=== PATIENT | female | born 1930 | race Caucasian/White ===

== ENCOUNTER 2016-12-31 11:18 | Emergency (ER) | payer MEDICARE ==
[~2016-12-31] VITALS: Ht 154.9 cm; Wt 79.7 kg
[~2016-12-31 11:18] MED LIST: ASPI81TA81 PO; ATOR40TA16 PO; COQ-100C2; EZET10 PO; LOSA25TA PO; METO50TA PO; NITR1SUB3 SL; POTA10TA8 PO; SOTA80TA PO; TRAZ50TA12 PO; WARF-58 PO
[2016-12-31 11:23] VITALS: BP 195/96; PULSE 78; RESP 20; TEMP 97.3; O2SAT 99
[2016-12-31] MEDS ORDERED: WARF4TAB52 PO (11:54)
[2016-12-31] MEDS ORDERED: CARV80 PO (11:54)
[2016-12-31] MEDS ORDERED: COQ-30CA2 (11:54)
[2016-12-31] MEDS ORDERED: CENTCHW4 CHEW (11:54)
[2016-12-31] MEDS ORDERED: POTA10TA2 PO (11:54)
[2016-12-31 12:07] LABS: BLOOD, URINE LARGE (NEG); GLUCOSE,URINE NEG (NEG); KETONE, URINE NEG (NEG); NITRITE,URINE NEG (NEG)
[2016-12-31] MEDS ORDERED: SODIUM CHLOR 0.9% 1000 ML INJ 1,000 ML IV ONE (12:07)
[2016-12-31 12:08] LABS: METHOD OF COLLECTION CLEAN CATCH; URINE COLOR YELLOW (YELLW/STRAW)
--- NOTE | 2016-12-31 12:12 | PD ---
HPI Chief Complaint: Back/ Neck Pain or Injury Time Seen by Provider: 12:01 Travel History International Travel<30 days: No Contact w/Intl Traveler<30days: No Traveled to known affect area: No History of Present Illness HPI patient c/o one day history of right flank pain, nonrad, 09/14, assoc with nausea but without v/d. patient has no aggravating or alleviating factors. per pt pcp dr madden she had a cat scan months ago which showed multiple kidney stones. all:plavix caused rash PFSH Past Medical History Hx Anticoagulant Therapy: Yes Arthritis: Yes Cancer: No Cardiac Catheterization: Yes Cardiovascular Problems: Yes (PACER) High Cholesterol: Yes Chest Pain: Yes Diminished Hearing: Yes Endocrine: No Genitourinary: No Hypertension: Yes Immune Disorder: No Psychiatric: No Reproductive: No Menopausal: Yes Past Surgical History Appendectomy: Yes Body Medical Devices: CARDIAC STENTS Cardiac Surgery: Yes (PACEMAKER PLACED) Coronary Stent: Yes (X 5) Genitourinary Surgery: Yes (BLADDER SUSPENSION) Hysterectomy: Yes Joint Replacement: Yes (BILATERAL KNEE) Pacemaker: Yes Other Surgery: Yes (BILATERAL BREAST LUMPECTOMY) Social History Alcohol Use: No Tobacco Use: No Substance Use: No Allergies-Medications (Allergen,Severity, Reaction): Coded Allergies: clopidogrel (Unverified Allergy, Mild, Hives, 09/20/16) Iodinated Contrast- Oral and IV Dye (Verified Allergy, Unknown, 12/31/16) Reported Meds & Prescriptions Reported Meds & Active Scripts Active Whitmer (Hydrocodone-Acetaminophen) 10-325 Mg Tab 1 Tab PO Q4H PRN Flomax (Tamsulosin HCl) 0.4 Mg Cap 0.4 Mg PO DAILY 5 Days Reported Centrum (Multiple Vitamins W/ Minerals) 1 Chew 1 Tab CHEW DAILY Coq-10 (Coenzyme Q10 (Ubidecarenone)) 30 Mg Cap Coreg Cr 24 HR (Carvedilol) 80 Mg Cap 80 Mg PO DAILY Potassium Chloride ER (Potassium Chloride) 10 Meq Tab 50 Meq PO DAILY Warfarin 1 Mg Tab 0.5 Mg PO SUNDAY AND SUNDAY Sotalol (Sotalol HCl) 80 Mg Tab 80 Mg PO BID Aspir-81 (Aspirin) 81 Mg Tabdr 81 Mg PO , , W, , SA Losartan (Losartan Potassium) 25 Mg Tab 80 Mg PO BID Warfarin 3 Mg Tab 1.5 Mg PO DAILY Review of Systems Except as stated in HPI: all other systems reviewed are Neg General / Constitutional: No: Fever Eyes: No: Visual changes HENT: No: Headaches Cardiovascular: No: Chest Pain or Discomfort Respiratory: No: Shortness of Breath Gastrointestinal: No: Abdominal Pain Genitourinary: Positive: Flank Pain Musculoskeletal: No: Pain Skin: No Rash Neurologic: No: Weakness Psychiatric: No: Depression Endocrine: No: Polydipsia Hematologic/Lymphatic: No: Easy Bruising Physical Exam Narrative GENERAL: SKIN: Warm and dry. HEAD: Atraumatic. Normocephalic. EYES: Pupils equal and round. No scleral icterus. No injection or drainage. ENT: No nasal bleeding or discharge. Mucous membranes pink and moist. NECK: Trachea midline. No JVD. CARDIOVASCULAR: Regular rate and rhythm. RESPIRATORY: No accessory muscle use. Clear to auscultation. Breath sounds equal bilaterally. GASTROINTESTINAL: Abdomen soft, non-tender, nondistended. MUSCULOSKELETAL: Extremities without clubbing, cyanosis, or edema. No obvious deformities. mild rt cva ttp NEUROLOGICAL: Awake and alert. No obvious cranial nerve deficits. Motor grossly within normal limits. Five out of 5 muscle strength in the arms and legs. Normal speech. PSYCHIATRIC: Appropriate mood and affect; insight and judgment normal. Data Data Last Documented VS Orders Orders Urinalysis - C+S If Indicated (12/31/16 11:54) Complete Blood Count With Diff (12/31/16 12:07) Comprehensive Metabolic Panel (12/31/16 12:07) Ct Abd/Pel W/O Iv Contrast (12/31/16 12:07) Ecg Monitoring (12/31/16 12:07) Iv Access Insert/Monitor (12/31/16 12:07) Ketorolac Inj (Toradol Inj) (12/31/16 12:15) Morphine Inj (Morphine Inj) (12/31/16 12:15) Ondansetron Inj (Zofran Inj) (12/31/16 12:15) Sodium Chlor 0.9% 1000 Ml Inj (Ns 1000 M (12/31/16 12:07) Lipase (12/31/16 12:07) Ed Discharge Order (12/31/16 14:35) Labs Laboratory Tests Test 12/31/16 11:55 12/31/16 12:40 Urine Collection Type CLEAN CATCH Urine Color YELLOW Urine Turbidity MOD Urine pH 6.0 Urine Specific [place] 1.016 Urine Protein TRACE mg/dL Urine Glucose (UA) NEG mg/dL Urine Ketones NEG mg/dL Urine Occult Blood LARGE Urine Nitrite NEG Urine Bilirubin NEG Urine Leukocyte Esterase SMALL Urine RBC 100-200 /hpf Urine WBC 6-8 /hpf Urine Squamous Epithelial Cells 0-5 /hpf Urine Amorphous Sediment FEW Microscopic Urinalysis Comment CULT NOT INDICATED Urine Collection Time 1155 White Blood Count 7.2 TH/MM3 Red Blood Count 4.64 MIL/MM3 Hemoglobin 15.2 GM/DL Hematocrit 44.6 % Mean Corpuscular Volume 96.0 FL Mean Corpuscular Hemoglobin 32.8 PG Mean Corpuscular Hemoglobin Concent 34.1 % Red Cell Distribution Width 12.0 % Platelet Count 180 TH/MM3 Mean Platelet Volume 8.4 FL Neutrophils (%) (Auto) 60.2 % Lymphocytes (%) (Auto) 25.9 % Monocytes (%) (Auto) 8.0 % Eosinophils (%) (Auto) 5.1 % Basophils (%) (Auto) 0.8 % Neutrophils # (Auto) 4.2 TH/MM3 Lymphocytes # (Auto) 1.9 TH/MM3 Monocytes # (Auto) 0.6 TH/MM3 Eosinophils # (Auto) 0.4 TH/MM3 Basophils # (Auto) 0.1 TH/MM3 CBC Comment DIFF FINAL Differential Comment Blood Urea Nitrogen 21 MG/DL Creatinine 0.99 MG/DL Random Glucose 114 MG/DL Total Protein 7.2 GM/DL Albumin 3.6 GM/DL Calcium Level 9.3 MG/DL Alkaline Phosphatase 111 U/L Aspartate Amino Transf (AST/SGOT) 30 U/L Alanine Aminotransferase (ALT/SGPT) 33 U/L Total Bilirubin 0.9 MG/DL Sodium Level 139 MEQ/L Potassium Level 4.7 MEQ/L Chloride Level 105 MEQ/L Carbon Dioxide Level 27.3 MEQ/L Anion Gap 7 MEQ/L Estimat Glomerular Filtration Rate 53 ML/MIN Lipase 194 U/L [facility] Medical Decision Making Medical Screen Exam Complete: Yes Emergency Medical Condition: Yes Medical Record Reviewed: Yes Differential Diagnosis pyelo v kidney stones v uti v pancreatitis Narrative Course ON UA NO E/O UTI, LIPASE NL, BUT CT SHOWED RIGHT URETEROLITHIASIS WITH HYDRO NEAR DISTAL URETER...STONE IS OF A SIZE (5MM) THAT IS EXPECTED TO PASS WITHOUT UROLOGICAL INTERVENTION Diagnosis Primary Impression: RIGHT URETEROLITHIASIS Patient Instructions: General Instructions, Kidney Stones (ED) Scripts Hydrocodone-Acetaminophen (Whitmer) 10-325 Mg Tab 1 TAB PO Q4H Y for PAIN, #15 TAB 0 Refills Prov: Chris Mccratney MD 12/31/16 Tamsulosin (Flomax) 0.4 Mg Cap 0.4 MG PO DAILY for Manage Prostate Problems for 5 Days, #5 CAP 0 Refills Prov: Chris Mccartney MD 12/31/16 Disposition: 01 DISCHARGE HOME Condition: Stable Chris Mccartney MD Dec 31, 2016 12:12
[2016-12-31 12:14] LABS: COMMENT (UR) CULT NOT INDICATED; CULTURE IF INDICATED CULT NOT INDICATED; RBC, URINE 100-200 /hpf (0-3); SQUAMOUS EPITHELIAL CELL URINE 0-5 /hpf (0-5)
[2016-12-31] MEDS ORDERED: KETOROLAC TROMETHAMINE 30 MG/ML (IVP) VIAL IV PUSH ONE (12:15)
[2016-12-31] MEDS ORDERED: ONDANSETRON HCL 4 MG/2 ML VIAL IV PUSH ONE (12:15)
[2016-12-31] MEDS ORDERED: MORPHINE SULFATE 4 MG/ML INJ IV PUSH ONE (12:15)
[2016-12-31 12:46] LABS: AUTOMATED NEUTROPHIL # 4.2 TH/MM3 (1.8-7.7); BASOPHIL # 0.1 TH/MM3 (0-0.2); BASOPHIL % 0.8 % (0.0-2.0); EOSINOPHIL # 0.4 TH/MM3 (0-0.4); EOSINOPHIL % 5.1 % (0.0-4.0); HEMATOCRIT 44.6 % (35.0-46.0); HEMO FLAGS DIFF FINAL; LYMPH % 25.9 % (9.0-44.0); LYMPHOCYTE # 1.9 TH/MM3 (1.0-4.8); MEAN CORPUSCULAR HEMOGLOBIN 32.8 PG (27.0-34.0); MEAN CORPUSCULAR HGB CONC 34.1 % (32.0-36.0); NEUT % 60.2 % (16.0-70.0); PLATELET COUNT 180 TH/MM3 (150-450); RED BLOOD COUNT 4.64 MIL/MM3 (4.00-5.30); WHITE BLOOD COUNT 7.2 TH/MM3 (4.0-11.0)
[2016-12-31 12:55] LABS: CHLORIDE 105 MEQ/L (98-107); POTASSIUM 4.7 MEQ/L (3.5-5.1); SODIUM (NA) 139 MEQ/L (136-145)
[2016-12-31 12:59] LABS: ANION GAP 7 MEQ/L (5-15); BICARBONATE 27.3 MEQ/L (21.0-32.0); BLOOD UREA NITROGEN 21 MG/DL (7-18)
[2016-12-31 13:02] LABS: ALT (GPT) 33 U/L (10-53); AST (GOT) 30 U/L (15-37); GLOMERULAR FILTRATION RATE 53 ML/MIN (>89)
[2016-12-31 13:04] LABS: TOTAL BILIRUBIN ADULT 0.9 MG/DL (0.2-1.0)
[2016-12-31 13:05] LABS: ALKALINE PHOSPHATASE 111 U/L (45-117)
--- NOTE | 2016-12-31 13:51 | RADRPT ---
EXAM DATE/TIME: 12/31/2016 13:07 [facility] COMPARISON: No previous studies available for comparison. INDICATIONS : Right flank pain. Evaluate for renal calculi. ORAL CONTRAST: No oral contrast ingested. RADIATION DOSE: 22.47 CTDIvol (mGy) MEDICAL HISTORY : Cardiovascular disease. Hypertension. SURGICAL HISTORY : Coronary artery stent. Pacemaker.Hysterectomy.Appendectomy. ENCOUNTER: Initial ACUITY: 3 days PAIN SCALE: 0/10 LOCATION: Right flank TECHNIQUE: Volumetric scanning of the abdomen and pelvis was performed. Using automated exposure control and ad justment of the mA and/or kV according to patient size, radiation dose was kept as low as reasonably achievable to obtain optimal diagnostic quality images. DICOM format image data is available electro nically for review and comparison. FINDINGS: LOWER LUNGS: The visualized lower lungs are clear. LIVER: 1.8 cm cyst medial segment left lobe. No calcified gallstones. No dilated loops of small or large b owel. SPLEEN: Normal size without lesion. PANCREAS: Within normal limits. KIDNEYS: There is mild dilation of the collecting system of the right kidney, moderate dilation of the extrare nal pelvis and right ureter down to the distal one third where there is a 5 mm calcified obstructing stone. There are 4 additional calcified stones in the collecting system of the right kidney measurin g 4 mm or less. On the left side, there is a solitary 3 mm calcified stone upper pole hydronephrosis . Left ureter is normal in dimension without evidence of calcified stones. ADRENAL GLANDS: Within normal limits. VASCULAR: There is no aortic aneurysm. BOWEL/MESENTERY: No dilated loops of small or large bowel. ABDOMINAL WALL: Within normal limits. RETROPERITONEUM: There is no lymphadenopathy. BLADDER: Smooth margins. No calcifications within the lumen. Normal calcified phleboliths in the pelvis. REPRODUCTIVE: Within normal limits. INGUINAL: There is no lymphadenopathy or hernia. MUSCULOSKELETAL: Within normal limits for patient age. CONCLUSION: 1. 5 mm obstructing stone in the distal right ureter with associated hydroureter and hydronephrosis. 2. 4 additional stones in the collecting system the right kidney and one nonobstructing stone upper p ole left kidney. Rey Randall MD on December 31, 2016 at 13:34 Board Certified Radiologist. This report was verified electronically.
[2016-12-31] MEDS ORDERED: TAMS5CAP PO (14:03)
[2016-12-31] MEDS ORDERED: HYDR-3366 PO (14:03)
== END 2016-12-31 14:51 | disposition home or self-care (01) ==
LOC: PHEFT 11:18
DX: N13.2 Hydronephrosis with renal and ureteral calculous obstruction (principal); I10 Essential (primary) hypertension
CPT/HCPCS: 74176; 80053; 81001; 83690; 85025; 96361; 96374; 96375; 99285; J1885; J2270; J2405; J7030

== ENCOUNTER 2017-04-29 08:49 | Inpatient (IN) | payer MEDICARE ==
[2017-04-29] VITALS (30 sets, daily range): BP systolic 122–170; BP diastolic 60–97; PULSE 72–149; RESP 17–36; TEMP 98.2; O2SAT 87–100
[~2017-04-29] VITALS: Ht 154.9 cm; Wt 83.9 kg
[~2017-04-29 08:49] MED LIST changes: -ATOR40TA16 PO; +CARV80 PO; +CENTCHW4 CHEW; -COQ-100C2; +COQ-30CA2 PO; -EZET10 PO; +HYDR-3366 PO; -METO50TA PO; -NITR1SUB3 SL; +POTA10TA2 PO; -POTA10TA8 PO; +TAMS5CAP PO; -TRAZ50TA12 PO; +WARF4TAB52 PO
[2017-04-29] MEDS ORDERED: SODIUM CHLORIDE 0.9% FLUSH 10 ML FLUSH IVF PRN (09:15)
[2017-04-29] MEDS ORDERED: ASPIRIN 81 MG CHEW TAB PO ONE (09:15)
[2017-04-29] MEDS ORDERED: DILTIAZEM HCL 50 MG/10 ML VIAL ONE (09:25)
[2017-04-29 09:30] LABS: AUTOMATED NEUTROPHIL # 9.8 TH/MM3 (1.8-7.7); BASOPHIL % 0.1 % (0.0-2.0); EOSINOPHIL % 0.1 % (0.0-4.0); HEMATOCRIT 47.8 % (35.0-46.0); HEMOGLOBIN 16.9 GM/DL (11.6-15.3); LYMPH % 10.2 % (9.0-44.0); LYMPHOCYTE # 1.2 TH/MM3 (1.0-4.8); MEAN CELL VOLUME 97.6 FL (80.0-100.0); MEAN CORPUSCULAR HEMOGLOBIN 34.5 PG (27.0-34.0); MEAN CORPUSCULAR HGB CONC 35.3 % (32.0-36.0); MEAN PLATELET VOLUME 9.6 FL (7.0-11.0); MONO % 9.2 % (0.0-8.0); MONOCYTE # 1.1 TH/MM3 (0-0.9); NEUT % 80.4 % (16.0-70.0); PLATELET COUNT 142 TH/MM3 (150-450); RED CELL DISTRIBUTION WIDTH 12.1 % (11.6-17.2); WHITE BLOOD COUNT 12.2 TH/MM3 (4.0-11.0)
[2017-04-29] MEDS ORDERED: DILTIAZEM HCL 50 MG/10 ML VIAL IV PUSH ONE (09:30)
[2017-04-29] MEDS ORDERED: DILTIAZEM HCL 25 MG/5 ML VIAL IV PUSH ONE (09:30)
--- NOTE | 2017-04-29 09:32 | PD ---
HPI Chief Complaint: Respiratory Symptoms Time Seen by Provider: 08:58 Travel History International Travel<30 days: No Contact w/Intl Traveler<30days: No Traveled to known affect area: No History of Present Illness HPI Patient is an 86-year-old female presents the emergency department for evaluation of cough chest pain and dyspnea over the past week. Patient denies any fever denies any sputum production. She states she has been progressive and she feels fairly run down. She received DuoNeb by EMS prior to arrival for her saturation low at 91. She describes the pain as an ache, all through her chest, she states fairly constant. PFSH Past Medical History Hx Anticoagulant Therapy: Yes Arthritis: Yes Atrial Fibrillation: Yes Cancer: No Cardiac Catheterization: Yes (PACEMAKER) Cardiovascular Problems: Yes High Cholesterol: Yes Chest Pain: Yes Diminished Hearing: Yes (HEARING AIDS) Endocrine: No Genitourinary: No Hypertension: Yes Immune Disorder: No Psychiatric: No Reproductive: No Menopausal: Yes : 7 Para: 3 Past Surgical History Appendectomy: Yes Body Medical Devices: CARDIAC STENTS Cardiac Surgery: Yes (PACEMAKER PLACED) Coronary Stent: Yes (X 5) Genitourinary Surgery: Yes (BLADDER SUSPENSION) Hysterectomy: Yes Joint Replacement: Yes (BILATERAL KNEE) Pacemaker: Yes Tonsillectomy: Yes Other Surgery: Yes (BILATERAL BREAST LUMPECTOMY) Social History Alcohol Use: No Tobacco Use: No Substance Use: No Allergies-Medications (Allergen,Severity, Reaction): Coded Allergies: clopidogrel (Unverified Allergy, Mild, Hives, 04/29/17) Iodinated Contrast- Oral and IV Dye (Verified Allergy, Unknown, 04/29/17) Reported Meds & Prescriptions Reported Meds & Active Scripts Active Reported Hydrochlorothiazide 12.5 Mg Cap 0.5 Tab PO DAILY Atorvastatin (Atorvastatin Calcium) 40 Mg Tab 40 Mg PO HS Centrum (Multiple Vitamins W/ Minerals) 1 Chew 1 Tab CHEW DAILY Coq-10 (Coenzyme Q10 (Ubidecarenone)) 30 Mg Cap 200 Mg PO DAILY Coreg Cr 24 HR (Carvedilol) 80 Mg Cap 80 Mg PO DAILY Potassium Chloride ER (Potassium Chloride) 10 Meq Tab 50 Meq PO DAILY Warfarin 1 Mg Tab 1.5 Mg PO SUN,TUES,THURS,SAT Sotalol (Sotalol HCl) 80 Mg Tab 120 Mg PO BID Aspir-81 (Aspirin) 81 Mg Tabdr 81 Mg PO CORONEL, TU, W, TH, SA Losartan (Losartan Potassium) 25 Mg Tab 50 Mg PO BID Warfarin 3 Mg Tab 2 Mg PO MWF Review of Systems Except as stated in HPI: all other systems reviewed are Neg Physical Exam Narrative GENERAL: Well-developed well-nourished, appears ill. SKIN: Focused skin assessment warm/dry. HEAD: Atraumatic. Normocephalic. EYES: Pupils equal and round. No scleral icterus. No injection or drainage. ENT: No nasal bleeding or discharge. Mucous membranes pink and moist. NECK: Trachea midline. No JVD. CARDIOVASCULAR: Regular rate and rhythm. No murmur appreciated. RESPIRATORY: No accessory muscle use. Clear to auscultation. Breath sounds equal bilaterally. GASTROINTESTINAL: Abdomen soft, non-tender, nondistended. Hepatic and splenic margins not palpable. MUSCULOSKELETAL: No obvious deformities. No clubbing. No cyanosis. No edema. NEUROLOGICAL: Awake and alert. No obvious cranial nerve deficits. Motor grossly within normal limits. Normal speech. PSYCHIATRIC: Appropriate mood and affect; insight and judgment normal. Data Data Last Documented VS Vital Signs Date Time Temp Pulse Resp B/P (MAP) Pulse Ox O2 Delivery O2 Flow Rate FiO2 04/29/17 10:45 124 27 150/67 (94) 95 Nasal Cannula 3.00 04/29/17 09:10 98.2 Orders Orders B-Type Natriuretic Peptide (04/29/17 09:09) Ckmb (Isoenzyme) Profile (04/29/17 09:09) Complete Blood Count With Diff (04/29/17 09:09) Comprehensive Metabolic Panel (04/29/17 09:09) Magnesium (Mg) (04/29/17 09:09) Prothrombin Time / Inr (Pt) (04/29/17 09:09) Act Partial Throm Time (Ptt) (04/29/17 09:09) Troponin I (04/29/17 09:09) Chest, Single Ap (04/29/17 09:09) Ecg Monitoring (04/29/17 09:09) Iv Access Insert/Monitor (04/29/17 09:09) Oximetry (04/29/17 09:09) Oxygen Administration (04/29/17 09:09) Aspirin Chew (Aspirin Chew) (04/29/17 09:15) Sodium Chloride 0.9% Flush (Ns Flush) (04/29/17 09:15) Lactic Acid (04/29/17 09:09) Blood Culture (04/29/17 09:09) Diltiazem Inj (Cardizem Inj) (04/29/17 09:25) Diltiazem Inj (Cardizem Inj) (04/29/17 09:30) CKMB (04/29/17 09:20) CKMB% (04/29/17 09:20) Ceftriaxone Inj (Rocephin Inj) (04/29/17 10:15) Azithromycin Inj (Zithromax Inj) (04/29/17 10:15) Sodium Chlorid 0.9% 500 Ml Inj (Ns 500 M (04/29/17 10:15) Vital Signs (Adult) Q15MX4,Q4H (04/29/17 10:33) Cardiac Rhythm BOZENA.Q8H (04/29/17 10:33) Notify Dr: Other (04/29/17 10:33) Diltiazem Inj (Cardizem Inj) (04/29/17 10:45) Diltiazem Inj (Cardizem Inj) (04/29/17 11:00) Admit Order (Ed Use Only) (04/29/17 ) Labs Laboratory Tests Test 04/29/17 09:20 White Blood Count 12.2 TH/MM3 Red Blood Count 4.90 MIL/MM3 Hemoglobin 16.9 GM/DL Hematocrit 47.8 % Mean Corpuscular Volume 97.6 FL Mean Corpuscular Hemoglobin 34.5 PG Mean Corpuscular Hemoglobin Concent 35.3 % Red Cell Distribution Width 12.1 % Platelet Count 142 TH/MM3 Mean Platelet Volume 9.6 FL Neutrophils (%) (Auto) 80.4 % Lymphocytes (%) (Auto) 10.2 % Monocytes (%) (Auto) 9.2 % Eosinophils (%) (Auto) 0.1 % Basophils (%) (Auto) 0.1 % Neutrophils # (Auto) 9.8 TH/MM3 Lymphocytes # (Auto) 1.2 TH/MM3 Monocytes # (Auto) 1.1 TH/MM3 Eosinophils # (Auto) 0.0 TH/MM3 Basophils # (Auto) 0.0 TH/MM3 CBC Comment DIFF FINAL Differential Comment Prothrombin Time 13.4 SEC Prothromb Time International Ratio 1.3 RATIO Activated Partial Thromboplast Time 39.7 SEC Blood Urea Nitrogen 15 MG/DL Creatinine 1.09 MG/DL Random Glucose 158 MG/DL Total Protein 7.2 GM/DL Albumin 3.2 GM/DL Calcium Level 8.6 MG/DL Magnesium Level 1.6 MG/DL Alkaline Phosphatase 83 U/L Aspartate Amino Transf (AST/SGOT) 39 U/L Alanine Aminotransferase (ALT/SGPT) 27 U/L Total Bilirubin 0.7 MG/DL Sodium Level 133 MEQ/L Potassium Level 3.5 MEQ/L Chloride Level 94 MEQ/L Carbon Dioxide Level 24.8 MEQ/L Anion Gap 14 MEQ/L Estimat Glomerular Filtration Rate 48 ML/MIN Lactic Acid Level 2.1 mmol/L Total Creatine Kinase 396 U/L Creatine Kinase MB 1.8 NG/ML Creatine Kinase MB % 0.5 % Troponin I 0.03 NG/ML B-Type Natriuretic Peptide 523 PG/ML MDM Medical Decision Making Medical Screen Exam Complete: Yes Emergency Medical Condition: Yes Differential Diagnosis Sepsis, pneumonia, atrial fibrillation RVR, dehydration, electrolyte abnormality. Narrative Course Patient was room to the emergency department, she was started on Cardizem drip, broad-spectrum antibiotics. She has had some desaturations in the emergency department to the 70s, she is requiring a nonrebreather later in her ER course. She only received 500 cc fluid bolus because she has a history of CHF. She remains keenly alert and awake while in the ER, given that she is requiring nonrebreather of discussed with Dr. Marie we will upgrade her to [facility] status, for the time being he is comfortable keeping the patient on his service. This was discussed with the patient and she is agreeable as well per Critical Care Narrative Aggregate critical care time was 35 minutes. Time to perform other separately billable procedures was not included in the critical care time. My time did not include minutes spent treating any other patients simultaneously or on activities that did not directly contribute to the patient's treatment. The services I provided to this patient were to treat and/or prevent clinically significant deterioration that could result in: , disability, organ failure I provided critical care services requiring my management, as noted below: Chart data review, documentation time, medication orders and management, vital sign assessments/reviewing monitor data, ordering and reviewing lab tests, ordering and interpreting/reviewing x-rays and diagnostic studies, care of the patient and discussion of the patient with the admitting physicians. Diagnosis Primary Impression: Pneumonia Additional Impressions: Sepsis Atrial fibrillation with RVR Admitting Information Admitting Physician Requests: Admit Condition: Mark Anthony Bonilla MD Apr 29, 2017 09:32
--- NOTE | 2017-04-29 09:39 | RADRPT ---
EXAM DATE/TIME: 04/29/2017 09:15 [facility] COMPARISON: No previous studies available for comparison. INDICATIONS : Chest pain. Short of breath. MEDICAL HISTORY : Cardiovascular disease. Hypertension. SURGICAL HISTORY : Coronary artery stent. Pacemaker.Hysterectomy.Appendectomy. ENCOUNTER: Initial ACUITY: 1 day PAIN SCORE: 1/10 LOCATION: Bilateral chest FINDINGS: Right basilar patchy consolidation is consistent with probable pneumonia. Clinical correlation is rec ommended. Left subclavian pacemaker leads are in good positions. The heart is normal. The pulmonary v ascular pattern is normal. CONCLUSION: Right basilar patchy consolidation consistent with probable pneumonia. Clinical correlation is recomm ended. Mark Anthony Bruce MD on April 29, 2017 at 9:36 Board Certified Radiologist. This report was verified electronically.
[2017-04-29 09:42] LABS: INTERNATIONAL NORMALIZED RATIO 1.3 RATIO; PROTHROMBIN TIME - PATIENT 13.4 SEC (9.8-11.6)
[2017-04-29 09:48] LABS: ALBUMIN 3.2 GM/DL (3.4-5.0); AST (GOT) 39 U/L (15-37); BICARBONATE 24.8 MEQ/L (21.0-32.0); BLOOD UREA NITROGEN 15 MG/DL (7-18); CALCIUM 8.6 MG/DL (8.5-10.1); CHLORIDE 94 MEQ/L (98-107); CREATININE 1.09 MG/DL (0.50-1.00); GLOMERULAR FILTRATION RATE 48 ML/MIN (>89); GLUCOSE,RANDOM 158 MG/DL (74-106); MAGNESIUM 1.6 MG/DL (1.5-2.5); SODIUM (NA) 133 MEQ/L (136-145)
[2017-04-29 09:49] LABS: ALT (GPT) 27 U/L (10-53)
[2017-04-29 09:53] LABS: ALKALINE PHOSPHATASE 83 U/L (45-117); TOTAL BILIRUBIN ADULT 0.7 MG/DL (0.2-1.0); TOTAL PROTEIN 7.2 GM/DL (6.4-8.2); TROPONIN I 0.03 NG/ML (0.02-0.05)
[2017-04-29] MEDS ORDERED: AZITHROMYCIN INJ 500 MG in SODIUM CHLOR 0.9% 250 ML INJ 250 ML IV ONE (10:15)
[2017-04-29] MEDS ORDERED: cefTRIAXone INJ 1,000 MG in SODIUM CHLORIDE 0.9% INJ 100 ML IV ONE (10:15)
[2017-04-29] MEDS ORDERED: SODIUM CHLORID 0.9% 500 ML INJ 500 ML IV ONE (10:15)
[2017-04-29] MEDS ORDERED: NALOXONE HCL 0.4 MG/ML AMP IV PUSH PRN (11:00)
[2017-04-29] MEDS ORDERED: DILTIAZEM HCL 25 MG/5 ML VIAL IV PUSH PRN (11:00)
[2017-04-29] MEDS ORDERED: MAGNESIUM HYDROXIDE SUSP 30 ML CUP PO PRN (11:00)
--- NOTE | 2017-04-29 11:02 | HHI.HP ---
[facility] Dominga Bird MD Admission Diagnosis Pneumonia, Afib RVR, Sepsis. Diagnoses: Travel History International Travel<30 Days: No Contact w/Intl Traveler <30 Da: No Traveled to Known Affected Are: No History of Present Illness Mrs. Le is an 86 year old female. She comes into the emergency department in respiratory distress. She has had an upper respiratory tract infection for approximately one week which has been graduating in severity. Her daughter has been hospitalized for similar condition. Imaging shows she has a pneumonia and telemetry shows she is in A. fib RVR. A. fib RVR is likely triggered from pneumonia. She has baseline atrial fibrillation. Chest pain has been present but is pleuritic in nature. Antibiotics were given in the ER. Subsequently she had an increase in respiratory distress and has been graduated from a nasal cannula to nonrebreather. She is doing well with a nonrebreather. Etiology for this exacerbation may be an inflammatory response related to the antibiotic killing bacteria. No other complaints are present at this time. She does not have a history of asthma or COPD. No history of smoking. Review of Systems Constitutional: COMPLAINS OF: Fatigue, DENIES: Fever, Chills Eyes: DENIES: Blurred vision, Diplopia, Eye inflammation, Eye pain Ears, nose, mouth, throat: DENIES: Tinnitus, Hearing loss, Vertigo, Nasal discharge Respiratory: COMPLAINS OF: Cough, Wheezing, Shortness of breath Cardiovascular: DENIES: Chest pain, Palpitations, Syncope Gastrointestinal: DENIES: Abdominal pain, Black stools, Bloody stools Musculoskeletal: DENIES: Joint pain, Muscle aches, Stiffness Integumentary: DENIES: Abnormal pigmentation, Pruritus, Rash, Nail changes Hematologic/lymphatic: DENIES: Bruising, Lymphadenopathy Immunologic/allergic: DENIES: Eczema, Urticaria Neurologic: DENIES: Abnormal gait, Headache, Paresthesias Psychiatric: DENIES: Anxiety, Confusion, Hallucinations Past Family Social History Past Medical History Atrial fibrillation Osteoarthritis Hyperlipidemia Coronary artery disease History of angina Presbycusis Hypertension Past Surgical History Appendectomy History of coronary stents 5 Pacemaker Bladder suspension Hysterectomy Bilateral knee replacement surgeries Tonsillectomy Bilateral breast lumpectomy Reported Medications Reported Meds & Active Scripts Active Reported Centrum (Multiple Vitamins W/ Minerals) 1 Chew 1 Tab CHEW DAILY Coq-10 (Coenzyme Q10 (Ubidecarenone)) 30 Mg Cap 200 Mg PO DAILY Coreg Cr 24 HR (Carvedilol) 80 Mg Cap 80 Mg PO DAILY Potassium Chloride ER (Potassium Chloride) 10 Meq Tab 50 Meq PO DAILY Warfarin 1 Mg Tab 1.5 Mg PO SUN,,TH,SAT Sotalol (Sotalol HCl) 80 Mg Tab 120 Mg PO BID Aspir-81 (Aspirin) 81 Mg Tabdr 81 Mg PO CORONEL, , W, TH, SA Losartan (Losartan Potassium) 25 Mg Tab 80 Mg PO BID Warfarin 3 Mg Tab 2 Mg PO MWF Allergies: Coded Allergies: clopidogrel (Unverified Allergy, Mild, Hives, 04/29/17) Iodinated Contrast- Oral and IV Dye (Verified Allergy, Unknown, 04/29/17) Social History No smoking No alcohol abuse Illicit drug abuse Physical Exam Vital Signs Vital Signs Date Time Temp Pulse Resp B/P (MAP) Pulse Ox O2 Delivery O2 Flow Rate FiO2 04/29/17 09:40 Nasal Cannula 4.00 04/29/17 09:38 88 36 138/66 (90) 87 Nasal Cannula 2.00 04/29/17 09:13 91 Room Air 04/29/17 09:13 Nasal Cannula 2.00 04/29/17 09:10 98.2 149 36 125/60 (81) 91 Room Air Physical Exam GENERAL: This is a well-nourished, well-developed patient, in no apparent distress. SKIN: No rashes, ecchymoses or lesions. Cool and dry. HEAD: Atraumatic. Normocephalic. No temporal or scalp tenderness. EYES: Pupils equal round and reactive. Extraocular motions intact. No scleral icterus. No injection or drainage. ENT: Nose without bleeding, purulent drainage or septal hematoma. Throat without erythema, tonsillar hypertrophy or exudate. Uvula midline. Airway patent. NECK: Trachea midline. No JVD or lymphadenopathy. Supple, nontender, no meningeal signs. CARDIOVASCULAR: Regular rate and rhythm without murmurs, gallops, or rubs. RESPIRATORY: Clear to auscultation. Breath sounds equal bilaterally. No wheezes , rales, or rhonchi. GASTROINTESTINAL: Abdomen soft, non-tender, nondistended. No hepato-splenomegaly , or palpable masses. No guarding. MUSCULOSKELETAL: Extremities without clubbing, cyanosis, or edema. No joint tenderness, effusion, or edema noted. No calf tenderness. Negative Homans sign bilaterally. NEUROLOGICAL: Awake and alert. Cranial nerves II through XII intact. Motor and sensory grossly within normal limits. Five out of 5 muscle strength in all muscle groups. Normal speech. Laboratory Laboratory Tests Test 04/29/17 09:20 White Blood Count 12.2 Red Blood Count 4.90 Hemoglobin 16.9 Hematocrit 47.8 Mean Corpuscular Volume 97.6 Mean Corpuscular Hemoglobin 34.5 Mean Corpuscular Hemoglobin Concent 35.3 Red Cell Distribution Width 12.1 Platelet Count 142 Mean Platelet Volume 9.6 Neutrophils (%) (Auto) 80.4 Lymphocytes (%) (Auto) 10.2 Monocytes (%) (Auto) 9.2 Eosinophils (%) (Auto) 0.1 Basophils (%) (Auto) 0.1 Neutrophils # (Auto) 9.8 Lymphocytes # (Auto) 1.2 Monocytes # (Auto) 1.1 Eosinophils # (Auto) 0.0 Basophils # (Auto) 0.0 CBC Comment DIFF FINAL Differential Comment Prothrombin Time 13.4 Prothromb Time International Ratio 1.3 Activated Partial Thromboplast Time 39.7 Blood Urea Nitrogen 15 Creatinine 1.09 Random Glucose 158 Total Protein 7.2 Albumin 3.2 Calcium Level 8.6 Magnesium Level 1.6 Alkaline Phosphatase 83 Aspartate Amino Transf (AST/SGOT) 39 Alanine Aminotransferase (ALT/SGPT) 27 Total Bilirubin 0.7 Sodium Level 133 Potassium Level 3.5 Chloride Level 94 Carbon Dioxide Level 24.8 Anion Gap 14 Estimat Glomerular Filtration Rate 48 Lactic Acid Level 2.1 Total Creatine Kinase 396 Creatine Kinase MB 1.8 Creatine Kinase MB % 0.5 Troponin I 0.03 B-Type Natriuretic Peptide 523 Date/Time Source Procedure Growth Status 04/29/17 09:20 Blood Peripheral Aerobic Blood Culture Pending Received 04/29/17 09:20 Blood Peripheral Anaerobic Blood Culture Pending Received Result Diagram: 04/29/1791904/29/17919 Caprini VTE Risk Assessment Caprini VTE Risk Assessment: Mod/High Risk (score >= 2) Caprini Risk Assessment Model Point Value = 1 Point Value = 2 Point Value = 3 Point Value = 5 Age 41-60 Minor surgery BMI > 25 kg/m2 Swollen legs Varicose veins or History of unexplained or recurrent spontaneous Oral contraceptives or hormone replacement Sepsis (< 1 month) Serious lung disease, including pneumonia (< 1 month) Abnormal pulmonary function Acute myocardial infarction Congestive heart failure (< 1 month) History of inflammatory bowel disease Medical patient at bed rest Age 61-74 Arthroscopic surgery Major open surgery (> 45 min) Laparoscopic surgery (> 45 min) Malignancy Confined to bed (> 72 hours) Immobilizing plaster cast Central venous access Age >= 75 History of VTE Family history of VTE Factor V Leiden Prothrombin [id number] Lupus anticoagulant Anticardiolipin antibodies Elevated serum homocysteine Heparin-induced thrombocytopenia Other congenital or acquired thrombophilia Stroke (< 1 month) Elective arthroplasty Hip, pelvis, or leg fracture Acute spinal cord injury (< 1 month) Prophylaxis Regimen Total Risk Factor Score Risk Level Prophylaxis Regimen 0-1 Low Early ambulation 2 Moderate Order ONE of the following: *Sequential Compression Device (SCD) *Heparin 5000 units SQ BID 3-4 Higher Order ONE of the following medications: *Heparin 5000 units SQ TID *Enoxaparin/Lovenox 40 mg SQ daily (WT < 150 kg, CrCl > 30 mL/min) *Enoxaparin/Lovenox 30 mg SQ daily (WT < 150 kg, CrCl > 10-29 mL/min) *Enoxaparin/Lovenox 30 mg SQ BID (WT < 150 kg, CrCl > 30 mL/min) AND/OR *Sequential Compression Device (SCD) 5 or more Highest Order ONE of the following medications: *Heparin 5000 units SQ TID (Preferred with Epidurals) *Enoxaparin/Lovenox 40 mg SQ daily (WT < 150 kg, CrCl > 30 mL/min) *Enoxaparin/Lovenox 30 mg SQ daily (WT < 150 kg, CrCl > 10-29 mL/min) *Enoxaparin/Lovenox 30 mg SQ BID (WT < 150 kg, CrCl > 30 mL/min) AND *Sequential Compression Device (SCD) Assessment and Plan Problem List: (1) Chronic anticoagulation ICD Code: Z79.01 - Chronic anticoagulation Status: Acute (2) GI bleed ICD Code: K92.2 - GI bleed Status: Acute (3) Atrial fibrillation with RVR ICD Code: I48.91 - Unspecified atrial fibrillation Status: Acute (4) Pneumonia ICD Code: J18.9 - Pneumonia, unspecified organism Status: Acute (5) Sepsis ICD Code: A41.9 - Sepsis, unspecified organism Status: Acute (6) Atrial fibrillation ICD Code: I48.91 - Atrial fibrillation Status: Acute (7) Hypokalemia ICD Code: E87.6 - Hypokalemia Status: Acute Assessment and Plan 86 year old female admitted with pneumonia and A-fib RVR Atrial fibrillation Atrial fibrillation with RVR IV diltiazem Monitor on telemetry Continue baseline treatments Continue Coumadin at 2mg daily (currently subtherapeutic on prior dosing, increased slightly now) Follow INR RLL Pneumonia Rocephin Azithromycin Oxygen support as needed Some risk is still present for decompensation Monitor in ICU until respiratory distress improves Hypertension Continue baseline treatment Follow blood pressures Adjust treatments as needed Hyperlipidemia Continue present treatment Follow as an outpatient Coronary artery disease History of angina No chest pain when seen 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 In the case of services not specified as inpatient-only, they are appropriately provided as inpatient services in accordance with the 2-midnight benchmark. Estimated LOS (days): 3 days is the estimated time the patient will need to remain in the hospital, assuming treatment plan goals are met and no additional complications. Post-Hospital Plan: [place] Blake Marie MD Apr 29, 2017 11:02
[2017-04-29] MEDS ORDERED: DILTIAZEM HCL 50 MG/10 ML VIAL IV PRN (11:30)
[2017-04-29] MEDS: MORPHINE SULFATE 4 MG/ML INJ IV PUSH PRN ×2 (11:35→21:46)
[2017-04-29] MEDS ORDERED: ONDANSETRON HCL 4 MG/2 ML VIAL IVP PRN (12:00)
[2017-04-29] MEDS: RESP: ALBUTEROL 2.5 MG/3 ML NEB (PRN) NEB ×2 (12:24→21:50)
[2017-04-29] MEDS: SODIUM CHLOR 0.9% 1000 ML INJ 1,000 ML IV SCH ×2 (12:34→23:00)
[2017-04-29] MEDS: DILTIAZEM INJ 125 MG in SODIUM CHLORIDE 0.9% INJ 100 ML IV PRN (12:41)
[2017-04-29] MEDS ORDERED: ENOXAPARIN SODIUM 40 MG/0.4 ML SYRINGE SQ SCH (14:00)
[2017-04-29] MEDS ORDERED: PILL SPLITTER OTHER PRN (15:45)
[2017-04-29] MEDS ORDERED: HYDR12.57 PO (15:54)
[2017-04-29] MEDS ORDERED: ATOR40TA16 PO (15:54)
[2017-04-29] MEDS: WARFARIN SOD 2 MG TAB PO SCH (16:59)
--- NOTE | 2017-04-29 19:57 | EKG ---
Date Performed: 04/29/2017 Time Performed: 09:06:42 PTAGE: 86 years EKG: ATRIAL FIBRILLATION WITH RAPID VENTRICULAR RESPONSE ST DEVIATION AND MODERATE T-WAVE ABNORM ALITY, CONSIDER ANTEROLATERAL ISCHEMIA ST DEVIATION AND MODERATE T-WAVE ABNORMALITY, CONSIDER INFERIO R ISCHEMIA Compared to previous tracing, there is now evidence of atrial fibrillation with rapid vent ricular responses ABNORMAL ECG PREVIOUS TRACING : 01/27/2016 08.59 DOCTOR: Bhaskar Durant Interpretating Date/Time 04/29/2017 19:54:43
--- NOTE | 2017-04-29 19:57 | EKG ---
Date Performed: 04/29/2017 Time Performed: 10:14:10 PTAGE: 86 years EKG: ATRIAL FIBRILLATION WITH RAPID VENTRICULAR RESPONSE NONSPECIFIC ST & T-WAVE ABNORMALITY Com pared to previous tracing, atrial fibrillation continues but the heart rate has slowed somewhat ABNOR MAL ECG PREVIOUS TRACING : 04/29/2017 09.06 DOCTOR: Bhaskar Durant Interpretating Date/Time 04/29/2017 19:55:11
[2017-04-29] MEDS: SODIUM CHLORIDE 0.9% FLUSH 10 ML FLUSH IV FLUSH PRN (20:14)
[2017-04-29] MEDS: MORPHINE SULFATE 2 MG/ML SYRINGE IV PUSH PRN (20:14)
[2017-04-29] MEDS: SOTALOL HCL 80 MG TAB PO SCH (21:00)
[2017-04-29] MEDS: CARVEDILOL 12.5 MG TAB PO SCH (21:00)
[2017-04-29] MEDS: LOSARTAN 50 MG TAB PO SCH (21:00)
[2017-04-29] MEDS ORDERED: LOSARTAN 25 MG TAB PO SCH (21:00)
[2017-04-29] MEDS ORDERED: LORazepam 2 MG/ML VIAL IV PUSH PRN (21:15)
[2017-04-29] MEDS ORDERED: CHLORHEXIDINE GLUCONATE 2 % 1 PACK (2 CLOTHS)(extra cloths) TOPICAL PRN (21:45)
[2017-04-29] MEDS: SODIUM CHLORIDE 0.9% FLUSH 10 ML FLUSH IV FLUSH SCH (21:47)
[2017-04-30] VITALS (24 sets, daily range): BP systolic 77–137; BP diastolic 41–67; PULSE 59–95; RESP 12–32; TEMP 98.1–98.4; O2SAT 84–100
[2017-04-30] MEDS: DILTIAZEM INJ 125 MG in SODIUM CHLORIDE 0.9% INJ 100 ML IV PRN ×2 (00:25→06:59)
[2017-04-30] MEDS: CHLORHEXIDINE GLUCONATE 2 % 1 PACK (2 CLOTHS)(taper/protocol) TOPICAL SCH (04:00)
[2017-04-30 05:35] LABS: INTERNATIONAL NORMALIZED RATIO 2.1 RATIO; PROTHROMBIN TIME - PATIENT 21.5 SEC (9.8-11.6)
[2017-04-30 05:55] LABS: AUTOMATED NEUTROPHIL # 10.7 TH/MM3 (1.8-7.7); HEMATOCRIT 39.4 % (35.0-46.0); HEMOGLOBIN 13.4 GM/DL (11.6-15.3); LYMPH % 6.3 % (9.0-44.0); LYMPHOCYTE # 0.8 TH/MM3 (1.0-4.8); MEAN CELL VOLUME 99.9 FL (80.0-100.0); MEAN PLATELET VOLUME 9.5 FL (7.0-11.0); MONO % 4.9 % (0.0-8.0); MONOCYTE # 0.6 TH/MM3 (0-0.9); NEUT % 88.8 % (16.0-70.0); PLATELET COUNT 103 TH/MM3 (150-450); RED BLOOD COUNT 3.94 MIL/MM3 (4.00-5.30); RED CELL DISTRIBUTION WIDTH 12.3 % (11.6-17.2)
[2017-04-30 06:02] LABS: ALBUMIN 2.1 GM/DL (3.4-5.0); BICARBONATE 23.7 MEQ/L (21.0-32.0); CALCIUM 6.5 MG/DL (8.5-10.1); CALCIUM-PROTEIN CORRECTED 7.5 MG/DL (8.5-10.1); CREATININE 1.02 MG/DL (0.50-1.00); TOTAL BILIRUBIN ADULT 0.4 MG/DL (0.2-1.0); TOTAL PROTEIN 5.1 GM/DL (6.4-8.2)
[2017-04-30] MEDS: RESP: ALBUTEROL 2.5 MG/3 ML NEB (PRN) NEB ×2 (07:54→10:46)
[2017-04-30] MEDS: SOTALOL HCL 80 MG TAB PO SCH ×2 (08:37→20:39)
[2017-04-30] MEDS: CARVEDILOL 12.5 MG TAB PO SCH (08:39)
[2017-04-30] MEDS ORDERED: COENZYME Q10 200 MG PO SCH (09:00)
[2017-04-30] MEDS: LACTOBACILLUS ACIDOPHILUS TAB PO SCH ×3 (09:00→17:51)
[2017-04-30] MEDS ORDERED: CARVEDILOL 80 MG PO SCH (09:00)
[2017-04-30] MEDS: LOSARTAN 50 MG TAB PO SCH (09:00)
[2017-04-30] MEDS: POTASSIUM CHLORIDE 10 MEQ CONTROLLED RELEASE TAB PO SCH (09:00)
[2017-04-30] MEDS: SODIUM CHLORIDE 0.9% FLUSH 10 ML FLUSH IV FLUSH SCH ×2 (09:52→20:38)
[2017-04-30] MEDS: cefTRIAXone INJ 2,000 MG in SODIUM CHLORIDE 0.9% INJ 100 ML IV SCH (09:53)
[2017-04-30] MEDS: AZITHROMYCIN INJ 500 MG in SODIUM CHLOR 0.9% 250 ML INJ 250 ML IV SCH (10:23)
[2017-04-30] MEDS: SODIUM CHLOR 0.9% 1000 ML INJ 1,000 ML IV SCH ×12 (10:23→19:09)
[2017-04-30] MEDS ORDERED: methylPREDNISolone SOD SUCC 125 MG/2 ML VIAL ONE (10:52)
[2017-04-30] MEDS ORDERED: ETOMIDATE 40 MG/20 ML VIAL ONE (10:56)
[2017-04-30] MEDS ORDERED: PROPOFOL 500 MG/50 ML INJ 50 ML ONE ×2 (11:13→17:40)
[2017-04-30] MEDS ORDERED: SODIUM BICARBONATE 8.4% INJ 50 ML ONE (11:38)
[2017-04-30] MEDS ORDERED: methylPREDNISolone SOD SUCC 125 MG/2 ML VIAL IV PUSH ONE (12:00)
--- NOTE | 2017-04-30 12:00 | RADRPT ---
EXAM DATE/TIME: 04/30/2017 11:41 [facility] COMPARISON: CHEST SINGLE AP, April 29, 2017, 9:15. INDICATIONS : Post intubation and central line placement MEDICAL HISTORY : Cardiovascular disease. Hypertension SURGICAL HISTORY : Coronary artery stent. Pacemaker. Hysterectomy. ENCOUNTER: Initial ACUITY: 1 day PAIN SCORE: Non-responsive. LOCATION: Bilateral chest FINDINGS: A single AP supine portable view of the chest was obtained and demonstrates interval intubation with the endotracheal tube tip approximately 2-3 cm above the amandeep. A right subclavian central venous li ne is in place with the tip projected over the superior vena cava. There is no pneumothorax. The left subclavian AV sequential transvenous pacer remains in place. Patchy opacity mainly in the right lung base without significant change. The heart size remains at the upper limits of normal. Atherosclerot ic changes are again noted in the aorta. CONCLUSION: 1. Interval intubation and placement of right subclavian central venous line with no pneumothorax. 2. Patchy infiltrate remains at the right lung base. Maciel Davenport MD on April 30, 2017 at 11:56 Board Certified Radiologist. This report was verified electronically.
[2017-04-30] MEDS ORDERED: MIDAZOLAM 100 MG/100 ML INJ 100 ML IV PRN (12:15)
--- NOTE | 2017-04-30 12:15 | PD.PROCEDR ---
Procedure Note Procedure Indication: Acute resp failure, impending resp arrest INTUBATION: The patient was put in optimal position for the procedure. Rapid sequence intubation was initiated by me using 20 milligrams of etomidate IV and 50 milligrams of Rocuronium IV. DL with mac 4 blade, Grade 1 view. The patient was intubated with a 8 cuffed endotracheal tube. Tube placement was confirmed by visualization of the tube and balloon passing through the cords, capnometry and subsequent chest x-ray. Breath sounds were equal and well aerated bilaterally postintubation. No breath sounds over stomach. Patient tolerated procedure well. Sidra Fuchs MD Apr 30, 2017 12:15
--- NOTE | 2017-04-30 12:16 | PD.PROCEDR ---
Central Line Procedure REASON FOR PROCEDURE Central venous access PROCEDURE PERFORMED Central line placement:Right subclavian central line ANESTHESIA Local injection of 1% Lidocaine DESCRIPTION OF THE PROCEDURE The patient was placed in supine, mild Trendelenburg position. The area was exposed and cleansed with ChloraPrep, times two. Large sterile drape was used to cover the patient, with the site exposed, under sterile conditions including cap, face mask, sterile gown, and sterile gloves. On single attempt, the introducer needle was inserted with negative pressure in syringe and venous flash was obtained. The guide wire was then advanced without any restriction and the needle was removed. The dilator was used without any complications. Using Seldinger technique the 20 MC 7F triple lumen catheter was advanced over the guide wire to a depth of 17 centimeters. The guide wire was removed. All ports were aspirated with dark venous blood return and flushed easily with sterile saline. All ports were capped. Antibiotic disc was placed around central line at puncture site. The central line was secured to the skin with two interrupted 2.0 silk sutures. The area was bandaged with sterile see- through central line bandage. COMPLICATIONS: No apparent complications ESTIMATED BLOOD LOSS: Less than 1 cc. Sidra Fuchs MD Apr 30, 2017 12:16
[2017-04-30] MEDS ORDERED: POTASSIUM CHLORIDE 25 MEQ EFFERVESCENT TAB PO PRN (12:30)
[2017-04-30] MEDS ORDERED: POTASSIUM PHOSPHATE INJ 30 MMOL in SODIUM CHLOR 0.9% 250 ML INJ 250 ML IV PRN (12:30)
[2017-04-30] MEDS ORDERED: SODIUM CHLOR 0.9% 1000 ML INJ 1,000 ML IV ONE (12:30)
[2017-04-30] MEDS ORDERED: POTASSIUM PHOSPHATE MONOBASIC 500 MG TAB PO/TUBE PRN (12:30)
[2017-04-30] MEDS ORDERED: POTASSIUM CHLOR 40 MEQ PREMIX 100 ML IV PRN (12:30)
[2017-04-30] MEDS ORDERED: RESP: ALBUTEROL 2.5 MG/3 ML NEB (PRN) NEB (12:30)
[2017-04-30] MEDS ORDERED: MAGNESIUM SULFATE INJ 2 GM in SODIUM CHLORIDE 0.9% INJ 96 ML IV PRN (12:30)
[2017-04-30] MEDS ORDERED: MAGNESIUM SULFATE INJ 4 GM in SODIUM CHLORIDE 0.9% INJ 92 ML IV PRN (12:30)
[2017-04-30] MEDS ORDERED: VANCOMYCIN INJ 1,000 MG in SODIUM CHLOR 0.9% 250 ML INJ 250 ML IV ONE (12:30)
[2017-04-30] MEDS ORDERED: POTASSIUM CHLOR 20 MEQ PREMIX 100 ML IV PRN (12:30)
[2017-04-30] MEDS ORDERED: MAGNESIUM OXIDE 400 MG TAB PO PRN (12:30)
[2017-04-30] MEDS ORDERED: Vancomycin Consult Pharmacy 1 EA OTHER SCH (12:30)
[2017-04-30] MEDS ORDERED: POTASSIUM PHOSPHATE MONOBASIC 500 MG TAB PO PRN (12:30)
[2017-04-30] MEDS ORDERED: SODIUM PHOSPHATE INJ 30 MMOL in SODIUM CHLOR 0.9% 250 ML INJ 240 ML IV PRN (12:30)
--- NOTE | 2017-04-30 12:35 | PD.PROCEDR ---
Procedure Note Procedure REASON FOR PROCEDURE Invasive BP monitoring, hemorrhagic shock PROCEDURE PERFORMED Right femoral art line placement, US guided CONSENT Emergency procedure ANESTHESIA Local injection of 1% Lidocaine DESCRIPTION OF THE PROCEDURE The patient was placed in supine, position. The area was exposed and cleansed with ChloraPrep, times two. Large sterile drape was used to cover the patient, with the site exposed, under sterile conditions the introducer needle was inserted and arterial flash was obtained. The guide wire was then advanced without any restriction and the needle was removed. Using Seldinger technique the arterial catheter was advanced over the guide wire. The guide wire was removed. Good arterial wave form obtained. Antibiotic disc was placed around puncture site. The arterial line was secured to the skin with one interrupted 2.0 silk sutures. The area was bandaged with sterile see-through dressing. COMPLICATIONS: No apparent complications Sidra Fuchs MD Apr 30, 2017 12:35
--- NOTE | 2017-04-30 12:43 | PD.CONS ---
[facility] Service Critical Care Medicine Consult Requested By Dr. Solomon Reason for Consult Acute hypoxemic hypercarbic respiratory failure Severe bronchospasm Septic shock Right lower lobe pneumonia Staph aureus bacteremia Lactic acidosis Hypocalcemia Hypokalemia Primary Care Physician Dominga Bird MD History of Present Illness Patient is an 86-year-old female with past medical history significant for coronary artery disease, PCI stents 5, hypertension, chronic atrial fibrillation, pacemaker placement was admitted to the hospitalist service with respiratory distress, secondary to pneumonia. Her daughter is hospitalized in the ICU with staph aureus pneumonia and septic shock. She will also was in atrial fibrillation with RVR. She does not have a history of asthma or COPD. Was admitted to hospital service with IV Rocephin and azithromycin I was urgently consulted today as the patient was in severe respiratory distress with severe bilateral wheezing and progressive decline in blood pressure now with a map of 45. On my evaluation patient was hardly able to communicate, is in respiratory extremis. There was no improvement in wheezing with [id number] breathing treatments. As the map was only 45 despite fluid boluses, Levophed was started and rapidly increased to 12 mcg/min, then to 20 mcg/min. IV Solu-Medrol 125 mg 1 stat was given. I emergently intubated the patient and placed on mechanical ventilation. I also placed a right subclavian central line and right femoral arterial line. Due to increased peak pressures and low tidal volume Vent mode was changed to PCV, from initial PRVC. Patient will be started on scheduled frequent breathing treatments, continued IV Solu Cortef. Continue Rocephin and azithromycin add vancomycin and Tamiflu. Respiratory panel requested. Blood cultures are growing staph aureus Review of Systems ROS Limitations: Clinical Condition (Respiratory extremis) Past Family Social History Allergies: Coded Allergies: clopidogrel (Unverified Allergy, Mild, Hives, 04/29/17) Iodinated Contrast- Oral and IV Dye (Verified Allergy, Unknown, 04/29/17) Past Medical History Atrial fibrillation Osteoarthritis Hyperlipidemia Coronary artery disease History of angina Hypertension Past Surgical History Appendectomy History of coronary stents 5 Pacemaker placement Bladder suspension Hysterectomy Bilateral knee replacement surgeries Tonsillectomy Bilateral breast lumpectomy Reported Medications Centrum (Multiple Vitamins W/ Minerals) 1 Chew 1 Tab CHEW DAILY Coq-10 (Coenzyme Q10 (Ubidecarenone)) 30 Mg Cap 200 Mg PO DAILY Coreg Cr 24 HR (Carvedilol) 80 Mg Cap 80 Mg PO DAILY Potassium Chloride ER (Potassium Chloride) 10 Meq Tab 50 Meq PO DAILY Warfarin 1 Mg Tab 1.5 Mg PO SUN,TUES,THURS,SAT Sotalol (Sotalol HCl) 80 Mg Tab 120 Mg PO BID Aspir-81 (Aspirin) 81 Mg Tabdr 81 Mg PO CORONEL, TU, W, TH, SA Losartan (Losartan Potassium) 25 Mg Tab 80 Mg PO BID Warfarin 3 Mg Tab 2 Mg PO MWF Active Ordered Medications Reviewed Family History Unable to obtain due to severe respiratory distress Social History No smoking No alcohol abuse Physical Exam Vital Signs Vital Signs Date Time Temp Pulse Resp B/P (MAP) Pulse Ox O2 Delivery O2 Flow Rate FiO2 04/30/17 11:13 100 100 04/30/17 10:00 59 04/30/17 09:30 60 15 77/42 (54) 98 04/30/17 09:30 60 77/42 04/30/17 08:00 88 04/30/17 07:54 98 Partial Rebreather 12.00 04/30/17 06:59 92 123/55 04/30/17 06:00 95 04/30/17 04:00 92 04/30/17 02:00 95 04/30/17 00:25 97 131/64 04/30/17 00:00 91 04/29/17 23:57 98 Partial Rebreather 13.00 04/29/17 22:00 128 04/29/17 21:30 143 132/62 04/29/17 21:27 143 04/29/17 21:18 04/29/17 21:02 140 24 148/85 (106) 100 Partial Rebreather 15.00 04/29/17 20:12 140 26 170/97 (121) 100 Partial Rebreather 15.00 04/29/17 18:45 108 20 139/62 (87) 99 Partial Rebreather 04/29/17 18:15 102 20 146/65 (92) 99 Partial Rebreather 04/29/17 17:45 106 20 139/70 (93) 95 Partial Rebreather 04/29/17 16:45 94 17 148/63 (91) 99 Partial Rebreather 04/29/17 16:15 96 19 142/65 (90) 100 Partial Rebreather 04/29/17 14:00 96 17 133/64 (87) 100 Partial Rebreather 04/29/17 13:45 106 26 147/67 (93) 99 Partial Rebreather 04/29/17 13:30 96 Partial Rebreather 15.00 04/29/17 13:30 98 25 144/64 (90) 100 Partial Rebreather 04/29/17 13:00 98 21 141/65 (90) 87 Venturi Mask 50 04/29/17 12:55 88 Venturi Mask 50 04/29/17 12:41 112 137/72 Physical Exam GENERAL: This is a well-nourished, well-developed patient, severe respiratory distress impending respiratory arrest SKIN: No rashes, ecchymoses or lesions. Cool and dry. HEAD: Atraumatic. Normocephalic. EYES: Pupils equal round and reactive. ENT: Edentulous. Uvula midline. Airway patent. NECK: Trachea midline. No JVD or lymphadenopathy. Supple, CARDIOVASCULAR: Underlying A. fib with ventricular paced rhythm. Profoundly hypotensive map varying from 40-45 RESPIRATORY: Patient is respiratory extremities impending arrest. Severe bilateral expiratory wheezing, progressing to agonal appearing breathing GASTROINTESTINAL: Abdomen soft, non-tender, nondistended. MUSCULOSKELETAL: Extremities without clubbing, cyanosis, or edema. NEUROLOGICAL: Awake and alert. Severe respiratory distress limits exam but nonfocal Laboratory Laboratory Tests Test 04/29/17 21:42 04/30/17 05:05 04/30/17 10:50 04/30/17 12:08 Blood Gas Puncture Site LT RADIAL RT RADIAL ART LINE Blood Gas Patient Temperature 98.6 98.6 98.6 Blood Gas HCO3 23 22 24 Blood Gas Base Excess -3.2 -4.1 -1.1 Blood Gas Oxygen Saturation 97 94 96 Arterial Blood pH 7.28 7.23 7.32 Arterial Blood Partial Pressure CO2 49 56 48 Arterial Blood Partial Pressure O2 150 84 105 Arterial Blood Oxygen Content 21.1 16.4 15.9 Arterial Blood Carboxyhemoglobin 0.2 0.2 0.3 Arterial Blood Methemoglobin 1.3 1.2 1.1 Blood Gas Hemoglobin 15.3 12.4 11.6 Oxygen Delivery Device Partial Rebreather PARTIAL REBREATHER VENTILATOR Blood Gas Liter Flow 15 15 White Blood Count 12.0 Red Blood Count 3.94 Hemoglobin 13.4 Hematocrit 39.4 Mean Corpuscular Volume 99.9 Mean Corpuscular Hemoglobin 34.0 Mean Corpuscular Hemoglobin Concent 34.0 Red Cell Distribution Width 12.3 Platelet Count 103 Mean Platelet Volume 9.5 Neutrophils (%) (Auto) 88.8 Lymphocytes (%) (Auto) 6.3 Monocytes (%) (Auto) 4.9 Eosinophils (%) (Auto) 0.0 Basophils (%) (Auto) 0.0 Neutrophils # (Auto) 10.7 Lymphocytes # (Auto) 0.8 Monocytes # (Auto) 0.6 Eosinophils # (Auto) 0.0 Basophils # (Auto) 0.0 CBC Comment DIFF FINAL Differential Comment Prothrombin Time 21.5 Prothromb Time International Ratio 2.1 Blood Urea Nitrogen 18 Creatinine 1.02 Random Glucose 98 Total Protein 5.1 Albumin 2.1 Calcium Level 6.5 Alkaline Phosphatase 50 Aspartate Amino Transf (AST/SGOT) 28 Alanine Aminotransferase (ALT/SGPT) 16 Total Bilirubin 0.4 Sodium Level 143 Potassium Level 3.2 Chloride Level 110 Carbon Dioxide Level 23.7 Anion Gap 9 Estimat Glomerular Filtration Rate 52 Protein Corrected Calcium 7.5 Blood Gas Ventilator Setting PC/AC IP 40,RATE 12 Blood Gas Inspired Oxygen 50 Date/Time Source Procedure Growth Status 04/29/17 09:20 Blood Peripheral Aerobic Blood Culture - Preliminary NO GROWTH IN 1 DAY Resulted 04/29/17 09:20 Blood Peripheral Anaerobic Blood Culture - Preliminary NO GROWTH IN 1 DAY Resulted Result Diagram: 04/30/17 0505 04/30/17 0505 Imaging Right lower lobe infiltrate Septic Shock Reassessment Septic shock perfusion: reassessment completed Assessment and Plan Assessment and Plan ASSESSMENT: Acute hypoxemic hypercarbic respiratory failure Severe bronchospasm Septic shock Right lower lobe pneumonia Staph aureus bacteremia Lactic acidosis Hypocalcemia Hypokalemia Atrial fibrillation Coronary artery disease History of hypertension PLAN: NEURO: -Postintubation placed on propofol for sedation and vent synchrony -Add Versed if needed -Morphine as needed for pain control and anxiety RESP: -Emergently intubated and placed on mechanical ventilation -PC/AC mode of ventilation due to high peak pressures, target tidal volume 400- 450 -Monitor daily ABG and chest x-ray as needed -Sputum culture, respiratory panel -Broad-spectrum antibiotics with vancomycin, Rocephin, azithromycin and Tamiflu CV: -3 L of normal saline fluid bolus stat and maintenance fluids at 84 mL/h -Check lactic acid trend if high -Started on Levophed rapidly increased to 30 mcg/min. vasopressin started at 0.04 IU per minute -Check 2d echo, continue Coumadin, continue Betapace -Hold Coreg hold lisinopril GI: -NPO, IV famotidine -Place NG tube, place to intermittent wall suction : -Monitor renal function closely. Dangelo catheter. -Strict intake output ID: -Blood cultures growing staph aureus -Continue Rocephin, azithromycin. Start vancomycin and Tamiflu -Repeat sputum culture, sent respiratory viral panel -ID consult Dr. Mon HEME: -Monitor CBC, CMP,coags ENDO: -Electrolyte replacement protocol, sliding scale insulin if needed -Stress dose steroids PROPH: -Bilateral lower extremity SCDs. Continue Coumadin, IV famotidine LINES: -Right subclavian central line, right femoral arterial line placed today 2017 CC time 65 min excluding procedures Patient is critically ill with acute hypoxemic and hypercarbic respiratory failure and severe refractory septic shock. I believe this is secondary to staph aureus pneumonia. At this time she is very critical and prognosis is guarded Code Status Full Discussed Condition With Dr. Mon, RT and bedside RN Sidra Fuchs MD Apr 30, 2017 12:42
[2017-04-30] MEDS: OSELTAMIVIR PHOSPHATE 30 MG/5 ML ORAL SYRINGE PO SCH ×2 (13:45→20:39)
[2017-04-30] MEDS ORDERED: VANCOMYCIN INJ 1,250 MG in SODIUM CHLOR 0.9% 250 ML INJ 250 ML IV ONE (14:00)
[2017-04-30] MEDS ORDERED: HYDROCORTISONE SOD SUCCINATE 250 MG VIAL IV SCH (14:00)
[2017-04-30 14:22] LABS: MAGNESIUM 1.4 MG/DL (1.5-2.5); PHOSPHORUS 3.1 MG/DL (2.5-4.9)
[2017-04-30] MEDS: RESP: ALBUTEROL 2.5 MG/IPRATROPIUM 0.5 MG NEB (SCH) NEB ×2 (15:38→19:20)
[2017-04-30] MEDS: WARFARIN SOD 2 MG TAB PO SCH (15:45)
[2017-04-30] MEDS: HYDROCORTISONE SOD SUCCINATE 100 MG VIAL IV SCH (17:50)
[2017-04-30] MEDS ORDERED: FUROSEMIDE 40 MG/4 ML VIAL IV PUSH SCH (18:00)
--- NOTE | 2017-04-30 18:22 | PD.ID.CON ---
History of Present Illness Service ID Consult Requested By Dr.Sinoj Fuchs Reason for Consult Evaluation and Mment of MSSA bacteremia and Pneumonia. Primary Care Physician Dominga Bird MD Diagnoses: History of Present Illness Most of the history is by review of medical records as patient was intubated. is an 86 y/o CF with PMHx of CAD, PCI stents 5, hypertension, chronic atrial fibrillation, pacemaker placement was admitted to the hospitalist service with respiratory distress, secondary to pneumonia. Her daughter is hospitalized in the ICU with staph aureus pneumonia and septic shock. On admission patient was also was in atrial fibrillation with RVR. Was admitted to hospital service with IV Rocephin and azithromycin. Patient was initially admitted under hospitalist services and due to worsening respiratory distress and hypotension and Critical care is now involved. Patient was emergently intubated, CL and A line placed this am. I tried to see patient then but due to multiple procedures discussed case with patients son and am officially seeing patient now and writing note at 6:34 pm. Patients son reported to me that patient and daughter live in same home rest of the details not known. Blood cultures were positive this am and CXR showed pneumonia. Sepsis eval started and patient started on empiric antibiotics and empiric tamiflu. Case dw briefly in am. At the time of my eval patient is in the ICU, on vasopressors, UO ok. Sedated on vent. ID consulted for eval and Mment of Septic shock, MSSA bacteremia and Pneumonia. Review of Systems ROS Limitations: Intubated Past Family Social History Allergies: Coded Allergies: clopidogrel (Unverified Allergy, Mild, Hives, 04/29/17) Iodinated Contrast- Oral and IV Dye (Verified Allergy, Unknown, 04/29/17) Past Medical History Atrial fibrillation Osteoarthritis Hyperlipidemia Coronary artery disease History of angina Hypertension Past Surgical History Appendectomy History of coronary stents 5 Pacemaker placement Bladder suspension Hysterectomy Bilateral knee replacement surgeries Tonsillectomy Bilateral breast lumpectomy Reported Medications Reported Meds & Active Scripts Active Reported Hydrochlorothiazide 12.5 Mg Cap 0.5 Tab PO DAILY Atorvastatin (Atorvastatin Calcium) 40 Mg Tab 40 Mg PO HS Centrum (Multiple Vitamins W/ Minerals) 1 Chew 1 Tab CHEW DAILY Coq-10 (Coenzyme Q10 (Ubidecarenone)) 30 Mg Cap 200 Mg PO DAILY Coreg Cr 24 HR (Carvedilol) 80 Mg Cap 80 Mg PO DAILY Potassium Chloride ER (Potassium Chloride) 10 Meq Tab 50 Meq PO DAILY Warfarin 1 Mg Tab 1.5 Mg PO SUN,TUES,THURS,SAT Sotalol (Sotalol HCl) 80 Mg Tab 120 Mg PO BID Aspir-81 (Aspirin) 81 Mg Tabdr 81 Mg PO CORONEL, TU, W, TH, SA Losartan (Losartan Potassium) 25 Mg Tab 50 Mg PO BID Warfarin 3 Mg Tab 2 Mg PO MWF Active Ordered Medications Current Medications Medications (Trade) Dose Ordered Sig/Francisco Route Start Time Stop Time Status Last Admin Sodium Chloride 1,000 ml @ 83 mls/hr Q12H3M IV 04/29/17 10:54 04/30/17 10:23 (NS Flush) 2 ml UNSCH PRN IV FLUSH 04/29/17 11:00 04/29/17 20:14 (NS Flush) 2 ml BID IV FLUSH 04/29/17 21:00 04/30/17 09:52 (Zofran Inj) 4 mg Q6H PRN IVP 04/29/17 12:00 04/29/17 11:34 (Morphine Inj) 2 mg Q3H PRN IV PUSH 04/29/17 11:00 04/29/17 20:14 (Morphine Inj) 4 mg Q3H PRN IV PUSH 04/29/17 11:00 04/29/17 21:46 (Narcan Inj) 0.4 mg UNSCH PRN IV PUSH 04/29/17 11:00 (Milk Of Magnesia Liq) 30 ml Q12H PRN PO 04/29/17 11:00 (KCl) 50 meq DAILY PO 04/30/17 09:00 (Betapace) 120 mg BID PO 04/29/17 21:00 04/30/17 08:37 (Coumadin) 2 mg DAILY@16 PO 04/29/17 16:00 04/30/17 15:45 (Lactinex) 1 tab TID PO 04/29/17 18:00 04/30/17 17:51 Ceftriaxone Sodium 2000 mg/ Sodium Chloride 100 ml @ 200 mls/hr Q24H IV 04/30/17 10:00 04/30/17 09:53 Azithromycin 500 mg/Sodium Chloride 250 ml @ 250 mls/hr Q24H IV 04/30/17 11:00 04/30/17 10:23 (Pill Splitter) 1 ea UNSCH PRN OTHER 04/29/17 15:45 (Coreg) 25 mg BID PO 04/29/17 21:00 Future Hold 04/30/17 08:39 (Cozaar) 50 mg BID PO 04/29/17 21:00 Future Hold (Ativan Inj) 1 mg Q3H PRN IV PUSH 04/29/17 21:15 Miscellaneous Information Patient in critical care unit? Ass... [id number] .XX 04/29/17 21:45 (Chlorhexidine 2% Cloth) 3 pack DAILY@04 TOPICAL 04/30/17 04:00 05/04/17 04:01 04/30/17 04:00 (Chlorhexidine 2% Cloth) 3 pack UNSCH PRN TOPICAL 04/29/17 21:45 05/04/17 21:43 Sodium Chloride 1,000 ml @ 999 mls/hr Q1H1M IV 04/30/17 10:00 04/30/17 12:02 Norepinephrine Bitartrate 250 ml @ 7.5 mls/hr TITRATE PRN IV 04/30/17 12:00 Vasopressin 40 units/Dextrose 100 ml @ 1.5 mls/hr TITRATE PRN IV 04/30/17 12:00 (Peridex 0.12% Liq) 15 ml BID@08,20 MT 04/30/17 20:00 Midazolam HCl 100 ml @ 2 mls/hr TITRATE PRN IV 04/30/17 12:15 Sodium Chloride 1,000 ml @ 84 mls/hr [id number] IV 04/30/17 12:15 04/30/17 13:00 (Tamiflu Liq) 75 mg BID PO 04/30/17 14:00 04/30/17 13:45 Pharmacy Profile Note 0 ml @ 0 mls/hr UNSCH OTHER 04/30/17 12:30 (Albuterol Neb) 2.5 mg Q2HR NEB PRN NEB 04/30/17 12:30 (Duoneb Neb) 1 ampule Q4HR NEB NEB 04/30/17 16:00 04/30/17 15:38 Potassium Chloride 100 ml @ 50 mls/hr Q2H PRN IV 04/30/17 12:30 Potassium Chloride 100 ml @ 50 mls/hr Q2H PRN IV 04/30/17 12:30 (K-Lyte Cl Eff) 50 meq UNSCH PRN PO 04/30/17 12:30 Potassium Chloride 100 ml @ 25 mls/hr UNSCH PRN IV 04/30/17 12:30 Potassium Chloride 100 ml @ 50 mls/hr Q2H PRN IV 04/30/17 12:30 Magnesium Sulfate 4 gm/Sodium Chloride 100 ml @ 50 mls/hr UNSCH PRN IV 04/30/17 12:30 (Mag-Ox) 800 mg UNSCH PRN PO 04/30/17 12:30 Magnesium Sulfate 2 gm/Sodium Chloride 100 ml @ 50 mls/hr UNSCH PRN IV 04/30/17 12:30 (K-Phos) 2,000 mg Q4H PRN PO 04/30/17 12:30 Sodium Phosphate 30 mmol/Sodium Chloride 250 ml @ 42 mls/hr UNSCH PRN IV 04/30/17 12:30 (K-Phos) 2,000 mg UNSCH PRN PO/TUBE 04/30/17 12:30 Potassium Phosphate 30 mmol/ Sodium Chloride 260 ml @ 42 mls/hr UNSCH PRN IV 04/30/17 12:30 (SoluCORTEF INJ) 100 mg Q8H IV 04/30/17 18:30 04/30/17 17:50 Propofol 100 ml @ 2.4 mls/hr TITRATE PRN IV 04/30/17 18:15 Family History could not be obtained. Daughter in same ICU as patient with MSSA pneumonia. Social History No smoking No alcohol. Lives with daughter. Physical Exam Vital Signs Vital Signs Date Time Temp Pulse Resp B/P (MAP) Pulse Ox O2 Delivery O2 Flow Rate FiO2 04/30/17 16:41 100 45 04/30/17 16:00 60 04/30/17 16:00 60 04/30/17 15:00 60 26 137/65 (89) 89 125/46 (72) 04/30/17 14:00 60 04/30/17 14:00 60 12 120/58 (78) 98 106/43 (64) 04/30/17 13:00 59 12 116/56 (76) 99 105/43 (63) 04/30/17 12:00 98.4 61 25 117/57 (77) 100 115/41 (65) 04/30/17 12:00 61 3/26/18 11:13 100 100 04/30/17 11:00 62 32 84 04/30/17 10:30 59 19 89/48 (62) 98 04/30/17 10:00 59 17 84/41 (55) 99 04/30/17 10:00 59 04/30/17 09:30 60 15 77/42 (54) 98 04/30/17 09:30 60 77/42 04/30/17 08:00 88 04/30/17 07:54 98 Partial Rebreather 12.00 04/30/17 06:59 92 123/55 04/30/17 06:00 95 04/30/17 04:00 92 04/30/17 02:00 95 04/30/17 00:25 97 131/64 04/30/17 00:00 91 04/29/17 23:57 98 Partial Rebreather 13.00 04/29/17 22:00 128 04/29/17 21:30 143 132/62 04/29/17 21:27 143 04/29/17 21:18 04/29/17 21:02 140 24 148/85 (106) 100 Partial Rebreather 15.00 04/29/17 20:12 140 26 170/97 (121) 100 Partial Rebreather 15.00 04/29/17 18:45 108 20 139/62 (87) 99 Partial Rebreather Physical Exam GENERAL: This is a well-nourished, well-developed patient, in no apparent distress. SKIN: No rashes, ecchymoses or lesions. Cool and dry. HEAD: Atraumatic. Normocephalic. No temporal or scalp tenderness. EYES: Pupils equal round and reactive. No scleral icterus. No injection or drainage. ENT: Intubated. NECK: Trachea midline. Supple, nontender, no meningeal signs. CARDIOVASCULAR: HS audible. RESPIRATORY: Decreased AE in bases. Bilateral wheezing audible. GASTROINTESTINAL: Abdomen soft, non-tender, nondistended. MUSCULOSKELETAL: Extremities without clubbing, cyanosis, or edema. No joint tenderness, effusion, or edema noted. No calf tenderness. Negative Homans sign bilaterally. NEUROLOGICAL: Sedated. Psych cooperative IV line sites with no e.o infection. Laboratory Laboratory Tests Test 04/29/17 21:42 04/30/17 05:05 04/30/17 10:50 04/30/17 12:08 Blood Gas Puncture Site LT RADIAL RT RADIAL ART LINE Blood Gas Patient Temperature 98.6 98.6 98.6 Blood Gas HCO3 23 22 24 Blood Gas Base Excess -3.2 -4.1 -1.1 Blood Gas Oxygen Saturation 97 94 96 Arterial Blood pH 7.28 7.23 7.32 Arterial Blood Partial Pressure CO2 49 56 48 Arterial Blood Partial Pressure O2 150 84 105 Arterial Blood Oxygen Content 21.1 16.4 15.9 Arterial Blood Carboxyhemoglobin 0.2 0.2 0.3 Arterial Blood Methemoglobin 1.3 1.2 1.1 Blood Gas Hemoglobin 15.3 12.4 11.6 Oxygen Delivery Device Partial Rebreather PARTIAL REBREATHER VENTILATOR Blood Gas Liter Flow 15 15 White Blood Count 12.0 Red Blood Count 3.94 Hemoglobin 13.4 Hematocrit 39.4 Mean Corpuscular Volume 99.9 Mean Corpuscular Hemoglobin 34.0 Mean Corpuscular Hemoglobin Concent 34.0 Red Cell Distribution Width 12.3 Platelet Count 103 Mean Platelet Volume 9.5 Neutrophils (%) (Auto) 88.8 Lymphocytes (%) (Auto) 6.3 Monocytes (%) (Auto) 4.9 Eosinophils (%) (Auto) 0.0 Basophils (%) (Auto) 0.0 Neutrophils # (Auto) 10.7 Lymphocytes # (Auto) 0.8 Monocytes # (Auto) 0.6 Eosinophils # (Auto) 0.0 Basophils # (Auto) 0.0 CBC Comment DIFF FINAL Differential Comment Prothrombin Time 21.5 Prothromb Time International Ratio 2.1 Blood Urea Nitrogen 18 Creatinine 1.02 Random Glucose 98 Total Protein 5.1 Albumin 2.1 Calcium Level 6.5 Alkaline Phosphatase 50 Aspartate Amino Transf (AST/SGOT) 28 Alanine Aminotransferase (ALT/SGPT) 16 Total Bilirubin 0.4 Sodium Level 143 Potassium Level 3.2 Chloride Level 110 Carbon Dioxide Level 23.7 Anion Gap 9 Estimat Glomerular Filtration Rate 52 Protein Corrected Calcium 7.5 Blood Gas Ventilator Setting PC/AC IP 40,RATE 12 Blood Gas Inspired Oxygen 50 Test 04/30/17 12:53 04/30/17 13:20 Lactic Acid Level 1.8 Phosphorus Level 3.1 Magnesium Level 1.4 Date/Time Source Procedure Growth Status 04/29/17 09:20 Blood Peripheral Aerobic Blood Culture - Preliminary NO GROWTH IN 1 DAY Resulted 04/29/17 09:20 Blood Peripheral Anaerobic Blood Culture - Preliminary NO GROWTH IN 1 DAY Resulted 04/30/17 12:53 Nasal Washing Influenza Types A,B Antigen (LEA) Pending Ordered Result Diagram: 04/30/17 0505 04/30/17 0505 Imaging Last Impressions Chest X-Ray 04/29/17 0909 Signed Impressions: Service Date/Time: Saturday, April 29, 2017 09:15 - CONCLUSION: Right basilar patchy consolidation consistent with probable pneumonia. Clinical correlation is recommended. Mark Anthony Bruce MD Assessment and Plan Assessment and Plan Septic Shock Staph aureus bacteremia likely secondary to Pneumonia. ? Post flu. Pneumonia present on admission. Acute resp failure on vent Acute metabolic encephalopathy: infection, sepsis. CAD pacemaker in place. Recs Repeat blood cultures x 2 Continue Rocephin IV for now. If only MSSA in all cultures would prefer Ancef IV or Oxacillin. Continue Vanco IV for now (target 15-20) Continue Tamiflu. Continue Azithro IV. Follow cultures Follow Influenza antigen Follow 2D ECHO in view of bacteremia. Follow clinically. jovanna Licea patients son over phone. Julianna Mon MD Apr 30, 2017 18:22
[2017-04-30] MEDS: POTASSIUM CHLOR 40 MEQ PREMIX 100 ML IV PRN ×2 (18:32→20:15)
[2017-04-30] MEDS: CHLORHEXIDINE 0.12% (ORAL KIT) 15 ML CUP MT SCH (20:38)
[2017-04-30] MEDS: NOREPINEPHRINE 4 MG/D5W 250 ML IV PRN (21:06)
[2017-04-30] MEDS: VASOPRESSIN 40 U/D5W 100 ML Titrate, Post Cardiac Surgery IV PRN ×2 (22:58)
[2017-05-01] VITALS (29 sets, daily range): BP systolic 95–151; BP diastolic 45–103; PULSE 59–60; RESP 12–34; TEMP 97.7–98.6; O2SAT 98–100
[2017-05-01] MEDS: PROPOFOL 1000 MG/100 ML IV PRN ×3 (00:45→20:17)
[2017-05-01] MEDS: SODIUM CHLOR 0.9% 1000 ML INJ 1,000 ML IV SCH ×6 (00:45→20:16)
[2017-05-01] MEDS: CHLORHEXIDINE GLUCONATE 2 % 1 PACK (2 CLOTHS)(taper/protocol) TOPICAL SCH (00:46)
[2017-05-01] MEDS: NOREPINEPHRINE 4 MG/D5W 250 ML IV PRN ×2 (01:07→07:54)
[2017-05-01] MEDS: HYDROCORTISONE SOD SUCCINATE 100 MG VIAL IV SCH ×3 (01:08→17:27)
[2017-05-01] MEDS: RESP: ALBUTEROL 2.5 MG/IPRATROPIUM 0.5 MG NEB (SCH) NEB ×6 (01:23→22:06)
[2017-05-01 04:26] LABS: CREATININE 1.68 MG/DL (0.50-1.00); RANDOM VANCOMYCIN 11.1 COMMENT
[2017-05-01] MEDS: SOTALOL HCL 80 MG TAB PO SCH ×2 (07:55→20:16)
[2017-05-01] MEDS: CHLORHEXIDINE 0.12% (ORAL KIT) 15 ML CUP MT SCH ×2 (07:55→20:00)
[2017-05-01] MEDS: OSELTAMIVIR PHOSPHATE 30 MG/5 ML ORAL SYRINGE PO SCH (07:55)
[2017-05-01] MEDS: POTASSIUM CHLORIDE 10 MEQ CONTROLLED RELEASE TAB PO SCH (07:55)
[2017-05-01] MEDS: LACTOBACILLUS ACIDOPHILUS TAB PO SCH ×3 (07:56→17:27)
[2017-05-01] MEDS: SODIUM CHLORIDE 0.9% FLUSH 10 ML FLUSH IV FLUSH SCH ×2 (07:56→20:16)
[2017-05-01] MEDS ORDERED: VANCOMYCIN 1,500 MG/NS 500 ML IV ONE ×2 (09:00)
[2017-05-01] MEDS: AZITHROMYCIN INJ 500 MG in SODIUM CHLOR 0.9% 250 ML INJ 250 ML IV SCH (10:04)
[2017-05-01] MEDS: cefTRIAXone INJ 2,000 MG in SODIUM CHLORIDE 0.9% INJ 100 ML IV SCH (10:04)
--- NOTE | 2017-05-01 10:25 | HHI.IDPN ---
Subjective Subjective Remarks is an 86 y/o CF with PMHx of CAD, PCI stents 5, hypertension, chronic atrial fibrillation, pacemaker placement was admitted to the hospitalist service with respiratory distress, secondary to pneumonia. Her daughter is hospitalized in the ICU with staph aureus pneumonia and septic shock. On admission patient was also was in atrial fibrillation with RVR. Was admitted to hospital service with IV Rocephin and azithromycin. Patient was initially admitted under hospitalist services and due to worsening respiratory distress and hypotension and Critical care is now involved. Patient was emergently intubated, CL and A line placed this am. I tried to see patient then but due to multiple procedures discussed case with patients son and am officially seeing patient now and writing note at 6:34 pm. Patients son reported to me that patient and daughter live in same home rest of the details not known. Blood cultures were positive this am and CXR showed pneumonia. Sepsis eval started and patient started on empiric antibiotics and empiric tamiflu. Case dw briefly in am. At the time of my eval patient is in the ICU, on vasopressors, UO ok. Sedated on vent. ID consulted for eval and Mment of Septic shock, MSSA bacteremia and Pneumonia. Overnight events reviewed. Remains intubated. Sedated. FIO2 requirements better. Being weaned off pressors. No fevers No rash No diarrhea UO 600 cc overnight. Antibiotics Ceftriaxone IV Vanco IV Tamiflu Azithro Lines Line sites with no e.o infection Past Medical History reviewed Allergies: Coded Allergies: clopidogrel (Unverified Allergy, Mild, Hives, 04/29/17) Iodinated Contrast- Oral and IV Dye (Verified Allergy, Unknown, 04/29/17) Objective . Vital Signs Date Time Temp Pulse Resp B/P (MAP) Pulse Ox O2 Delivery O2 Flow Rate FiO2 05/01/17 08:00 40 05/01/17 08:00 60 05/01/17 07:54 60 149/56 05/01/17 07:46 98 40 05/01/17 07:00 97.9 60 13 144/54 (84) 100 05/01/17 06:00 60 05/01/17 05:15 60 151/57 05/01/17 05:09 99 40 05/01/17 05:00 60 156/59 05/01/17 04:15 60 143/55 05/01/17 04:00 97.8 60 12 151/58 (89) 100 05/01/17 04:00 40 05/01/17 04:00 60 05/01/17 04:00 60 151/58 05/01/17 03:30 60 148/56 05/01/17 03:15 60 156/59 05/01/17 02:45 60 151/57 05/01/17 02:30 60 159/61 05/01/17 02:15 60 154/59 05/01/17 02:00 60 05/01/17 02:00 60 157/62 05/01/17 01:40 60 148/57 05/01/17 01:30 60 139/56 05/01/17 01:24 100 40 05/01/17 01:15 60 149/57 05/01/17 01:07 60 142/53 05/01/17 01:00 60 142/53 05/01/17 00:50 60 145/55 05/01/17 00:40 60 142/54 05/01/17 00:00 40 05/01/17 00:00 60 05/01/17 00:00 98.0 60 12 150/57 (88) 100 04/30/17 22:58 60 136/52 04/30/17 22:20 99 40 04/30/17 22:00 60 04/30/17 21:06 60 120/47 04/30/17 20:00 60 04/30/17 20:00 98.1 60 12 115/45 (68) 99 04/30/17 20:00 40 04/30/17 19:16 99 40 04/30/17 19:00 60 12 129/67 (87) 99 123/49 (73) 04/30/17 18:00 60 12 129/60 (83) 99 127/48 (74) 04/30/17 18:00 60 04/30/17 17:00 59 13 127/60 (82) 100 122/47 (72) 04/30/17 16:41 100 45 04/30/17 16:00 60 12 122/63 (82) 100 120/48 (72) 04/30/17 16:00 60 04/30/17 16:00 60 04/30/17 15:00 60 26 137/65 (89) 89 125/46 (72) 04/30/17 14:00 60 04/30/17 14:00 60 12 120/58 (78) 98 106/43 (64) 04/30/17 13:00 59 12 116/56 (76) 99 105/43 (63) 04/30/17 12:00 98.4 61 25 117/57 (77) 100 115/41 (65) 04/30/17 12:00 61 04/30/17 11:13 100 100 04/30/17 11:00 62 32 84 04/30/17 10:30 59 19 89/48 (62) 98 . Laboratory Tests Test 04/30/17 05:05 White Blood Count 12.0 TH/MM3 Red Blood Count 3.94 MIL/MM3 Hemoglobin 13.4 GM/DL Hematocrit 39.4 % Mean Corpuscular Volume 99.9 FL Mean Corpuscular Hemoglobin 34.0 PG Mean Corpuscular Hemoglobin Concent 34.0 % Red Cell Distribution Width 12.3 % Platelet Count 103 TH/MM3 Mean Platelet Volume 9.5 FL Neutrophils (%) (Auto) 88.8 % Lymphocytes (%) (Auto) 6.3 % Monocytes (%) (Auto) 4.9 % Eosinophils (%) (Auto) 0.0 % Basophils (%) (Auto) 0.0 % Neutrophils # (Auto) 10.7 TH/MM3 Lymphocytes # (Auto) 0.8 TH/MM3 Monocytes # (Auto) 0.6 TH/MM3 Eosinophils # (Auto) 0.0 TH/MM3 Basophils # (Auto) 0.0 TH/MM3 CBC Comment DIFF FINAL Differential Comment Laboratory Tests Test 04/30/17 05:05 04/30/17 13:20 05/01/17 03:30 Blood Urea Nitrogen 18 MG/DL Creatinine 1.02 MG/DL 1.68 MG/DL Random Glucose 98 MG/DL Total Protein 5.1 GM/DL Albumin 2.1 GM/DL Calcium Level 6.5 MG/DL Alkaline Phosphatase 50 U/L Aspartate Amino Transf (AST/SGOT) 28 U/L Alanine Aminotransferase (ALT/SGPT) 16 U/L Total Bilirubin 0.4 MG/DL Sodium Level 143 MEQ/L Potassium Level 3.2 MEQ/L 4.5 MEQ/L Chloride Level 110 MEQ/L Carbon Dioxide Level 23.7 MEQ/L Anion Gap 9 MEQ/L Estimat Glomerular Filtration Rate 52 ML/MIN 29 ML/MIN Protein Corrected Calcium 7.5 MG/DL Lactic Acid Level 1.8 mmol/L Phosphorus Level 3.1 MG/DL Magnesium Level 1.4 MG/DL Microbiology Date/Time Source Procedure Growth Status 04/30/17 22:59 Blood Peripheral Aerobic Blood Culture Pending Received 04/30/17 22:59 Blood Peripheral Anaerobic Blood Culture Pending Received 04/30/17 18:07 Blood Peripheral Aerobic Blood Culture Pending Received 04/30/17 18:07 Blood Peripheral Anaerobic Blood Culture Pending Received 04/29/17 09:20 Blood Peripheral Aerobic Blood Culture - Preliminary NO GROWTH IN 1 DAY Resulted 04/29/17 09:20 Blood Peripheral Anaerobic Blood Culture - Preliminary NO GROWTH IN 1 DAY Resulted 04/29/17 09:12 Blood Peripheral Aerobic Blood Culture - Preliminary Staphylococcus Aureus Resulted 04/29/17 09:12 Anaerobic Blood Culture - Final Staphylococcus Aureus Resulted 04/30/17 12:53 Nasal Washing Influenza Types A,B Antigen (LEA) Pending Ordered Imaging Last Impressions Chest X-Ray 04/30/17 0000 Signed Impressions: Service Date/Time: Sunday, April 30, 2017 11:41 - CONCLUSION: 1. Interval intubation and placement of right subclavian central venous line with no pneumothorax. 2. Patchy infiltrate remains at the right lung base. Maciel Davenport MD Physical Exam GENERAL: This is a well-nourished, well-developed patient, in no apparent distress. SKIN: No rashes, ecchymoses or lesions. Cool and dry. HEAD: Atraumatic. Normocephalic. No temporal or scalp tenderness. EYES: Pupils equal round and reactive. No scleral icterus. No injection or drainage. ENT: Intubated. NECK: Trachea midline. Supple, nontender, no meningeal signs. CARDIOVASCULAR: HS audible. RESPIRATORY: Decreased AE in bases. Bilateral wheezing audible. GASTROINTESTINAL: Abdomen soft, non-tender, nondistended. MUSCULOSKELETAL: Extremities without clubbing, cyanosis, or edema. No joint tenderness, effusion, or edema noted. No calf tenderness. Negative Homans sign bilaterally. NEUROLOGICAL: Sedated. Psych cooperative IV line sites with no e.o infection. Assessment & Plan Remarks Septic Shock Staph aureus bacteremia likely secondary to Pneumonia. ? Post flu. Pneumonia present on admission. Acute resp failure on vent Acute metabolic encephalopathy: infection, sepsis. CAD pacemaker in place. Recs Continue Vanco IV for now (target 15-20) pending ID of Staph aureus. Verigene prelim shows MSSA but remains to be confirmed. Start Ancef IV (MSSA bacteremia on verigene more targeted therapy) Continue Tamiflu. Dc Rocephin IV DC Azithro IV. Follow cultures. Follow 2D ECHO in view of bacteremia. Follow clinically. Julianna Small RN, MD May 01, 2017 10:25
[2017-05-01] MEDS ORDERED: SODIUM CHLOR 0.9% 1000 ML INJ 1,000 ML IV ONE (10:30)
--- NOTE | 2017-05-01 10:36 | HHI.CCPN ---
Subjective Remarks/Hospital Course Patient is an 86-year-old female with past medical history significant for coronary artery disease, PCI stents 5, hypertension, chronic atrial fibrillation, pacemaker placement was admitted to the hospitalist service with respiratory distress, secondary to pneumonia. Her daughter is hospitalized in the ICU with staph aureus pneumonia and septic shock. She will also was in atrial fibrillation with RVR. She does not have a history of asthma or COPD. Was admitted to hospital service with IV Rocephin and azithromycin I was urgently consulted today as the patient was in severe respiratory distress with severe bilateral wheezing and progressive decline in blood pressure now with a map of 45. On my evaluation patient was hardly able to communicate, is in respiratory extremis. There was no improvement in wheezing with [id number] breathing treatments. As the map was only 45 despite fluid boluses, Levophed was started and rapidly increased to 12 mcg/min, then to 20 mcg/min. IV Solu-Medrol 125 mg 1 stat was given. I emergently intubated the patient and placed on mechanical ventilation. I also placed a right subclavian central line and right femoral arterial line. Due to increased peak pressures and low tidal volume Vent mode was changed to PCV, from initial PRVC. Patient will be started on scheduled frequent breathing treatments, continued IV Solu Cortef. Continue Rocephin and azithromycin add vancomycin and Tamiflu. Respiratory panel requested. Blood cultures are growing staph aureus SUBJ 05/01: Patient remains intubated sedated. Bronchospasm significantly improved on exam. Remains in shock but with less pressor requirement currently Levophed at 3 mcg/min and vasopressin at 0.04 international units. Creatinine has increased to 1.68. Her daughter who is also admitted to ICU is positive for influenza Objective Vital Signs Date Time Temp Pulse Resp B/P (MAP) Pulse Ox O2 Delivery O2 Flow Rate FiO2 05/01/17 08:00 40 05/01/17 08:00 60 05/01/17 07:54 149/56 05/01/17 07:46 98 05/01/17 07:00 97.9 13 04/30/17 07:54 Partial Rebreather 12.00 Intake and Output 05/01/17 05/01/17 05/02/17 08:00 16:00 00:00 Intake Total 1350 ml Output Total 300 ml Balance 1050 ml Result Diagram: 04/30/17 0505 05/01/17 0330 Other Results Laboratory Tests Test 04/30/17 10:50 04/30/17 12:08 Blood Gas Puncture Site RT RADIAL ART LINE Blood Gas Patient Temperature 98.6 98.6 Blood Gas HCO3 22 mmol/L (22-26) 24 mmol/L (22-26) Blood Gas Base Excess -4.1 mmol/L (-2-2) -1.1 mmol/L (-2-2) Blood Gas Oxygen Saturation 94 % (90-100) 96 % (90-100) Arterial Blood pH 7.23 (7.380-7.420) 7.32 (7.380-7.420) Arterial Blood Partial Pressure CO2 56 mmHg (38-42) 48 mmHg (38-42) Arterial Blood Partial Pressure O2 84 mmHg (61-120) 105 mmHg (61-120) Arterial Blood Oxygen Content 16.4 Vol % (12.0-20.0) 15.9 Vol % (12.0-20.0) Arterial Blood Carboxyhemoglobin 0.2 % (0-4) 0.3 % (0-4) Arterial Blood Methemoglobin 1.2 % (0-2) 1.1 % (0-2) Blood Gas Hemoglobin 12.4 G/DL (12.0-16.0) 11.6 G/DL (12.0-16.0) Oxygen Delivery Device PARTIAL REBREATHER VENTILATOR Blood Gas Liter Flow 15 L/M Blood Gas Ventilator Setting PC/AC IP 40,RATE 12 Blood Gas Inspired Oxygen 50 % Imaging Right lower lobe infiltrate Objective Remarks GENERAL: This is a well-nourished, well-developed patient, intubated sedated SKIN: No rashes, ecchymoses or lesions. Cool and dry. HEAD: Atraumatic. Normocephalic. EYES: Pupils equal round and reactive. ENT: Edentulous. Orotracheally intubated NECK: Trachea midline. No JVD or lymphadenopathy. Supple, CARDIOVASCULAR: Underlying A. fib with ventricular paced rhythm. Hypotensive on Levophed and vasopressin RESPIRATORY: Air entry equal and improved bilaterally, mild expiratory wheezing persists but significantly improved GASTROINTESTINAL: Abdomen soft, non-tender, nondistended. MUSCULOSKELETAL: Extremities without clubbing, cyanosis, or edema. NEUROLOGICAL: On sedation hold patient opens eyes nods to questions and follows commands 4 Urinary Catheter: Yes Assessment to: Continue Vascular Central Line Catheter: Yes Assessment to: Continue A/P Assessment and Plan ASSESSMENT: Acute hypoxemic hypercarbic respiratory failure Severe bronchospasm Septic shock Right lower lobe pneumonia Staph aureus bacteremia Lactic acidosis Hypocalcemia Hypokalemia Hypomagnesemia Atrial fibrillation Coronary artery disease History of hypertension PLAN: NEURO: -Postintubation placed on propofol for sedation and vent synchrony -Daily sedation medication -Morphine as needed for pain control and anxiety RESP: -Emergently intubated and placed on mechanical ventilation 04/30 -PC/AC mode of ventilation due to high peak pressures, change to Volume control today -Monitor daily ABG and chest x-ray as needed -f/u Sputum culture, respiratory panel -Broad-spectrum antibiotics with vancomycin, Rocephin, azithromycin and Tamiflu- Rocephin changed to Ancef by ID today CV: -s/p 3 L of normal saline fluid bolus stat and maintenance fluids at 84 mL/h -Lactic acid has normalized -Levophed and vasopressin to keep map above 65, continue to wean pressors as tolerated -F/u 2d echo, continue Coumadin, continue Betapace -Hold Coreg hold lisinopril GI: -NPO, IV famotidine -Start tube feeds with Jevity : -Monitor renal function closely. Dangelo catheter. -Strict intake output -Creatinine increased to 1.7, most likely secondary to ATN from severe shock ID: -Blood cultures growing staph aureus -Continue azithromycin, vancomycin and Tamiflu. Rocephin changed to Ancef by ID -F/u sputum culture, respiratory viral panel -ID Dr. Mon HEME: -Monitor CBC, CMP,coags ENDO: -Electrolyte replacement protocol, sliding scale insulin if needed -Stress dose steroids PROPH: -Bilateral lower extremity SCDs. Continue Coumadin, IV famotidine LINES: -Right subclavian central line, right femoral arterial line placed 04/30/2017 CC time 37 min excluding procedures Patient is critically ill with acute hypoxemic and hypercarbic respiratory failure and severe septic shock. Remains critical but showing some signs of improvement. Sidra Fuchs MD May 01, 2017 10:36
[2017-05-01] MEDS: ceFAZolin 1,000 MG/NS 100 ML IV SCH ×4 (11:18→17:59)
--- NOTE | 2017-05-01 14:38 | ECHRPT ---
Indication: ATRIAL FIB CONCLUSIONS The left ventricular systolic function is hyperdynamic with an estimated ejection fraction in the ra nge of 65- 70%. Normal left ventricular size. Wall thickness is normal. No regional wall motion abnormalities are present. A pacemaker wire is noted. The left atrial size is [id number] dilated. Moderate mitral valve regurgitation. Aortic valve sclerosis is present. Trace aortic valve regurgitation. There is mild tricuspid valve regurgitation. The estimated pulmonary arterial pressure is 37.7 mmHg. Trivial pulmonary valve regurgitation. BP: 151 / 57 HR: 60 Rhythm: Atrial fibrillation MEASUREMENTS (Male / Female) Normal Values Technical Quality:Fair 2D ECHO LV Diastolic Diameter PLAX 4.2 cm 4.2 - 5.9 / 3.9 - 5.3 cm LV Systolic Diameter PLAX 2.8 cm IVS Diastolic Thickness 1.0 cm 0.6 - 1.0 / 0.6 - 0.9 cm LVPW Diastolic Thickness 1.0 cm 0.6 - 1.0 / 0.6 - 0.9 cm LV Relative Wall Thickness 0.5 RV Internal Dim ED PLAX 2.5 cm LVOT Diameter 1.4 cm LA Systolic Diameter LX 4.5 cm 3.0 - 4.0 / 2.7 - 3.8 cm M-MODE Aortic Root Diameter MM 2.3 cm LA Systolic Diameter MM 5.5 cm LA Ao Ratio MM 2.4 AV Cusp Separation MM 1.3 cm DOPPLER AV Peak Velocity 82.8 cm/s AV Peak Gradient 2.7 mmHg AI Peak Velocity 227.0 cm/s AI Peak Gradient 20.6 mmHg AI Pressure Half Time 987.5 ms MV Peak Velocity 139.0 cm/s MV Peak Gradient 7.7 mmHg MV Mean Velocity 56.5 cm/s MV Mean Gradient 2.0 mmHg MV Area PHT 3.7 cm Mitral E Point Velocity 119.0 cm/s Mitral A Point Velocity 55.3 cm/s Mitral E to A Ratio 2.2 TR Peak Velocity 263.0 cm/s TR Peak Gradient 27.7 mmHg Right Atrial Pressure 10.0 mmHg Pulmonary Artery Systolic Pressu 37.7 mmHg Right Ventricular Systolic Press 37.7 mmHg PV Peak Velocity 63.8 cm/s PV Peak Gradient 1.6 mmHg FINDINGS LEFT VENTRICLE The left ventricular systolic function is hyperdynamic with an estimated ejection fraction in the ra nge of 65- 70%. Normal left ventricular size. Wall thickness is normal. No regional wall motion abnormalities are present. RIGHT VENTRICLE A pacemaker wire is noted. LEFT ATRIUM The left atrial size is [id number] dilated. RIGHT ATRIUM The right atrial size is normal. ATRIAL SEPTUM Normal atrial septal thickness without atrial level shunting by limited color doppler interrogation. AORTA The aortic root and proximal ascending aorta are normal in size on limited imaging. MITRAL VALVE Structurally normal mitral valve. Mild mitral valve regurgitation. AORTIC VALVE Trileaflet aortic valve. Aortic valve sclerosis is present. Trace aortic valve regurgitation. TRICUSPID VALVE Structurally normal tricuspid valve. There is mild tricuspid valve regurgitation. The estimated pulmonary arterial pressure is 37.7 mmHg. PULMONARY VALVE Trivial pulmonary valve regurgitation. VESSELS The inferior vena cava is normal in size. PERICARDIUM No pericardial effusion. Jose Laguna MD, FACC, [facility] (Electronically Signed) Final Date:01 May 2017 14:37
[2017-05-01] MEDS: WARFARIN SOD 2 MG TAB PO SCH (16:04)
[2017-05-01] MEDS: VASOPRESSIN 40 U/D5W 100 ML Titrate, Post Cardiac Surgery IV PRN ×2 (16:06)
[2017-05-01] MEDS: OSELTAMIVIR PHOSPHATE 75 MG CAP PO SCH (21:15)
[2017-05-02] VITALS (27 sets, daily range): BP systolic 104–159; BP diastolic 43–78; PULSE 59–69; RESP 14–29; TEMP 98–98.7; O2SAT 98–100
[2017-05-02] MEDS: SODIUM CHLOR 0.9% 1000 ML INJ 1,000 ML IV SCH ×3 (00:03→22:58)
[2017-05-02] MEDS: RESP: ALBUTEROL 2.5 MG/IPRATROPIUM 0.5 MG NEB (SCH) NEB ×6 (00:43→21:48)
[2017-05-02] MEDS: HYDROCORTISONE SOD SUCCINATE 100 MG VIAL IV SCH ×3 (02:40→18:27)
[2017-05-02] MEDS: ceFAZolin 1,000 MG/NS 100 ML IV SCH ×6 (02:40→18:27)
[2017-05-02] MEDS: CHLORHEXIDINE GLUCONATE 2 % 1 PACK (2 CLOTHS)(taper/protocol) TOPICAL SCH (04:00)
[2017-05-02 04:49] LABS: AUTOMATED NEUTROPHIL # 8.7 TH/MM3 (1.8-7.7); HEMATOCRIT 33.5 % (35.0-46.0); HEMOGLOBIN 11.6 GM/DL (11.6-15.3); LYMPH % 4.9 % (9.0-44.0); LYMPHOCYTE # 0.5 TH/MM3 (1.0-4.8); MEAN CELL VOLUME 100.1 FL (80.0-100.0); MEAN CORPUSCULAR HEMOGLOBIN 34.5 PG (27.0-34.0); MEAN CORPUSCULAR HGB CONC 34.5 % (32.0-36.0); MEAN PLATELET VOLUME 10.4 FL (7.0-11.0); MONO % 7.7 % (0.0-8.0); MONOCYTE # 0.8 TH/MM3 (0-0.9); NEUT % 87.4 % (16.0-70.0); PLATELET COUNT 100 TH/MM3 (150-450); RED BLOOD COUNT 3.35 MIL/MM3 (4.00-5.30); RED CELL DISTRIBUTION WIDTH 12.5 % (11.6-17.2); WHITE BLOOD COUNT 9.9 TH/MM3 (4.0-11.0)
[2017-05-02 04:59] LABS: ALKALINE PHOSPHATASE 65 U/L (45-117); ALT (GPT) 39 U/L (10-53); AST (GOT) 46 U/L (15-37); BICARBONATE 20.7 MEQ/L (21.0-32.0); BLOOD UREA NITROGEN 41 MG/DL (7-18); CALCIUM 7.5 MG/DL (8.5-10.1); CHLORIDE 111 MEQ/L (98-107); CREATININE 1.69 MG/DL (0.50-1.00); GLOMERULAR FILTRATION RATE 29 ML/MIN (>89); GLUCOSE,RANDOM 137 MG/DL (74-106); MAGNESIUM 1.7 MG/DL (1.5-2.5); PHOSPHORUS 1.9 MG/DL (2.5-4.9); RANDOM VANCOMYCIN 19.6 COMMENT; SODIUM (NA) 141 MEQ/L (136-145); TOTAL BILIRUBIN ADULT 0.3 MG/DL (0.2-1.0); TOTAL PROTEIN 5.2 GM/DL (6.4-8.2)
--- NOTE | 2017-05-02 05:31 | RADRPT ---
EXAM DATE/TIME: 05/02/2017 03:40 [facility] COMPARISON: CHEST SINGLE AP, April 30, 2017, 11:41. INDICATIONS : Shortness of breath. MEDICAL HISTORY : Cardiovascular disease. Hypertension SURGICAL HISTORY : Coronary artery stent. Pacemaker. ENCOUNTER: Subsequent ACUITY: 3 days PAIN SCORE: Non-responsive. LOCATION: Bilateral chest FINDINGS: A single view of the chest demonstrates bibasilar and bilateral upper lobe airspace disease. Endotrac heal tube, nasogastric tube and right subclavian central line in stable position. Left-sided pacemake r unchanged. Osseous structures are intact. CONCLUSION: Airspace disease in the right lower lobe and minimal changes in the upper lobes. Sonny Julian MD on May 02, 2017 at 5:28 Board Certified Radiologist. This report was verified electronically.
[2017-05-02] MEDS: PROPOFOL 1000 MG/100 ML IV PRN ×2 (06:22→18:27)
[2017-05-02] MEDS: LACTOBACILLUS ACIDOPHILUS TAB PO SCH ×3 (09:42→18:00)
[2017-05-02] MEDS: OSELTAMIVIR PHOSPHATE 75 MG CAP PO SCH ×2 (09:43→20:19)
[2017-05-02] MEDS: POTASSIUM CHLORIDE 10 MEQ CONTROLLED RELEASE TAB PO SCH (09:45)
[2017-05-02] MEDS: SODIUM CHLORIDE 0.9% FLUSH 10 ML FLUSH IV FLUSH SCH ×2 (09:55→20:18)
[2017-05-02] MEDS: SOTALOL HCL 80 MG TAB PO SCH ×2 (09:55→20:18)
[2017-05-02] MEDS: CHLORHEXIDINE 0.12% (ORAL KIT) 15 ML CUP MT SCH ×2 (09:56→20:18)
--- NOTE | 2017-05-02 10:37 | HHI.IDPN ---
Subjective Subjective Remarks is an 86 y/o CF with PMHx of CAD, PCI stents 5, hypertension, chronic atrial fibrillation, pacemaker placement was admitted to the hospitalist service with respiratory distress, secondary to pneumonia. Her daughter is hospitalized in the ICU with staph aureus pneumonia and septic shock. On admission patient was also was in atrial fibrillation with RVR. Was admitted to hospital service with IV Rocephin and azithromycin. Patient was initially admitted under hospitalist services and due to worsening respiratory distress and hypotension and Critical care is now involved. Patient was emergently intubated, CL and A line placed this am. I tried to see patient then but due to multiple procedures discussed case with patients son and am officially seeing patient now and writing note at 6:34 pm. Patients son reported to me that patient and daughter live in same home rest of the details not known. Blood cultures were positive this am and CXR showed pneumonia. Sepsis eval started and patient started on empiric antibiotics and empiric tamiflu. Case dw briefly in am. At the time of my eval patient is in the ICU, on vasopressors, UO ok. Sedated on vent. ID consulted for eval and Mment of Septic shock, MSSA bacteremia and Pneumonia. Overnight events reviewed. Remains intubated. Sedated. FIO2 requirements better. Off pressors. No fevers No rash No diarrhea Antibiotics Ancef IV Vanco IV Tamiflu Lines Line sites with no e.o infection Past Medical History reviewed Allergies: Coded Allergies: clopidogrel (Unverified Allergy, Mild, Hives, 04/29/17) Iodinated Contrast- Oral and IV Dye (Verified Allergy, Unknown, 04/29/17) Objective . Vital Signs Date Time Temp Pulse Resp B/P (MAP) Pulse Ox O2 Delivery O2 Flow Rate FiO2 05/02/17 09:03 40 05/02/17 09:01 100 40 05/02/17 08:32 100 40 05/02/17 06:00 61 05/02/17 04:55 100 40 05/02/17 04:30 60 14 113/47 (69) 100 05/02/17 04:00 98.0 60 18 131/55 (80) 100 05/02/17 04:00 60 05/02/17 04:00 40 05/02/17 03:30 60 14 109/46 (67) 100 05/02/17 03:00 60 14 116/48 (70) 100 05/02/17 02:30 60 15 122/50 (74) 100 05/02/17 02:01 59 16 122/60 (80) 100 124/50 (74) 05/02/17 02:00 60 05/02/17 02:00 59 16 123/50 (74) 100 05/02/17 01:30 59 14 111/46 (67) 100 05/02/17 01:00 59 14 104/43 (63) 100 05/02/17 00:44 100 40 05/02/17 00:30 60 14 116/48 (70) 100 05/02/17 00:00 98.2 64 29 141/68 (92) 100 05/02/17 00:00 60 05/02/17 00:00 40 05/01/17 23:30 60 18 120/46 (70) 100 05/01/17 23:00 60 26 127/49 (75) 100 05/01/17 22:41 60 29 145/103 (117) 100 136/55 (82) 05/01/17 22:30 60 34 140/56 (84) 100 05/01/17 22:30 60 140/56 05/01/17 22:06 100 40 05/01/17 22:00 60 05/01/17 22:00 60 15 128/51 (76) 100 05/01/17 21:30 60 17 135/55 (81) 100 05/01/17 21:00 60 14 115/46 (69) 100 05/01/17 20:30 59 14 122/48 (72) 100 05/01/17 20:00 40 05/01/17 20:00 60 05/01/17 20:00 98.6 60 18 145/56 (85) 100 05/01/17 19:00 60 15 128/54 (78) 100 05/01/17 18:00 60 05/01/17 16:06 60 119/47 05/01/17 16:00 40 05/01/17 16:00 59 05/01/17 16:00 60 05/01/17 15:14 99 40 05/01/17 15:00 97.7 59 18 117/45 (69) 99 05/01/17 14:00 60 05/01/17 12:00 40 05/01/17 12:00 59 05/01/17 11:15 40 05/01/17 11:14 99 40 05/01/17 11:00 97.8 60 18 95/67 (76) 99 . Laboratory Tests Test 05/02/17 03:50 White Blood Count 9.9 TH/MM3 Red Blood Count 3.35 MIL/MM3 Hemoglobin 11.6 GM/DL Hematocrit 33.5 % Mean Corpuscular Volume 100.1 FL Mean Corpuscular Hemoglobin 34.5 PG Mean Corpuscular Hemoglobin Concent 34.5 % Red Cell Distribution Width 12.5 % Platelet Count 100 TH/MM3 Mean Platelet Volume 10.4 FL Neutrophils (%) (Auto) 87.4 % Lymphocytes (%) (Auto) 4.9 % Monocytes (%) (Auto) 7.7 % Eosinophils (%) (Auto) 0.0 % Basophils (%) (Auto) 0.0 % Neutrophils # (Auto) 8.7 TH/MM3 Lymphocytes # (Auto) 0.5 TH/MM3 Monocytes # (Auto) 0.8 TH/MM3 Eosinophils # (Auto) 0.0 TH/MM3 Basophils # (Auto) 0.0 TH/MM3 CBC Comment DIFF FINAL Differential Comment Laboratory Tests Test 04/30/17 13:20 05/01/17 03:30 05/02/17 03:50 Lactic Acid Level 1.8 mmol/L Phosphorus Level 3.1 MG/DL 1.9 MG/DL Magnesium Level 1.4 MG/DL 1.6 MG/DL 1.7 MG/DL Potassium Level 4.5 MEQ/L 3.9 MEQ/L Creatinine 1.68 MG/DL 1.69 MG/DL Estimat Glomerular Filtration Rate 29 ML/MIN 29 ML/MIN Blood Urea Nitrogen 41 MG/DL Random Glucose 137 MG/DL Total Protein 5.2 GM/DL Albumin 2.0 GM/DL Calcium Level 7.5 MG/DL Alkaline Phosphatase 65 U/L Aspartate Amino Transf (AST/SGOT) 46 U/L Alanine Aminotransferase (ALT/SGPT) 39 U/L Total Bilirubin 0.3 MG/DL Sodium Level 141 MEQ/L Chloride Level 111 MEQ/L Carbon Dioxide Level 20.7 MEQ/L Anion Gap 9 MEQ/L Microbiology Date/Time Source Procedure Growth Status 04/30/17 22:59 Blood Peripheral Aerobic Blood Culture - Preliminary NO GROWTH IN 1 DAY Resulted 04/30/17 22:59 Blood Peripheral Anaerobic Blood Culture - Preliminary NO GROWTH IN 1 DAY Resulted 04/30/17 18:07 Blood Peripheral Aerobic Blood Culture - Preliminary NO GROWTH IN 1 DAY Resulted 04/30/17 18:07 Blood Peripheral Anaerobic Blood Culture - Preliminary NO GROWTH IN 1 DAY Resulted 04/30/17 12:53 Nasal Washing Influenza Types A,B Antigen (LEA) Pending Ordered Imaging Last Impressions Chest X-Ray 04/30/17 0000 Signed Impressions: Service Date/Time: Sunday, April 30, 2017 11:41 - CONCLUSION: 1. Interval intubation and placement of right subclavian central venous line with no pneumothorax. 2. Patchy infiltrate remains at the right lung base. Maciel Davenport MD Physical Exam GENERAL: This is a well-nourished, well-developed patient, in no apparent distress. SKIN: No rashes, ecchymoses or lesions. Cool and dry. HEAD: Atraumatic. Normocephalic. No temporal or scalp tenderness. EYES: Pupils equal round and reactive. No scleral icterus. No injection or drainage. ENT: Intubated. NECK: Trachea midline. Supple, nontender, no meningeal signs. CARDIOVASCULAR: HS audible. RESPIRATORY: Decreased AE in bases. Bilateral wheezing audible. GASTROINTESTINAL: Abdomen soft, non-tender, nondistended. MUSCULOSKELETAL: Extremities without clubbing, cyanosis, or edema. No joint tenderness, effusion, or edema noted. No calf tenderness. Negative Homans sign bilaterally. NEUROLOGICAL: Sedated. Psych cooperative IV line sites with no e.o infection. Assessment & Plan Remarks Septic Shock Staph aureus bacteremia likely secondary to Pneumonia post flu. Influenza A and B positive pneumonia. Pneumonia present on admission. Acute resp failure on vent Acute metabolic encephalopathy: infection, sepsis. CAD pacemaker in place. Recs Continue Vanco IV for now (target 15-20) pending ID of Staph aureus. Verigene prelim shows MSSA but remains to be confirmed. Dw Micro await ID possibly this afternoon. Continue Ancef IV (MSSA bacteremia on verigene more targeted therapy) Continue Tamiflu. Follow cultures. Follow 2D ECHO in view of bacteremia. Follow clinically. jovanna nugent RN Addendum 2: 55 pm DC vanco IV Bld Cx positive MSSA based on susceptibility. Continue Ancef IV Continue Tamiflu Reji Robersonuja MD May 02, 2017 10:37
--- NOTE | 2017-05-02 14:57 | HHI.CCPN ---
Subjective Remarks/Hospital Course Patient is an 86-year-old female with past medical history significant for coronary artery disease, PCI stents 5, hypertension, chronic atrial fibrillation, pacemaker placement was admitted to the hospitalist service with respiratory distress, secondary to pneumonia. Her daughter is hospitalized in the ICU with staph aureus pneumonia and septic shock. She will also was in atrial fibrillation with RVR. She does not have a history of asthma or COPD. Was admitted to hospital service with IV Rocephin and azithromycin I was urgently consulted today as the patient was in severe respiratory distress with severe bilateral wheezing and progressive decline in blood pressure now with a map of 45. On my evaluation patient was hardly able to communicate, is in respiratory extremis. There was no improvement in wheezing with [id number] breathing treatments. As the map was only 45 despite fluid boluses, Levophed was started and rapidly increased to 12 mcg/min, then to 20 mcg/min. IV Solu-Medrol 125 mg 1 stat was given. I emergently intubated the patient and placed on mechanical ventilation. I also placed a right subclavian central line and right femoral arterial line. Due to increased peak pressures and low tidal volume Vent mode was changed to PCV, from initial PRVC. Patient will be started on scheduled frequent breathing treatments, continued IV Solu Cortef. Continue Rocephin and azithromycin add vancomycin and Tamiflu. Respiratory panel requested. Blood cultures are growing staph aureus SUBJ 05/01: Patient remains intubated sedated. Bronchospasm significantly improved on exam. Remains in shock but with less pressor requirement currently Levophed at 3 mcg/min and vasopressin at 0.04 international units. Creatinine has increased to 1.68. Her daughter who is also admitted to ICU is positive for influenza 05/02: Worsening right sided infiltrates, not tolerating CPAP. Resp panel positive for Infl A/B. Currently off pressors. Creat 1.69. U) 700 ml in 24 hours Objective Vital Signs Date Time Temp Pulse Resp B/P (MAP) Pulse Ox O2 Delivery O2 Flow Rate FiO2 05/02/17 11:49 99 40 05/02/17 08:00 98.5 65 16 125/78 (94) 149/63 (91) 04/30/17 07:54 Partial Rebreather 12.00 Intake and Output 05/02/17 05/02/17 05/03/17 08:00 16:00 00:00 Intake Total 1454 ml Output Total 440 ml Balance 1014 ml Result Diagram: 05/02/17 0350 05/02/17 0350 Imaging Right lower lobe infiltrate Objective Remarks GENERAL: This is a well-nourished, well-developed patient, intubated sedated SKIN: No rashes, ecchymoses or lesions. Cool and dry. HEAD: Atraumatic. Normocephalic. EYES: Pupils equal round and reactive. ENT: Edentulous. Orotracheally intubated NECK: Trachea midline. No JVD or lymphadenopathy. Supple, CARDIOVASCULAR: Underlying A. fib with ventricular paced rhythm. Normotensive RESPIRATORY: Air entry equal with bilateral coarse rhonchi and expiratory wheezing GASTROINTESTINAL: Abdomen soft, non-tender, nondistended. MUSCULOSKELETAL: Extremities without clubbing, cyanosis, or edema. NEUROLOGICAL: On sedation hold patient opens eyes nods to questions and follows commands 4, but becomes asynchronous with the ventilator A/P Assessment and Plan ASSESSMENT: Acute hypoxemic hypercarbic respiratory failure Severe bronchospasm Septic shock Influenza pneumonia Staph aureus bacteremia Lactic acidosis Hypocalcemia Hypokalemia Hypomagnesemia Atrial fibrillation Coronary artery disease History of hypertension PLAN: NEURO: -Currently on propofol, start Precedex to facilitate ventilator weaning when ready -Daily sedation medication -Morphine as needed for pain control and anxiety RESP: -Emergently intubated and placed on mechanical ventilation 04/30 -PC/AC mode of ventilation due to high peak pressures, now on Volume control today -Failing CPAP trials, apparently becoming cyanotic and tachypneic -Monitor daily chest x-ray as needed -Respiratory panel positive for influenza a and B by PCR -Broad-spectrum antibiotics with vancomycin, Ancef, azithromycin and Tamiflu CV: -s/p 3 L of normal saline fluid bolus stat and maintenance fluids at 84 mL/h -Lactic acid has normalized -Levophed and vasopressin to keep map above 65, currently had been weaned off -F/u 2d echo, continue Coumadin, continue Betapace -Hold Coreg hold lisinopril GI: -IV famotidine. tube feeds with Jevity : -Monitor renal function closely. Dangelo catheter. -Strict intake output -Creatinine 1.7, most likely secondary to ATN from severe shock ID: -Blood cultures growing staph aureus -Respiratory panel positive for influenza AMB -Continue azithromycin, vancomycin, Tamiflu and Rocephin changed to Ancef by ID -F/u sputum culture, respiratory viral panel -ID Dr. Mon HEME: -Monitor CBC, CMP,coags ENDO: -Electrolyte replacement protocol, sliding scale insulin if needed -Stress dose steroids PROPH: -Bilateral lower extremity SCDs. Continue Coumadin, IV famotidine LINES: -Right subclavian central line, right femoral arterial line placed 04/30/2017 CC time 32 min excluding procedures Patient is critically ill with acute hypoxemic and hypercarbic respiratory failure and severe septic shock. Remains critical now with worsening chest infiltrates. Sidra Fuchs MD May 02, 2017 14:57
[2017-05-02] MEDS: WARFARIN SOD 2 MG TAB PO SCH (16:28)
[2017-05-02] MEDS: DEXMEDETOMIDINE 200 MCG in NS 48 ML IV PRN (16:30)
[2017-05-02] MEDS ORDERED: VANCOMYCIN INJ 1,400 MG in SODIUM CHLORID 0.9% 500 ML INJ 500 ML IV ONE (18:00)
[2017-05-03] VITALS (21 sets, daily range): BP systolic 119–151; BP diastolic 53–77; PULSE 59–63; RESP 14–22; TEMP 98.4–98.8; O2SAT 99–100
[2017-05-03] MEDS: RESP: ALBUTEROL 2.5 MG/IPRATROPIUM 0.5 MG NEB (SCH) NEB ×7 (00:01→23:40)
[2017-05-03] MEDS: DEXMEDETOMIDINE 200 MCG in NS 48 ML IV PRN ×2 (01:40→10:41)
[2017-05-03] MEDS: ceFAZolin 1,000 MG/NS 100 ML IV SCH ×6 (02:12→18:02)
[2017-05-03] MEDS: HYDROCORTISONE SOD SUCCINATE 100 MG VIAL IV SCH ×3 (02:12→18:02)
[2017-05-03] MEDS: PROPOFOL 1000 MG/100 ML IV PRN ×3 (03:49→19:08)
[2017-05-03] MEDS: CHLORHEXIDINE GLUCONATE 2 % 1 PACK (2 CLOTHS)(taper/protocol) TOPICAL SCH (03:50)
[2017-05-03 04:04] LABS: HEMATOCRIT 31.7 % (35.0-46.0); MEAN CELL VOLUME 98.6 FL (80.0-100.0); MEAN CORPUSCULAR HEMOGLOBIN 34.3 PG (27.0-34.0); MEAN CORPUSCULAR HGB CONC 34.8 % (32.0-36.0); MEAN PLATELET VOLUME 9.8 FL (7.0-11.0); PLATELET COUNT 120 TH/MM3 (150-450); RED BLOOD COUNT 3.21 MIL/MM3 (4.00-5.30); RED CELL DISTRIBUTION WIDTH 12.4 % (11.6-17.2); WHITE BLOOD COUNT 10.4 TH/MM3 (4.0-11.0)
[2017-05-03 04:32] LABS: ALBUMIN 1.9 GM/DL (3.4-5.0); AST (GOT) 27 U/L (15-37); BICARBONATE 17.3 MEQ/L (21.0-32.0); BLOOD UREA NITROGEN 43 MG/DL (7-18); CALCIUM 7.6 MG/DL (8.5-10.1); CHLORIDE 118 MEQ/L (98-107); CREATININE 1.64 MG/DL (0.50-1.00); GLOMERULAR FILTRATION RATE 30 ML/MIN (>89); GLUCOSE,RANDOM 172 MG/DL (74-106); SODIUM (NA) 146 MEQ/L (136-145)
[2017-05-03 04:33] LABS: ALT (GPT) 26 U/L (10-53); PHOSPHORUS 1.9 MG/DL (2.5-4.9)
[2017-05-03 04:35] LABS: ALKALINE PHOSPHATASE 66 U/L (45-117); TOTAL BILIRUBIN ADULT 0.5 MG/DL (0.2-1.0); TOTAL PROTEIN 5.2 GM/DL (6.4-8.2)
[2017-05-03] MEDS: LACTOBACILLUS ACIDOPHILUS TAB PO SCH ×3 (08:44→16:06)
[2017-05-03] MEDS: SOTALOL HCL 80 MG TAB PO SCH ×2 (08:44→20:27)
[2017-05-03] MEDS: POTASSIUM CHLORIDE 10 MEQ CONTROLLED RELEASE TAB PO SCH (08:44)
[2017-05-03] MEDS: OSELTAMIVIR PHOSPHATE 75 MG CAP PO SCH ×2 (08:44→20:27)
[2017-05-03] MEDS: SODIUM CHLORIDE 0.9% FLUSH 10 ML FLUSH IV FLUSH SCH ×2 (08:45→20:27)
[2017-05-03] MEDS: CHLORHEXIDINE 0.12% (ORAL KIT) 15 ML CUP MT SCH ×2 (08:45→20:27)
--- NOTE | 2017-05-03 09:27 | HHI.IDPN ---
Subjective Subjective Remarks is an 86 y/o CF with PMHx of CAD, PCI stents 5, hypertension, chronic atrial fibrillation, pacemaker placement was admitted to the hospitalist service with respiratory distress, secondary to pneumonia. Her daughter is hospitalized in the ICU with staph aureus pneumonia and septic shock. On admission patient was also was in atrial fibrillation with RVR. Was admitted to hospital service with IV Rocephin and azithromycin. Patient was initially admitted under hospitalist services and due to worsening respiratory distress and hypotension and Critical care is now involved. Patient was emergently intubated, CL and A line placed this am. I tried to see patient then but due to multiple procedures discussed case with patients son and am officially seeing patient now and writing note at 6:34 pm. Patients son reported to me that patient and daughter live in same home rest of the details not known. Blood cultures were positive this am and CXR showed pneumonia. Sepsis eval started and patient started on empiric antibiotics and empiric tamiflu. Case dw briefly in am. At the time of my eval patient is in the ICU, on vasopressors, UO ok. Sedated on vent. ID consulted for eval and Mment of Septic shock, MSSA bacteremia and Pneumonia. Overnight events reviewed. Remains intubated. Sedated. Off pressors. No fevers No rash No diarrhea Antibiotics Ancef IV Tamiflu Lines Line sites with no e.o infection Past Medical History reviewed Allergies: Coded Allergies: clopidogrel (Unverified Allergy, Mild, Hives, 04/29/17) Iodinated Contrast- Oral and IV Dye (Verified Allergy, Unknown, 04/29/17) Objective . Vital Signs Date Time Temp Pulse Resp B/P (MAP) Pulse Ox O2 Delivery O2 Flow Rate FiO2 05/03/17 06:00 59 05/03/17 04:41 99 40 05/03/17 04:00 40 05/03/17 04:00 60 05/03/17 04:00 98.5 60 14 141/63 (89) 100 149/61 (90) 05/03/17 02:00 60 05/03/17 00:01 100 40 05/03/17 00:00 98.4 60 16 123/60 (81) 99 141/58 (85) 05/03/17 00:00 60 05/03/17 00:00 40 05/02/17 22:00 59 05/02/17 21:49 100 40 05/02/17 20:00 98.6 59 14 110/55 (73) 99 123/52 (75) 05/02/17 20:00 40 05/02/17 20:00 59 05/02/17 18:00 62 05/02/17 16:00 98.1 65 14 138/70 (92) 100 159/65 (96) 05/02/17 16:00 40 05/02/17 16:00 65 05/02/17 15:14 98 40 05/02/17 14:00 69 05/02/17 12:00 40 05/02/17 12:00 63 05/02/17 12:00 98.7 63 18 126/63 (84) 100 145/63 (90) 05/02/17 11:49 99 40 05/02/17 10:00 67 . Laboratory Tests Test 05/02/17 03:50 05/03/17 03:45 White Blood Count 9.9 TH/MM3 10.4 TH/MM3 Red Blood Count 3.35 MIL/MM3 3.21 MIL/MM3 Hemoglobin 11.6 GM/DL 11.0 GM/DL Hematocrit 33.5 % 31.7 % Mean Corpuscular Volume 100.1 FL 98.6 FL Mean Corpuscular Hemoglobin 34.5 PG 34.3 PG Mean Corpuscular Hemoglobin Concent 34.5 % 34.8 % Red Cell Distribution Width 12.5 % 12.4 % Platelet Count 100 TH/MM3 120 TH/MM3 Mean Platelet Volume 10.4 FL 9.8 FL Neutrophils (%) (Auto) 87.4 % Lymphocytes (%) (Auto) 4.9 % Monocytes (%) (Auto) 7.7 % Eosinophils (%) (Auto) 0.0 % Basophils (%) (Auto) 0.0 % Neutrophils # (Auto) 8.7 TH/MM3 Lymphocytes # (Auto) 0.5 TH/MM3 Monocytes # (Auto) 0.8 TH/MM3 Eosinophils # (Auto) 0.0 TH/MM3 Basophils # (Auto) 0.0 TH/MM3 CBC Comment DIFF FINAL Differential Comment Laboratory Tests Test 05/02/17 03:50 05/03/17 03:45 Blood Urea Nitrogen 41 MG/DL 43 MG/DL Creatinine 1.69 MG/DL 1.64 MG/DL Random Glucose 137 MG/DL 172 MG/DL Total Protein 5.2 GM/DL 5.2 GM/DL Albumin 2.0 GM/DL 1.9 GM/DL Calcium Level 7.5 MG/DL 7.6 MG/DL Phosphorus Level 1.9 MG/DL 1.9 MG/DL Magnesium Level 1.7 MG/DL 2.0 MG/DL Alkaline Phosphatase 65 U/L 66 U/L Aspartate Amino Transf (AST/SGOT) 46 U/L 27 U/L Alanine Aminotransferase (ALT/SGPT) 39 U/L 26 U/L Total Bilirubin 0.3 MG/DL 0.5 MG/DL Sodium Level 141 MEQ/L 146 MEQ/L Potassium Level 3.9 MEQ/L 3.3 MEQ/L Chloride Level 111 MEQ/L 118 MEQ/L Carbon Dioxide Level 20.7 MEQ/L 17.3 MEQ/L Anion Gap 9 MEQ/L 11 MEQ/L Estimat Glomerular Filtration Rate 29 ML/MIN 30 ML/MIN Microbiology Date/Time Source Procedure Growth Status 04/30/17 22:59 Blood Peripheral Aerobic Blood Culture - Preliminary NO GROWTH IN 2 DAYS Resulted 04/30/17 22:59 Blood Peripheral Anaerobic Blood Culture - Preliminary NO GROWTH IN 2 DAYS Resulted 04/30/17 18:07 Blood Peripheral Aerobic Blood Culture - Preliminary NO GROWTH IN 2 DAYS Resulted 04/30/17 18:07 Blood Peripheral Anaerobic Blood Culture - Preliminary NO GROWTH IN 2 DAYS Resulted Imaging Last Impressions Chest X-Ray 04/30/17 0000 Signed Impressions: Service Date/Time: Sunday, April 30, 2017 11:41 - CONCLUSION: 1. Interval intubation and placement of right subclavian central venous line with no pneumothorax. 2. Patchy infiltrate remains at the right lung base. Maciel Davenport MD Physical Exam GENERAL: This is a well-nourished, well-developed patient, in no apparent distress. SKIN: No rashes, ecchymoses or lesions. Cool and dry. HEAD: Atraumatic. Normocephalic. No temporal or scalp tenderness. EYES: Pupils equal round and reactive. No scleral icterus. No injection or drainage. ENT: Intubated. NECK: Trachea midline. Supple, nontender, no meningeal signs. CARDIOVASCULAR: HS audible. RESPIRATORY: Decreased AE in bases. Bilateral wheezing audible. GASTROINTESTINAL: Abdomen soft, non-tender, nondistended. MUSCULOSKELETAL: Extremities without clubbing, cyanosis, or edema. No joint tenderness, effusion, or edema noted. No calf tenderness. Negative Homans sign bilaterally. NEUROLOGICAL: Sedated. Psych cooperative IV line sites with no e.o infection. Assessment & Plan Remarks Septic Shock Staph aureus bacteremia likely secondary to Pneumonia post flu. Influenza A and B positive pneumonia. Pneumonia present on admission. Acute resp failure on vent Acute metabolic encephalopathy: infection, sepsis. CAD pacemaker in place. Recs Continue Ancef IV (MSSA bacteremia and Pneumonia) Continue Tamiflu. Follow cultures. Follow clinically. Julianna Alcanatr RN, MD May 03, 2017 09:27
[2017-05-03] MEDS: SODIUM CHLOR 0.9% 1000 ML INJ 1,000 ML IV SCH (11:45)
[2017-05-03] MEDS: WARFARIN SOD 2 MG TAB PO SCH (16:06)
[2017-05-03 20:41] LABS: PHOSPHORUS 3.2 MG/DL (2.5-4.9)
--- NOTE | 2017-05-03 20:49 | HHI.CCPN ---
Subjective Remarks/Hospital Course Patient is an 86-year-old female with past medical history significant for coronary artery disease, PCI stents 5, hypertension, chronic atrial fibrillation, pacemaker placement was admitted to the hospitalist service with respiratory distress, secondary to pneumonia. Her daughter is hospitalized in the ICU with staph aureus pneumonia and septic shock. She will also was in atrial fibrillation with RVR. She does not have a history of asthma or COPD. Was admitted to hospital service with IV Rocephin and azithromycin I was urgently consulted today as the patient was in severe respiratory distress with severe bilateral wheezing and progressive decline in blood pressure now with a map of 45. On my evaluation patient was hardly able to communicate, is in respiratory extremis. There was no improvement in wheezing with [id number] breathing treatments. As the map was only 45 despite fluid boluses, Levophed was started and rapidly increased to 12 mcg/min, then to 20 mcg/min. IV Solu-Medrol 125 mg 1 stat was given. I emergently intubated the patient and placed on mechanical ventilation. I also placed a right subclavian central line and right femoral arterial line. Due to increased peak pressures and low tidal volume Vent mode was changed to PCV, from initial PRVC. Patient will be started on scheduled frequent breathing treatments, continued IV Solu Cortef. Continue Rocephin and azithromycin add vancomycin and Tamiflu. Respiratory panel requested. Blood cultures are growing staph aureus SUBJ 05/01: Patient remains intubated sedated. Bronchospasm significantly improved on exam. Remains in shock but with less pressor requirement currently Levophed at 3 mcg/min and vasopressin at 0.04 international units. Creatinine has increased to 1.68. Her daughter who is also admitted to ICU is positive for influenza 05/02: Worsening right sided infiltrates, not tolerating CPAP. Resp panel positive for Infl A/B. Currently off pressors. Creat 1.69. U) 700 ml in 24 hours 05/03: clinically starting to improve. off vasopressors. up 12kg from admission. very volume overloaded. hypoxia starting to improve. Objective Vital Signs Date Time Temp Pulse Resp B/P (MAP) Pulse Ox O2 Delivery O2 Flow Rate FiO2 05/03/17 19:26 100 40 05/03/17 18:00 59 05/03/17 16:00 22 128/73 (91) 139/53 (81) 05/03/17 08:00 98.8 04/30/17 07:54 Partial Rebreather 12.00 Intake and Output 05/03/17 05/03/17 05/04/17 08:00 16:00 00:00 Intake Total 502 ml 720 ml Output Total 1000 ml Balance -498 ml 720 ml Result Diagram: 05/03/17 0345 05/03/17 1935 Imaging Right lower lobe infiltrate Objective Remarks GENERAL: This is a frail elderly female, intubated sedated SKIN: No rashes, ecchymoses or lesions. Cool and dry. HEAD: Atraumatic. Normocephalic. EYES: Pupils equal round and reactive. ENT: Edentulous. Orotracheally intubated NECK: Trachea midline. No JVD CARDIOVASCULAR: Underlying A. fib with ventricular paced rhythm. Normotensive RESPIRATORY: Air entry equal with bilateral coarse rhonchi and expiratory wheezing GASTROINTESTINAL: Abdomen soft, non-tender, nondistended. MUSCULOSKELETAL: Extremities without clubbing, cyanosis, 1+ peripheral edema. NEUROLOGICAL: On sedation hold patient opens eyes nods to questions and follows commands 4, but becomes asynchronous with the ventilator A/P Assessment and Plan Assessment: 86yF with influenza pneumonia and staph coinfection with persistent acute hypoxic respiratory failure. remains off pathway and critically ill. will pursue forced diuresis to improve oxygenation. continue daily SBT. Active Problems: Acute hypoxemic hypercarbic respiratory failure - persistent. Severe bronchospasm- resolved. Septic shock- resolved. Influenza pneumonia Staph aureus bacteremia Lactic acidosis- resolved. Hypocalcemia Hypokalemia Hypomagnesemia Atrial fibrillation Coronary artery disease History of hypertension PLAN: NEURO: -Currently on propofol, Precedex to facilitate ventilator weaning when ready -Daily sedation medication -Morphine as needed for pain control and anxiety RESP: -Emergently intubated and placed on mechanical ventilation 04/30 -switch to PRVC due to high volumes on pressure control. -Failing CPAP trials for tachypnea and distress. -Respiratory panel positive for influenza a and B by PCR - Ancef and Tamiflu CV: -d/c mivf. -Lactic acid has normalized -off vasopressors. -continue Coumadin, continue Betapace -Hold Coreg hold lisinopril GI: -IV famotidine. tube feeds with [facility] icu electrolyte protocol : -Monitor renal function closely. Dangelo catheter. -Strict intake output -start forced diuresis, lasix 40mg iv q6h. ID: -Blood cultures growing staph aureus -Respiratory panel positive for influenza AMB -Tamiflu and Ancef. -ID Dr. Mon HEME: -Monitor CBC, CMP,coags ENDO: -Electrolyte replacement protocol, sliding scale insulin if needed -Stress dose steroids: start weaning PROPH: -Bilateral lower extremity SCDs. Continue Coumadin, IV famotidine LINES: -Right subclavian central line, right femoral arterial line placed 04/30/2017 Felipe Calabrese MD May 03, 2017 20:49
[2017-05-03] MEDS: FUROSEMIDE 40 MG/4 ML VIAL IV PUSH SCH (21:26)
[2017-05-04] VITALS (19 sets, daily range): BP systolic 84–162; BP diastolic 47–70; PULSE 61–128; RESP 18–28; TEMP 98.3–98.9; O2SAT 97–100
[2017-05-04] MEDS: PROPOFOL 1000 MG/100 ML IV PRN ×4 (01:33→23:36)
[2017-05-04] MEDS: ceFAZolin 1,000 MG/NS 100 ML IV SCH ×6 (02:56→18:49)
[2017-05-04] MEDS: HYDROCORTISONE SOD SUCCINATE 100 MG VIAL IV SCH ×3 (02:56→18:31)
[2017-05-04] MEDS: FUROSEMIDE 40 MG/4 ML VIAL IV PUSH SCH ×4 (03:01→21:47)
[2017-05-04] MEDS: DEXMEDETOMIDINE 200 MCG in NS 48 ML IV PRN (03:06)
[2017-05-04] MEDS: RESP: ALBUTEROL 2.5 MG/IPRATROPIUM 0.5 MG NEB (SCH) NEB ×5 (03:40→20:54)
[2017-05-04] MEDS: CHLORHEXIDINE GLUCONATE 2 % 1 PACK (2 CLOTHS)(taper/protocol) TOPICAL SCH (04:49)
[2017-05-04 05:24] LABS: HEMATOCRIT 35.7 % (35.0-46.0); HEMOGLOBIN 12.4 GM/DL (11.6-15.3); MEAN CELL VOLUME 98.5 FL (80.0-100.0); MEAN CORPUSCULAR HEMOGLOBIN 34.3 PG (27.0-34.0); MEAN CORPUSCULAR HGB CONC 34.8 % (32.0-36.0); MEAN PLATELET VOLUME 9.3 FL (7.0-11.0); PLATELET COUNT 180 TH/MM3 (150-450); RED BLOOD COUNT 3.62 MIL/MM3 (4.00-5.30); RED CELL DISTRIBUTION WIDTH 12.8 % (11.6-17.2); WHITE BLOOD COUNT 16.8 TH/MM3 (4.0-11.0)
[2017-05-04 06:03] LABS: BICARBONATE 20.6 MEQ/L (21.0-32.0); CALCIUM 7.8 MG/DL (8.5-10.1); CREATININE 1.6 MG/DL (0.50-1.00)
[2017-05-04 06:13] LABS: PROTHROMBIN TIME - PATIENT 116.2 SEC (9.8-11.6)
[2017-05-04 06:17] LABS: INTERNATIONAL NORMALIZED RATIO 11.7 RATIO
[2017-05-04] MEDS: POTASSIUM CHLOR 40 MEQ PREMIX 100 ML IV PRN ×3 (06:43→22:19)
[2017-05-04] MEDS: CHLORHEXIDINE 0.12% (ORAL KIT) 15 ML CUP MT SCH ×2 (08:00→20:14)
[2017-05-04] MEDS: POTASSIUM CHLORIDE 10 MEQ CONTROLLED RELEASE TAB PO SCH (09:00)
--- NOTE | 2017-05-04 10:47 | HHI.IDPN ---
Subjective Subjective Remarks is an 86 y/o CF with PMHx of CAD, PCI stents 5, hypertension, chronic atrial fibrillation, pacemaker placement was admitted to the hospitalist service with respiratory distress, secondary to pneumonia. Her daughter is hospitalized in the ICU with staph aureus pneumonia and septic shock. On admission patient was also was in atrial fibrillation with RVR. Was admitted to hospital service with IV Rocephin and azithromycin. Patient was initially admitted under hospitalist services and due to worsening respiratory distress and hypotension and Critical care is now involved. Patient was emergently intubated, CL and A line placed this am. I tried to see patient then but due to multiple procedures discussed case with patients son and am officially seeing patient now and writing note at 6:34 pm. Patients son reported to me that patient and daughter live in same home rest of the details not known. Blood cultures were positive this am and CXR showed pneumonia. Sepsis eval started and patient started on empiric antibiotics and empiric tamiflu. Case dw briefly in am. At the time of my eval patient is in the ICU, on vasopressors, UO ok. Sedated on vent. ID consulted for eval and Mment of Septic shock, MSSA bacteremia and Pneumonia. Overnight events reviewed. Remains intubated. Sedated. Off pressors. No fevers No rash No diarrhea Antibiotics Ancef IV Tamiflu Lines Line sites with no e.o infection Past Medical History reviewed Allergies: Coded Allergies: clopidogrel (Unverified Allergy, Mild, Hives, 04/29/17) Iodinated Contrast- Oral and IV Dye (Verified Allergy, Unknown, 04/29/17) Objective . Vital Signs Date Time Temp Pulse Resp B/P (MAP) Pulse Ox O2 Delivery O2 Flow Rate FiO2 05/04/17 10:30 40 05/04/17 07:43 100 40 05/04/17 06:00 104 05/04/17 04:00 40 05/04/17 04:00 98.6 65 20 135/63 (87) 100 162/54 (90) 05/04/17 04:00 65 05/04/17 03:39 100 40 05/04/17 02:00 61 05/04/17 00:00 63 05/04/17 00:00 40 05/04/17 00:00 98.3 63 23 144/65 (91) 100 156/64 (94) 05/03/17 23:40 100 40 05/03/17 22:00 63 05/03/17 20:00 40 05/03/17 20:00 61 05/03/17 20:00 98.7 61 17 135/77 (96) 100 145/57 (86) 05/03/17 19:26 100 40 05/03/17 18:00 59 05/03/17 17:24 100 40 05/03/17 16:00 40 05/03/17 16:00 60 05/03/17 16:00 60 22 128/73 (91) 100 139/53 (81) 05/03/17 14:00 60 05/03/17 13:45 99 40 05/03/17 12:00 60 14 128/68 (88) 100 151/61 (91) 05/03/17 12:00 59 05/03/17 12:00 40 05/03/17 11:42 100 40 . Laboratory Tests Test 05/03/17 03:45 05/04/17 05:00 White Blood Count 10.4 TH/MM3 16.8 TH/MM3 Red Blood Count 3.21 MIL/MM3 3.62 MIL/MM3 Hemoglobin 11.0 GM/DL 12.4 GM/DL Hematocrit 31.7 % 35.7 % Mean Corpuscular Volume 98.6 FL 98.5 FL Mean Corpuscular Hemoglobin 34.3 PG 34.3 PG Mean Corpuscular Hemoglobin Concent 34.8 % 34.8 % Red Cell Distribution Width 12.4 % 12.8 % Platelet Count 120 TH/MM3 180 TH/MM3 Mean Platelet Volume 9.8 FL 9.3 FL Laboratory Tests Test 05/03/17 03:45 05/03/17 19:35 05/04/17 05:00 Blood Urea Nitrogen 43 MG/DL 45 MG/DL Creatinine 1.64 MG/DL 1.60 MG/DL Random Glucose 172 MG/DL 179 MG/DL Total Protein 5.2 GM/DL Albumin 1.9 GM/DL Calcium Level 7.6 MG/DL 7.8 MG/DL Phosphorus Level 1.9 MG/DL 3.2 MG/DL Magnesium Level 2.0 MG/DL Alkaline Phosphatase 66 U/L Aspartate Amino Transf (AST/SGOT) 27 U/L Alanine Aminotransferase (ALT/SGPT) 26 U/L Total Bilirubin 0.5 MG/DL Sodium Level 146 MEQ/L 150 MEQ/L Potassium Level 3.3 MEQ/L 3.8 MEQ/L 2.9 MEQ/L Chloride Level 118 MEQ/L 117 MEQ/L Carbon Dioxide Level 17.3 MEQ/L 20.6 MEQ/L Anion Gap 11 MEQ/L 12 MEQ/L Estimat Glomerular Filtration Rate 30 ML/MIN 31 ML/MIN Imaging Last Impressions Chest X-Ray 04/30/17 0000 Signed Impressions: Service Date/Time: Sunday, April 30, 2017 11:41 - CONCLUSION: 1. Interval intubation and placement of right subclavian central venous line with no pneumothorax. 2. Patchy infiltrate remains at the right lung base. Maciel Davenport MD Physical Exam GENERAL: This is a well-nourished, well-developed patient, in no apparent distress. SKIN: No rashes, ecchymoses or lesions. Cool and dry. HEAD: Atraumatic. Normocephalic. No temporal or scalp tenderness. EYES: Pupils equal round and reactive. No scleral icterus. No injection or drainage. ENT: Intubated. NECK: Trachea midline. Supple, nontender, no meningeal signs. CARDIOVASCULAR: HS audible. RESPIRATORY: Decreased AE in bases. Bilateral wheezing audible. GASTROINTESTINAL: Abdomen soft, non-tender, nondistended. MUSCULOSKELETAL: Extremities without clubbing, cyanosis, or edema. No joint tenderness, effusion, or edema noted. No calf tenderness. Negative Homans sign bilaterally. NEUROLOGICAL: Sedated. Psych cooperative IV line sites with no e.o infection. Assessment & Plan Remarks Septic Shock resolved. MSSA bacteremia likely secondary to Pneumonia post flu. Influenza A and B positive pneumonia. Pneumonia present on admission. Acute resp failure on vent Acute metabolic encephalopathy: infection, sepsis. CAD pacemaker in place. Recs Continue Ancef IV (MSSA bacteremia and Pneumonia) Continue Tamiflu. Follow cultures. Follow clinically. Julianna Alcantar RN, MD May 04, 2017 10:47
[2017-05-04] MEDS: SOTALOL HCL 80 MG TAB PO SCH ×2 (11:05→20:24)
[2017-05-04] MEDS: OSELTAMIVIR PHOSPHATE 75 MG CAP PO SCH ×2 (11:07→20:24)
[2017-05-04] MEDS: LACTOBACILLUS ACIDOPHILUS TAB PO SCH ×3 (11:07→18:24)
[2017-05-04] MEDS: SODIUM CHLORIDE 0.9% FLUSH 10 ML FLUSH IV FLUSH SCH ×2 (11:41→20:14)
[2017-05-04] MEDS: FREE WATER G-TUBE SCH ×4 (13:00→23:36)
[2017-05-04] MEDS: MAGNESIUM SULFATE 1 GM PREMIX 100 ML IV SCH ×2 (14:50→16:39)
--- NOTE | 2017-05-04 17:52 | HHI.CCPN ---
Subjective Remarks/Hospital Course Patient is an 86-year-old female with past medical history significant for coronary artery disease, PCI stents 5, hypertension, chronic atrial fibrillation, pacemaker placement was admitted to the hospitalist service with respiratory distress, secondary to pneumonia. Her daughter is hospitalized in the ICU with staph aureus pneumonia and septic shock. She will also was in atrial fibrillation with RVR. She does not have a history of asthma or COPD. Was admitted to hospital service with IV Rocephin and azithromycin I was urgently consulted today as the patient was in severe respiratory distress with severe bilateral wheezing and progressive decline in blood pressure now with a map of 45. On my evaluation patient was hardly able to communicate, is in respiratory extremis. There was no improvement in wheezing with [id number] breathing treatments. As the map was only 45 despite fluid boluses, Levophed was started and rapidly increased to 12 mcg/min, then to 20 mcg/min. IV Solu-Medrol 125 mg 1 stat was given. I emergently intubated the patient and placed on mechanical ventilation. I also placed a right subclavian central line and right femoral arterial line. Due to increased peak pressures and low tidal volume Vent mode was changed to PCV, from initial PRVC. Patient will be started on scheduled frequent breathing treatments, continued IV Solu Cortef. Continue Rocephin and azithromycin add vancomycin and Tamiflu. Respiratory panel requested. Blood cultures are growing staph aureus SUBJ 05/01: Patient remains intubated sedated. Bronchospasm significantly improved on exam. Remains in shock but with less pressor requirement currently Levophed at 3 mcg/min and vasopressin at 0.04 international units. Creatinine has increased to 1.68. Her daughter who is also admitted to ICU is positive for influenza 05/02: Worsening right sided infiltrates, not tolerating CPAP. Resp panel positive for Infl A/B. Currently off pressors. Creat 1.69. U) 700 ml in 24 hours 05/03: clinically starting to improve. off vasopressors. up 12kg from admission. very volume overloaded. hypoxia starting to improve. 05/04: failed SBT after only 10 minutes for tachypnea, low tidal volumes, tachycardia, respiratory distress. good diuresis. oxygenation continues to improve. slightly more somnolent than yesterday. Objective Vital Signs Date Time Temp Pulse Resp B/P (MAP) Pulse Ox O2 Delivery O2 Flow Rate FiO2 05/04/17 16:24 97 40 05/04/17 16:00 86 05/04/17 16:00 98.5 19 119/69 (86) 115/62 (79) 04/30/17 07:54 Partial Rebreather 12.00 Intake and Output 05/04/17 05/04/17 05/05/17 08:00 16:00 00:00 Intake Total 963 ml 325 ml Output Total 3400 ml Balance -2437 ml 325 ml Result Diagram: 05/04/17 0500 05/04/17 0500 Imaging Right lower lobe infiltrate Objective Remarks GENERAL: This is a frail elderly female, intubated sedated SKIN: No rashes, ecchymoses or lesions. Cool and dry. HEAD: Atraumatic. Normocephalic. EYES: Pupils equal round and reactive. ENT: Edentulous. Orotracheally intubated NECK: Trachea midline. No JVD CARDIOVASCULAR: Underlying A. fib with ventricular paced rhythm. Normotensive RESPIRATORY: Air entry equal with bilateral coarse rhonchi and expiratory wheezing GASTROINTESTINAL: Abdomen soft, non-tender, nondistended. MUSCULOSKELETAL: Extremities without clubbing, cyanosis, 1+ peripheral edema. NEUROLOGICAL: On sedation hold patient opens eyes nods to questions and follows commands 4, but becomes asynchronous with the ventilator A/P Assessment and Plan Assessment: 86yF with influenza pneumonia and staph coinfection with persistent acute hypoxic respiratory failure. remains off pathway and critically ill. will pursue forced diuresis to improve oxygenation. continue daily SBT. Active Problems: Acute hypoxemic hypercarbic respiratory failure - persistent. Severe bronchospasm- resolved. Septic shock- resolved. Influenza pneumonia Staph aureus bacteremia Lactic acidosis- resolved. Hypocalcemia Hypokalemia Hypomagnesemia Atrial fibrillation Coronary artery disease History of hypertension PLAN: NEURO: -Currently on propofol, Precedex to facilitate ventilator weaning when ready -Daily sedation medication -Morphine as needed for pain control and anxiety RESP: -Emergently intubated and placed on mechanical ventilation 04/30 -switch to PRVC due to high volumes on pressure control. -Failing CPAP trials for tachypnea and distress. -Respiratory panel positive for influenza a and B by PCR - Ancef and Tamiflu CV: -d/c mivf. -Lactic acid has normalized -off vasopressors. -continue Coumadin, continue Betapace -Hold Coreg hold lisinopril GI: -IV famotidine. tube feeds with [facility] icu electrolyte protocol : -Monitor renal function closely. Dangelo catheter. -Strict intake output continue lasix 40mg iv q6h. ID: -Blood cultures growing staph aureus -Respiratory panel positive for influenza AMB -Tamiflu and Ancef. -ID Dr. Mon HEME: -Monitor CBC, CMP,coags ENDO: -Electrolyte replacement protocol, sliding scale insulin if needed -Stress dose steroids: weaning PROPH: -Bilateral lower extremity SCDs. Continue Coumadin, IV famotidine LINES: -Right subclavian central line, right femoral arterial line placed 04/30/2017 Felipe Calabrese MD May 04, 2017 17:52
[2017-05-05] VITALS (32 sets, daily range): BP systolic 73–191; BP diastolic 48–99; PULSE 60–126; RESP 18–37; TEMP 97.9–99.2; O2SAT 87–100
[2017-05-05] MEDS: RESP: ALBUTEROL 2.5 MG/IPRATROPIUM 0.5 MG NEB (SCH) NEB ×6 (00:25→20:28)
[2017-05-05] MEDS: ceFAZolin 1,000 MG/NS 100 ML IV SCH ×4 (03:29→16:11)
[2017-05-05] MEDS: HYDROCORTISONE SOD SUCCINATE 100 MG VIAL IV SCH ×3 (03:29→17:59)
[2017-05-05] MEDS: FREE WATER G-TUBE SCH ×4 (03:30→18:00)
[2017-05-05] MEDS: FUROSEMIDE 40 MG/4 ML VIAL IV PUSH SCH ×4 (03:30→22:32)
[2017-05-05] MEDS ORDERED: NOREPINEPHRINE 4 MG/D5W 250 ML IV PRN (05:15)
[2017-05-05 05:35] LABS: HEMATOCRIT 35.6 % (35.0-46.0); HEMOGLOBIN 12.3 GM/DL (11.6-15.3); MEAN CELL VOLUME 97.9 FL (80.0-100.0); MEAN CORPUSCULAR HEMOGLOBIN 33.8 PG (27.0-34.0); MEAN CORPUSCULAR HGB CONC 34.5 % (32.0-36.0); MEAN PLATELET VOLUME 9.1 FL (7.0-11.0); PLATELET COUNT 240 TH/MM3 (150-450); RED BLOOD COUNT 3.64 MIL/MM3 (4.00-5.30); RED CELL DISTRIBUTION WIDTH 12.7 % (11.6-17.2); WHITE BLOOD COUNT 16.4 TH/MM3 (4.0-11.0)
[2017-05-05 05:48] LABS: INTERNATIONAL NORMALIZED RATIO 5.8 RATIO; PROTHROMBIN TIME - PATIENT 58.1 SEC (9.8-11.6)
[2017-05-05 06:00] LABS: BICARBONATE 22.5 MEQ/L (21.0-32.0); CALCIUM 7.7 MG/DL (8.5-10.1); CREATININE 1.69 MG/DL (0.50-1.00)
[2017-05-05] MEDS: POTASSIUM CHLORIDE 10 MEQ CONTROLLED RELEASE TAB PO SCH (09:00)
[2017-05-05] MEDS: POTASSIUM CHLOR 40 MEQ PREMIX 100 ML IV PRN ×2 (09:57→18:08)
[2017-05-05] MEDS: OSELTAMIVIR PHOSPHATE 75 MG CAP PO SCH ×2 (10:00→21:03)
[2017-05-05] MEDS: LACTOBACILLUS ACIDOPHILUS TAB PO SCH ×3 (10:00→17:59)
[2017-05-05] MEDS: SOTALOL HCL 80 MG TAB PO SCH ×2 (10:01→21:02)
[2017-05-05] MEDS: SODIUM CHLORIDE 0.9% FLUSH 10 ML FLUSH IV FLUSH SCH ×2 (10:01→21:00)
[2017-05-05] MEDS: CHLORHEXIDINE 0.12% (ORAL KIT) 15 ML CUP MT SCH ×2 (10:02→20:00)
[2017-05-05] MEDS: PROPOFOL 1000 MG/100 ML IV PRN ×2 (12:16→23:03)
--- NOTE | 2017-05-05 15:44 | HHI.CCPN ---
Subjective Remarks/Hospital Course Patient is an 86-year-old female with past medical history significant for coronary artery disease, PCI stents 5, hypertension, chronic atrial fibrillation, pacemaker placement was admitted to the hospitalist service with respiratory distress, secondary to pneumonia. Her daughter is hospitalized in the ICU with staph aureus pneumonia and septic shock. She will also was in atrial fibrillation with RVR. She does not have a history of asthma or COPD. Was admitted to hospital service with IV Rocephin and azithromycin I was urgently consulted today as the patient was in severe respiratory distress with severe bilateral wheezing and progressive decline in blood pressure now with a map of 45. On my evaluation patient was hardly able to communicate, is in respiratory extremis. There was no improvement in wheezing with [id number] breathing treatments. As the map was only 45 despite fluid boluses, Levophed was started and rapidly increased to 12 mcg/min, then to 20 mcg/min. IV Solu-Medrol 125 mg 1 stat was given. I emergently intubated the patient and placed on mechanical ventilation. I also placed a right subclavian central line and right femoral arterial line. Due to increased peak pressures and low tidal volume Vent mode was changed to PCV, from initial PRVC. Patient will be started on scheduled frequent breathing treatments, continued IV Solu Cortef. Continue Rocephin and azithromycin add vancomycin and Tamiflu. Respiratory panel requested. Blood cultures are growing staph aureus SUBJ 05/01: Patient remains intubated sedated. Bronchospasm significantly improved on exam. Remains in shock but with less pressor requirement currently Levophed at 3 mcg/min and vasopressin at 0.04 international units. Creatinine has increased to 1.68. Her daughter who is also admitted to ICU is positive for influenza 05/02: Worsening right sided infiltrates, not tolerating CPAP. Resp panel positive for Infl A/B. Currently off pressors. Creat 1.69. U) 700 ml in 24 hours 05/03: clinically starting to improve. off vasopressors. up 12kg from admission. very volume overloaded. hypoxia starting to improve. 05/04: failed SBT after only 10 minutes for tachypnea, low tidal volumes, tachycardia, respiratory distress. good diuresis. oxygenation continues to improve. slightly more somnolent than yesterday. 05/05: tolerated SBT slightly longer than yesterday, but still failed for respiratory distress. hypernatremia improving. did not diurese as well as expected yesterday, will need to increase forced diuresis: remains volume overloaded. Objective Vital Signs Date Time Temp Pulse Resp B/P (MAP) Pulse Ox O2 Delivery O2 Flow Rate FiO2 05/05/17 15:26 99 40 05/05/17 14:00 117 05/05/17 13:02 37 137/58 (84) 120/67 (84) 05/05/17 12:00 98.9 Intake and Output 05/05/17 05/05/17 05/05/17 07:59 15:59 23:59 Intake Total 1453 ml 200 ml Output Total 2100 ml Balance -647 ml 200 ml Result Diagram: 05/05/1743405/05/17434 Imaging Right lower lobe infiltrate Objective Remarks GENERAL: This is a frail elderly female, intubated sedated SKIN: No rashes, ecchymoses or lesions. Cool and dry. HEAD: Atraumatic. Normocephalic. EYES: Pupils equal round and reactive. ENT: Edentulous. Orotracheally intubated NECK: Trachea midline. No JVD CARDIOVASCULAR: Underlying A. fib with ventricular paced rhythm. Normotensive RESPIRATORY: Air entry equal with bilateral coarse rhonchi and expiratory wheezing GASTROINTESTINAL: Abdomen soft, non-tender, nondistended. MUSCULOSKELETAL: Extremities without clubbing, cyanosis, 1+ peripheral edema. NEUROLOGICAL: On sedation hold patient opens eyes nods to questions and follows commands 4, but becomes asynchronous with the ventilator A/P Assessment and Plan Assessment: 86yF with influenza pneumonia and staph coinfection with persistent acute hypoxic respiratory failure. remains off pathway and critically ill. will pursue forced diuresis to improve oxygenation. continue daily SBT. Active Problems: Acute hypoxemic hypercarbic respiratory failure - persistent. Severe bronchospasm- resolved. Septic shock- resolved. Influenza pneumonia Staph aureus bacteremia Lactic acidosis- resolved. Hypocalcemia Hypokalemia Hypomagnesemia Atrial fibrillation Coronary artery disease History of hypertension PLAN: NEURO: -Currently on propofol, Precedex to facilitate ventilator weaning when ready -Daily sedation medication -Morphine as needed for pain control and anxiety RESP: -Emergently intubated and placed on mechanical ventilation 04/30 -switch to PRVC due to high volumes on pressure control. -Failing CPAP trials for tachypnea and distress. -Respiratory panel positive for influenza a and B by PCR - Ancef and Tamiflu CV: -Lactic acid has normalized -off vasopressors. -continue Coumadin, continue Betapace -Hold Coreg hold lisinopril GI: -IV famotidine. tube feeds with [facility] icu electrolyte protocol decrease free water to 200mL po q6h. : -Monitor renal function closely. Dangelo catheter. -Strict intake output continue lasix 40mg iv q6h. add metolazone 5mg once. ID: -Blood cultures growing staph aureus -Respiratory panel positive for influenza AMB -Tamiflu and Ancef. -ID Dr. Mon HEME: -Monitor CBC, CMP,coags ENDO: -Electrolyte replacement protocol, sliding scale insulin if needed -Stress dose steroids: weaning PROPH: -Bilateral lower extremity SCDs. Continue Coumadin, IV famotidine LINES: -Right subclavian central line, right femoral arterial line placed 04/30/2017 Felipe Calabrese MD May 05, 2017 15:44
[2017-05-05] MEDS ORDERED: METOLAZONE 5 MG TAB PO ONE (15:45)
[2017-05-06] VITALS (30 sets, daily range): BP systolic 60–178; BP diastolic 39–121; PULSE 93–138; RESP 14–26; TEMP 98.3–98.9; O2SAT 92–100
[2017-05-06] MEDS: RESP: ALBUTEROL 2.5 MG/IPRATROPIUM 0.5 MG NEB (SCH) NEB ×6 (00:53→20:16)
[2017-05-06] MEDS: ceFAZolin 1,000 MG/NS 100 ML IV SCH ×2 (03:59)
[2017-05-06] MEDS: HYDROCORTISONE SOD SUCCINATE 100 MG VIAL IV SCH ×2 (03:59→15:46)
[2017-05-06] MEDS: FUROSEMIDE 40 MG/4 ML VIAL IV PUSH SCH (04:01)
[2017-05-06] MEDS: FREE WATER G-TUBE SCH ×4 (06:00→16:57)
[2017-05-06 06:41] LABS: HEMATOCRIT 36.2 % (35.0-46.0); HEMOGLOBIN 12.6 GM/DL (11.6-15.3); MEAN CELL VOLUME 97.7 FL (80.0-100.0); MEAN CORPUSCULAR HGB CONC 34.8 % (32.0-36.0); MEAN PLATELET VOLUME 9.1 FL (7.0-11.0); PLATELET COUNT 285 TH/MM3 (150-450); RED BLOOD COUNT 3.71 MIL/MM3 (4.00-5.30); RED CELL DISTRIBUTION WIDTH 12.8 % (11.6-17.2); WHITE BLOOD COUNT 20.3 TH/MM3 (4.0-11.0)
[2017-05-06 06:44] LABS: INTERNATIONAL NORMALIZED RATIO 2.7 RATIO; PROTHROMBIN TIME - PATIENT 26.9 SEC (9.8-11.6)
[2017-05-06 07:04] LABS: BICARBONATE 25.9 MEQ/L (21.0-32.0); CALCIUM 8.3 MG/DL (8.5-10.1); CREATININE 1.82 MG/DL (0.50-1.00)
[2017-05-06] MEDS ORDERED: ROCURONIUM INJ 50 MG/5 ML VIAL ONE (07:19)
[2017-05-06] MEDS ORDERED: methylPREDNISolone SOD SUCC 125 MG/2 ML VIAL ONE (07:24)
[2017-05-06] MEDS ORDERED: POTASSIUM CHLORIDE 25 MEQ EFFERVESCENT TAB PO ONE (08:30)
[2017-05-06] MEDS ORDERED: ROCURONIUM INJ 50 MG/5 ML VIAL IV PRN (08:45)
[2017-05-06] MEDS ORDERED: PIPERACIL-TAZO 3.375 GM PREMIX 50 ML IV SCH (08:45)
--- NOTE | 2017-05-06 08:45 | HHI.CCPN ---
Subjective Remarks/Hospital Course Patient is an 86-year-old female with past medical history significant for coronary artery disease, PCI stents 5, hypertension, chronic atrial fibrillation, pacemaker placement was admitted to the hospitalist service with respiratory distress, secondary to pneumonia. Her daughter is hospitalized in the ICU with staph aureus pneumonia and septic shock. She will also was in atrial fibrillation with RVR. She does not have a history of asthma or COPD. Was admitted to hospital service with IV Rocephin and azithromycin I was urgently consulted today as the patient was in severe respiratory distress with severe bilateral wheezing and progressive decline in blood pressure now with a map of 45. On my evaluation patient was hardly able to communicate, is in respiratory extremis. There was no improvement in wheezing with [id number] breathing treatments. As the map was only 45 despite fluid boluses, Levophed was started and rapidly increased to 12 mcg/min, then to 20 mcg/min. IV Solu-Medrol 125 mg 1 stat was given. I emergently intubated the patient and placed on mechanical ventilation. I also placed a right subclavian central line and right femoral arterial line. Due to increased peak pressures and low tidal volume Vent mode was changed to PCV, from initial PRVC. Patient will be started on scheduled frequent breathing treatments, continued IV Solu Cortef. Continue Rocephin and azithromycin add vancomycin and Tamiflu. Respiratory panel requested. Blood cultures are growing staph aureus SUBJ 05/01: Patient remains intubated sedated. Bronchospasm significantly improved on exam. Remains in shock but with less pressor requirement currently Levophed at 3 mcg/min and vasopressin at 0.04 international units. Creatinine has increased to 1.68. Her daughter who is also admitted to ICU is positive for influenza 05/02: Worsening right sided infiltrates, not tolerating CPAP. Resp panel positive for Infl A/B. Currently off pressors. Creat 1.69. U) 700 ml in 24 hours 05/03: clinically starting to improve. off vasopressors. up 12kg from admission. very volume overloaded. hypoxia starting to improve. 05/04: failed SBT after only 10 minutes for tachypnea, low tidal volumes, tachycardia, respiratory distress. good diuresis. oxygenation continues to improve. slightly more somnolent than yesterday. 05/05: tolerated SBT slightly longer than yesterday, but still failed for respiratory distress. hypernatremia improving. did not diurese as well as expected yesterday, will need to increase forced diuresis: remains volume overloaded. 05/06: Became acutely hypotensive Levophed started at 10 mcg/min, 500 mL fluid bolus given. Very elevated peak pressures on the vent, evidence of air trapping and diminished air entry bilaterally. Patient temporarily disconnected from the ventilator, then reconnected and ventilator mode than changed to PC/AC with improvement in peak pressures. Rocuronium 50 mg IV 1, Solu-Medrol 125 mg IV 1. Stat chest x-ray to rule out pneumothorax pending at this time. Potassium 2.5 getting replaced. WBC count is 20.3. Send panculture Objective Vital Signs Date Time Temp Pulse Resp B/P (MAP) Pulse Ox O2 Delivery O2 Flow Rate FiO2 05/06/17 06:00 108 05/06/17 04:00 40 05/06/17 04:00 98.6 18 122/62 (82) 99 Intake and Output 05/06/17 05/06/17 05/07/17 08:00 16:00 00:00 Intake Total 915 ml Output Total 2175 ml Balance -1260 ml Result Diagram: 05/06/17 0535 05/06/17 0535 Imaging Right lower lobe infiltrate Objective Remarks GENERAL: This is a frail elderly female, intubated sedated, critically ill hypotensive SKIN: No rashes, ecchymoses or lesions. HEAD: Atraumatic. Normocephalic. EYES: Pupils equal round and reactive. ENT: Edentulous. Orotracheally intubated NECK: Trachea midline. No JVD CARDIOVASCULAR: Underlying A. fib with ventricular paced rhythm. Hypotensive MAP 45-50, currently improving on Levophed at 10 mcg/min RESPIRATORY: Air entry equally diminished with high peak pressure and expiratory wheezing with bilateral coarse rhonchi and mild expiratory wheezing GASTROINTESTINAL: Abdomen soft, non-tender, nondistended. MUSCULOSKELETAL: Extremities without clubbing, cyanosis, 1+ peripheral edema. NEUROLOGICAL: Sedation held due to hypotension but patient in acute distress and asynchronous with the ventilator. Moves extremities on prolonged sedation hold A/P Assessment and Plan Assessment: 86yF with influenza pneumonia and staph coinfection with persistent acute hypoxic respiratory failure, now with severe air trapping hypotension shock. remains off pathway and critically ill.Hold forced diuresis due to severe shock. No SBT due to severe air trapping and need for neuromuscular paralysis. Active Problems: Acute hypoxemic hypercarbic respiratory failure - persistent. Severe bronchospasm Septic shock Air trapping/Dynamic hyperinflation Influenza pneumonia Staph aureus bacteremia Lactic acidosis- resolved. Hypocalcemia Hypokalemia Hypomagnesemia Atrial fibrillation Coronary artery disease History of hypertension PLAN: NEURO: -Currently on propofol, no sedation medication due to severe ventilator synchrony, air trapping and need for neuromuscular paralysis -Morphine as needed for pain control and anxiety -Rocuronium 50 mg IV every 6 hours as needed for ventilator synchrony and high Peak pressures RESP: -Emergently intubated and placed on mechanical ventilation 04/30 -On PRVC now with air trapping and increased peak pressures. Discontinued from the ventilator for 30 secs and re connected (due to dynamic hyperinflation) -Placed on PCAC with insp pressure 36, iT 0.9, rate reduced to 14, NM paralysis with Rocuronium -NO CPAP due to severe ventilator synchrony, requiring neuromuscular paralysis -Respiratory panel positive for influenza a and B by PCR -Ancef and Tamiflu. DC Ancef anf start Zosyn to cover for for HCAP organism, due to shock. Give 1 dose of vancomycin CV: -Developed shock. Started on Levophed, IV F 500 ml NS bolus -Holding Lasix due to severe shock -continue Coumadin, continue Betapace -Hold Coreg hold lisinopril GI: -IV famotidine. tube feeds with [facility] -icu electrolyte protocol -Free water to 200mL po q6h. : -Monitor renal function closely. Dangelo catheter. -Strict intake output -Hold lasix 40mg iv q6h. ID: -Blood cultures growing staph aureus -Respiratory panel positive for influenza AMB -Tamiflu and Ancef. DC Ancef anf start Zosyn to cover for for HCAP organism, due to shock. Give 1 dose of vancomycin -Repeat blood sputum and urine culture -ID Dr. Mon HEME: -Monitor CBC, CMP,coags ENDO: -Electrolyte replacement protocol, sliding scale insulin if needed -Stress dose steroids: weaning. Additional 125 mg of Solu-Medrol given 1 due to severe bronchospasm PROPH: -Bilateral lower extremity SCDs. Continue Coumadin, IV famotidine LINES: -Right subclavian central line, right femoral arterial line placed 04/30/2017 Sidra Fuchs MD May 06, 2017 08:44
--- NOTE | 2017-05-06 08:58 | HHI.IDPN ---
Subjective Subjective Remarks is an 86 y/o CF with PMHx of CAD, PCI stents 5, hypertension, chronic atrial fibrillation, pacemaker placement was admitted to the hospitalist service with respiratory distress, secondary to pneumonia. Her daughter is hospitalized in the ICU with staph aureus pneumonia and septic shock. On admission patient was also was in atrial fibrillation with RVR. Was admitted to hospital service with IV Rocephin and azithromycin. Patient was initially admitted under hospitalist services and due to worsening respiratory distress and hypotension and Critical care is now involved. Patient was emergently intubated, CL and A line placed this am. I tried to see patient then but due to multiple procedures discussed case with patients son and am officially seeing patient now and writing note at 6:34 pm. Patients son reported to me that patient and daughter live in same home rest of the details not known. Blood cultures were positive this am and CXR showed pneumonia. Sepsis eval started and patient started on empiric antibiotics and empiric tamiflu. Case dw briefly in am. At the time of my eval patient is in the ICU, on vasopressors, UO ok. Sedated on vent. ID consulted for eval and Mment of Septic shock, MSSA bacteremia and Pneumonia. Notes reviewed D/W RN Dropped BP this morning - started on levophed On the vent, moderate secretions Temps pk One (+) BC on admission, repeat all negative WBC higher, rising Creatinine rising C diff 05/04 negative Antibiotics Ancef IV Tamiflu Current Medications Medications (Trade) Dose Ordered Sig/Francisco Route Start Time Stop Time Status Last Admin (NS Flush) 2 ml UNSCH PRN IV FLUSH 04/29/17 11:00 04/29/17 20:14 (NS Flush) 2 ml BID IV FLUSH 04/29/17 21:00 05/05/17 21:00 (Zofran Inj) 4 mg Q6H PRN IVP 04/29/17 12:00 04/29/17 11:34 (Morphine Inj) 2 mg Q3H PRN IV PUSH 04/29/17 11:00 04/29/17 20:14 (Morphine Inj) 4 mg Q3H PRN IV PUSH 04/29/17 11:00 04/29/17 21:46 (Narcan Inj) 0.4 mg UNSCH PRN IV PUSH 04/29/17 11:00 (Milk Of Magnesia Liq) 30 ml Q12H PRN PO 04/29/17 11:00 (KCl) 50 meq DAILY PO 04/30/17 09:00 Future Hold 05/03/17 08:44 (Betapace) 120 mg BID PO 04/29/17 21:00 05/05/17 21:02 (Coumadin) 2 mg DAILY@16 PO 04/29/17 16:00 Future Hold 05/03/17 16:06 (Lactinex) 1 tab TID PO 04/29/17 18:00 05/05/17 17:59 (Pill Splitter) 1 ea UNSCH PRN OTHER 04/29/17 15:45 (Coreg) 25 mg BID PO 04/29/17 21:00 Future Hold 04/30/17 08:39 (Cozaar) 50 mg BID PO 04/29/17 21:00 Future Hold (Ativan Inj) 1 mg Q3H PRN IV PUSH 04/29/17 21:15 Miscellaneous Information Patient in critical care unit? Ass... [id number] .XX 04/29/17 21:45 (Peridex 0.12% Liq) 15 ml BID@08,20 MT 04/30/17 20:00 05/05/17 20:00 (Albuterol Neb) 2.5 mg Q2HR NEB PRN NEB 04/30/17 12:30 Potassium Chloride 100 ml @ 50 mls/hr Q2H PRN IV 04/30/17 12:30 05/05/17 18:08 Potassium Chloride 100 ml @ 50 mls/hr Q2H PRN IV 04/30/17 12:30 (K-Lyte Cl Eff) 50 meq UNSCH PRN PO 04/30/17 12:30 Potassium Chloride 100 ml @ 25 mls/hr UNSCH PRN IV 04/30/17 12:30 Potassium Chloride 100 ml @ 50 mls/hr Q2H PRN IV 04/30/17 12:30 Magnesium Sulfate 4 gm/Sodium Chloride 100 ml @ 50 mls/hr UNSCH PRN IV 04/30/17 12:30 (Mag-Ox) 800 mg UNSCH PRN PO 04/30/17 12:30 Magnesium Sulfate 2 gm/Sodium Chloride 100 ml @ 50 mls/hr UNSCH PRN IV 04/30/17 12:30 (K-Phos) 2,000 mg Q4H PRN PO 04/30/17 12:30 Sodium Phosphate 30 mmol/Sodium Chloride 250 ml @ 42 mls/hr UNSCH PRN IV 04/30/17 12:30 (K-Phos) 2,000 mg UNSCH PRN PO/TUBE 04/30/17 12:30 Potassium Phosphate 30 mmol/ Sodium Chloride 260 ml @ 42 mls/hr UNSCH PRN IV 04/30/17 12:30 05/03/17 05:56 Propofol 100 ml @ 2.4 mls/hr TITRATE PRN IV 04/30/17 18:15 05/05/17 23:03 (Tamiflu) 75 mg BID PO 05/01/17 21:00 05/05/17 21:03 (Duoneb Neb) 1 ampule Q4HR NEB NEB 05/04/17 00:00 05/06/17 07:23 (Lasix Inj) 40 mg Q6H IV PUSH 05/03/17 22:00 Future Hold 05/06/17 04:01 (SoluCORTEF INJ) 25 mg Taper Q12H IV 05/04/17 02:30 05/08/17 02:29 05/06/17 03:59 Norepinephrine Bitartrate 250 ml @ 7.5 mls/hr TITRATE PRN IV 05/05/17 05:15 (Free Water) 200 ml Q6HR G-TUBE 05/05/17 18:00 05/06/17 06:00 Pharmacy Profile Note 0 ml @ 0 mls/hr UNSCH OTHER 05/05/17 15:45 (Zemuron Inj) 50 mg Q6H PRN IV 05/06/17 08:45 Piperacillin Sod/ Tazobactam Sod 50 ml @ 100 mls/hr Q8H IV 05/06/17 08:45 UNV Vancomycin HCl 1000 mg/Sodium Chloride 250 ml @ 250 mls/hr ONCE ONCE IV 05/06/17 09:00 05/06/17 09:59 UNV Lines Line sites with no e.o infection - R EILEEN [facility]h [facility] Past Medical History reviewed Allergies: Coded Allergies: clopidogrel (Unverified Allergy, Mild, Hives, 04/29/17) Iodinated Contrast- Oral and IV Dye (Verified Allergy, Unknown, 04/29/17) Objective . Vital Signs Date Time Temp Pulse Resp B/P (MAP) Pulse Ox O2 Delivery O2 Flow Rate FiO2 05/06/17 06:00 108 05/06/17 04:00 40 05/06/17 04:00 95 05/06/17 04:00 98.6 95 18 122/62 (82) 99 05/06/17 03:34 97 40 05/06/17 02:00 102 05/06/17 00:00 98.3 119 18 84/50 (61) 99 05/06/17 00:00 119 05/06/17 00:00 40 05/05/17 23:39 97 40 05/05/17 22:00 123 05/05/17 22:00 123 05/05/17 20:29 99 40 05/05/17 20:00 98.6 121 29 139/76 (97) 87 139/73 (95) 05/05/17 20:00 40 05/05/17 20:00 121 05/05/17 18:00 98 05/05/17 18:00 98 18 107/60 (76) 97 98/52 (67) 05/05/17 17:00 104 18 96/54 (68) 100 100/54 (69) 05/05/17 16:10 114 18 88/52 (64) 100 85/49 (61) 05/05/17 16:00 107 05/05/17 16:00 98.2 107 18 84/50 (61) 100 83/48 (60) 05/05/17 16:00 40 05/05/17 15:26 99 40 05/05/17 15:00 114 18 104/71 (82) 100 108/59 (75) 05/05/17 14:00 117 33 128/77 (94) 98 129/72 (91) 05/05/17 14:00 117 05/05/17 13:02 126 37 137/58 (84) 99 120/67 (84) 05/05/17 13:00 125 36 73/50 (58) 100 120/70 (87) 05/05/17 12:00 122 05/05/17 12:00 98.9 122 18 119/63 (81) 99 108/59 (75) 05/05/17 12:00 40 05/05/17 11:16 99 40 05/05/17 11:00 122 18 118/62 (80) 99 120/61 (80) 05/05/17 10:00 118 18 106/56 (73) 98 105/52 (69) 05/05/17 10:00 118 05/05/17 09:00 120 30 113/63 (80) 98 118/61 (80) . Laboratory Tests Test 05/05/17 04:35 05/06/17 05:35 White Blood Count 16.4 TH/MM3 20.3 TH/MM3 Red Blood Count 3.64 MIL/MM3 3.71 MIL/MM3 Hemoglobin 12.3 GM/DL 12.6 GM/DL Hematocrit 35.6 % 36.2 % Mean Corpuscular Volume 97.9 FL 97.7 FL Mean Corpuscular Hemoglobin 33.8 PG 34.0 PG Mean Corpuscular Hemoglobin Concent 34.5 % 34.8 % Red Cell Distribution Width 12.7 % 12.8 % Platelet Count 240 TH/MM3 285 TH/MM3 Mean Platelet Volume 9.1 FL 9.1 FL Laboratory Tests Test 05/04/17 18:05 05/05/17 04:35 05/05/17 16:05 05/06/17 05:35 Potassium Level 2.8 MEQ/L 3.3 MEQ/L 3.1 MEQ/L 2.5 MEQ/L Blood Urea Nitrogen 55 MG/DL 69 MG/DL Creatinine 1.69 MG/DL 1.82 MG/DL Random Glucose 191 MG/DL 176 MG/DL Calcium Level 7.7 MG/DL 8.3 MG/DL Sodium Level 143 MEQ/L 144 MEQ/L Chloride Level 111 MEQ/L 107 MEQ/L Carbon Dioxide Level 22.5 MEQ/L 25.9 MEQ/L Anion Gap 10 MEQ/L 11 MEQ/L Estimat Glomerular Filtration Rate 29 ML/MIN 26 ML/MIN Imaging Last Impressions Chest X-Ray 04/30/17 0000 Signed Impressions: Service Date/Time: Sunday, April 30, 2017 11:41 - CONCLUSION: 1. Interval intubation and placement of right subclavian central venous line with no pneumothorax. 2. Patchy infiltrate remains at the right lung base. Maciel Davenport MD Physical Exam GENERAL: Sedated on the vent SKIN: No rashes, ecchymoses or lesions. Cool and dry. HEAD: Atraumatic. Normocephalic. No temporal or scalp tenderness. EYES: Pupils equal round and reactive. No scleral icterus. No injection or drainage. ENT: Intubated orally NECK: Trachea midline. Supple, nontender, no meningeal signs. CARDIOVASCULAR: HS audible. RESPIRATORY: Decreased breath sound R GASTROINTESTINAL: Abdomen soft, non-tender, nondistended. MUSCULOSKELETAL: Extremities without clubbing, cyanosis, or edema. No joint tenderness, effusion, or edema noted. No calf tenderness. Negative Homans sign bilaterally. NEUROLOGICAL: Sedated. Psych cooperative IV line sites with no e.o infection. Assessment & Plan Remarks Recurrent shock, ?new infection, ?PTX R. MSSA bacteremia likely secondary to Pneumonia post flu. Influenza A and B positive pneumonia. Pneumonia present on admission. Acute resp failure on vent Acute metabolic encephalopathy: infection, sepsis. CAD pacemaker in place. Leukocytosis, worsening Recs Continue Ancef IV (MSSA bacteremia and Pneumonia) Continue Tamiflu. Repeat C/S: Blood, urine and sputum Start Zosyn and Diflucan while new C/S pending Give one dose of Vanco - check level in AM Monitor progress D/W RN D/W Dr Fuchs ([facility]) Mariann Monte MD May 06, 2017 08:58
[2017-05-06] MEDS ORDERED: VANCOMYCIN INJ 1,000 MG in SODIUM CHLOR 0.9% 250 ML INJ 250 ML IV ONE ×4 (09:00)
[2017-05-06] MEDS: CHLORHEXIDINE 0.12% (ORAL KIT) 15 ML CUP MT SCH ×2 (09:09→20:00)
[2017-05-06] MEDS: LACTOBACILLUS ACIDOPHILUS TAB PO SCH ×3 (09:09→16:56)
[2017-05-06] MEDS: POTASSIUM CHLOR 40 MEQ PREMIX 100 ML IV PRN ×2 (09:09→11:10)
[2017-05-06] MEDS: OSELTAMIVIR PHOSPHATE 75 MG CAP PO SCH ×2 (09:10→22:53)
[2017-05-06] MEDS: SOTALOL HCL 80 MG TAB PO SCH ×2 (09:10→22:54)
--- NOTE | 2017-05-06 09:13 | RADRPT ---
EXAM DATE/TIME: 05/06/2017 08:36 [facility] COMPARISON: CHEST SINGLE AP, May 02, 2017, 3:40. INDICATIONS : Shortness of breath. MEDICAL HISTORY : Cardiovascular disease. Hypertension. SURGICAL HISTORY : Coronary artery stent. Pacemaker. ENCOUNTER: Subsequent ACUITY: 4 - 6 days PAIN SCORE: Non-responsive. LOCATION: Bilateral chest FINDINGS: 2 AP supine portable views of the chest were obtained and demonstrate a new moderate to large right p neumothorax extending from the lung apex to the lung base. There is collapse of the lung centrally wi th increased density. There is mediastinal shift to the left consistent with tension. The left lung i s clear. The heart size remains at the upper limits of normal. The endotracheal tube remains in place with the tip approximately 3-4 cm above the amandeep. A nasogastric tube remains in place. The left cool bclavian AV sequential transvenous pacer remains in place. The right subclavian central venous line r emains stable. CONCLUSION: 1. New moderate to large right pneumothorax with evidence of tension with mediastinal shift to the le ft. 2. Mild consolidation in the collapsed right lung. These findings were called to Dr. Fuchs at 0909 hrs. Maciel Davenport MD on May 06, 2017 at 9:09 Board Certified Radiologist. This report was verified electronically.
--- NOTE | 2017-05-06 09:46 | PD.PROCEDR ---
Procedure Note Procedure Procedure: Right 8 F pigtail chest tube placement Indication: Right large tension pneumothorax. Details of procedure: Informed consent was obtained and emergency procedure done. The patient was appropriately positioned. He was already on propofol gtt. The lateral chest wall was cleaned with ChloraPrep x2. 1% lidocaine 4cc, was used for local anesthesia and injected into the subcutaneous and deep muscle tissues. 0.25 cm skin incision was made a scalpel blade at the 5th intercostal space, midaxillary line. Introducer needle 18-gauge was placed into the pleural space with immediate galarza of air. Guidewire was placed and the needle was removed. After dilation a 8 Bengali pigtail chest tube was placed using Seldinger technique and the wire and internal stiffener was removed. 2-0 silk was used to secure the chest tube along with stay fix dressing. There was 1+ initial air leak. A sterile dressing was applied. The chest tube was connected to a Pleur- evac drainage system -20 cm. Estimated blood loss: <1 mL Complications: None. Stat chest x-ray is pending Sidra Fuchs MD May 06, 2017 09:46
[2017-05-06] MEDS: PIPERACIL-TAZO 2.25 GM PREMIX 50 ML IV SCH ×3 (10:33→22:53)
[2017-05-06] MEDS: SODIUM CHLORIDE 0.9% FLUSH 10 ML FLUSH IV FLUSH SCH ×2 (10:33→21:00)
--- NOTE | 2017-05-06 10:44 | RADRPT ---
EXAM DATE/TIME: 05/06/2017 09:43 [facility] COMPARISON: CHEST SINGLE AP, May 06, 2017, 8:36. INDICATIONS : Status post chest tube placement. MEDICAL HISTORY : Cardiovascular disease. Hypertension. SURGICAL HISTORY : Coronary artery stent. Pacemaker. ENCOUNTER: Subsequent ACUITY: 1 week PAIN SCORE: Non-responsive. LOCATION: Bilateral chest FINDINGS: AP portable spine views of the chest were obtained and demonstrate interval placement of a small bore right-sided chest tube with the tip projected over the right lung base. The moderate to large right pneumothorax has significantly improved with only a small residual apical component now noted which m easures up to approximately 1.8 cm. The endotracheal tube and nasogastric tube remain in place. The r ight subclavian central venous catheter remains in place as well. There is no mediastinal shift now n oted. The heart size is within normal limits. There is patchy opacity in both lung bases. The left cool bclavian AV sequential transvenous pacer remains in place. CONCLUSION: 1. Interval placement of small bore right-sided chest tube with significant improvement in right pneu mothorax with a small right apical residual pneumothorax. 2. Patchy opacity remains in the lung bases. Maciel Davenport MD on May 06, 2017 at 10:37 Board Certified Radiologist. This report was verified electronically.
[2017-05-06] MEDS: FLUCONAZOLE 400 MG PREMIX BAG 200 ML IV SCH (11:10)
[2017-05-06] MEDS: PROPOFOL 1000 MG/100 ML IV PRN ×2 (11:26→19:04)
[2017-05-06 11:27] LABS: BACTERIA, URINE FEW /hpf; BILIRUBIN, URINE NEG (NEG); BLOOD, URINE SMALL (NEG); GLUCOSE,URINE NEG (NEG); KETONE, URINE NEG (NEG); MUCUS URINE FEW /lpf (OCC); NITRITE,URINE NEG (NEG); PH, URINE 5.5 (5.0-8.5); SQUAMOUS EPITHELIAL CELL URINE 3 /hpf (0-5); URINE COLOR YELLOW (YELLW/STRAW); URINE LEUKOCYTE ESTERASE LARGE (NEG); WHITE BLOOD CELL CLUMPS FEW
[2017-05-07] VITALS (18 sets, daily range): BP systolic 142–169; BP diastolic 66–80; PULSE 86–104; RESP 14; TEMP 98–98.4; O2SAT 98–100
[2017-05-07] MEDS: RESP: ALBUTEROL 2.5 MG/IPRATROPIUM 0.5 MG NEB (SCH) NEB ×7 (01:49→23:24)
[2017-05-07] MEDS: PIPERACIL-TAZO 2.25 GM PREMIX 50 ML IV SCH ×4 (03:38→21:16)
[2017-05-07] MEDS: FREE WATER G-TUBE SCH ×4 (06:00→17:33)
[2017-05-07] MEDS: PROPOFOL 1000 MG/100 ML IV PRN ×2 (06:09→16:36)
[2017-05-07 07:04] LABS: HEMATOCRIT 34.4 % (35.0-46.0); HEMOGLOBIN 11.7 GM/DL (11.6-15.3); MEAN CELL VOLUME 98.7 FL (80.0-100.0); MEAN CORPUSCULAR HEMOGLOBIN 33.6 PG (27.0-34.0); MEAN PLATELET VOLUME 8.8 FL (7.0-11.0); PLATELET COUNT 280 TH/MM3 (150-450); RED BLOOD COUNT 3.49 MIL/MM3 (4.00-5.30); RED CELL DISTRIBUTION WIDTH 12.6 % (11.6-17.2); WHITE BLOOD COUNT 19.8 TH/MM3 (4.0-11.0)
[2017-05-07 07:06] LABS: INTERNATIONAL NORMALIZED RATIO 1.7 RATIO; PROTHROMBIN TIME - PATIENT 16.9 SEC (9.8-11.6)
[2017-05-07 07:21] LABS: BICARBONATE 26.1 MEQ/L (21.0-32.0); CALCIUM 8.3 MG/DL (8.5-10.1); CREATININE 1.85 MG/DL (0.50-1.00); RANDOM VANCOMYCIN 17.8 COMMENT
[2017-05-07] MEDS: CHLORHEXIDINE 0.12% (ORAL KIT) 15 ML CUP MT SCH ×2 (08:00→20:00)
[2017-05-07] MEDS: LACTOBACILLUS ACIDOPHILUS TAB PO SCH ×3 (09:07→16:39)
[2017-05-07] MEDS: SODIUM CHLORIDE 0.9% FLUSH 10 ML FLUSH IV FLUSH SCH ×2 (09:08→21:17)
[2017-05-07] MEDS: OSELTAMIVIR PHOSPHATE 75 MG CAP PO SCH ×2 (09:08→21:16)
[2017-05-07] MEDS: HYDROCORTISONE SOD SUCCINATE 100 MG VIAL IV SCH (09:08)
[2017-05-07] MEDS: SOTALOL HCL 80 MG TAB PO SCH ×2 (09:08→21:16)
--- NOTE | 2017-05-07 09:49 | HHI.IDPN ---
Subjective Subjective Remarks is an 86 y/o CF with PMHx of CAD, PCI stents 5, hypertension, chronic atrial fibrillation, pacemaker placement was admitted to the hospitalist service with respiratory distress, secondary to pneumonia. Her daughter is hospitalized in the ICU with staph aureus pneumonia and septic shock. On admission patient was also was in atrial fibrillation with RVR. Was admitted to hospital service with IV Rocephin and azithromycin. Patient was initially admitted under hospitalist services and due to worsening respiratory distress and hypotension and Critical care is now involved. Patient was emergently intubated, CL and A line placed this am. I tried to see patient then but due to multiple procedures discussed case with patients son and am officially seeing patient now and writing note at 6:34 pm. Patients son reported to me that patient and daughter live in same home rest of the details not known. Blood cultures were positive this am and CXR showed pneumonia. Sepsis eval started and patient started on empiric antibiotics and empiric tamiflu. Case dw briefly in am. At the time of my eval patient is in the ICU, on vasopressors, UO ok. Sedated on vent. ID consulted for eval and Mment of Septic shock, MSSA bacteremia and Pneumonia. Notes reviewed noted large right sided pneumothorax and right chest tube placement. D/W RN On the vent, moderate secretions Temps ok WBC increased. Creatinine rising C diff 05/04 negative No rash Vanco level 14.2 on 05/07 after 1 dose of Vanco IV. Antibiotics Tamiflu oral Zosyn IV Diflucan Lines Line sites with no e.o infection - R groin EILEEN [facility]ador [facility] Past Medical History reviewed Allergies: Coded Allergies: clopidogrel (Unverified Allergy, Mild, Hives, 04/29/17) Iodinated Contrast- Oral and IV Dye (Verified Allergy, Unknown, 04/29/17) Objective . Vital Signs Date Time Temp Pulse Resp B/P (MAP) Pulse Ox O2 Delivery O2 Flow Rate FiO2 05/07/17 08:33 99 40 05/07/17 06:00 92 05/07/17 04:18 100 40 05/07/17 04:00 98.4 100 14 150/76 (100) 100 05/07/17 04:00 100 05/07/17 04:00 40 05/07/17 02:00 97 05/07/17 01:16 100 40 05/07/17 00:00 40 05/07/17 00:00 98.2 91 14 142/70 (94) 100 05/07/17 00:00 91 05/06/17 22:00 93 05/06/17 20:16 100 40 05/06/17 20:00 98.3 99 14 143/74 (97) 100 144/75 (98) 05/06/17 20:00 99 05/06/17 20:00 40 05/06/17 18:00 98 05/06/17 16:13 100 40 05/06/17 16:00 40 05/06/17 16:00 113 05/06/17 16:00 98.5 113 14 103/73 (83) 100 127/66 (86) 05/06/17 15:00 104 14 89/60 (70) 99 97/53 (68) 05/06/17 14:00 107 05/06/17 14:00 107 14 122/83 (96) 100 124/67 (86) 05/06/17 13:04 121 14 127/60 (82) 99 122/68 (86) 05/06/17 13:00 117 14 116/65 (82) 100 05/06/17 12:12 92 40 05/06/17 12:00 40 05/06/17 12:00 98.9 119 14 92/68 (76) 99 99/57 (71) 05/06/17 12:00 119 05/06/17 11:00 125 14 104/68 (80) 99 117/64 (81) 05/06/17 10:00 123 05/06/17 10:00 123 15 110/79 (89) 100 133/64 (87) 05/06/17 09:53 118 24 121/86 (98) 100 145/71 (95) . Laboratory Tests Test 05/06/17 05:35 05/07/17 06:35 White Blood Count 20.3 TH/MM3 19.8 TH/MM3 Red Blood Count 3.71 MIL/MM3 3.49 MIL/MM3 Hemoglobin 12.6 GM/DL 11.7 GM/DL Hematocrit 36.2 % 34.4 % Mean Corpuscular Volume 97.7 FL 98.7 FL Mean Corpuscular Hemoglobin 34.0 PG 33.6 PG Mean Corpuscular Hemoglobin Concent 34.8 % 34.0 % Red Cell Distribution Width 12.8 % 12.6 % Platelet Count 285 TH/MM3 280 TH/MM3 Mean Platelet Volume 9.1 FL 8.8 FL Laboratory Tests Test 05/05/17 16:05 05/06/17 05:35 05/06/17 17:04 05/07/17 06:35 Potassium Level 3.1 MEQ/L 2.5 MEQ/L 3.6 MEQ/L 3.2 MEQ/L Blood Urea Nitrogen 69 MG/DL 82 MG/DL Creatinine 1.82 MG/DL 1.85 MG/DL Random Glucose 176 MG/DL 216 MG/DL Calcium Level 8.3 MG/DL 8.3 MG/DL Sodium Level 144 MEQ/L 146 MEQ/L Chloride Level 107 MEQ/L 109 MEQ/L Carbon Dioxide Level 25.9 MEQ/L 26.1 MEQ/L Anion Gap 11 MEQ/L 11 MEQ/L Estimat Glomerular Filtration Rate 26 ML/MIN 26 ML/MIN Microbiology Date/Time Source Procedure Growth Status 05/06/17 12:47 Blood Peripheral Aerobic Blood Culture Pending Received 05/06/17 12:47 Blood Peripheral Anaerobic Blood Culture Pending Received 05/06/17 12:40 Blood Peripheral Aerobic Blood Culture Pending Received 05/06/17 12:40 Blood Peripheral Anaerobic Blood Culture Pending Received 05/06/17 10:25 Blood Line Aerobic Blood Culture Pending Received 05/06/17 10:25 Blood Line Anaerobic Blood Culture Pending Received 05/06/17 10:25 Blood Arterial Line Aerobic Blood Culture Pending Received 05/06/17 10:25 Blood Arterial Line Anaerobic Blood Culture Pending Received 05/06/17 11:00 Sputum Endotracheal Gram Stain - Final Resulted 05/06/17 11:00 Sputum Endotracheal Sputum Culture Pending Resulted 05/06/17 10:15 Urine Catheterized Urine Urine Culture Pending Received 05/06/17 10:15 Urine Catheterized Urine Urine Culture Pending Received Imaging Last Impressions Chest X-Ray 04/30/17 0000 Signed Impressions: Service Date/Time: Sunday, April 30, 2017 11:41 - CONCLUSION: 1. Interval intubation and placement of right subclavian central venous line with no pneumothorax. 2. Patchy infiltrate remains at the right lung base. Maciel Davenport MD Physical Exam GENERAL: Sedated on the vent SKIN: No rashes, ecchymoses or lesions. Cool and dry. HEAD: Atraumatic. Normocephalic. No temporal or scalp tenderness. EYES: Pupils equal round and reactive. No scleral icterus. No injection or drainage. ENT: Intubated orally NECK: Trachea midline. Supple, nontender, no meningeal signs. CARDIOVASCULAR: HS audible. RESPIRATORY: Decreased breath sound R . Right side Chest tube in place. GASTROINTESTINAL: Abdomen soft, non-tender, nondistended. MUSCULOSKELETAL: Extremities without clubbing, cyanosis, or edema. No joint tenderness, effusion, or edema noted. NEUROLOGICAL: Sedated. Psych cooperative IV line sites with no e.o infection. Assessment & Plan Remarks Recurrent shock, ?new infection, ?PTX R. MSSA bacteremia likely secondary to Pneumonia post flu. Influenza A and B positive pneumonia. Pneumonia present on admission. Acute resp failure on vent Acute metabolic encephalopathy: infection, sepsis. CAD pacemaker in place. Leukocytosis, worsening Recs Restart Ancef IV (for MSSA bacteremia only 7 days of therapy so far) Continue Tamiflu. Continue Zosyn and Diflucan while new C/S pending Monitor progress D/W Julianna Canales MD May 07, 2017 09:49
[2017-05-07] MEDS ORDERED: ceFAZolin 2 GM PREMIX 50 ML IV SCH (10:00)
--- NOTE | 2017-05-07 12:42 | HHI.CCPN ---
Subjective Remarks/Hospital Course Patient is an 86-year-old female with past medical history significant for coronary artery disease, PCI stents 5, hypertension, chronic atrial fibrillation, pacemaker placement was admitted to the hospitalist service with respiratory distress, secondary to pneumonia. Her daughter is hospitalized in the ICU with staph aureus pneumonia and septic shock. She will also was in atrial fibrillation with RVR. She does not have a history of asthma or COPD. Was admitted to hospital service with IV Rocephin and azithromycin I was urgently consulted today as the patient was in severe respiratory distress with severe bilateral wheezing and progressive decline in blood pressure now with a map of 45. On my evaluation patient was hardly able to communicate, is in respiratory extremis. There was no improvement in wheezing with [id number] breathing treatments. As the map was only 45 despite fluid boluses, Levophed was started and rapidly increased to 12 mcg/min, then to 20 mcg/min. IV Solu-Medrol 125 mg 1 stat was given. I emergently intubated the patient and placed on mechanical ventilation. I also placed a right subclavian central line and right femoral arterial line. Due to increased peak pressures and low tidal volume Vent mode was changed to PCV, from initial PRVC. Patient will be started on scheduled frequent breathing treatments, continued IV Solu Cortef. Continue Rocephin and azithromycin add vancomycin and Tamiflu. Respiratory panel requested. Blood cultures are growing staph aureus SUBJ 05/01: Patient remains intubated sedated. Bronchospasm significantly improved on exam. Remains in shock but with less pressor requirement currently Levophed at 3 mcg/min and vasopressin at 0.04 international units. Creatinine has increased to 1.68. Her daughter who is also admitted to ICU is positive for influenza 05/02: Worsening right sided infiltrates, not tolerating CPAP. Resp panel positive for Infl A/B. Currently off pressors. Creat 1.69. U) 700 ml in 24 hours 05/03: clinically starting to improve. off vasopressors. up 12kg from admission. very volume overloaded. hypoxia starting to improve. 05/04: failed SBT after only 10 minutes for tachypnea, low tidal volumes, tachycardia, respiratory distress. good diuresis. oxygenation continues to improve. slightly more somnolent than yesterday. 05/05: tolerated SBT slightly longer than yesterday, but still failed for respiratory distress. hypernatremia improving. did not diurese as well as expected yesterday, will need to increase forced diuresis: remains volume overloaded. 05/06: Became acutely hypotensive Levophed started at 10 mcg/min, 500 mL fluid bolus given. Very elevated peak pressures on the vent, evidence of air trapping and diminished air entry bilaterally. Patient temporarily disconnected from the ventilator, then reconnected and ventilator mode than changed to PC/AC with improvement in peak pressures. Rocuronium 50 mg IV 1, Solu-Medrol 125 mg IV 1. Stat chest x-ray to rule out pneumothorax pending at this time. Potassium 2.5 getting replaced. WBC count is 20.3. Send panculture. 05/07: Stable hemodynamics and good air movement with acceptable airway pressures. Persistent infiltrate right lower lung field. Prerenal azotemia developing. Objective Vital Signs Date Time Temp Pulse Resp B/P (MAP) Pulse Ox O2 Delivery O2 Flow Rate FiO2 05/07/17 08:33 99 40 05/07/17 08:00 104 05/07/17 08:00 98.3 14 144/74 (97) Intake and Output 05/07/17 05/07/17 05/08/17 08:00 16:00 00:00 Intake Total 1089 ml Output Total 1230 ml Balance -141 ml Result Diagram: 05/07/17 0635 05/07/17 0635 Imaging Right lower lobe infiltrate Objective Remarks GENERAL: Frail elderly female, intubated sedated, critically ill. SKIN: No rashes, ecchymoses or lesions. HEAD: Atraumatic. Normocephalic. EYES: Pupils equal round and reactive. ENT: Edentulous. Orotracheally intubated NECK: Trachea midline. No JVD CARDIOVASCULAR: Underlying A. fib with ventricular paced rhythm. Levophed gtt. RESPIRATORY: Air entry equally diminished with high peak pressure and expiratory wheezing with bilateral coarse rhonchi and mild expiratory wheezing GASTROINTESTINAL: Abdomen soft, non-tender, nondistended. bs active. MUSCULOSKELETAL: Extremities without clubbing, cyanosis, 1+ peripheral edema. NEUROLOGICAL: Sedated, Calm. Moves 4 extremities when light. A/P Assessment and Plan Assessment: 86yF with influenza pneumonia and staph coinfection with persistent acute hypoxic respiratory failure, now with severe air trapping hypotension shock. remains off pathway and critically ill.Hold forced diuresis due to severe shock. Active Problems: Acute hypoxemic hypercarbic respiratory failure - persistent. Severe bronchospasm Septic shock Air trapping/Dynamic hyperinflation Influenza pneumonia Staph aureus bacteremia Lactic acidosis- resolved. Hypocalcemia Hypokalemia Hypomagnesemia Atrial fibrillation Coronary artery disease History of hypertension PLAN: NEURO: -Currently on propofol, no sedation medication due to severe ventilator synchrony, air trapping and need for neuromuscular paralysis -Morphine as needed for pain control and anxiety -Rocuronium 50 mg IV every 6 hours as needed for ventilator synchrony and high Peak pressures -Lighten sedation. RESP: -Emergently intubated and placed on mechanical ventilation 04/30 -On PRVC now with air trapping and increased peak pressures. Discontinued from the ventilator for 30 secs and re connected (due to dynamic hyperinflation) -Placed on PCAC with insp pressure 36, iT 0.9, rate reduced to 14, NM paralysis with Rocuronium -NO CPAP due to severe ventilator synchrony, requiring neuromuscular paralysis -Respiratory panel positive for influenza a and B by PCR -Ancef and Tamiflu. DC Ancef anf start Zosyn to cover for for HCAP organism, due to shock. Give 1 dose of vancomycin CV: -Developed shock. Started on Levophed, IV F 500 ml NS bolus -Holding Lasix due to severe shock -continue Coumadin, continue Betapace -Hold Coreg hold lisinopril GI: -IV famotidine. tube feeds with Jevity -icu electrolyte protocol -Free water to 200mL po q6h. : -Monitor renal function closely. Dangelo catheter. -Strict intake output -Hold lasix 40mg iv q6h. ID: -Blood cultures growing staph aureus -Respiratory panel positive for influenza AMB -Tamiflu and Ancef. DC Ancef anf start Zosyn to cover for for HCAP organism, due to shock. Give 1 dose of vancomycin -Repeat blood sputum and urine culture -ID Dr. Mon HEME: -Monitor CBC, CMP,coags ENDO: -Electrolyte replacement protocol, sliding scale insulin if needed -Stress dose steroids: weaning. Additional 125 mg of Solu-Medrol given 1 due to severe bronchospasm PROPH: -Bilateral lower extremity SCDs. Continue Coumadin, IV famotidine LINES: -Right subclavian central line, right femoral arterial line placed 04/30/2017 Overall impression: Critically ill and recovering slowly from viral pneumonia and recent tension pneumothorax. On PC ventilation with acceptable TVs. Critical care 39 mins Blake Bender MD May 07, 2017 12:42
[2017-05-07] MEDS: FLUCONAZOLE 400 MG PREMIX BAG 200 ML IV SCH (13:21)
[2017-05-07] MEDS: ceFAZolin 1,000 MG/NS 100 ML IV SCH ×2 (13:22)
[2017-05-07] MEDS: POTASSIUM CHLOR 40 MEQ PREMIX 100 ML IV PRN ×2 (21:17→23:17)
[2017-05-08] VITALS (18 sets, daily range): BP systolic 139–170; BP diastolic 56–82; PULSE 60–90; RESP 14–20; TEMP 98.1–98.9; O2SAT 98–100
[2017-05-08] MEDS: PROPOFOL 1000 MG/100 ML IV PRN ×2 (01:48→23:10)
[2017-05-08] MEDS: FREE WATER G-TUBE SCH ×6 (01:49→23:10)
--- NOTE | 2017-05-08 03:57 | RADRPT ---
EXAM DATE/TIME: 05/08/2017 02:56 [facility] COMPARISON: CHEST SINGLE AP, May 06, 2017, 9:43. INDICATIONS : Short of breath. MEDICAL HISTORY : Cardiovascular disease. Hypertension SURGICAL HISTORY : Coronary artery stent. Pacemaker. ENCOUNTER: Subsequent ACUITY: 1 week PAIN SCORE: 0/10 LOCATION: Bilateral chest FINDINGS: There has been near-complete resolution of right pneumothorax with chest a few millimeter separation of apical pleural air is now identified. Right subclavian central line is stable in position. Endotra cheal tube is stable in good position. Nasogastric tube since the stomach. Pacemaker device is noted with control pack over the left chest. There is mild patchy interstitial infiltrate noted and mild al veolar opacity in the lung No previous studies available for comparison. Which appears grossly stable . Cardiac contours are stable. CONCLUSION: Near-complete resolution of right pneumothorax. Patchy bilateral infiltrates persist Jef Snow MD on May 08, 2017 at 3:53 Board Certified Radiologist. This report was verified electronically.
[2017-05-08] MEDS: PIPERACIL-TAZO 2.25 GM PREMIX 50 ML IV SCH ×2 (04:33→09:50)
[2017-05-08 06:49] LABS: HEMATOCRIT 31.3 % (35.0-46.0); HEMOGLOBIN 10.6 GM/DL (11.6-15.3); MEAN CELL VOLUME 98.4 FL (80.0-100.0); MEAN CORPUSCULAR HEMOGLOBIN 33.3 PG (27.0-34.0); MEAN CORPUSCULAR HGB CONC 33.9 % (32.0-36.0); MEAN PLATELET VOLUME 8.8 FL (7.0-11.0); PLATELET COUNT 262 TH/MM3 (150-450); RED BLOOD COUNT 3.18 MIL/MM3 (4.00-5.30); RED CELL DISTRIBUTION WIDTH 12.5 % (11.6-17.2); WHITE BLOOD COUNT 20.5 TH/MM3 (4.0-11.0)
[2017-05-08 07:02] LABS: INTERNATIONAL NORMALIZED RATIO 1.4 RATIO; PROTHROMBIN TIME - PATIENT 14.5 SEC (9.8-11.6)
[2017-05-08 07:14] LABS: BICARBONATE 29.9 MEQ/L (21.0-32.0); CALCIUM 8.1 MG/DL (8.5-10.1); CREATININE 1.65 MG/DL (0.50-1.00)
--- NOTE | 2017-05-08 09:42 | HHI.IDPN ---
Subjective Subjective Remarks is an 86 y/o CF with PMHx of CAD, PCI stents 5, hypertension, chronic atrial fibrillation, pacemaker placement was admitted to the hospitalist service with respiratory distress, secondary to pneumonia. Her daughter is hospitalized in the ICU with staph aureus pneumonia and septic shock. On admission patient was also was in atrial fibrillation with RVR. Was admitted to hospital service with IV Rocephin and azithromycin. Patient was initially admitted under hospitalist services and due to worsening respiratory distress and hypotension and Critical care is now involved. Patient was emergently intubated, CL and A line placed this am. I tried to see patient then but due to multiple procedures discussed case with patients son and am officially seeing patient now and writing note at 6:34 pm. Patients son reported to me that patient and daughter live in same home rest of the details not known. Blood cultures were positive this am and CXR showed pneumonia. Sepsis eval started and patient started on empiric antibiotics and empiric tamiflu. Case dw briefly in am. At the time of my eval patient is in the ICU, on vasopressors, UO ok. Sedated on vent. ID consulted for eval and Mment of Septic shock, MSSA bacteremia and Pneumonia. Overnight events reviewed with RN Off pressors. On the vent, moderate secretions. Temps ok WBC increased. Creatinine improved slightly. Diarrhea but C diff 05/04 negative Dangelo placed on 04/30 No rash Antibiotics Tamiflu oral Zosyn IV Ancef IV Diflucan Lines Line sites with no e.o infection - R groin Marjorie, C TLC Past Medical History reviewed Allergies: Coded Allergies: clopidogrel (Unverified Allergy, Mild, Hives, 04/29/17) Iodinated Contrast- Oral and IV Dye (Verified Allergy, Unknown, 04/29/17) Objective . Vital Signs Date Time Temp Pulse Resp B/P (MAP) Pulse Ox O2 Delivery O2 Flow Rate FiO2 05/08/17 04:11 98 40 05/08/17 04:00 98.6 90 14 142/68 (92) 99 05/08/17 04:00 40 05/08/17 02:00 88 14 139/70 (93) 100 05/08/17 01:12 99 40 05/08/17 00:00 98.1 89 14 166/82 (110) 100 05/08/17 00:00 40 05/07/17 22:00 89 14 155/77 (103) 100 05/07/17 20:00 98.0 94 14 169/80 (109) 99 05/07/17 20:00 40 05/07/17 19:19 100 40 05/07/17 18:00 89 05/07/17 16:53 100 40 05/07/17 16:00 93 05/07/17 16:00 98.3 93 14 158/73 (101) 99 05/07/17 16:00 40 05/07/17 14:00 86 05/07/17 12:00 89 05/07/17 12:00 98.4 89 14 143/66 (91) 99 05/07/17 12:00 40 05/07/17 11:00 98 40 05/07/17 10:00 104 . Laboratory Tests Test 05/07/17 06:35 05/08/17 05:30 White Blood Count 19.8 TH/MM3 20.5 TH/MM3 Red Blood Count 3.49 MIL/MM3 3.18 MIL/MM3 Hemoglobin 11.7 GM/DL 10.6 GM/DL Hematocrit 34.4 % 31.3 % Mean Corpuscular Volume 98.7 FL 98.4 FL Mean Corpuscular Hemoglobin 33.6 PG 33.3 PG Mean Corpuscular Hemoglobin Concent 34.0 % 33.9 % Red Cell Distribution Width 12.6 % 12.5 % Platelet Count 280 TH/MM3 262 TH/MM3 Mean Platelet Volume 8.8 FL 8.8 FL Laboratory Tests Test 05/06/17 17:04 05/07/17 06:35 05/08/17 05:30 Potassium Level 3.6 MEQ/L 3.2 MEQ/L 3.3 MEQ/L Blood Urea Nitrogen 82 MG/DL 83 MG/DL Creatinine 1.85 MG/DL 1.65 MG/DL Random Glucose 216 MG/DL 150 MG/DL Calcium Level 8.3 MG/DL 8.1 MG/DL Sodium Level 146 MEQ/L 150 MEQ/L Chloride Level 109 MEQ/L 112 MEQ/L Carbon Dioxide Level 26.1 MEQ/L 29.9 MEQ/L Anion Gap 11 MEQ/L 8 MEQ/L Estimat Glomerular Filtration Rate 26 ML/MIN 30 ML/MIN Microbiology Date/Time Source Procedure Growth Status 05/06/17 12:47 Blood Peripheral Aerobic Blood Culture - Preliminary NO GROWTH IN 1 DAY Resulted 05/06/17 12:47 Blood Peripheral Anaerobic Blood Culture - Preliminary NO GROWTH IN 1 DAY Resulted 05/06/17 12:40 Blood Peripheral Aerobic Blood Culture - Preliminary NO GROWTH IN 1 DAY Resulted 05/06/17 12:40 Blood Peripheral Anaerobic Blood Culture - Preliminary NO GROWTH IN 1 DAY Resulted 05/06/17 10:25 Blood Line Aerobic Blood Culture - Preliminary NO GROWTH IN 1 DAY Resulted 05/06/17 10:25 Blood Line Anaerobic Blood Culture - Preliminary NO GROWTH IN 1 DAY Resulted 05/06/17 10:25 Blood Arterial Line Aerobic Blood Culture - Preliminary NO GROWTH IN 1 DAY Resulted 05/06/17 10:25 Blood Arterial Line Anaerobic Blood Culture - Preliminary NO GROWTH IN 1 DAY Resulted 05/06/17 11:00 Sputum Endotracheal Gram Stain - Final Resulted 05/06/17 11:00 Sputum Endotracheal Sputum Culture - Preliminary MODERATE GROWTH NORMAL RESPIRATORY FL... Resulted 05/06/17 10:15 Urine Catheterized Urine Urine Culture - Preliminary Yeast-Id To Follow Resulted 05/06/17 10:15 Urine Catheterized Urine Urine Culture - Preliminary Yeast-Id To Follow Resulted Imaging Last Impressions Chest X-Ray 04/30/17 0000 Signed Impressions: Service Date/Time: Sunday, April 30, 2017 11:41 - CONCLUSION: 1. Interval intubation and placement of right subclavian central venous line with no pneumothorax. 2. Patchy infiltrate remains at the right lung base. Maciel Davenport MD Physical Exam GENERAL: Sedated on the vent SKIN: No rashes, ecchymoses or lesions. Cool and dry. HEAD: Atraumatic. Normocephalic. No temporal or scalp tenderness. EYES: Pupils equal round and reactive. No scleral icterus. No injection or drainage. ENT: Intubated orally NECK: Trachea midline. Supple, nontender, no meningeal signs. CARDIOVASCULAR: HS audible. RESPIRATORY: Decreased breath sound R . Right side Chest tube in place. GASTROINTESTINAL: Abdomen soft, non-tender, nondistended. MUSCULOSKELETAL: Extremities without clubbing, cyanosis, or edema. No joint tenderness, effusion, or edema noted. NEUROLOGICAL: Sedated. Psych cooperative IV line sites with no e.o infection. Assessment & Plan Remarks Recurrent shock, ?new infection, ?PTX R. MSSA bacteremia likely secondary to Pneumonia post flu. Influenza A and B positive pneumonia. Pneumonia present on admission. Acute resp failure on vent Acute metabolic encephalopathy: infection, sepsis. CAD pacemaker in place. Leukocytosis: infection, stress (PTX) and Steroids. Recs Continue Ancef IV (for MSSA bacteremia only 7 days of therapy so far) Discontinue Tamiflu (high Cr and completed a 10 plus day course of Tamiflu) DC Zosyn Continue Diflucan pending name of yeast. Follow cultures Follow clinically. Julianna Mon MD May 08, 2017 09:42
[2017-05-08] MEDS: LACTOBACILLUS ACIDOPHILUS TAB PO SCH ×3 (09:50→18:32)
[2017-05-08] MEDS: SOTALOL HCL 80 MG TAB PO SCH ×2 (09:50→21:31)
[2017-05-08] MEDS: FLUCONAZOLE 400 MG PREMIX BAG 200 ML IV SCH (09:50)
[2017-05-08] MEDS: CHLORHEXIDINE 0.12% (ORAL KIT) 15 ML CUP MT SCH ×2 (09:51→20:00)
[2017-05-08] MEDS: SODIUM CHLORIDE 0.9% FLUSH 10 ML FLUSH IV FLUSH SCH ×2 (09:51→21:30)
[2017-05-08] MEDS: ceFAZolin 1,000 MG/NS 100 ML IV SCH ×6 (12:00→23:10)
--- NOTE | 2017-05-08 13:29 | HHI.CCPN ---
Subjective Remarks/Hospital Course Patient is an 86-year-old female with past medical history significant for coronary artery disease, PCI stents 5, hypertension, chronic atrial fibrillation, pacemaker placement was admitted to the hospitalist service with respiratory distress, secondary to pneumonia. Her daughter is hospitalized in the ICU with staph aureus pneumonia and septic shock. She will also was in atrial fibrillation with RVR. She does not have a history of asthma or COPD. Was admitted to hospital service with IV Rocephin and azithromycin I was urgently consulted today as the patient was in severe respiratory distress with severe bilateral wheezing and progressive decline in blood pressure now with a map of 45. On my evaluation patient was hardly able to communicate, is in respiratory extremis. There was no improvement in wheezing with [id number] breathing treatments. As the map was only 45 despite fluid boluses, Levophed was started and rapidly increased to 12 mcg/min, then to 20 mcg/min. IV Solu-Medrol 125 mg 1 stat was given. I emergently intubated the patient and placed on mechanical ventilation. I also placed a right subclavian central line and right femoral arterial line. Due to increased peak pressures and low tidal volume Vent mode was changed to PCV, from initial PRVC. Patient will be started on scheduled frequent breathing treatments, continued IV Solu Cortef. Continue Rocephin and azithromycin add vancomycin and Tamiflu. Respiratory panel requested. Blood cultures are growing staph aureus SUBJ 05/01: Patient remains intubated sedated. Bronchospasm significantly improved on exam. Remains in shock but with less pressor requirement currently Levophed at 3 mcg/min and vasopressin at 0.04 international units. Creatinine has increased to 1.68. Her daughter who is also admitted to ICU is positive for influenza 05/02: Worsening right sided infiltrates, not tolerating CPAP. Resp panel positive for Infl A/B. Currently off pressors. Creat 1.69. U) 700 ml in 24 hours 05/03: clinically starting to improve. off vasopressors. up 12kg from admission. very volume overloaded. hypoxia starting to improve. 05/04: failed SBT after only 10 minutes for tachypnea, low tidal volumes, tachycardia, respiratory distress. good diuresis. oxygenation continues to improve. slightly more somnolent than yesterday. 05/05: tolerated SBT slightly longer than yesterday, but still failed for respiratory distress. hypernatremia improving. did not diurese as well as expected yesterday, will need to increase forced diuresis: remains volume overloaded. 05/06: Became acutely hypotensive Levophed started at 10 mcg/min, 500 mL fluid bolus given. Very elevated peak pressures on the vent, evidence of air trapping and diminished air entry bilaterally. Patient temporarily disconnected from the ventilator, then reconnected and ventilator mode than changed to PC/AC with improvement in peak pressures. Rocuronium 50 mg IV 1, Solu-Medrol 125 mg IV 1. Stat chest x-ray to rule out pneumothorax pending at this time. Potassium 2.5 getting replaced. WBC count is 20.3. Send panculture. 05/07: Stable hemodynamics and good air movement with acceptable airway pressures. Persistent infiltrate right lower lung field. Prerenal azotemia developing. 05/08 remains intubated sedated. Almost complete resolution of right pneumothorax. Still has evidence of bronchospasm. DuoNeb scheduled restarted. Also will restart steroids in the form of prednisone 20 mg twice daily Objective Vital Signs Date Time Temp Pulse Resp B/P (MAP) Pulse Ox O2 Delivery O2 Flow Rate FiO2 05/08/17 12:16 99 40 05/08/17 04:00 98.6 90 14 142/68 (92) Intake and Output 05/08/17 05/08/17 05/09/17 08:00 16:00 00:00 Intake Total 300 ml Balance 300 ml Result Diagram: 05/08/17 0530 05/08/17 0530 Other Results Microbiology Date/Time Source Procedure Growth Status 05/06/17 10:15 Urine Catheterized Urine Urine Culture - Final Juhi Tropicalis Complete 05/06/17 10:15 Urine Catheterized Urine Urine Culture - Final Juhi Tropicalis Complete Imaging Right lower lobe infiltrate Objective Remarks GENERAL: Frail elderly female, intubated sedated, critically ill. SKIN: No rashes, ecchymoses or lesions. HEAD: Atraumatic. Normocephalic. EYES: Pupils equal round and reactive. ENT: Edentulous. Orotracheally intubated NECK: Trachea midline. No JVD CARDIOVASCULAR: Underlying A. fib with ventricular paced rhythm. RESPIRATORY: Air entry equally diminished with bilateral expiratory wheezing with bilateral coarse rhonchi GASTROINTESTINAL: Abdomen soft, non-tender, nondistended. bs active. MUSCULOSKELETAL: Extremities without clubbing, cyanosis, 1+ peripheral edema. NEUROLOGICAL: Sedated, Calm. Moves 4 extremities when light. No focal deficits A/P Assessment and Plan Assessment: 86yF with influenza pneumonia and staph coinfection with persistent acute hypoxic respiratory failure, now with severe air trapping hypotension shock, and tension pneumothorax. remains off pathway and critically ill. Holding forced diuresis due to severe shock. Active Problems: Acute hypoxemic hypercarbic respiratory failure - persistent. Right tension pneumothorax, now resolved Severe bronchospasm Septic shock Influenza pneumonia Staph aureus bacteremia Lactic acidosis- resolved. Hypocalcemia/Hypokalemia/Hypomagnesemia Atrial fibrillation Coronary artery disease History of hypertension PLAN: NEURO: -Currently on propofol, start daily sedation medication -Morphine as needed for pain control and anxiety RESP: -Emergently intubated and placed on mechanical ventilation 04/30 -On PRVC now with air trapping and increased peak pressures. Discontinued from the ventilator for 30 secs and re connected (due to dynamic hyperinflation) -R pigtail chest tube placed for right-sided tension pneumothorax, now almost completely resolved -Respiratory panel positive for influenza a and B by PCR -See ID section for ABX CV: -Off pressors -Holding Lasix due to severe shock -continue Coumadin, continue Betapace -Hold Coreg hold lisinopril GI: -IV famotidine. tube feeds with Jevity -icu electrolyte protocol -Free water to 200mL po q6h. : -Monitor renal function closely. Dangelo catheter. -Strict intake output -Holding lasix 40mg iv q6h. ID: -Blood cultures growing staph aureus -Respiratory panel positive for influenza AMB -Per ID Continue Ancef and Diflucan. Discontinued Zosyn and Tamiflu -ID Dr. Mon HEME: -Monitor CBC, CMP,coags ENDO: -Electrolyte replacement protocol, sliding scale insulin if needed -Stress dose steroids: weaned. Additional 125 mg of Solu-Medrol given 1 due to severe bronchospasm -Due to persistent bronchospasm start steroid prednisone 20 mg twice daily PROPH: -Bilateral lower extremity SCDs. Continue Coumadin, IV famotidine LINES: -Right subclavian central line, right femoral arterial line placed 04/30/2017. Will DC femoral central line Overall impression: Critically ill and recovering slowly from viral pneumonia and recent tension pneumothorax. Remains in persistent respiratory failure and bronchospasm Critical care 32 mins Sidra Fuchs MD May 08, 2017 13:29
[2017-05-08] MEDS: RESP: ALBUTEROL 2.5 MG/IPRATROPIUM 0.5 MG NEB (SCH) NEB ×3 (15:48→23:16)
[2017-05-08] MEDS ORDERED: LABETALOL HCL 100 MG/20 ML VIAL IV PUSH PRN (17:00)
[2017-05-08] MEDS: hydrALAZINE HCL 20 MG/ML VIAL IV PUSH PRN (18:32)
[2017-05-08] MEDS: predniSONE 20 MG TAB PO SCH (18:32)
[2017-05-08] MEDS: POTASSIUM CHLOR 20 MEQ PREMIX 100 ML IV PRN ×2 (19:34→21:30)
[2017-05-09] VITALS (28 sets, daily range): BP systolic 135–191; BP diastolic 57–80; PULSE 60–73; RESP 12–27; TEMP 97.7–98.4; O2SAT 95–100
[2017-05-09] MEDS: RESP: ALBUTEROL 2.5 MG/IPRATROPIUM 0.5 MG NEB (SCH) NEB ×6 (03:50→23:51)
[2017-05-09 05:52] LABS: HEMATOCRIT 29.2 % (35.0-46.0); MEAN CELL VOLUME 98.2 FL (80.0-100.0); MEAN CORPUSCULAR HEMOGLOBIN 33.4 PG (27.0-34.0); MEAN PLATELET VOLUME 8.8 FL (7.0-11.0); PLATELET COUNT 256 TH/MM3 (150-450); RED BLOOD COUNT 2.98 MIL/MM3 (4.00-5.30); RED CELL DISTRIBUTION WIDTH 12.6 % (11.6-17.2); WHITE BLOOD COUNT 19.9 TH/MM3 (4.0-11.0)
[2017-05-09] MEDS: FREE WATER G-TUBE SCH ×2 (05:55→10:37)
[2017-05-09 06:19] LABS: BICARBONATE 28.4 MEQ/L (21.0-32.0); CALCIUM 8.1 MG/DL (8.5-10.1); CREATININE 1.56 MG/DL (0.50-1.00)
[2017-05-09 06:26] LABS: INTERNATIONAL NORMALIZED RATIO 1.3 RATIO; PROTHROMBIN TIME - PATIENT 12.7 SEC (9.8-11.6)
[2017-05-09] MEDS: SOTALOL HCL 80 MG TAB PO SCH ×2 (08:28→21:00)
[2017-05-09] MEDS: predniSONE 20 MG TAB PO SCH ×3 (08:28→17:58)
[2017-05-09] MEDS: LACTOBACILLUS ACIDOPHILUS TAB PO SCH ×3 (08:28→17:58)
[2017-05-09] MEDS: SODIUM CHLORIDE 0.9% FLUSH 10 ML FLUSH IV FLUSH SCH ×2 (08:29→21:09)
[2017-05-09] MEDS: CHLORHEXIDINE 0.12% (ORAL KIT) 15 ML CUP MT SCH ×2 (08:29→20:00)
[2017-05-09] MEDS: PROPOFOL 1000 MG/100 ML IV PRN (08:30)
[2017-05-09] MEDS: FLUCONAZOLE 400 MG PREMIX BAG 200 ML IV SCH (10:37)
[2017-05-09] MEDS: ceFAZolin 1,000 MG/NS 100 ML IV SCH ×4 (10:37→23:01)
--- NOTE | 2017-05-09 10:38 | HHI.IDPN ---
Subjective Subjective Remarks is an 86 y/o CF with PMHx of CAD, PCI stents 5, hypertension, chronic atrial fibrillation, pacemaker placement was admitted to the hospitalist service with respiratory distress, secondary to pneumonia. Her daughter is hospitalized in the ICU with staph aureus pneumonia and septic shock. On admission patient was also was in atrial fibrillation with RVR. Was admitted to hospital service with IV Rocephin and azithromycin. Patient was initially admitted under hospitalist services and due to worsening respiratory distress and hypotension and Critical care is now involved. Patient was emergently intubated, CL and A line placed this am. I tried to see patient then but due to multiple procedures discussed case with patients son and am officially seeing patient now and writing note at 6:34 pm. Patients son reported to me that patient and daughter live in same home rest of the details not known. Blood cultures were positive this am and CXR showed pneumonia. Sepsis eval started and patient started on empiric antibiotics and empiric tamiflu. Case dw briefly in am. At the time of my eval patient is in the ICU, on vasopressors, UO ok. Sedated on vent. ID consulted for eval and Mment of Septic shock, MSSA bacteremia and Pneumonia. Overnight events reviewed with RN Off pressors. On the vent, small to moderate secretions. Temps ok WBC still high. Diarrhea but C diff 05/04 negative Dangelo placed on 04/30 No rash Antibiotics Ancef IV Diflucan Lines Line sites with no e.o infection - R groin Marjorie, RSC TLC Past Medical History reviewed Allergies: Coded Allergies: clopidogrel (Unverified Allergy, Mild, Hives, 04/29/17) Iodinated Contrast- Oral and IV Dye (Verified Allergy, Unknown, 04/29/17) Objective . Vital Signs Date Time Temp Pulse Resp B/P (MAP) Pulse Ox O2 Delivery O2 Flow Rate FiO2 05/09/17 10:00 60 05/09/17 08:00 40 05/09/17 08:00 67 05/09/17 08:00 97.7 67 20 191/68 (109) 100 05/09/17 08:00 100 35 05/09/17 04:43 100 35 05/09/17 04:00 40 05/09/17 04:00 98.3 60 14 157/57 (90) 99 05/09/17 01:20 99 40 4/4/18 00:00 40 05/09/17 00:00 98.1 61 20 159/58 (91) 100 05/08/17 22:05 99 40 05/08/17 20:01 99 40 05/08/17 20:00 40 05/08/17 20:00 98.9 90 20 145/56 (85) 100 05/08/17 18:00 60 05/08/17 16:00 98.2 60 14 170/71 (104) 100 05/08/17 16:00 60 05/08/17 16:00 40 05/08/17 15:50 99 40 05/08/17 14:23 100 40 05/08/17 14:00 60 05/08/17 13:30 40 05/08/17 12:16 99 40 05/08/17 12:00 78 05/08/17 12:00 98.4 60 14 165/58 (93) 99 05/08/17 12:00 40 . Laboratory Tests Test 05/08/17 05:30 05/09/17 04:40 White Blood Count 20.5 TH/MM3 19.9 TH/MM3 Red Blood Count 3.18 MIL/MM3 2.98 MIL/MM3 Hemoglobin 10.6 GM/DL 10.0 GM/DL Hematocrit 31.3 % 29.2 % Mean Corpuscular Volume 98.4 FL 98.2 FL Mean Corpuscular Hemoglobin 33.3 PG 33.4 PG Mean Corpuscular Hemoglobin Concent 33.9 % 34.0 % Red Cell Distribution Width 12.5 % 12.6 % Platelet Count 262 TH/MM3 256 TH/MM3 Mean Platelet Volume 8.8 FL 8.8 FL Laboratory Tests Test 05/08/17 05:30 05/09/17 04:40 Blood Urea Nitrogen 83 MG/DL 79 MG/DL Creatinine 1.65 MG/DL 1.56 MG/DL Random Glucose 150 MG/DL 131 MG/DL Calcium Level 8.1 MG/DL 8.1 MG/DL Sodium Level 150 MEQ/L 151 MEQ/L Potassium Level 3.3 MEQ/L 3.7 MEQ/L Chloride Level 112 MEQ/L 113 MEQ/L Carbon Dioxide Level 29.9 MEQ/L 28.4 MEQ/L Anion Gap 8 MEQ/L 10 MEQ/L Estimat Glomerular Filtration Rate 30 ML/MIN 32 ML/MIN Microbiology Date/Time Source Procedure Growth Status 05/06/17 12:47 Blood Peripheral Aerobic Blood Culture - Preliminary NO GROWTH IN 2 DAYS Resulted 05/06/17 12:47 Blood Peripheral Anaerobic Blood Culture - Preliminary NO GROWTH IN 2 DAYS Resulted 05/06/17 12:40 Blood Peripheral Aerobic Blood Culture - Preliminary NO GROWTH IN 2 DAYS Resulted 05/06/17 12:40 Blood Peripheral Anaerobic Blood Culture - Preliminary NO GROWTH IN 2 DAYS Resulted 05/06/17 11:00 Sputum Endotracheal Gram Stain - Final Complete 05/06/17 11:00 Sputum Culture - Final Staphylococcus Aureus Complete Imaging Last Impressions Chest X-Ray 04/30/17 0000 Signed Impressions: Service Date/Time: Sunday, April 30, 2017 11:41 - CONCLUSION: 1. Interval intubation and placement of right subclavian central venous line with no pneumothorax. 2. Patchy infiltrate remains at the right lung base. Maciel Davenport MD Physical Exam GENERAL: Sedated on the vent SKIN: No rashes, ecchymoses or lesions. Cool and dry. HEAD: Atraumatic. Normocephalic. No temporal or scalp tenderness. EYES: Pupils equal round and reactive. No scleral icterus. No injection or drainage. ENT: Intubated orally NECK: Trachea midline. Supple, nontender, no meningeal signs. CARDIOVASCULAR: HS audible. RESPIRATORY: Decreased breath sound R . GASTROINTESTINAL: Abdomen soft, non-tender, nondistended. MUSCULOSKELETAL: Extremities without clubbing, cyanosis, or edema. No joint tenderness, effusion, or edema noted. NEUROLOGICAL: Sedated. Psych cooperative IV line sites with no e.o infection. Assessment & Plan Remarks Recurrent shock, ?new infection, ?PTX R. MSSA bacteremia likely secondary to Pneumonia post flu. Arterial line possible line infection. Await ID and susceptibility. Influenza A and B positive pneumonia. Juhi tropicalis UTI: cath pt. Pneumonia present on admission. Acute resp failure on vent Acute metabolic encephalopathy: infection, sepsis. CAD pacemaker in place. Leukocytosis: infection, stress (PTX) and Steroids. Recs Continue Ancef IV (for MSSA bacteremia only 7 days of therapy so far) Continue Diflucan for C.tropicalis. DC arterial line. DC PIV in Rt UE. Doppler Rt UE: r/o DVT Follow cultures Follow clinically. jovanna RN and . Julianna Mon MD May 09, 2017 10:38
[2017-05-09] MEDS ORDERED: DEXMEDETOMIDINE INJ 200 MCG in SODIUM CHLORIDE 0.9% INJ 50 ML IV PRN (11:00)
[2017-05-09] MEDS: FREE WATER OG-TUBE SCH ×3 (12:00→20:00)
--- NOTE | 2017-05-09 12:00 | HHI.CCPN ---
Subjective Remarks/Hospital Course Patient is an 86-year-old female with past medical history significant for coronary artery disease, PCI stents 5, hypertension, chronic atrial fibrillation, pacemaker placement was admitted to the hospitalist service with respiratory distress, secondary to pneumonia. Her daughter is hospitalized in the ICU with staph aureus pneumonia and septic shock. She will also was in atrial fibrillation with RVR. She does not have a history of asthma or COPD. Was admitted to hospital service with IV Rocephin and azithromycin I was urgently consulted today as the patient was in severe respiratory distress with severe bilateral wheezing and progressive decline in blood pressure now with a map of 45. On my evaluation patient was hardly able to communicate, is in respiratory extremis. There was no improvement in wheezing with [id number] breathing treatments. As the map was only 45 despite fluid boluses, Levophed was started and rapidly increased to 12 mcg/min, then to 20 mcg/min. IV Solu-Medrol 125 mg 1 stat was given. I emergently intubated the patient and placed on mechanical ventilation. I also placed a right subclavian central line and right femoral arterial line. Due to increased peak pressures and low tidal volume Vent mode was changed to PCV, from initial PRVC. Patient will be started on scheduled frequent breathing treatments, continued IV Solu Cortef. Continue Rocephin and azithromycin add vancomycin and Tamiflu. Respiratory panel requested. Blood cultures are growing staph aureus SUBJ 05/01: Patient remains intubated sedated. Bronchospasm significantly improved on exam. Remains in shock but with less pressor requirement currently Levophed at 3 mcg/min and vasopressin at 0.04 international units. Creatinine has increased to 1.68. Her daughter who is also admitted to ICU is positive for influenza 05/02: Worsening right sided infiltrates, not tolerating CPAP. Resp panel positive for Infl A/B. Currently off pressors. Creat 1.69. U) 700 ml in 24 hours 05/03: clinically starting to improve. off vasopressors. up 12kg from admission. very volume overloaded. hypoxia starting to improve. 05/04: failed SBT after only 10 minutes for tachypnea, low tidal volumes, tachycardia, respiratory distress. good diuresis. oxygenation continues to improve. slightly more somnolent than yesterday. 05/05: tolerated SBT slightly longer than yesterday, but still failed for respiratory distress. hypernatremia improving. did not diurese as well as expected yesterday, will need to increase forced diuresis: remains volume overloaded. 05/06: Became acutely hypotensive Levophed started at 10 mcg/min, 500 mL fluid bolus given. Very elevated peak pressures on the vent, evidence of air trapping and diminished air entry bilaterally. Patient temporarily disconnected from the ventilator, then reconnected and ventilator mode than changed to PC/AC with improvement in peak pressures. Rocuronium 50 mg IV 1, Solu-Medrol 125 mg IV 1. Stat chest x-ray to rule out pneumothorax pending at this time. Potassium 2.5 getting replaced. WBC count is 20.3. Send panculture. 05/07: Stable hemodynamics and good air movement with acceptable airway pressures. Persistent infiltrate right lower lung field. Prerenal azotemia developing. 05/08 remains intubated sedated. Almost complete resolution of right pneumothorax. Still has evidence of bronchospasm. DuoNeb scheduled restarted. Also will restart steroids in the form of prednisone 20 mg twice daily 05/09: Patient remains intubated sedated with propofol. Start Precedex to facilitate ventilator weaning. Urine output remains adequate. Chest x-ray reveals improving bronchospasm after steroids restarted. Start CPAP trials, vent day 10 Objective Vital Signs Date Time Temp Pulse Resp B/P (MAP) Pulse Ox O2 Delivery O2 Flow Rate FiO2 05/09/17 11:14 100 35 05/09/17 10:00 60 05/09/17 08:00 97.7 20 191/68 (109) Intake and Output 05/09/17 05/09/17 05/10/17 08:00 16:00 00:00 Intake Total 1045 ml Output Total 1210 ml Balance -165 ml Result Diagram: 05/09/17 0440 05/09/17 0440 Imaging Right lower lobe infiltrate Objective Remarks GENERAL: Frail elderly female, intubated sedated, critically ill. SKIN: No rashes, ecchymoses or lesions. HEAD: Atraumatic. Normocephalic. EYES: Pupils equal round and reactive. ENT: Edentulous. Orotracheally intubated NECK: Trachea midline. No JVD CARDIOVASCULAR: Underlying A. fib with ventricular paced rhythm. RESPIRATORY: Air entry equally diminished with bilateral mild expiratory wheezing with few coarse rhonchi GASTROINTESTINAL: Abdomen soft, non-tender, nondistended. bs active. MUSCULOSKELETAL: Extremities without clubbing, cyanosis, 1+ peripheral edema. NEUROLOGICAL: Sedated, Calm. Moves 4 extremities when light. No focal deficits. Opens eyes and moving extremities do not follow commands A/P Assessment and Plan Assessment: 86yF with influenza pneumonia and staph coinfection with persistent acute hypoxic respiratory failure, now with severe bronchospasm hypotension shock, and tension pneumothorax. remains off pathway and critically ill. Holding forced diuresis due to severe shock, renal failure. Active Problems: Acute hypoxemic hypercarbic respiratory failure. Right tension pneumothorax, now resolved Severe bronchospasm Septic shock Influenza, MSSA pneumonia Staph aureus bacteremia Lactic acidosis- resolved. Hypocalcemia/Hypokalemia/Hypomagnesemia Atrial fibrillation Coronary artery disease History of hypertension PLAN: NEURO: -Currently on propofol, start daily sedation medication -Morphine as needed for pain control and anxiety -Start Precedex to facilitate ventilator weaning RESP: -Emergently intubated and placed on mechanical ventilation 04/30, Vent day 10 -Bronchospasm appears to have improved, weaning trial with parameters today -R pigtail chest tube placed for right-sided tension pneumothorax, now almost completely resolved -Respiratory panel positive for influenza a and B by PCR -See ID section for ABX CV: -Off pressors, -Holding Lasix due renal failure dehydration -Continue Coumadin, continue Betapace -Hold Coreg hold lisinopril GI: -IV famotidine. tube feeds with Jevity -icu electrolyte protocol -Free water to 200mL po q6h. : -Monitor renal function closely. Dangelo catheter. -Strict intake output -Holding lasix 40mg iv q6h. ID: -Blood cultures, sputum culture growing staph aureus -Respiratory panel positive for influenza AMB -Per ID Continue Ancef and Diflucan. Discontinued Zosyn and Tamiflu -ID Dr. Mon HEME: -Monitor CBC, CMP,coags ENDO: -Electrolyte replacement protocol, sliding scale insulin if needed -s/p Stress dose steroids: weaned. -Started prednisone 20 mg twice daily 05/08 PROPH: -Bilateral lower extremity SCDs. Continue Coumadin, IV famotidine LINES: -Right subclavian central line, right femoral arterial line placed 04/30/2017. Will DC femoral art line today 05/09 Overall impression: Critically ill and recovering slowly from viral pneumonia and recent tension pneumothorax. Remains in persistent respiratory failure and bronchospasm Level 3 Sidra Fuchs MD May 09, 2017 12:00
[2017-05-09] MEDS ORDERED: RASS Change Order XX ONE (14:30)
--- NOTE | 2017-05-09 16:58 | RADRPT ---
EXAM DATE/TIME: 05/09/2017 15:11 [facility] COMPARISON: No previous studies available for comparison. INDICATIONS : Bilateral arm swelling. MEDICAL HISTORY : Hypercholesterolemia. Arthritis. Chest pain. Afib. HTN. Dyspnea. Spinal stenosis. SURGICAL HISTORY : Tonsillectomy.Pacemaker. Coronary artery stent.Cardiac cath. Appendectomy. Hysterectomy. Bladder susp ension. Bilateral knee replacements. Blood transfusions. Bilateral breast lumpectomy. ENCOUNTER: Initial ACUITY: 1 day PAIN SCORE: Non-responsive LOCATION: Bilateral arm. FINDINGS: RIGHT UPPER EXTREMITY: There is spontaneous flow documented in the brachial, basilic, cephalic, axillary, and subclavian vei ns. The vessels are compressible and augmentation response is documented. No filling defects are se en. The flow is phasic with respiration. Direction of flow in the jugular vein is caudal. LEFT UPPER EXTREMITY: There is spontaneous flow documented in the brachial, basilic, cephalic, axillary, and subclavian vei ns. The vessels are compressible and augmentation response is documented. No filling defects are se en. The flow is phasic with respiration. Direction of flow in the jugular vein is caudal. CONCLUSION: 1. No sonographic evidence for upper extremity DVT. Franko Benson MD on May 09, 2017 at 16:56 Board Certified Radiologist. This report was verified electronically.
[2017-05-09] MEDS: hydrALAZINE HCL 20 MG/ML VIAL IV PUSH PRN (21:10)
[2017-05-09] MEDS: MORPHINE SULFATE 2 MG/ML SYRINGE IV PUSH PRN (21:10)
[2017-05-10] VITALS (20 sets, daily range): BP systolic 135–164; BP diastolic 63–101; PULSE 63–78; RESP 11–25; TEMP 97.7–99; O2SAT 95–100
[2017-05-10] MEDS: FREE WATER OG-TUBE SCH ×7 (03:28→23:10)
[2017-05-10] MEDS: MORPHINE SULFATE 2 MG/ML SYRINGE IV PUSH PRN (04:09)
[2017-05-10 04:10] LABS: HEMATOCRIT 29.4 % (35.0-46.0); HEMOGLOBIN 9.9 GM/DL (11.6-15.3); MEAN CELL VOLUME 99.8 FL (80.0-100.0); MEAN CORPUSCULAR HEMOGLOBIN 33.7 PG (27.0-34.0); MEAN CORPUSCULAR HGB CONC 33.8 % (32.0-36.0); MEAN PLATELET VOLUME 8.6 FL (7.0-11.0); PLATELET COUNT 311 TH/MM3 (150-450); RED BLOOD COUNT 2.95 MIL/MM3 (4.00-5.30); RED CELL DISTRIBUTION WIDTH 12.5 % (11.6-17.2); WHITE BLOOD COUNT 22.5 TH/MM3 (4.0-11.0)
[2017-05-10 04:12] LABS: BICARBONATE 32.1 MEQ/L (21.0-32.0); CALCIUM 8.3 MG/DL (8.5-10.1); CREATININE 1.39 MG/DL (0.50-1.00)
[2017-05-10 04:28] LABS: INTERNATIONAL NORMALIZED RATIO 1.2 RATIO; PROTHROMBIN TIME - PATIENT 11.8 SEC (9.8-11.6)
[2017-05-10] MEDS: RESP: ALBUTEROL 2.5 MG/IPRATROPIUM 0.5 MG NEB (SCH) NEB ×5 (04:45→21:12)
[2017-05-10] MEDS: CHLORHEXIDINE 0.12% (ORAL KIT) 15 ML CUP MT SCH ×2 (08:00→20:00)
[2017-05-10] MEDS: predniSONE 20 MG TAB PO SCH ×2 (08:08→21:56)
[2017-05-10] MEDS: SOTALOL HCL 80 MG TAB PO SCH ×2 (08:08→21:56)
[2017-05-10] MEDS: LACTOBACILLUS ACIDOPHILUS TAB PO SCH ×3 (08:08→18:00)
[2017-05-10] MEDS: FLUCONAZOLE 400 MG PREMIX BAG 200 ML IV SCH (08:52)
[2017-05-10] MEDS: SODIUM CHLORIDE 0.9% FLUSH 10 ML FLUSH IV FLUSH SCH ×2 (08:52→21:00)
--- NOTE | 2017-05-10 11:46 | HHI.CCPN ---
Subjective Remarks/Hospital Course Patient is an 86-year-old female with past medical history significant for coronary artery disease, PCI stents 5, hypertension, chronic atrial fibrillation, pacemaker placement was admitted to the hospitalist service with respiratory distress, secondary to pneumonia. Her daughter is hospitalized in the ICU with staph aureus pneumonia and septic shock. She will also was in atrial fibrillation with RVR. She does not have a history of asthma or COPD. Was admitted to hospital service with IV Rocephin and azithromycin I was urgently consulted today as the patient was in severe respiratory distress with severe bilateral wheezing and progressive decline in blood pressure now with a map of 45. On my evaluation patient was hardly able to communicate, is in respiratory extremis. There was no improvement in wheezing with [id number] breathing treatments. As the map was only 45 despite fluid boluses, Levophed was started and rapidly increased to 12 mcg/min, then to 20 mcg/min. IV Solu-Medrol 125 mg 1 stat was given. I emergently intubated the patient and placed on mechanical ventilation. I also placed a right subclavian central line and right femoral arterial line. Due to increased peak pressures and low tidal volume Vent mode was changed to PCV, from initial PRVC. Patient will be started on scheduled frequent breathing treatments, continued IV Solu Cortef. Continue Rocephin and azithromycin add vancomycin and Tamiflu. Respiratory panel requested. Blood cultures are growing staph aureus SUBJ 05/01: Patient remains intubated sedated. Bronchospasm significantly improved on exam. Remains in shock but with less pressor requirement currently Levophed at 3 mcg/min and vasopressin at 0.04 international units. Creatinine has increased to 1.68. Her daughter who is also admitted to ICU is positive for influenza 05/02: Worsening right sided infiltrates, not tolerating CPAP. Resp panel positive for Infl A/B. Currently off pressors. Creat 1.69. U) 700 ml in 24 hours 05/03: clinically starting to improve. off vasopressors. up 12kg from admission. very volume overloaded. hypoxia starting to improve. 05/04: failed SBT after only 10 minutes for tachypnea, low tidal volumes, tachycardia, respiratory distress. good diuresis. oxygenation continues to improve. slightly more somnolent than yesterday. 05/05: tolerated SBT slightly longer than yesterday, but still failed for respiratory distress. hypernatremia improving. did not diurese as well as expected yesterday, will need to increase forced diuresis: remains volume overloaded. 05/06: Became acutely hypotensive Levophed started at 10 mcg/min, 500 mL fluid bolus given. Very elevated peak pressures on the vent, evidence of air trapping and diminished air entry bilaterally. Patient temporarily disconnected from the ventilator, then reconnected and ventilator mode than changed to PC/AC with improvement in peak pressures. Rocuronium 50 mg IV 1, Solu-Medrol 125 mg IV 1. Stat chest x-ray to rule out pneumothorax pending at this time. Potassium 2.5 getting replaced. WBC count is 20.3. Send panculture. 05/07: Stable hemodynamics and good air movement with acceptable airway pressures. Persistent infiltrate right lower lung field. Prerenal azotemia developing. 05/08 remains intubated sedated. Almost complete resolution of right pneumothorax. Still has evidence of bronchospasm. DuoNeb scheduled restarted. Also will restart steroids in the form of prednisone 20 mg twice daily 05/09: Patient remains intubated sedated with propofol. Start Precedex to facilitate ventilator weaning. Urine output remains adequate. Chest x-ray reveals improving bronchospasm after steroids restarted. Start CPAP trials, vent day 10 05/10: Extubated yesterday tolerating well, good oxygen saturation on nasal cannula. Communicative appears depressed psych consult. Will place chest tube to waterseal remove in a.m. if there is no pneumothorax on chest x-ray Objective Vital Signs Date Time Temp Pulse Resp B/P (MAP) Pulse Ox O2 Delivery O2 Flow Rate FiO2 05/10/17 10:00 74 05/10/17 08:00 97.7 21 159/74 (102) 100 Arterial Line 05/10/17 07:58 Nasal Cannula 1.00 05/09/17 19:00 35 Intake and Output 05/10/17 05/10/17 05/11/17 08:00 16:00 00:00 Intake Total 360 ml Output Total 900 ml Balance -900 ml 360 ml Result Diagram: 05/10/17 0335 05/10/17 0335 Other Results Laboratory Tests Test 05/09/17 13:02 Blood Gas Puncture Site RT RADIAL Blood Gas Patient Temperature 98.6 Blood Gas HCO3 29 mmol/L (22-26) Blood Gas Base Excess 5.5 mmol/L (-2-2) Blood Gas Oxygen Saturation 97 % (90-100) Arterial Blood pH 7.47 (7.380-7.420) Arterial Blood Partial Pressure CO2 40 mmHg (38-42) Arterial Blood Partial Pressure O2 144 mmHg (61-120) Arterial Blood Oxygen Content 12.6 Vol % (12.0-20.0) Arterial Blood Carboxyhemoglobin 0.7 % (0-4) Arterial Blood Methemoglobin 1.2 % (0-2) Blood Gas Hemoglobin 9.0 G/DL (12.0-16.0) Oxygen Delivery Device VENTILATOR Blood Gas Ventilator Setting CPAP+5/PS+5 Blood Gas Inspired Oxygen 35 % Imaging Right lower lobe infiltrate Objective Remarks GENERAL: Frail elderly female, breathing comfortably on nasal cannula SKIN: No rashes, ecchymoses or lesions. HEAD: Atraumatic. Normocephalic. EYES: Pupils equal round and reactive. ENT: Edentulous. NECK: Trachea midline. No JVD CARDIOVASCULAR: Underlying A. fib with ventricular paced rhythm. RESPIRATORY: Air entry equally diminished with no expiratory wheezing or rhonchi GASTROINTESTINAL: Abdomen soft, non-tender, nondistended. bs active. MUSCULOSKELETAL: Extremities without clubbing, cyanosis NEUROLOGICAL: Alert awake soft speech no focal deficits. follows commands. Depressed affect, states "I want to " A/P Assessment and Plan Assessment: 86yF with influenza pneumonia and staph coinfection with persistent acute hypoxic respiratory failure, now with severe bronchospasm hypotension shock, and tension pneumothorax. remains off pathway and critically ill. Holding forced diuresis due to severe shock, renal failure. Active Problems: Acute hypoxemic hypercarbic respiratory failure. Right tension pneumothorax, now resolved Severe bronchospasm Septic shock Influenza, MSSA pneumonia Staph aureus bacteremia Lactic acidosis- resolved. Hypocalcemia/Hypokalemia/Hypomagnesemia Atrial fibrillation Coronary artery disease History of hypertension PLAN: NEURO: -Discontinue all sedation -Consult psych for depression, daughter recently in ICU from influenza/ARDS RESP: -Emergently intubated and placed on mechanical ventilation 04/30, extubated -Bronchospasm improved, continue DuoNeb breathing treatments -Reduce prednisone to 20 twice daily for 3 days and stop -R pigtail chest tube placed for right-sided tension pneumothorax, now almost completely resolved -Chest tube to water-seal, clamp at 2 am with repeat CXR am, remove chest tube is if no pneumothorax -Respiratory panel positive for influenza a and B by PCR -See ID section for ABX CV: -Holding Lasix due renal failure dehydration -Continue Coumadin, continue Betapace -Hold Coreg hold lisinopril GI: -Diet per speech recommendation -icu electrolyte protocol : -Monitor renal function closely. Dangelo catheter. -Strict intake output -Holding lasix ID: -Blood cultures, sputum culture growing staph aureus -Respiratory panel positive for influenza AMB -Per ID Continue Ancef and Diflucan. Discontinued Zosyn and Tamiflu -ID Dr. Mon HEME: -Monitor CBC, CMP,coags ENDO: -Electrolyte replacement protocol, sliding scale insulin if needed -s/p Stress dose steroids: weaned. -Started prednisone 20 mg TID 05/08, reduce to 20 mg twice daily and stop in 3 days PROPH: -Bilateral lower extremity SCDs. Continue Coumadin, IV famotidine LINES: -Right subclavian central line-DC today, right femoral arterial line DCd 05/09 Overall impression Recovering slowly from viral pneumonia and recent tension pneumothorax. Level 2 Consult [facility] to assume care in am 05/11/17 Sidra Fuchs MD May 10, 2017 11:46
--- NOTE | 2017-05-10 11:53 | HHI.IDPN ---
Subjective Subjective Remarks is an 86 y/o CF with PMHx of CAD, PCI stents 5, hypertension, chronic atrial fibrillation, pacemaker placement was admitted to the hospitalist service with respiratory distress, secondary to pneumonia. Her daughter is hospitalized in the ICU with staph aureus pneumonia and septic shock. On admission patient was also was in atrial fibrillation with RVR. Was admitted to hospital service with IV Rocephin and azithromycin. Patient was initially admitted under hospitalist services and due to worsening respiratory distress and hypotension and Critical care is now involved. Patient was emergently intubated, CL and A line placed this am. I tried to see patient then but due to multiple procedures discussed case with patients son and am officially seeing patient now and writing note at 6:34 pm. Patients son reported to me that patient and daughter live in same home rest of the details not known. Blood cultures were positive this am and CXR showed pneumonia. Sepsis eval started and patient started on empiric antibiotics and empiric tamiflu. Case dw briefly in am. At the time of my eval patient is in the ICU, on vasopressors, UO ok. Sedated on vent. ID consulted for eval and Mment of Septic shock, MSSA bacteremia and Pneumonia. Overnight events reviewed with RN Extubated Awake not conversing. Moves limbs Follow commands for me. Temps ok WBC still high. Diarrhea but C diff 05/04 negative Dangelo placed on 04/30 No rash Antibiotics Ancef IV Diflucan Lines Line sites with no e.o infection - R groin Marjorie, RSC TLC Past Medical History reviewed Allergies: Coded Allergies: clopidogrel (Unverified Allergy, Mild, Hives, 04/29/17) Iodinated Contrast- Oral and IV Dye (Verified Allergy, Unknown, 04/29/17) Objective . Vital Signs Date Time Temp Pulse Resp B/P (MAP) Pulse Ox O2 Delivery O2 Flow Rate FiO2 05/10/17 10:00 74 05/10/17 08:00 97.7 68 21 159/74 (102) 100 Arterial Line 05/10/17 08:00 68 05/10/17 07:58 98 Nasal Cannula 1.00 05/10/17 07:00 99 Nasal Cannula 2.00 05/10/17 06:00 66 05/10/17 04:14 18 05/10/17 04:00 78 4/5/18 04:00 97.8 75 22 159/101 (120) 97 418 03:30 71 22 97 18 03:00 71 15 161/82 (108) 98 18 02:30 73 16 98 18 02:00 71 22 147/70 (95) 97 18 02:00 78 418 01:30 71 25 96 18 01:00 69 23 146/65 (92) 96 05/10/17 00:30 63 11 97 18 00:00 68 18 00:00 99.0 68 22 148/68 (94) 97 05/09/17 23:30 71 26 96 05/09/17 23:00 72 21 152/69 (96) 95 05/09/17 22:30 73 27 95 05/09/17 22:00 72 05/09/17 22:00 72 27 144/66 (92) 95 05/09/17 21:30 65 24 98 18 21:00 60 15 173/80 (111) 99 18 20:44 98 Nasal Cannula 2.00 05/09/17 20:30 60 15 98 18 20:00 98.4 60 16 177/77 (110) 98 05/09/17 20:00 60 05/09/17 19:30 60 14 97 18 19:00 60 12 161/72 (101) 98 05/09/17 19:00 Nasal Cannula 2.00 35 18 18:30 61 16 98 18 18:00 60 13 152/73 (99) 99 18 18:00 60 18 17:55 61 16 164/74 (104) 98 /18 17:30 60 13 99 18 17:00 60 14 157/70 (99) 99 18 16:00 60 18 16:00 98.0 60 14 154/70 (98) 100 /18 14:00 60 18 13:37 99 Nasal Cannula 2.00 18 13:30 99 Nasal Cannula 2 18 13:30 100 Nasal Cannula 2.00 4/4/18 12:00 35 05/09/17 12:00 97.8 60 20 135/64 (87) 99 05/09/17 12:00 60 05/10/17 05/10/17 05/11/17 15:00 23:00 07:00 Intake Total 360 ml Balance 360 ml Intake Oral 360 ml . Laboratory Tests Test 05/09/17 04:40 05/10/17 03:35 White Blood Count 19.9 TH/MM3 22.5 TH/MM3 Red Blood Count 2.98 MIL/MM3 2.95 MIL/MM3 Hemoglobin 10.0 GM/DL 9.9 GM/DL Hematocrit 29.2 % 29.4 % Mean Corpuscular Volume 98.2 FL 99.8 FL Mean Corpuscular Hemoglobin 33.4 PG 33.7 PG Mean Corpuscular Hemoglobin Concent 34.0 % 33.8 % Red Cell Distribution Width 12.6 % 12.5 % Platelet Count 256 TH/MM3 311 TH/MM3 Mean Platelet Volume 8.8 FL 8.6 FL Laboratory Tests Test 05/09/17 04:40 05/10/17 03:35 Blood Urea Nitrogen 79 MG/DL 75 MG/DL Creatinine 1.56 MG/DL 1.39 MG/DL Random Glucose 131 MG/DL 102 MG/DL Calcium Level 8.1 MG/DL 8.3 MG/DL Sodium Level 151 MEQ/L 152 MEQ/L Potassium Level 3.7 MEQ/L 3.4 MEQ/L Chloride Level 113 MEQ/L 112 MEQ/L Carbon Dioxide Level 28.4 MEQ/L 32.1 MEQ/L Anion Gap 10 MEQ/L 8 MEQ/L Estimat Glomerular Filtration Rate 32 ML/MIN 36 ML/MIN Imaging Last Impressions Chest X-Ray 04/30/17 0000 Signed Impressions: Service Date/Time: Sunday, April 30, 2017 11:41 - CONCLUSION: 1. Interval intubation and placement of right subclavian central venous line with no pneumothorax. 2. Patchy infiltrate remains at the right lung base. Maciel Davenport MD Physical Exam GENERAL: Sedated on the vent SKIN: No rashes, ecchymoses or lesions. Cool and dry. HEAD: Atraumatic. Normocephalic. No temporal or scalp tenderness. EYES: Pupils equal round and reactive. No scleral icterus. No injection or drainage. ENT: Intubated orally NECK: Trachea midline. Supple, nontender, no meningeal signs. CARDIOVASCULAR: HS audible. RESPIRATORY: Decreased breath sound R . GASTROINTESTINAL: Abdomen soft, non-tender, nondistended. MUSCULOSKELETAL: Extremities without clubbing, cyanosis, or edema. No joint tenderness, effusion, or edema noted. NEUROLOGICAL: Sedated. Psych cooperative IV line sites with no e.o infection. Assessment & Plan Remarks Recurrent shock, ?new infection, ?PTX R. MSSA bacteremia likely secondary to Pneumonia post flu. Arterial line possible line infection. Await ID and susceptibility. Influenza A and B positive pneumonia. Juhi tropicalis UTI: cath pt. Pneumonia present on admission. Acute resp failure on vent Acute metabolic encephalopathy: infection, sepsis. CAD pacemaker in place. Leukocytosis: infection, stress (PTX) and Steroids. Recs Continue Ancef IV (for MSSA bacteremia only 7 days of therapy so far) Continue Diflucan for C.tropicalis. Follow cultures Follow clinically. jovanna OTT and . Julianna Mon MD May 10, 2017 11:53
[2017-05-10] MEDS: ceFAZolin 1,000 MG/NS 100 ML IV SCH ×4 (13:29→23:07)
[2017-05-10] MEDS: POTASSIUM CHLOR 20 MEQ PREMIX 100 ML IV PRN (21:57)
[2017-05-10] MEDS: ACETAMINOPHEN 325 MG TAB PO PRN (23:07)
[2017-05-11] VITALS (15 sets, daily range): BP systolic 132–175; BP diastolic 74–97; PULSE 69–129; RESP 19–31; TEMP 98–98.6; O2SAT 95–100
[2017-05-11] MEDS: RESP: ALBUTEROL 2.5 MG/IPRATROPIUM 0.5 MG NEB (SCH) NEB ×4 (03:55→21:04)
[2017-05-11] MEDS: FREE WATER OG-TUBE SCH ×6 (04:00→22:38)
[2017-05-11] MEDS: POTASSIUM CHLOR 20 MEQ PREMIX 100 ML IV PRN (04:54)
--- NOTE | 2017-05-11 05:50 | RADRPT ---
EXAM DATE/TIME: 05/11/2017 04:33 [facility] COMPARISON: CHEST SINGLE AP, May 08, 2017, 2:56. INDICATIONS : Respiratory disease. MEDICAL HISTORY : Hypercholesterolemia. Arthritis. Chest pain. Afib. HTN. Dyspnea. Spinal stenosis. SURGICAL HISTORY : Tonsillectomy.Pacemaker. Coronary artery stent.Cardiac cath. Appendectomy. Hysterectomy. Bladder susp ension. Bilateral knee replacements. Blood transfusions. Bilateral breast lumpectomy. ENCOUNTER: Subsequent ACUITY: 1 day PAIN SCORE: Non-responsive. LOCATION: Bilateral chest FINDINGS: Single AP view of the chest. Dual-lead cardiac pacemaker remains in place. Endotracheal tube and naso gastric tube no longer seen. Right subclavian central venous catheter no longer seen. Mild patchy res idual right upper lung opacity. No evidence of pleural effusion or pneumothorax. CONCLUSION: Mild residual patchy right upper lung opacity. Lungs otherwise clear. No evidence of pneumothorax. Nish Pedersen MD on May 11, 2017 at 5:47 Board Certified Radiologist. This report was verified electronically.
[2017-05-11] MEDS: CHLORHEXIDINE 0.12% (ORAL KIT) 15 ML CUP MT SCH ×2 (08:00→20:11)
[2017-05-11 08:48] LABS: AUTOMATED NEUTROPHIL # 18.6 TH/MM3 (1.8-7.7); BASOPHIL % 0.2 % (0.0-2.0); EOSINOPHIL % 0.1 % (0.0-4.0); HEMATOCRIT 30.2 % (35.0-46.0); HEMOGLOBIN 10.2 GM/DL (11.6-15.3); LYMPH % 5.6 % (9.0-44.0); LYMPHOCYTE # 1.2 TH/MM3 (1.0-4.8); MEAN CORPUSCULAR HEMOGLOBIN 33.8 PG (27.0-34.0); MEAN CORPUSCULAR HGB CONC 33.8 % (32.0-36.0); MEAN PLATELET VOLUME 8.7 FL (7.0-11.0); MONO % 4.2 % (0.0-8.0); MONOCYTE # 0.9 TH/MM3 (0-0.9); NEUT % 89.9 % (16.0-70.0); PLATELET COUNT 305 TH/MM3 (150-450); RED BLOOD COUNT 3.02 MIL/MM3 (4.00-5.30); RED CELL DISTRIBUTION WIDTH 12.8 % (11.6-17.2); WHITE BLOOD COUNT 20.7 TH/MM3 (4.0-11.0)
[2017-05-11 08:50] LABS: INTERNATIONAL NORMALIZED RATIO 1.2 RATIO; PROTHROMBIN TIME - PATIENT 11.7 SEC (9.8-11.6)
[2017-05-11] MEDS: SODIUM CHLORIDE 0.9% FLUSH 10 ML FLUSH IV FLUSH SCH ×2 (09:00→20:11)
[2017-05-11 09:37] LABS: ALBUMIN 2.2 GM/DL (3.4-5.0); ALKALINE PHOSPHATASE 92 U/L (45-117); ALT (GPT) 27 U/L (10-53); AST (GOT) 30 U/L (15-37); BLOOD UREA NITROGEN 63 MG/DL (7-18); CALCIUM 8.5 MG/DL (8.5-10.1); CHLORIDE 113 MEQ/L (98-107); GLOMERULAR FILTRATION RATE 36 ML/MIN (>89); GLUCOSE,RANDOM 117 MG/DL (74-106); SODIUM (NA) 151 MEQ/L (136-145); TOTAL BILIRUBIN ADULT 0.5 MG/DL (0.2-1.0); TOTAL PROTEIN 6.2 GM/DL (6.4-8.2)
[2017-05-11] MEDS: LACTOBACILLUS ACIDOPHILUS TAB PO SCH ×3 (09:49→18:00)
[2017-05-11] MEDS ORDERED: METOPROLOL TARTRATE 5 MG/5 ML VIAL ONE (09:49)
[2017-05-11] MEDS: predniSONE 20 MG TAB PO SCH ×2 (09:49→20:11)
[2017-05-11] MEDS: SOTALOL HCL 80 MG TAB PO SCH ×2 (09:49→20:11)
[2017-05-11] MEDS: FLUCONAZOLE 400 MG PREMIX BAG 200 ML IV SCH (10:00)
[2017-05-11] MEDS ORDERED: DILTIAZEM INJ 125 MG in SODIUM CHLORIDE 0.9% INJ 100 ML IV PRN (10:15)
[2017-05-11] MEDS ORDERED: METOPROLOL TARTRATE 5 MG/5 ML VIAL IV PUSH ONE (10:15)
[2017-05-11] MEDS ORDERED: DILTIAZEM HCL 25 MG/5 ML VIAL IV PUSH ONE (10:15)
[2017-05-11 10:20] LABS: BANDS 6 % (0-6); LYMPHOCYTES 2 % (9-44); METAMYELOCYTES 3 % (0-1); MONOCYTES 5 % (0-8); NEUTROPHIL # MANUAL DIFF 19.3 TH/MM3 (1.8-7.7); POLYS (SEG NEUTROPHILS) 84 % (16-70)
[2017-05-11] MEDS ORDERED: DIGOXIN 0.5 MG/2 ML VIAL IV PUSH ONE (10:30)
[2017-05-11] MEDS: ceFAZolin 1,000 MG/NS 100 ML IV SCH ×2 (12:00)
--- NOTE | 2017-05-11 17:42 | HHI.PR ---
Subjective Remarks No complaints today. Respiratory status is improving. A-fib with RVR has returned. Objective Vital Signs Date Time Temp Pulse Resp B/P (MAP) Pulse Ox O2 Delivery O2 Flow Rate FiO2 05/11/17 16:00 108 05/11/17 16:00 98.3 129 20 132/89 (103) 98 05/11/17 15:00 102 05/11/17 14:00 108 05/11/17 12:00 98.3 107 20 158/97 (117) 98 05/11/17 12:00 108 05/11/17 10:00 80 05/11/17 08:00 80 05/11/17 08:00 98.0 80 20 175/86 (115) 97 05/11/17 07:56 96 Nasal Cannula 1.00 05/11/17 06:00 69 05/11/17 04:00 76 05/11/17 04:00 98.0 76 24 155/74 (101) 100 05/11/17 02:00 72 05/11/17 00:00 74 05/11/17 00:00 98.0 74 19 173/75 (107) 98 05/10/17 22:00 77 05/10/17 21:14 97 Nasal Cannula 1.00 05/10/17 20:00 76 05/10/17 20:00 98.7 76 18 135/63 (87) 96 05/10/17 19:00 98 Nasal Cannula 2.00 05/10/17 18:00 78 I/O 05/10/17 05/10/17 05/10/17 05/11/17 05/11/17 05/11/17 07:00 15:00 23:00 07:00 15:00 23:00 Intake Total 760 ml 350 ml 773 ml Output Total 900 ml 950 ml 250 ml Balance -900 ml 760 ml -600 ml 523 ml Intake Oral 360 ml 250 ml IV Total 400 ml 100 ml 773 ml Output Urine Total 900 ml 950 ml 250 ml Chest Tube Drainage Total 0 ml 0 ml # Voids 2 # Bowel Movements 1 0 2 Result Diagram: 05/11/1782605/11/17826 Objective Remarks GENERAL: NAD, A&Ox3 HEAD: Normocephalic. NECK: Supple, trachea midline. No lymphadenopathy. EYES: No scleral icterus. No injection or drainage. CARDIOVASCULAR: Irregularly irregular without murmurs, gallops, or rubs. RESPIRATORY: Breath sounds equal bilaterally. No accessory muscle use. GASTROINTESTINAL: Abdomen soft, non-tender, nondistended. MUSCULOSKELETAL: No cyanosis, or edema. SKIN: Warm and dry. NEURO: No focal neurological deficitis. A/P Problem List: (1) Chronic anticoagulation ICD Code: Z79.01 - Chronic anticoagulation Status: Acute (2) GI bleed ICD Code: K92.2 - GI bleed Status: Acute (3) Atrial fibrillation with RVR ICD Code: I48.91 - Unspecified atrial fibrillation Status: Acute (4) Pneumonia ICD Code: J18.9 - Pneumonia, unspecified organism Status: Acute (5) Sepsis ICD Code: A41.9 - Sepsis, unspecified organism Status: Acute (6) Hypokalemia ICD Code: E87.6 - Hypokalemia Status: Acute (7) Atrial fibrillation ICD Code: I48.91 - Atrial fibrillation Status: Acute Assessment and Plan 86-year-old female admitted secondary to pneumonia with pneumothorax and respiratory failure in the presence of influenza. Severe sepsis with renal failure present at time of admit. A-fib Continue Coumadin RVR treated today, and resolved for now Follow on telemetry Acute hypoxemic hypercarbic respiratory failure. Right tension pneumothorax Severe bronchospasm Septic shock Influenza, MSSA pneumonia Staph aureus bacteremia Lactic acidosis (resolved) pneumothorax now resolved status post extubation 05/09/17 Continue prednisone PRN Nebs Oxygen as needed Ancef Diflucan Follow cultures Hypocalcemia Hypokalemia Hypomagnesemia Monitor and replace as needed Coronary artery disease No chest pain Follow clinically History of hypertension Lisinopril on hold Follow blood pressure DVT prophylaxis Coumadin SCDs Blake Marie MD May 11, 2017 17:42
--- NOTE | 2017-05-11 18:51 | PD.PSY.CON ---
Provisional Diagnosis Admission Date Apr 29, 2017 at 10:56 [place]. Bereavement History of Present Illness Service Psychiatry Consult Requested By Dr. Valente Reason for Consult Depression Primary Care Physician Dominga Bird MD Past Family Social History Coded Allergies: clopidogrel (Unverified Allergy, Mild, Hives, 04/29/17) Iodinated Contrast- Oral and IV Dye (Verified Allergy, Unknown, 04/29/17) Reported Medications Hydrochlorothiazide (Hydrochlorothiazide) 12.5 Mg Cap, 0.5 TAB PO DAILY, #60 CAP 0 Refills 04/29/17 Atorvastatin (Atorvastatin) 40 Mg Tab, 40 MG PO HS for Cholesterol Management, # 30 TAB 0 Refills 04/29/17 Multiple Vitamins W/ Minerals (Centrum) 1 Chew, 1 TAB CHEW DAILY for Nutritional Supplement, TAB 0 Refills 12/31/16 Coenzyme Q10 (Ubidecarenone) (Coq-10) 30 Mg Cap, 200 MG PO DAILY 12/31/16 Carvedilol ER 24 HR (Coreg Cr 24 HR) 80 Mg Cap, 80 MG PO DAILY, #30 CAP 0 Refills 12/31/16 Potassium Chloride ER (Potassium Chloride ER) 10 Meq Tab, 50 MEQ PO DAILY for Electrolyte Replacement, #30 TAB 0 Refills 12/31/16 Warfarin (Warfarin) 1 Mg Tab, 1.5 MG PO SUN,,,SAT for Blood Clot Prevention, #30 TAB 0 Refills 12/31/16 Sotalol (Sotalol) 80 Mg Tab, 120 MG PO BID for Regulate Heart Beat, #60 TAB 0 Refills 01/27/16 Aspirin (Aspir-81) 81 Mg Tabdr, 81 MG PO Patel, , W, Th, Sa 01/27/16 Losartan (Losartan) 25 Mg Tab, 50 MG PO BID for Blood Pressure Management, #30 TAB 0 Refills 01/27/16 Warfarin (Warfarin) 3 Mg Tab, 2 MG PO MWF for Blood Clot Prevention, #30 TAB 0 Refills 01/27/16 Current Medications Medications (Trade) Dose Ordered Sig/Francisco Route Start Time Stop Time Status Last Admin (NS Flush) 2 ml UNSCH PRN IV FLUSH 04/29/17 11:00 04/29/17 20:14 (NS Flush) 2 ml BID IV FLUSH 04/29/17 21:00 05/11/17 09:00 (Zofran Inj) 4 mg Q6H PRN IVP 04/29/17 12:00 04/29/17 11:34 (Narcan Inj) 0.4 mg UNSCH PRN IV PUSH 04/29/17 11:00 (Milk Of Magnesia Liq) 30 ml Q12H PRN PO 04/29/17 11:00 (KCl) 50 meq DAILY PO 04/30/17 09:00 Future Hold 05/03/17 08:44 (Betapace) 120 mg BID PO 04/29/17 21:00 05/11/17 09:49 (Coumadin) 2 mg DAILY@16 PO 04/29/17 16:00 Future Hold 05/03/17 16:06 (Lactinex) 1 tab TID PO 04/29/17 18:00 05/11/17 13:00 (Pill Splitter) 1 ea UNSCH PRN OTHER 04/29/17 15:45 (Coreg) 25 mg BID PO 04/29/17 21:00 Future Hold 04/30/17 08:39 (Cozaar) 50 mg BID PO 04/29/17 21:00 Future Hold Miscellaneous Information Patient in critical care unit? Ass... [id number] .XX 04/29/17 21:45 (Peridex 0.12% Liq) 15 ml BID@08,20 MT 04/30/17 20:00 05/11/17 08:00 (Albuterol Neb) 2.5 mg Q2HR NEB PRN NEB 04/30/17 12:30 Potassium Chloride 100 ml @ 50 mls/hr Q2H PRN IV 04/30/17 12:30 05/07/17 23:17 Potassium Chloride 100 ml @ 50 mls/hr Q2H PRN IV 04/30/17 12:30 (K-Lyte Cl Eff) 50 meq UNSCH PRN PO 04/30/17 12:30 Potassium Chloride 100 ml @ 25 mls/hr UNSCH PRN IV 04/30/17 12:30 05/10/17 09:18 Potassium Chloride 100 ml @ 50 mls/hr Q2H PRN IV 04/30/17 12:30 05/11/17 04:54 Magnesium Sulfate 4 gm/Sodium Chloride 100 ml @ 50 mls/hr UNSCH PRN IV 04/30/17 12:30 (Mag-Ox) 800 mg UNSCH PRN PO 04/30/17 12:30 Magnesium Sulfate 2 gm/Sodium Chloride 100 ml @ 50 mls/hr UNSCH PRN IV 04/30/17 12:30 (K-Phos) 2,000 mg Q4H PRN PO 04/30/17 12:30 Sodium Phosphate 30 mmol/Sodium Chloride 250 ml @ 42 mls/hr UNSCH PRN IV 04/30/17 12:30 (K-Phos) 2,000 mg UNSCH PRN PO/TUBE 04/30/17 12:30 Potassium Phosphate 30 mmol/ Sodium Chloride 260 ml @ 42 mls/hr UNSCH PRN IV 04/30/17 12:30 05/03/17 05:56 (Lasix Inj) 40 mg Q6H IV PUSH 05/03/17 22:00 Future Hold 05/06/17 04:01 Pharmacy Profile Note 0 ml @ 0 mls/hr UNSCH OTHER 05/05/17 15:45 Fluconazole/ Sodium Chloride 200 ml @ 100 mls/hr Q24H IV 05/06/17 10:00 05/11/17 10:00 Cefazolin Sodium 1000 mg/Sodium Chloride 100 ml @ 200 mls/hr Q12H IV 05/07/17 12:00 05/11/17 12:00 (Apresoline Inj) 20 mg Q4H PRN IV PUSH 05/08/17 17:00 05/09/17 21:10 (Trandate Inj) 20 mg Q4H PRN IV PUSH 05/08/17 17:00 (Free Water) VOLUME OF WATER: ( 200 ) ML Q4HR OG-TUBE 05/09/17 12:00 05/12/17 11:59 05/10/17 15:37 (Duoneb Neb) 1 ampule Q6HR NEB NEB 05/10/17 16:00 05/11/17 15:30 (Deltasone) 20 mg BID PO 05/10/17 21:00 05/13/17 20:59 05/11/17 09:49 (Tylenol) 650 mg Q6H PRN PO 05/10/17 23:00 05/10/17 23:07 (Cardizem Cd) 120 mg DAILY PO 05/12/17 09:00 Physical Exam Vital Signs Vital Signs Date Time Temp Pulse Resp B/P (MAP) Pulse Ox O2 Delivery O2 Flow Rate FiO2 05/11/17 18:00 108 05/11/17 16:00 98.3 20 132/89 (103) 98 05/11/17 07:56 Nasal Cannula 1.00 05/09/17 19:00 35 I/O 05/11/17 05/11/17 05/12/17 08:00 16:00 00:00 Intake Total 773 ml Output Total 250 ml Balance 523 ml Lab Results Test 05/11/17 08:27 White Blood Count 20.7 TH/MM3 Red Blood Count 3.02 MIL/MM3 Hemoglobin 10.2 GM/DL Hematocrit 30.2 % Mean Corpuscular Volume 100.0 FL Mean Corpuscular Hemoglobin 33.8 PG Mean Corpuscular Hemoglobin Concent 33.8 % Red Cell Distribution Width 12.8 % Platelet Count 305 TH/MM3 Mean Platelet Volume 8.7 FL Neutrophils (%) (Auto) 89.9 % Lymphocytes (%) (Auto) 5.6 % Monocytes (%) (Auto) 4.2 % Eosinophils (%) (Auto) 0.1 % Basophils (%) (Auto) 0.2 % Neutrophils # (Auto) 18.6 TH/MM3 Lymphocytes # (Auto) 1.2 TH/MM3 Monocytes # (Auto) 0.9 TH/MM3 Eosinophils # (Auto) 0.0 TH/MM3 Basophils # (Auto) 0.0 TH/MM3 CBC Comment AUTO DIFF Differential Total Cells Counted 100 Neutrophils % (Manual) 84 % Band Neutrophils % 6 % Lymphocytes % 2 % Monocytes % 5 % Neutrophils # (Manual) 19.3 TH/MM3 Metamyelocytes 3 % Differential Comment FINAL DIFF MANUAL Platelet Estimate NORMAL Platelet Morphology Comment NORMAL Prothrombin Time 11.7 SEC Prothromb Time International Ratio 1.2 RATIO Blood Urea Nitrogen 63 MG/DL Creatinine 1.40 MG/DL Random Glucose 117 MG/DL Total Protein 6.2 GM/DL Albumin 2.2 GM/DL Calcium Level 8.5 MG/DL Alkaline Phosphatase 92 U/L Aspartate Amino Transf (AST/SGOT) 30 U/L Alanine Aminotransferase (ALT/SGPT) 27 U/L Total Bilirubin 0.5 MG/DL Sodium Level 151 MEQ/L Potassium Level 3.9 MEQ/L Chloride Level 113 MEQ/L Carbon Dioxide Level 29.0 MEQ/L Anion Gap 9 MEQ/L Estimat Glomerular Filtration Rate 36 ML/MIN Date/Time Source Procedure Growth Status 05/06/17 12:47 Blood Peripheral Aerobic Blood Culture - Final NO GROWTH IN 5 DAYS Complete 05/06/17 12:47 Blood Peripheral Anaerobic Blood Culture - Final NO GROWTH IN 5 DAYS Complete 05/06/17 11:00 Sputum Endotracheal Gram Stain - Final Complete 05/06/17 11:00 Sputum Culture - Final Staphylococcus Aureus Complete 05/06/17 10:15 Urine Catheterized Urine Urine Culture - Final Juhi Tropicalis Complete Mental Status Examination Appearance: Disheveled Consciousness: Alert Orientation: x4, Place Speech: Slow Language: Adequate Fund of Knowledge: Inadequate Attention and Concentration: Adequate Memory: Unremarkable Mood: Sad Affect: Sad Thought Process & Associations: Intact, Logical, Linear Thought Content: Appropriate Hallucination Type: None Delusion Type: None Suicidal Ideation: No Suicidal Plan: No Suicidal Intention: No Homicidal Ideation: No Homicidal Plan: No Homicidal Intention: No Insight: Adequate Judgment: Adequate Assessment & Plan Problem List: (1) Bereavement reaction ICD Codes: F43.20 - Adjustment disorder, unspecified; Z63.4 - Disappearance and of family member Assessment & Plan Patient is an 86-year-old woman with no formal past psychiatric history, recent admitted due to recent respiratory failure secondary to pneumonia which daughter was also admitted for respiratory failure and had recently during hospitalization which information was relayed to patient today psychiatry was consulted for evaluation. Patient not endorsing any suicidal ideation. Patient at this time noted to have expected thoughts, feelings and behaviors to news of family loss, currently not endorsing any suicidal ideations. Patient would benefit from grief counseling or referral to outpatient follow-up for therapy. No psychotropic medications indicated at this time. Supportive psychotherapy provided. Consult appreciated. Sonny James MD May 11, 2017 18:51
[2017-05-12] VITALS (15 sets, daily range): BP systolic 136–161; BP diastolic 63–95; PULSE 59–115; RESP 20–29; TEMP 97.9–98.7; O2SAT 94–99
[2017-05-12] MEDS: ceFAZolin 1,000 MG/NS 100 ML IV SCH ×6 (01:12→23:16)
[2017-05-12] MEDS: FREE WATER OG-TUBE SCH ×2 (04:00→08:00)
[2017-05-12] MEDS: RESP: ALBUTEROL 2.5 MG/IPRATROPIUM 0.5 MG NEB (SCH) NEB ×4 (05:00→20:49)
[2017-05-12 05:44] LABS: AUTOMATED NEUTROPHIL # 16.3 TH/MM3 (1.8-7.7); BASOPHIL # 0.1 TH/MM3 (0-0.2); BASOPHIL % 0.3 % (0.0-2.0); EOSINOPHIL % 0.1 % (0.0-4.0); HEMATOCRIT 27.6 % (35.0-46.0); HEMOGLOBIN 9.4 GM/DL (11.6-15.3); LYMPH % 5.6 % (9.0-44.0); MEAN CORPUSCULAR HEMOGLOBIN 34.1 PG (27.0-34.0); MEAN CORPUSCULAR HGB CONC 34.1 % (32.0-36.0); MEAN PLATELET VOLUME 8.7 FL (7.0-11.0); MONOCYTE # 0.7 TH/MM3 (0-0.9); PLATELET COUNT 282 TH/MM3 (150-450); RED BLOOD COUNT 2.76 MIL/MM3 (4.00-5.30); RED CELL DISTRIBUTION WIDTH 12.5 % (11.6-17.2); WHITE BLOOD COUNT 18.1 TH/MM3 (4.0-11.0)
[2017-05-12 05:59] LABS: ALT (GPT) 19 U/L (10-53); AST (GOT) 26 U/L (15-37); BICARBONATE 30.6 MEQ/L (21.0-32.0); BLOOD UREA NITROGEN 52 MG/DL (7-18); CALCIUM 8.2 MG/DL (8.5-10.1); CHLORIDE 112 MEQ/L (98-107); CREATININE 1.22 MG/DL (0.50-1.00); GLOMERULAR FILTRATION RATE 42 ML/MIN (>89); GLUCOSE,RANDOM 124 MG/DL (74-106); SODIUM (NA) 149 MEQ/L (136-145)
[2017-05-12 06:05] LABS: ALKALINE PHOSPHATASE 80 U/L (45-117); TOTAL BILIRUBIN ADULT 0.5 MG/DL (0.2-1.0); TOTAL PROTEIN 5.8 GM/DL (6.4-8.2)
[2017-05-12] MEDS: CHLORHEXIDINE 0.12% (ORAL KIT) 15 ML CUP MT SCH ×2 (08:00→20:00)
[2017-05-12] MEDS ORDERED: POTASSIUM CHLORIDE 20 MEQ PWD PACKET PO ONE (08:15)
[2017-05-12] MEDS: SOTALOL HCL 80 MG TAB PO SCH ×2 (08:45→22:40)
[2017-05-12] MEDS: SODIUM CHLORIDE 0.9% FLUSH 10 ML FLUSH IV FLUSH SCH ×2 (08:45→22:40)
[2017-05-12] MEDS: DILTIAZEM-CD 120 MG CAP ER PO SCH (08:45)
[2017-05-12] MEDS: predniSONE 20 MG TAB PO SCH ×2 (08:45→22:39)
[2017-05-12] MEDS: FLUCONAZOLE 400 MG PREMIX BAG 200 ML IV SCH (08:46)
[2017-05-12] MEDS: LACTOBACILLUS ACIDOPHILUS TAB PO SCH ×3 (08:46→17:59)
[2017-05-12 09:49] LABS: INTERNATIONAL NORMALIZED RATIO 1.2 RATIO; PROTHROMBIN TIME - PATIENT 12.6 SEC (9.8-11.6)
--- NOTE | 2017-05-12 12:02 | HHI.PR ---
Subjective Remarks Patient has no complaints today. A. fib RVR is under control when seen in a stable this morning. Stable for transfer out of ICU. Objective Vital Signs Date Time Temp Pulse Resp B/P (MAP) Pulse Ox O2 Delivery O2 Flow Rate FiO2 05/12/17 10:00 94 05/12/17 09:52 97 Nasal Cannula 2.00 05/12/17 08:00 100 05/12/17 08:00 98.0 100 20 150/70 (96) 97 05/12/17 08:00 97 Nasal Cannula 2.00 05/12/17 06:00 115 05/12/17 04:00 98.7 109 25 161/95 (117) 96 05/12/17 04:00 109 05/12/17 02:00 93 05/12/17 00:00 99 05/12/17 00:00 98.6 99 29 138/78 (98) 99 05/11/17 22:00 106 05/11/17 21:04 97 Nasal Cannula 2.00 05/11/17 20:00 117 05/11/17 20:00 98.6 117 31 149/80 (103) 95 05/11/17 19:00 96 Nasal Cannula 2.00 05/11/17 18:00 108 05/11/17 16:00 108 05/11/17 16:00 98.3 129 20 132/89 (103) 98 05/11/17 15:00 102 05/11/17 14:00 108 I/O 05/11/17 05/11/17 05/11/17 05/12/17 05/12/17 05/12/17 07:00 15:00 23:00 07:00 15:00 23:00 Intake Total 773 ml 320 ml 303 ml Output Total 250 ml 250 ml 300 ml Balance 523 ml 70 ml 3 ml Intake Oral 320 ml IV Total 773 ml 303 ml Output Urine Total 250 ml 250 ml 300 ml # Voids 2 # Bowel Movements 2 0 1 Result Diagram: 05/12/1752205/12/17522 Objective Remarks GENERAL: NAD, A&Ox3 HEAD: Normocephalic. NECK: Supple, trachea midline. No lymphadenopathy. EYES: No scleral icterus. No injection or drainage. CARDIOVASCULAR: Irregularly irregular without murmurs, gallops, or rubs. RESPIRATORY: Breath sounds equal bilaterally. No accessory muscle use. GASTROINTESTINAL: Abdomen soft, non-tender, nondistended. MUSCULOSKELETAL: No cyanosis, or edema. SKIN: Warm and dry. NEURO: No focal neurological deficitis. A/P Problem List: (1) Chronic anticoagulation ICD Code: Z79.01 - Chronic anticoagulation Status: Acute (2) GI bleed ICD Code: K92.2 - GI bleed Status: Acute (3) Atrial fibrillation with RVR ICD Code: I48.91 - Unspecified atrial fibrillation Status: Acute (4) Pneumonia ICD Code: J18.9 - Pneumonia, unspecified organism Status: Acute (5) Sepsis ICD Code: A41.9 - Sepsis, unspecified organism Status: Acute (6) Hypokalemia ICD Code: E87.6 - Hypokalemia Status: Acute (7) Atrial fibrillation ICD Code: I48.91 - Atrial fibrillation Status: Acute Assessment and Plan 86-year-old female admitted secondary to pneumonia with pneumothorax and respiratory failure in the presence of influenza. Severe sepsis with renal failure present at time of admit. By mouth diltiazem appears to be helping the patient states out of A. fib RVR. Continue to monitor on telemetry. Medically stable for transfer out of ICU. A-fib A. fib RVR Continue Coumadin Continue by mouth diltiazem RVR resolved for now Follow on telemetry Acute hypoxemic hypercarbic respiratory failure. Right tension pneumothorax Severe bronchospasm Septic shock Influenza, MSSA pneumonia Staph aureus bacteremia Lactic acidosis (resolved) pneumothorax now resolved status post extubation 05/09/17 Continue prednisone PRN Nebs Oxygen as needed Ancef Diflucan Follow cultures Hypocalcemia Hypokalemia Hypomagnesemia Monitor and replace as needed Coronary artery disease No chest pain Follow clinically History of hypertension Lisinopril on hold Follow blood pressure DVT prophylaxis Coumadin Blake Gavin MD May 12, 2017 12:02
--- NOTE | 2017-05-12 18:42 | EKG ---
Date Performed: 05/11/2017 Time Performed: 09:46:52 PTAGE: 86 years EKG: Atrial fibrillation with uncontrolled ventricular response with non-sustained ventricular t achycardia Possible left ventricular hypertrophy Marked precordial ST depression, CONSIDER ACUTE INFA RCT Extensive ST-T changes may be due to hypertrophy and/or ischemia Compared to previous tracing, th e ventricular response to the atrial fibrillation is much faster. The nonsustained ventricular tachyc ardia of 5 beats with one other ventricular ectopic beat present is new, and the ST-T changes are mor e prominent. Clinical correlation is recommended Abnormal ECG PREVIOUS TRACING : 04/29/2017 10.14 DOCTOR: Ziyad Parker Interpretating Date/Time 05/12/2017 18:41:06
[2017-05-13] VITALS (11 sets, daily range): BP systolic 112–139; BP diastolic 56–73; PULSE 59–64; RESP 16–22; TEMP 97.3–98.4; O2SAT 93–99
[2017-05-13] MEDS: RESP: ALBUTEROL 2.5 MG/IPRATROPIUM 0.5 MG NEB (SCH) NEB ×4 (03:33→21:23)
[2017-05-13 08:00] LABS: AUTOMATED NEUTROPHIL # 10.3 TH/MM3 (1.8-7.7); BASOPHIL % 0.2 % (0.0-2.0); EOSINOPHIL % 0.1 % (0.0-4.0); HEMATOCRIT 23.9 % (35.0-46.0); HEMOGLOBIN 8.1 GM/DL (11.6-15.3); LYMPH % 6.8 % (9.0-44.0); LYMPHOCYTE # 0.8 TH/MM3 (1.0-4.8); MEAN CELL VOLUME 100.5 FL (80.0-100.0); MEAN CORPUSCULAR HEMOGLOBIN 34.2 PG (27.0-34.0); MONO % 3.8 % (0.0-8.0); MONOCYTE # 0.4 TH/MM3 (0-0.9); NEUT % 89.1 % (16.0-70.0); PLATELET COUNT 241 TH/MM3 (150-450); RED BLOOD COUNT 2.38 MIL/MM3 (4.00-5.30); RED CELL DISTRIBUTION WIDTH 12.2 % (11.6-17.2); WHITE BLOOD COUNT 11.6 TH/MM3 (4.0-11.0)
[2017-05-13] MEDS: CHLORHEXIDINE 0.12% (ORAL KIT) 15 ML CUP MT SCH ×2 (08:00→19:04)
[2017-05-13 08:45] LABS: ALBUMIN 2.1 GM/DL (3.4-5.0); AST (GOT) 27 U/L (15-37); BICARBONATE 29.7 MEQ/L (21.0-32.0); BLOOD UREA NITROGEN 50 MG/DL (7-18); CHLORIDE 110 MEQ/L (98-107); CREATININE 1.27 MG/DL (0.50-1.00); GLOMERULAR FILTRATION RATE 40 ML/MIN (>89); GLUCOSE,RANDOM 99 MG/DL (74-106); SODIUM (NA) 148 MEQ/L (136-145)
[2017-05-13 08:46] LABS: ALT (GPT) 16 U/L (10-53)
[2017-05-13 08:49] LABS: ALKALINE PHOSPHATASE 75 U/L (45-117); TOTAL BILIRUBIN ADULT 0.5 MG/DL (0.2-1.0); TOTAL PROTEIN 5.6 GM/DL (6.4-8.2)
[2017-05-13] MEDS: LACTOBACILLUS ACIDOPHILUS TAB PO SCH ×3 (09:42→17:48)
[2017-05-13] MEDS: DILTIAZEM-CD 120 MG CAP ER PO SCH (09:42)
[2017-05-13] MEDS: SOTALOL HCL 80 MG TAB PO SCH ×2 (09:42→20:49)
[2017-05-13] MEDS: FLUCONAZOLE 400 MG PREMIX BAG 200 ML IV SCH (09:42)
[2017-05-13] MEDS: SODIUM CHLORIDE 0.9% FLUSH 10 ML FLUSH IV FLUSH SCH ×2 (09:43→20:50)
[2017-05-13] MEDS: predniSONE 20 MG TAB PO SCH (09:43)
[2017-05-13] MEDS ORDERED: POTASSIUM CHLORIDE 20 MEQ PWD PACKET PO ONE (10:15)
[2017-05-13] MEDS: ceFAZolin 1,000 MG/NS 100 ML IV SCH ×2 (12:00)
--- NOTE | 2017-05-13 12:39 | HHI.PR ---
Subjective Remarks Patient continues to improve. No respiratory distress. Patient has been stable with clam chest tube. As of 05/11/17 no evidence of pneumothorax. A repeat chest x-ray is ordered for today. Objective Vital Signs Date Time Temp Pulse Resp B/P (MAP) Pulse Ox O2 Delivery O2 Flow Rate FiO2 05/13/17 09:56 93 Nasal Cannula 2.00 05/13/17 08:00 64 05/13/17 08:00 97.8 62 18 136/73 (94) 95 05/13/17 04:11 Nasal Cannula 2.00 05/13/17 04:11 98.4 60 22 139/57 (84) 95 05/13/17 03:45 59 05/13/17 00:00 98.1 62 18 133/63 (86) 96 05/12/17 23:37 59 05/12/17 23:25 59 05/12/17 20:52 97 Nasal Cannula 2.00 05/12/17 20:00 Nasal Cannula 2.00 05/12/17 20:00 98.1 60 20 136/63 (87) 99 05/12/17 18:00 74 05/12/17 16:00 98.0 60 28 139/74 (95) 98 05/12/17 16:00 60 05/12/17 14:00 68 I/O 05/12/17 05/12/17 05/12/17 05/13/17 05/13/17 05/13/17 07:00 15:00 23:00 07:00 15:00 23:00 Intake Total 303 ml 200 ml 820 ml 460 ml Output Total 300 ml 450 ml 600 ml Balance 3 ml 200 ml 370 ml -140 ml Intake Oral 720 ml 360 ml IV Total 303 ml 200 ml 100 ml 100 ml Output Urine Total 300 ml 450 ml 600 ml # Voids 2 3 # Bowel Movements 0 1 3 0 Result Diagram: 05/13/1761205/13/17 06 Objective Remarks GENERAL: NAD, A&Ox3 HEAD: Normocephalic. NECK: Supple, trachea midline. No lymphadenopathy. EYES: No scleral icterus. No injection or drainage. CARDIOVASCULAR: Irregularly irregular without murmurs, gallops, or rubs. RESPIRATORY: Breath sounds equal bilaterally. No accessory muscle use. Chest tube present. GASTROINTESTINAL: Abdomen soft, non-tender, nondistended. MUSCULOSKELETAL: No cyanosis, or edema. SKIN: Warm and dry. NEURO: No focal neurological deficitis. A/P Problem List: (1) Chronic anticoagulation ICD Code: Z79.01 - Chronic anticoagulation Status: Acute (2) GI bleed ICD Code: K92.2 - GI bleed Status: Acute (3) Atrial fibrillation with RVR ICD Code: I48.91 - Unspecified atrial fibrillation Status: Acute (4) Pneumonia ICD Code: J18.9 - Pneumonia, unspecified organism Status: Acute (5) Sepsis ICD Code: A41.9 - Sepsis, unspecified organism Status: Acute (6) Hypokalemia ICD Code: E87.6 - Hypokalemia Status: Acute (7) Atrial fibrillation ICD Code: I48.91 - Atrial fibrillation Status: Acute Assessment and Plan 86-year-old female admitted secondary to pneumonia with pneumothorax and respiratory failure in the presence of influenza. Severe sepsis with renal failure present at time of admit. Stable with chest tube clamped. Repeat chest x-ray ordered for today. 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 Continue by mouth Cardizem. At this point patient will need discharge to [facility] facility when medically stabilized. A-fib A. fib RVR Continue Coumadin Continue by mouth diltiazem RVR resolved for now Follow on telemetry Acute hypoxemic hypercarbic respiratory failure. Right tension pneumothorax Severe bronchospasm Septic shock Influenza, MSSA pneumonia Staph aureus bacteremia Lactic acidosis (resolved) pneumothorax now resolved status post extubation 05/09/17 Continue prednisone PRN Nebs Oxygen as needed Ancef Diflucan Follow cultures Hypocalcemia Hypokalemia Hypomagnesemia Monitor and replace as needed Coronary artery disease No chest pain Follow clinically History of hypertension Lisinopril on hold Follow blood pressure DVT prophylaxis Coumadin SCDs Blake Marie MD May 13, 2017 12:39
--- NOTE | 2017-05-13 12:54 | RADRPT ---
EXAM DATE/TIME: 05/13/2017 12:25 [facility] COMPARISON: CHEST SINGLE AP, May 11, 2017, 4:33. INDICATIONS : Evaluate pneumothorax MEDICAL HISTORY : Hypercholesterolemia. Arthritis. Chest pain. Afib. HTN. Dyspnea. Spinal stenosis. SURGICAL HISTORY : Tonsillectomy.Pacemaker. Coronary artery stent.Cardiac cath. Appendectomy. Hysterectomy. Bladder susp ension. Bilateral knee replacements. Blood transfusions. Bilateral breast lumpectomy ENCOUNTER: Subsequent ACUITY: 3 days PAIN SCORE: Non-responsive. LOCATION: Bilateral chest FINDINGS: Single portable upright view of the chest is reviewed with prior exam. The patient is moderately rota stevo. The lungs are hypoinflated without visible pneumothorax. There is blunting of the right costophr enic angle concerning for fluid. Mild cardiomegaly with dual lead pacer. Pulmonary vasculature appear s grossly normal. CONCLUSION: No pneumothorax seen. Blunting of right costophrenic angle consistent with small pleu ral effusion or Minnie Garcia MD on May 13, 2017 at 12:50 Board Certified Radiologist. This report was verified electronically.
--- NOTE | 2017-05-13 16:43 | PD.PROCEDR ---
Procedure Note Procedure REASON FOR PROCEDURE Invasive BP monitoring, hemorrhagic shock PROCEDURE PERFORMED Right femoral art line placement. CONSENT Emergency procedure ANESTHESIA Local injection of 1% Lidocaine DESCRIPTION OF THE PROCEDURE The patient was placed in supine, position. The area was exposed and cleansed with ChloraPrep, times two. Large sterile drape was used to cover the patient, with the site exposed, under sterile conditions the introducer needle was inserted and arterial flash was obtained. The guide wire was then advanced without any restriction and the needle was removed. Using Seldinger technique the arterial catheter was advanced over the guide wire. The guide wire was removed. Good arterial wave form obtained. Antibiotic disc was placed around puncture site. The arterial line was secured to the skin with one interrupted 2.0 silk sutures. The area was bandaged with sterile see-through dressing. Sidra Fuchs MD May 13, 2017 16:43
--- NOTE | 2017-05-13 17:02 | RADRPT ---
EXAM DATE/TIME: 05/13/2017 16:39 [facility] COMPARISON: CHEST SINGLE AP, May 13, 2017, 12:25. INDICATIONS : Chest tube removal. Evaluate for pneumothorax. MEDICAL HISTORY : Hypertension. AFIB. SURGICAL HISTORY : Coronary artery stent. Appendectomy. Pacemaker. ENCOUNTER: Subsequent ACUITY: 2 weeks PAIN SCORE: 0/10 LOCATION: Bilateral chest FINDINGS: Mild consolidation and small effusion at the right base again noted. No pneumothorax is present. Hear t size stable, mildly enlarged. Cardiac pacer again seen on the left. CONCLUSION: No pneumothorax. Mild consolidation and small pleural effusion at the right base. Jef Mesa MD on May 13, 2017 at 16:58 Board Certified Radiologist. This report was verified electronically.
[2017-05-14] VITALS (13 sets, daily range): BP systolic 105–121; BP diastolic 50–61; PULSE 48–62; RESP 18; TEMP 97.8–98.6; O2SAT 96–99
[2017-05-14] MEDS: ceFAZolin 1,000 MG/NS 100 ML IV SCH ×4 (00:26→12:42)
[2017-05-14] MEDS: SODIUM CHLORIDE 0.9% FLUSH 10 ML FLUSH IV FLUSH PRN (00:26)
[2017-05-14] MEDS: RESP: ALBUTEROL 2.5 MG/IPRATROPIUM 0.5 MG NEB (SCH) NEB ×2 (04:00→09:48)
[2017-05-14 06:01] LABS: AST (GOT) 26 U/L (15-37); BICARBONATE 27.8 MEQ/L (21.0-32.0); CALCIUM 7.9 MG/DL (8.5-10.1); CHLORIDE 110 MEQ/L (98-107); CREATININE 1.34 MG/DL (0.50-1.00); GLOMERULAR FILTRATION RATE 38 ML/MIN (>89); GLUCOSE,RANDOM 85 MG/DL (74-106); SODIUM (NA) 146 MEQ/L (136-145)
[2017-05-14 06:02] LABS: ALT (GPT) 11 U/L (10-53)
[2017-05-14 06:05] LABS: ALKALINE PHOSPHATASE 71 U/L (45-117); TOTAL BILIRUBIN ADULT 0.4 MG/DL (0.2-1.0); TOTAL PROTEIN 5.3 GM/DL (6.4-8.2)
[2017-05-14 06:16] LABS: BLOOD UREA NITROGEN 47 MG/DL (7-18)
[2017-05-14] MEDS: CHLORHEXIDINE 0.12% (ORAL KIT) 15 ML CUP MT SCH ×2 (08:00→20:00)
[2017-05-14] MEDS: LACTOBACILLUS ACIDOPHILUS TAB PO SCH ×3 (09:03→18:36)
[2017-05-14] MEDS: SODIUM CHLORIDE 0.9% FLUSH 10 ML FLUSH IV FLUSH SCH ×2 (09:03→20:31)
[2017-05-14] MEDS: SOTALOL HCL 80 MG TAB PO SCH ×2 (09:04→20:31)
[2017-05-14] MEDS: DILTIAZEM-CD 120 MG CAP ER PO SCH (09:04)
[2017-05-14] MEDS: FLUCONAZOLE 400 MG PREMIX BAG 200 ML IV SCH (09:12)
[2017-05-14 09:49] LABS: AUTOMATED NEUTROPHIL # 10.1 TH/MM3 (1.8-7.7); BASOPHIL # 0.1 TH/MM3 (0-0.2); BASOPHIL % 0.8 % (0.0-2.0); EOSINOPHIL # 0.1 TH/MM3 (0-0.4); EOSINOPHIL % 0.9 % (0.0-4.0); HEMATOCRIT 23.6 % (35.0-46.0); HEMOGLOBIN 7.9 GM/DL (11.6-15.3); LYMPH % 14.2 % (9.0-44.0); LYMPHOCYTE # 1.9 TH/MM3 (1.0-4.8); MEAN CELL VOLUME 100.4 FL (80.0-100.0); MEAN CORPUSCULAR HEMOGLOBIN 33.7 PG (27.0-34.0); MEAN CORPUSCULAR HGB CONC 33.5 % (32.0-36.0); MEAN PLATELET VOLUME 9.3 FL (7.0-11.0); MONO % 7.3 % (0.0-8.0); NEUT % 76.8 % (16.0-70.0); PLATELET COUNT 226 TH/MM3 (150-450); RED BLOOD COUNT 2.35 MIL/MM3 (4.00-5.30); RED CELL DISTRIBUTION WIDTH 12.6 % (11.6-17.2); WHITE BLOOD COUNT 13.2 TH/MM3 (4.0-11.0)
--- NOTE | 2017-05-14 11:30 | HHI.PR ---
Subjective Remarks Slow improvement. Chest tube removed yesterday. Respiratory status not to prior baseline, oxygen dependent. Objective Vital Signs Date Time Temp Pulse Resp B/P (MAP) Pulse Ox O2 Delivery O2 Flow Rate FiO2 05/14/17 09:51 99 Nasal Cannula 2.00 05/14/17 08:00 97.8 60 18 120/59 (79) 97 05/14/17 08:00 Nasal Cannula 2.00 05/14/17 04:00 97.9 60 18 105/61 (76) 97 05/14/17 03:42 60 05/14/17 00:00 Nasal Cannula 2.00 05/14/17 00:00 98.2 60 18 121/58 (79) 98 05/13/17 23:42 59 05/13/17 21:24 97 Nasal Cannula 2.00 05/13/17 20:00 97.5 62 16 116/56 (76) 98 05/13/17 20:00 Nasal Cannula 2.00 05/13/17 19:43 62 05/13/17 16:00 97.8 60 18 127/60 (82) 97 05/13/17 16:00 59 05/13/17 16:00 Nasal Cannula 2.00 05/13/17 12:00 60 05/13/17 12:00 97.3 59 18 112/57 (75) 97 I/O 05/13/17 05/13/17 05/13/17 05/14/17 05/14/17 05/14/17 07:00 15:00 23:00 07:00 15:00 23:00 Intake Total 460 ml 480 ml 610 ml Output Total 600 ml 900 ml 700 ml Balance -140 ml -420 ml -90 ml Intake Oral 360 ml 480 ml 510 ml IV Total 100 ml 100 ml Output Urine Total 600 ml 900 ml 700 ml # Voids 3 # Bowel Movements 0 1 Result Diagram: 05/14/17 0809 05/14/17 0530 Objective Remarks GENERAL: NAD, A&Ox3 HEAD: Normocephalic. NECK: Supple, trachea midline. No lymphadenopathy. EYES: No scleral icterus. No injection or drainage. CARDIOVASCULAR: Irregularly irregular without murmurs, gallops, or rubs. RESPIRATORY: Breath sounds equal bilaterally. No accessory muscle use. Chest tube present. GASTROINTESTINAL: Abdomen soft, non-tender, nondistended. MUSCULOSKELETAL: No cyanosis, or edema. SKIN: Warm and dry. NEURO: No focal neurological deficitis. A/P Problem List: (1) Chronic anticoagulation ICD Code: Z79.01 - Chronic anticoagulation Status: Acute (2) GI bleed ICD Code: K92.2 - GI bleed Status: Acute (3) Atrial fibrillation with RVR ICD Code: I48.91 - Unspecified atrial fibrillation Status: Acute (4) Pneumonia ICD Code: J18.9 - Pneumonia, unspecified organism Status: Acute (5) Sepsis ICD Code: A41.9 - Sepsis, unspecified organism Status: Acute (6) Hypokalemia ICD Code: E87.6 - Hypokalemia Status: Acute (7) Atrial fibrillation ICD Code: I48.91 - Atrial fibrillation Status: Acute Assessment and Plan 86-year-old female admitted secondary to pneumonia with pneumothorax and respiratory failure in the presence of influenza. Severe sepsis with renal failure present at time of admit. Chest tube removed yesterday. Follow respiratory status. Continue PT. Continue respiratory support. A-fib A. fib RVR Continue Coumadin Continue by mouth diltiazem RVR resolved for now Follow on telemetry Acute hypoxemic hypercarbic respiratory failure. Right tension pneumothorax Severe bronchospasm Septic shock Influenza, MSSA pneumonia Staph aureus bacteremia Lactic acidosis (resolved) pneumothorax now resolved status post extubation 05/09/17 Continue prednisone PRN Nebs Oxygen as needed Ancef Diflucan Follow cultures Hypocalcemia Hypokalemia Hypomagnesemia Monitor and replace as needed Coronary artery disease No chest pain Follow clinically History of hypertension Lisinopril on hold Follow blood pressure DVT prophylaxis Coumadin SCDs Blake Marie MD May 14, 2017 11:30
--- NOTE | 2017-05-14 15:18 | HHI.IDPN ---
Subjective Subjective Remarks is an 86 y/o CF with PMHx of CAD, PCI stents 5, hypertension, chronic atrial fibrillation, pacemaker placement was admitted to the hospitalist service with respiratory distress, secondary to pneumonia. Her daughter is hospitalized in the ICU with staph aureus pneumonia and septic shock. On admission patient was also was in atrial fibrillation with RVR. Was admitted to hospital service with IV Rocephin and azithromycin. Patient was initially admitted under hospitalist services and due to worsening respiratory distress and hypotension and Critical care is now involved. Patient was emergently intubated, CL and A line placed this am. I tried to see patient then but due to multiple procedures discussed case with patients son and am officially seeing patient now and writing note at 6:34 pm. Patients son reported to me that patient and daughter live in same home rest of the details not known. Blood cultures were positive this am and CXR showed pneumonia. Sepsis eval started and patient started on empiric antibiotics and empiric tamiflu. Case dw briefly in am. At the time of my eval patient is in the ICU, on vasopressors, UO ok. Sedated on vent. ID consulted for eval and Mment of Septic shock, MSSA bacteremia and Pneumonia. Overnight events reviewed with RN Extubated Awake, alert, oriented x 3. Aware that her daughter from Flu and pneumonia related sepsis. Temps ok WBC at 13 Diarrhea but C diff 05/04 negative No rash Antibiotics Ancef IV Diflucan Lines Line sites with no e.o infection - R groin Marjorie, RSC TLC Past Medical History reviewed Allergies: Coded Allergies: clopidogrel (Unverified Allergy, Mild, Hives, 04/29/17) Iodinated Contrast- Oral and IV Dye (Verified Allergy, Unknown, 04/29/17) Objective . Vital Signs Date Time Temp Pulse Resp B/P (MAP) Pulse Ox O2 Delivery O2 Flow Rate FiO2 05/14/17 12:00 98.6 60 18 105/54 (71) 96 05/14/17 11:51 59 05/14/17 09:51 99 Nasal Cannula 2.00 05/14/17 08:20 61 05/14/17 08:00 97.8 60 18 120/59 (79) 97 05/14/17 08:00 Nasal Cannula 2.00 05/14/17 04:00 97.9 60 18 105/61 (76) 97 05/14/17 03:42 60 05/14/17 00:00 Nasal Cannula 2.00 05/14/17 00:00 98.2 60 18 121/58 (79) 98 05/13/17 23:42 59 05/13/17 21:24 97 Nasal Cannula 2.00 05/13/17 20:00 97.5 62 16 116/56 (76) 98 05/13/17 20:00 Nasal Cannula 2.00 05/13/17 19:43 62 05/13/17 16:00 97.8 60 18 127/60 (82) 97 05/13/17 16:00 59 05/13/17 16:00 Nasal Cannula 2.00 . Laboratory Tests Test 05/13/17 06:13 05/14/17 08:09 White Blood Count 11.6 TH/MM3 13.2 TH/MM3 Red Blood Count 2.38 MIL/MM3 2.35 MIL/MM3 Hemoglobin 8.1 GM/DL 7.9 GM/DL Hematocrit 23.9 % 23.6 % Mean Corpuscular Volume 100.5 FL 100.4 FL Mean Corpuscular Hemoglobin 34.2 PG 33.7 PG Mean Corpuscular Hemoglobin Concent 34.0 % 33.5 % Red Cell Distribution Width 12.2 % 12.6 % Platelet Count 241 TH/MM3 226 TH/MM3 Mean Platelet Volume 9.0 FL 9.3 FL Neutrophils (%) (Auto) 89.1 % 76.8 % Lymphocytes (%) (Auto) 6.8 % 14.2 % Monocytes (%) (Auto) 3.8 % 7.3 % Eosinophils (%) (Auto) 0.1 % 0.9 % Basophils (%) (Auto) 0.2 % 0.8 % Neutrophils # (Auto) 10.3 TH/MM3 10.1 TH/MM3 Lymphocytes # (Auto) 0.8 TH/MM3 1.9 TH/MM3 Monocytes # (Auto) 0.4 TH/MM3 1.0 TH/MM3 Eosinophils # (Auto) 0.0 TH/MM3 0.1 TH/MM3 Basophils # (Auto) 0.0 TH/MM3 0.1 TH/MM3 CBC Comment DIFF FINAL DIFF FINAL Differential Comment Laboratory Tests Test 05/13/17 06:13 05/14/17 05:30 Blood Urea Nitrogen 50 MG/DL 47 MG/DL Creatinine 1.27 MG/DL 1.34 MG/DL Random Glucose 99 MG/DL 85 MG/DL Total Protein 5.6 GM/DL 5.3 GM/DL Albumin 2.1 GM/DL 2.0 GM/DL Calcium Level 8.0 MG/DL 7.9 MG/DL Alkaline Phosphatase 75 U/L 71 U/L Aspartate Amino Transf (AST/SGOT) 27 U/L 26 U/L Alanine Aminotransferase (ALT/SGPT) 16 U/L 11 U/L Total Bilirubin 0.5 MG/DL 0.4 MG/DL Sodium Level 148 MEQ/L 146 MEQ/L Potassium Level 3.4 MEQ/L 4.0 MEQ/L Chloride Level 110 MEQ/L 110 MEQ/L Carbon Dioxide Level 29.7 MEQ/L 27.8 MEQ/L Anion Gap 8 MEQ/L 8 MEQ/L Estimat Glomerular Filtration Rate 40 ML/MIN 38 ML/MIN Imaging Last Impressions Chest X-Ray 04/30/17 0000 Signed Impressions: Service Date/Time: Sunday, April 30, 2017 11:41 - CONCLUSION: 1. Interval intubation and placement of right subclavian central venous line with no pneumothorax. 2. Patchy infiltrate remains at the right lung base. Maciel Davenport MD Physical Exam GENERAL: Awake. SKIN: No rashes, ecchymoses or lesions. Cool and dry. HEAD: Atraumatic. Normocephalic. No temporal or scalp tenderness. EYES: Pupils equal round and reactive. No scleral icterus. No injection or drainage. ENT: NAD NECK: Trachea midline. Supple, nontender, no meningeal signs. CARDIOVASCULAR: HS audible. RESPIRATORY: Decreased breath sound R . GASTROINTESTINAL: Abdomen soft, non-tender, nondistended. MUSCULOSKELETAL: Extremities without clubbing, cyanosis, or edema. No joint tenderness, effusion, or edema noted. NEUROLOGICAL: Sedated. Psych cooperative IV line sites with no e.o infection. Assessment & Plan Remarks MSSA bacteremia likely secondary to Pneumonia post flu. Arterial line possible line infection. Await ID and susceptibility. Influenza A and B positive pneumonia. Juhi tropicalis UTI: cath pt. Pneumonia present on admission. Acute resp failure on vent Acute metabolic encephalopathy: infection, sepsis. CAD pacemaker in place. Leukocytosis: infection, stress (PTX) and Steroids. Recs DC Ancef IV completed MSSA bacteremia treatment. Continue Diflucan for C.tropicalis for 5 more days. Start Augmentin for 5 more days. Follow cultures Follow clinically. Will sign off please call back if any change in clinical condition or questions. Julianna Mon MD May 14, 2017 15:18
[2017-05-14] MEDS: AMOXICILLIN/CLAVULANATE K 500 MG TAB PO SCH ×2 (16:21→20:30)
[2017-05-15] VITALS (11 sets, daily range): BP systolic 103–147; BP diastolic 56–66; PULSE 59–93; RESP 16–20; TEMP 97.1–98.3; O2SAT 97–99
[2017-05-15] MEDS: AMOXICILLIN/CLAVULANATE K 500 MG TAB PO SCH ×3 (05:03→20:25)
[2017-05-15] MEDS: SOTALOL HCL 80 MG TAB PO SCH ×2 (07:53→20:25)
[2017-05-15] MEDS: DILTIAZEM-CD 120 MG CAP ER PO SCH (07:53)
[2017-05-15] MEDS: FLUCONAZOLE 100 MG TAB PO SCH (07:54)
[2017-05-15] MEDS: LACTOBACILLUS ACIDOPHILUS TAB PO SCH ×3 (07:55→17:53)
[2017-05-15] MEDS: CHLORHEXIDINE 0.12% (ORAL KIT) 15 ML CUP MT SCH ×2 (07:56→20:00)
[2017-05-15] MEDS: SODIUM CHLORIDE 0.9% FLUSH 10 ML FLUSH IV FLUSH SCH ×2 (07:56→20:25)
[2017-05-15 09:41] LABS: INTERNATIONAL NORMALIZED RATIO 1.3 RATIO; PROTHROMBIN TIME - PATIENT 12.7 SEC (9.8-11.6)
--- NOTE | 2017-05-15 12:14 | HHI.PR ---
Subjective Remarks Downward trend in hemoglobin. Respiratory status seems to be gradually improving. Patient's strength is poor. Objective Vital Signs Date Time Temp Pulse Resp B/P (MAP) Pulse Ox O2 Delivery O2 Flow Rate FiO2 05/15/17 11:03 97 2.00 05/15/17 08:36 60 05/15/17 08:20 Nasal Cannula 2.00 05/15/17 08:00 98.1 93 18 115/56 (75) 97 05/15/17 04:00 60 05/15/17 04:00 Nasal Cannula 2.00 05/15/17 03:42 98.3 60 18 103/59 (74) 97 05/15/17 00:08 97.5 60 18 107/58 (74) 98 05/15/17 00:00 Nasal Cannula 2.00 05/14/17 23:58 59 05/14/17 21:33 Nasal Cannula 2.00 05/14/17 20:05 98.2 62 18 108/50 (69) 96 05/14/17 20:00 62 05/14/17 20:00 Nasal Cannula 2.00 05/14/17 16:00 97.9 60 18 118/59 (78) 97 05/14/17 15:43 48 I/O 05/14/17 05/14/17 05/14/17 05/15/17 05/15/17 05/15/17 07:00 15:00 23:00 07:00 15:00 23:00 Intake Total 610 ml 300 ml 480 ml 240 ml Output Total 700 ml 900 ml 200 ml Balance -90 ml 300 ml -420 ml 40 ml Intake Oral 510 ml 480 ml 240 ml IV Total 100 ml 300 ml Output Urine Total 700 ml 900 ml 200 ml # Voids 4 # Bowel Movements 1 2 4 Result Diagram: 05/14/17 0809 05/14/17 0530 Objective Remarks GENERAL: NAD, A&Ox3 HEAD: Normocephalic. NECK: Supple, trachea midline. No lymphadenopathy. EYES: No scleral icterus. No injection or drainage. CARDIOVASCULAR: Irregularly irregular without murmurs, gallops, or rubs. RESPIRATORY: Breath sounds equal bilaterally. No accessory muscle use. Chest tube present. GASTROINTESTINAL: Abdomen soft, non-tender, nondistended. MUSCULOSKELETAL: No cyanosis, or edema. SKIN: Warm and dry. NEURO: No focal neurological deficitis. A/P Problem List: (1) Chronic anticoagulation ICD Code: Z79.01 - Chronic anticoagulation Status: Acute (2) GI bleed ICD Code: K92.2 - GI bleed Status: Acute (3) Atrial fibrillation with RVR ICD Code: I48.91 - Unspecified atrial fibrillation Status: Acute (4) Pneumonia ICD Code: J18.9 - Pneumonia, unspecified organism Status: Acute (5) Sepsis ICD Code: A41.9 - Sepsis, unspecified organism Status: Acute (6) Hypokalemia ICD Code: E87.6 - Hypokalemia Status: Acute (7) Atrial fibrillation ICD Code: I48.91 - Atrial fibrillation Status: Acute Assessment and Plan 86-year-old female admitted secondary to pneumonia with pneumothorax and respiratory failure in the presence of influenza. Severe sepsis with renal failure present at time of admit. Continue to monitor hemoglobin levels. Once hemoglobin stabilizes group home facility could be considered. Labs reviewed. Hemoglobin has a downward trend over the last 3 days. Continue to monitor labs. Labs ordered for further monitoring. A-fib A. fib RVR Continue Coumadin Continue by mouth diltiazem RVR resolved for now Follow on telemetry Acute hypoxemic hypercarbic respiratory failure. Right tension pneumothorax Severe bronchospasm Septic shock Influenza, MSSA pneumonia Staph aureus bacteremia Lactic acidosis (resolved) pneumothorax now resolved status post extubation 05/09/17 Continue prednisone PRN Nebs Oxygen as needed Ancef Diflucan Follow cultures Hypocalcemia Hypokalemia Hypomagnesemia Monitor and replace as needed Coronary artery disease No chest pain Follow clinically History of hypertension Lisinopril on hold Follow blood pressure DVT prophylaxis Coumadin SCDs Blake Marie MD May 15, 2017 12:14
[2017-05-16] VITALS (13 sets, daily range): BP systolic 116–152; BP diastolic 56–78; PULSE 59–112; RESP 14–20; TEMP 97.5–98.4; O2SAT 97–99
[2017-05-16] MEDS: AMOXICILLIN/CLAVULANATE K 500 MG TAB PO SCH ×3 (05:15→21:05)
[2017-05-16 05:26] LABS: AUTOMATED NEUTROPHIL # 9.4 TH/MM3 (1.8-7.7); BASOPHIL % 0.3 % (0.0-2.0); EOSINOPHIL # 0.2 TH/MM3 (0-0.4); EOSINOPHIL % 1.4 % (0.0-4.0); HEMATOCRIT 22.6 % (35.0-46.0); HEMOGLOBIN 7.8 GM/DL (11.6-15.3); LYMPH % 14.5 % (9.0-44.0); LYMPHOCYTE # 1.8 TH/MM3 (1.0-4.8); MEAN CELL VOLUME 99.3 FL (80.0-100.0); MEAN CORPUSCULAR HEMOGLOBIN 34.2 PG (27.0-34.0); MEAN CORPUSCULAR HGB CONC 34.4 % (32.0-36.0); MEAN PLATELET VOLUME 9.1 FL (7.0-11.0); MONO % 6.4 % (0.0-8.0); MONOCYTE # 0.8 TH/MM3 (0-0.9); NEUT % 77.4 % (16.0-70.0); PLATELET COUNT 172 TH/MM3 (150-450); RED BLOOD COUNT 2.27 MIL/MM3 (4.00-5.30); RED CELL DISTRIBUTION WIDTH 12.6 % (11.6-17.2); WHITE BLOOD COUNT 12.1 TH/MM3 (4.0-11.0)
[2017-05-16 05:28] LABS: INTERNATIONAL NORMALIZED RATIO 1.2 RATIO; PROTHROMBIN TIME - PATIENT 12.2 SEC (9.8-11.6)
[2017-05-16 05:50] LABS: ALBUMIN 1.8 GM/DL (3.4-5.0); ALKALINE PHOSPHATASE 81 U/L (45-117); ALT (GPT) 9 U/L (10-53); AST (GOT) 23 U/L (15-37); BICARBONATE 30.5 MEQ/L (21.0-32.0); BLOOD UREA NITROGEN 28 MG/DL (7-18); CALCIUM 7.7 MG/DL (8.5-10.1); CHLORIDE 106 MEQ/L (98-107); CREATININE 1.04 MG/DL (0.50-1.00); GLOMERULAR FILTRATION RATE 50 ML/MIN (>89); GLUCOSE,RANDOM 90 MG/DL (74-106); SODIUM (NA) 143 MEQ/L (136-145); TOTAL BILIRUBIN ADULT 0.5 MG/DL (0.2-1.0); TOTAL PROTEIN 5.2 GM/DL (6.4-8.2)
[2017-05-16] MEDS ORDERED: POTASSIUM CHLORIDE 10 MEQ CONTROLLED RELEASE TAB PO ONE (06:30)
[2017-05-16] MEDS: CHLORHEXIDINE 0.12% (ORAL KIT) 15 ML CUP MT SCH ×2 (07:56→20:00)
[2017-05-16] MEDS: LACTOBACILLUS ACIDOPHILUS TAB PO SCH ×3 (08:24→18:07)
[2017-05-16] MEDS: SOTALOL HCL 80 MG TAB PO SCH ×2 (08:25→21:00)
[2017-05-16] MEDS: DILTIAZEM-CD 120 MG CAP ER PO SCH (08:25)
[2017-05-16] MEDS: FLUCONAZOLE 100 MG TAB PO SCH (08:25)
[2017-05-16] MEDS: SODIUM CHLORIDE 0.9% FLUSH 10 ML FLUSH IV FLUSH SCH ×2 (08:25→21:00)
[2017-05-16] MEDS ORDERED: SODIUM CHLOR 0.9% 250 ML INJ 250 ML IV ONE (09:00)
[2017-05-16] MEDS ORDERED: POTASSIUM CHLORIDE 20 MEQ PWD PACKET PO ONE (09:00)
--- NOTE | 2017-05-16 10:01 | HHI.PR ---
Subjective Remarks Downward trend in hemoglobin has occurred again today. Respiratory status remained stable. Potassium level is critically low. Objective Vital Signs Date Time Temp Pulse Resp B/P (MAP) Pulse Ox O2 Delivery O2 Flow Rate FiO2 05/16/17 07:30 97.6 83 20 125/58 (80) 99 05/16/17 04:03 98.1 60 16 116/56 (76) 98 05/16/17 04:03 Nasal Cannula 2.00 05/16/17 04:00 61 05/16/17 00:00 59 05/16/17 00:00 97.9 61 14 121/56 (77) 97 05/16/17 00:00 Nasal Cannula 2.00 05/15/17 20:00 97.1 65 16 141/60 (87) 97 05/15/17 20:00 Nasal Cannula 2.00 05/15/17 20:00 61 05/15/17 16:03 97.4 59 20 147/66 (93) 99 05/15/17 15:58 60 05/15/17 12:03 98.1 82 20 130/66 (87) 97 05/15/17 12:00 61 05/15/17 11:03 97 2.00 I/O 05/15/17 05/15/17 05/15/17 05/16/17 05/16/17 05/16/17 07:00 15:00 23:00 07:00 15:00 23:00 Intake Total 240 ml 660 ml 540 ml Output Total 200 ml Balance 40 ml 660 ml 540 ml Intake Oral 240 ml 660 ml 540 ml Output Urine Total 200 ml # Voids 4 4 6 # Bowel Movements 4 1 0 Result Diagram: 05/16/17 0445 05/16/17 0445 Objective Remarks GENERAL: NAD, A&Ox3 HEAD: Normocephalic. NECK: Supple, trachea midline. No lymphadenopathy. EYES: No scleral icterus. No injection or drainage. CARDIOVASCULAR: Irregularly irregular without murmurs, gallops, or rubs. RESPIRATORY: Breath sounds equal bilaterally. No accessory muscle use. Chest tube present. GASTROINTESTINAL: Abdomen soft, non-tender, nondistended. MUSCULOSKELETAL: No cyanosis, or edema. SKIN: Warm and dry. NEURO: No focal neurological deficitis. A/P Problem List: (1) Chronic anticoagulation ICD Code: Z79.01 - Chronic anticoagulation Status: Acute (2) GI bleed ICD Code: K92.2 - GI bleed Status: Acute (3) Atrial fibrillation with RVR ICD Code: I48.91 - Unspecified atrial fibrillation Status: Acute (4) Pneumonia ICD Code: J18.9 - Pneumonia, unspecified organism Status: Acute (5) Sepsis ICD Code: A41.9 - Sepsis, unspecified organism Status: Acute (6) Hypokalemia ICD Code: E87.6 - Hypokalemia Status: Acute (7) Atrial fibrillation ICD Code: I48.91 - Atrial fibrillation Status: Acute Assessment and Plan 86-year-old female admitted secondary to pneumonia with pneumothorax and respiratory failure in the presence of influenza. Severe sepsis with renal failure present at time of admit. 1 unit of packed red blood cells ordered to be transfused 05/16/17. Potassium supplement provided and repeat potassium testing this afternoon. Potassium supplementation, scheduled, initiated. Occult blood testing of stool ordered. Possible discharge tomorrow if hemoglobin and potassium levels are stabilized. A-fib A. fib RVR Continue Coumadin Continue by mouth diltiazem RVR resolved for now Follow on telemetry Acute hypoxemic hypercarbic respiratory failure. Right tension pneumothorax Severe bronchospasm Septic shock Influenza, MSSA pneumonia Staph aureus bacteremia Lactic acidosis (resolved) pneumothorax now resolved status post extubation 05/09/17 Continue prednisone PRN Nebs Oxygen as needed Ancef Diflucan Follow cultures Hypocalcemia Hypokalemia Hypomagnesemia Monitor and replace as needed Coronary artery disease No chest pain Follow clinically History of hypertension Lisinopril on hold Follow blood pressure DVT prophylaxis Coumadin SCDs Blake Marie MD May 16, 2017 10:01
[2017-05-16] MEDS: ACETAMINOPHEN 325 MG TAB PO PRN (19:37)
[2017-05-16] MEDS: POTASSIUM CHLORIDE 20 MEQ CONTROLLED RELEASE TAB PO SCH (21:00)
[2017-05-17] VITALS (11 sets, daily range): BP systolic 112–157; BP diastolic 53–71; PULSE 63–92; RESP 16–20; TEMP 97.2–98.7; O2SAT 95–99
[2017-05-17] MEDS: AMOXICILLIN/CLAVULANATE K 500 MG TAB PO SCH ×3 (06:42→21:17)
[2017-05-17] MEDS: CHLORHEXIDINE 0.12% (ORAL KIT) 15 ML CUP MT SCH ×2 (08:00→20:00)
[2017-05-17] MEDS ORDERED: MAGNESIUM OXIDE 400 MG TAB PO ONE (08:45)
[2017-05-17] MEDS ORDERED: POTASSIUM BICARBONATE 25 MEQ EFFERVESCENT TAB PO ONE (08:45)
[2017-05-17] MEDS: SODIUM CHLORIDE 0.9% FLUSH 10 ML FLUSH IV FLUSH SCH ×2 (09:47→21:17)
[2017-05-17] MEDS: LACTOBACILLUS ACIDOPHILUS TAB PO SCH ×3 (09:47→17:31)
[2017-05-17] MEDS: SOTALOL HCL 80 MG TAB PO SCH ×2 (09:47→21:17)
[2017-05-17] MEDS: POTASSIUM CHLORIDE 20 MEQ CONTROLLED RELEASE TAB PO SCH ×2 (09:47→21:16)
[2017-05-17] MEDS: FLUCONAZOLE 100 MG TAB PO SCH (09:48)
[2017-05-17] MEDS: DILTIAZEM-CD 120 MG CAP ER PO SCH (09:48)
[2017-05-17] MEDS: ACETAMINOPHEN 325 MG TAB PO PRN (09:53)
[2017-05-17] MEDS ORDERED: MEGESTROL ACETATE SUSP 400 MG/10 ML CUP PO ONE (11:30)
[2017-05-17] MEDS ORDERED: MULTIVITAMIN TAB PO ONE (11:30)
--- NOTE | 2017-05-17 15:13 | HHI.PR ---
Subjective Remarks The patient is in bed she appears chronically ill. Very weak. Very weak voice following some commands. Has no pain at this time. With some shortness of breath not wheezing at this time. No abdominal pain. No nausea or vomiting no diarrhea or constipation. Says she is not eating much as she does not have appetite. Objective Vitals Vital Signs Date Time Temp Pulse Resp B/P (MAP) Pulse Ox O2 Delivery O2 Flow Rate FiO2 05/17/17 11:30 97.4 63 18 112/58 (76) 99 05/17/17 09:33 95 Nasal Cannula 2.00 05/17/17 08:00 70 05/17/17 07:20 97.9 92 18 144/67 (92) 98 05/17/17 03:53 84 05/17/17 03:49 98.7 85 16 118/55 (76) 99 05/17/17 00:00 97.2 92 18 115/63 (80) 98 05/17/17 00:00 Nasal Cannula 2.00 05/16/17 23:49 88 05/16/17 21:48 98.1 112 18 152/78 (102) 97 05/16/17 21:16 97 Nasal Cannula 2.00 05/16/17 20:03 Nasal Cannula 2.00 05/16/17 20:00 110 05/16/17 16:10 97.5 75 18 128/62 (84) 98 05/16/17 16:00 Nasal Cannula 2.00 05/16/17 15:48 67 I/O 05/16/17 05/16/17 05/16/17 05/17/17 05/17/17 05/17/17 07:00 15:00 23:00 07:00 15:00 23:00 Intake Total 540 ml 480 ml 0 ml Balance 540 ml 480 ml 0 ml Intake Oral 540 ml 480 ml 0 ml # Voids 6 3 4 # Bowel Movements 0 2 0 Result Diagram: 05/16/17 0445 05/16/17 0445 Imaging Last Impressions Chest X-Ray 05/13/17 1700 Signed Impressions: Service Date/Time: Saturday, May 13, 2017 16:39 - CONCLUSION: No pneumothorax. Mild consolidation and small pleural effusion at the right base. Jef Mesa MD Upper Extremity Ultrasound 05/09/17 0000 Signed Impressions: Service Date/Time: Tuesday, May 09, 2017 15:11 - CONCLUSION: 1. No sonographic evidence for upper extremity DVT. Franko Benson MD Objective Remarks GENERAL: NAD, A&Ox3 CARDIOVASCULAR: Irregularly irregular without murmurs, gallops, or rubs. RESPIRATORY: Breath sounds equal bilaterally. No accessory muscle use. Chest tube present. GASTROINTESTINAL: Abdomen soft, non-tender, nondistended. MUSCULOSKELETAL: No cyanosis, or edema. SKIN: Warm and dry. NEURO: No focal neurological deficitis. A/P Problem List: (1) Chronic anticoagulation ICD Code: Z79.01 - Chronic anticoagulation Status: Acute (2) GI bleed ICD Code: K92.2 - GI bleed Status: Acute (3) Atrial fibrillation with RVR ICD Code: I48.91 - Unspecified atrial fibrillation Status: Acute (4) Pneumonia ICD Code: J18.9 - Pneumonia, unspecified organism Status: Acute (5) Sepsis ICD Code: A41.9 - Sepsis, unspecified organism Status: Acute (6) Atrial fibrillation ICD Code: I48.91 - Atrial fibrillation Status: Acute (7) Hypokalemia ICD Code: E87.6 - Hypokalemia Status: Acute Assessment and Plan 86-year-old female admitted secondary to pneumonia with pneumothorax and respiratory failure in the presence of influenza. Severe sepsis with renal failure present at time of admit. 1 unit of packed red blood cells ordered to be transfused 05/16/17. Potassium supplementation, scheduled.. Occult blood testing of stool pending. HGB is low. Order iron panel, ferritin , B12 and folate Patient refused blood transfusion. Patient refused potassium supplement. Add megace, add MVT and ensure to diet. Consult gold wheel blocker and polisher as patient is not eating. Also consult palliative care for goals of care. A. fib RVR Continue Coumadin Continue by mouth diltiazem RVR resolved for now Follow on telemetry Acute hypoxemic hypercarbic respiratory failure Right tension pneumothorax Severe bronchospasm Septic shock Influenza, MSSA pneumonia Staph aureus bacteremia Lactic acidosis (resolved) pneumothorax now resolved status post extubation 05/09/17 Continue prednisone PRN Nebs Oxygen as needed Ancef Diflucan Follow cultures Hypocalcemia Hypokalemia Hypomagnesemia Monitor and replace as needed Coronary artery disease No chest pain Follow clinically History of hypertension Lisinopril on hold Follow blood pressure Decreased appetite and low p.o. intake. Protein calorie malnutrition, will order prealbumin. Add multivitamins, add Ensure to diet. Add Megace. Consult dietitian for recommendations. DVT prophylaxis Coumadin SCDs Discussed with the patient, nurse Discharge plan pending improvement patient with anemia, hypokalemia, refusing medications transfusion, workup in progress. Consult palliative care for goals of care. Sahra Lopez MD May 17, 2017 15:13
[2017-05-17] MEDS: WARFARIN SOD 2 MG TAB PO SCH (16:00)
--- NOTE | 2017-05-17 16:59 | PD.CONS ---
Consult Service Palliative Care Consult Requested By Dr. Lopez Primary Care Physician Dominga Bird MD Reason for Consultation a. To assist with evaluation and management of symptoms including: Decreased oral intake, debility b. To assist medical decision maker(s) with: better understanding of current medical conditions; weighing benefits/burdens of medical treatment options; making medical treatment decisions. HPI History of Present Illness Mrs. Le is a 86-year-old with a past medical history of coronary artery disease, PCI stents 5, hypertension, CHF chronic atrial fibrillation, and pacemaker placement. Patient presented to the ER on 04/29/2017 with complaints of cough, chest pain and dyspnea over the past week. At time of admission patient's daughter was also hospitalized in the ICU with staph aureus pneumonia , influenza and septic shock and unfortunately patient's daughter during this hospitalization ER course: * Vital signs: Temperature 98.2, pulse 124, respirations 27, BP 150/67, O2 saturation 95% on 3 L nasal cannula * EKG-atrial fibrillation with RVR * Patient started on Cardizem drip * Laboratory workup revealed WBC 12.2, hemoglobin 16.9, hematocrit 47.8, platelet count 142, sodium 133, potassium 3.5, BUN/creatinine 15/1.09, lactic acid 2.1, troponin I 0.03, BNP 523, total protein 7.2, albumin 3.2, PT 1 3.4, INR 1.3, APTT 39.7 * Chest x-ray revealed right basilar patchy consolidation consistent with probable pneumonia. * Urinalysis revealed large leukocyte esterase, culture indicated * ABG results-pH 7.28, PCO2 49, PO2 150, HCO3 23, base excess-3.2 on 15 L pressure rebreather * 500 mL's normal saline bolus * Antibiotics -Rocephin and azithromycin IV administered * Worsening respiratory status in ER, desaturating into the 70s and was placed on 100% nonrebreather * Patient admitted under the services of [facility] hospitalist and was transferred to the unit On 04/30/2017 patient had severe respiratory distress with severe bilateral wheezing and progressive decline in blood pressure with a map of 45. Critical care management Dr. Fuchs consulted. Patient was emergently intubated and placed on mechanical ventilation, central line placed, received fluid bolus with no improvement in blood pressure. Patient was started on pressors. Patient also tested positive for influenza A and B-was started on Tamiflu. Blood cultures from aerobic bottle drawn on 04/30 positive for infectious disease MSSA. Dr. Cedrick Mon consulted on 04/30/2017 for evaluation and treatment of MSSA bacteremia and pneumonia. On 05/06 patient had worsening respiratory status and chest x-ray revealed right large tension pneumothorax and a pigtail chest tube was placed. 05/08/17 chest x-ray showed almost complete resolution of right pneumothorax. Patient extubated on 05/09 and patient appeared depressed and psychiatry consultation was placed. Psychiatry Dr. James saw patient on 05/11 for evaluation of depression, recommended grief counseling or referral to outpatient follow-up therapy since patient had just recently lost her daughter who was hospitalized for pneumonia and influenza. hemoglobin 7.8 and hematocrit 22.6, 1 unit PRBC ordered and patient refused blood transfusion is well is potassium replacement. Stool occult blood ordered. Speech therapy following recommended mechanical soft and nectar consistency thickened liquids as well is speech therapy after discharge. Megace , multivitamin and ensure it due to diet and dietitian consulted. Physical therapy following, recommended PT at rehab. Clinical course complicated with a low hemoglobin, hypokalemia and decreased oral intake. Palliative care consulted to assist with establishing goals of care. Patient seen and examined in her room. Patient is awake, alert, oriented to self, place and situation. Patient endorsing poor appetite and pain to his left hand. Obtained psychosocial, past medical history and events leading to this hospitalization. Patient appears to have insight regarding her medical condition. Patient briefly discussed the loss of her daughter and appears to be grieving appropriately. She still wants to know exactly what happened. Patient states that she has a living will and she has a durable power of estate planning attorney. Her son Jeremy Le is her DPOA. Patient will inform him to bring in copies of living will and DPOA. Addressed code status, discussed CPR limitations and benefits, patient elected to be resuscitated. Patient is also familiar with intubation, and she mentioned that in any event that she is in respiratory distress and requires intubation she would like to be intubated and placed on mechanical ventilation. Patient states that she has discussed her wishes with her son and he will be able to make medical decisions for her. He knows that if there is no chance of her improving after she has been intubated, "he will pull the plug". Asked why patient refused blood transfusion yesterday and she replied, "I`m tired of it all and i know i`ll be all right". Patient able to smile and was appreciative of visit. . Function/Cognitive Trajectory Patient lived at home with her daughter who was recently hospitalized at the same time with patient and unfortunately during this hospitalization. Patient was independent of all her ADLs. . Review of Systems Constitutional: COMPLAINS OF: Change in appetite, Generalized weakness, DENIES : Weight gain, Weight loss Eyes: DENIES: Eye inflammation Ears, nose, mouth, throat: DENIES: Hearing loss, Nasal discharge Respiratory: COMPLAINS OF: Cough, Shortness of breath Cardiovascular: DENIES: Chest pain, Palpitations, Dyspnea on Exertion, Lower Extremity Edema Gastrointestinal: COMPLAINS OF: Diarrhea, Difficulty Swallowing, DENIES: Nausea , Vomiting Hematologic/Lymphatics: COMPLAINS OF: Bruising Neurologic: DENIES: Headache, Speech Problems Psychiatric: DENIES: Anxiety, Confusion, Hallucinations, Agitation Other ROS: . Past Family Social History Coded Allergies: clopidogrel (Unverified Allergy, Mild, Hives, 04/29/17) Iodinated Contrast- Oral and IV Dye (Verified Allergy, Unknown, 04/29/17) Past Medical History Atrial fibrillation Osteoarthritis Hyperlipidemia Coronary artery disease History of angina Presbycusis Hypertension . Past Surgical History Appendectomy History of coronary stents 5 Pacemaker placement Bladder suspension Hysterectomy Bilateral knee replacement surgeries Tonsillectomy Bilateral breast lumpectomy . Reported Medications Hydrochlorothiazide 12.5 Mg Cap 0.5 Tab PO DAILY Atorvastatin (Atorvastatin Calcium) 40 Mg Tab 40 Mg PO HS Centrum (Multiple Vitamins W/ Minerals) 1 Chew 1 Tab CHEW DAILY Coq-10 (Coenzyme Q10 (Ubidecarenone)) 30 Mg Cap 200 Mg PO DAILY Coreg Cr 24 HR (Carvedilol) 80 Mg Cap 80 Mg PO DAILY Potassium Chloride ER (Potassium Chloride) 10 Meq Tab 50 Meq PO DAILY Warfarin 1 Mg Tab 1.5 Mg PO SUN,,,SAT Sotalol (Sotalol HCl) 80 Mg Tab 120 Mg PO BID Aspir-81 (Aspirin) 81 Mg Tabdr 81 Mg PO CORONEL, , W, , SA Losartan (Losartan Potassium) 25 Mg Tab 50 Mg PO BID Warfarin 3 Mg Tab 2 Mg PO MWF . Current Medications Medications (Trade) Dose Ordered Sig/Francisco Route Start Time Stop Time Status Last Admin (NS Flush) 2 ml UNSCH PRN IV FLUSH 04/29/17 11:00 05/14/17 00:26 (NS Flush) 2 ml BID IV FLUSH 04/29/17 21:00 05/17/17 09:47 (Zofran Inj) 4 mg Q6H PRN IVP 04/29/17 12:00 04/29/17 11:34 (Narcan Inj) 0.4 mg UNSCH PRN IV PUSH 04/29/17 11:00 (Milk Of Magnesia Liq) 30 ml Q12H PRN PO 04/29/17 11:00 (KCl) 50 meq DAILY PO 04/30/17 09:00 Future Hold 05/03/17 08:44 (Betapace) 120 mg BID PO 04/29/17 21:00 05/17/17 09:47 (Coumadin) 2 mg DAILY@16 PO 04/29/17 16:00 Future hold 05/03/17 16:06 (Lactinex) 1 tab TID PO 04/29/17 18:00 05/17/17 13:00 (Pill Splitter) 1 ea UNSCH PRN OTHER 04/29/17 15:45 (Coreg) 25 mg BID PO 04/29/17 21:00 Future Hold 04/30/17 08:39 (Cozaar) 50 mg BID PO 04/29/17 21:00 Future Hold Miscellaneous Information Patient in critical care unit? Ass... Q361D .XX 04/29/17 21:45 (Peridex 0.12% Liq) 15 ml BID@08,20 MT 04/30/17 20:00 05/11/17 20:11 (Albuterol Neb) 2.5 mg Q2HR NEB PRN NEB 04/30/17 12:30 (Lasix Inj) 40 mg Q6H IV PUSH 05/03/17 22:00 Future Hold 05/06/17 04:01 Pharmacy Profile Note 0 ml @ 0 mls/hr UNSCH OTHER 05/05/17 15:45 (Apresoline Inj) 20 mg Q4H PRN IV PUSH 05/08/17 17:00 05/09/17 21:10 (Trandate Inj) 20 mg Q4H PRN IV PUSH 05/08/17 17:00 05/11/17 20:11 (Tylenol) 650 mg Q6H PRN PO 05/10/17 23:00 05/17/17 09:53 (Cardizem Cd) 120 mg DAILY PO 05/12/17 09:00 05/17/17 09:48 (Augmentin) 500 mg Q8HR PO 05/14/17 16:00 05/19/17 15:59 05/17/17 13:12 (Diflucan) 100 mg DAILY PO 05/15/17 09:00 05/19/17 08:59 05/17/17 09:48 (KCl) 20 meq Q12HR PO 05/16/17 21:00 05/17/17 09:47 (Mag-Ox) 400 mg DAILY PO 05/18/17 09:00 (Megace Liq) 400 mg DAILY PO 05/18/17 09:00 (Theragran) 1 tab DAILY PO 05/18/17 09:00 Family History Daughter-recently from complications of pneumonia/influenza . Substance Use Tobacco: Denies Alcohol: Denies Prescription med abuse: Denies Illicits: Denies . Psychosocial History Patient is originally from [place]. She moved to [place] 6 years ago after he got sick and she wanted to be closer to her children. Patient' s 3 years ago and her daughter and grandson moved in to live with her. Patient had 3 adult children, 2 sons and 1 daughter recently . . Unfortunately patient's daughter was also admitted during this hospitalization and she . 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 . Spiritual/Cultural Factors No buddhism affiliation . Living Will: Completed, but not made available Health Care Surrogate: Completed, but not made available Durable Power of Peripheral Equipment Operator: Completed, but not made available Health Care Surrogate(s): Stated by patient-durable power of estate planning attorney- Son Jeremy [phone] . Ethical and Legal Issues None identified at this time . Physical Exam Vital Signs Date Time Temp Pulse Resp B/P (MAP) Pulse Ox O2 Delivery O2 Flow Rate FiO2 05/17/17 11:30 97.4 63 18 112/58 (76) 99 05/17/17 09:33 95 Nasal Cannula 2.00 05/17/17 08:00 70 05/17/17 07:20 97.9 92 18 144/67 (92) 98 05/17/17 03:53 84 05/17/17 03:49 98.7 85 16 118/55 (76) 99 05/17/17 00:00 97.2 92 18 115/63 (80) 98 05/17/17 00:00 Nasal Cannula 2.00 05/16/17 23:49 88 05/16/17 21:48 98.1 112 18 152/78 (102) 97 05/16/17 21:16 97 Nasal Cannula 2.00 05/16/17 20:03 Nasal Cannula 2.00 05/16/17 20:00 110 05/16/17 16:10 97.5 75 18 128/62 (84) 98 05/16/17 16:00 Nasal Cannula 2.00 Exam CONSTITUTIONAL/GENERAL: This is an adequately nourished, soft-spoken patient in no apparent distress. TUBES/LINES/DRAINS: Nasal cannula, PIV SKIN: No jaundice, rashes, or lesions. Ecchymoses on upper extremities. No wounds seen anteriorly. Skin temperature appropriate. Not diaphoretic. HEAD: Atraumatic. Normocephalic. EYES: Pupils equal and round and reactive. Extraocular motions intact. No scleral icterus. No injection or drainage. Fundi not examined. ENT: Hearing grossly normal. Nose without bleeding or purulent drainage. NECK: Trachea midline. Supple, nontender. CARDIOVASCULAR: Regular rate and rhythm without murmurs, gallops, or rubs. No JVD. Peripheral pulses symmetric. RESPIRATORY/CHEST: Symmetric, unlabored respirations. Diminished in the bases. No wheezes, rales, or rhonchi. GASTROINTESTINAL: Abdomen soft, non-tender, nondistended. No guarding. Bowel sounds present. GENITOURINARY: Without palpable bladder distension. MUSCULOSKELETAL: Extremities without clubbing, cyanosis, or edema. No joint tenderness or effusion noted. No calf tenderness. No mottling or clubbing. NEUROLOGICAL: Awake and alert. Motor and sensory grossly within normal limits. Follows commands. Moves all extremities. PSYCHIATRIC: No obvious anxiety/depression. no apparent hallucinations or other psychotic thought process. Diagnostic Tests Laboratory Laboratory Tests Test 05/15/17 08:29 05/16/17 04:45 Prothrombin Time 12.7 SEC (9.8-11.6) 12.2 SEC (9.8-11.6) Prothromb Time International Ratio 1.3 RATIO 1.2 RATIO White Blood Count 12.1 TH/MM3 (4.0-11.0) Red Blood Count 2.27 MIL/MM3 (4.00-5.30) Hemoglobin 7.8 GM/DL (11.6-15.3) Hematocrit 22.6 % (35.0-46.0) Mean Corpuscular Volume 99.3 FL (80.0-100.0) Mean Corpuscular Hemoglobin 34.2 PG (27.0-34.0) Mean Corpuscular Hemoglobin Concent 34.4 % (32.0-36.0) Red Cell Distribution Width 12.6 % (11.6-17.2) Platelet Count 172 TH/MM3 (150-450) Mean Platelet Volume 9.1 FL (7.0-11.0) Neutrophils (%) (Auto) 77.4 % (16.0-70.0) Lymphocytes (%) (Auto) 14.5 % (9.0-44.0) Monocytes (%) (Auto) 6.4 % (0.0-8.0) Eosinophils (%) (Auto) 1.4 % (0.0-4.0) Basophils (%) (Auto) 0.3 % (0.0-2.0) Neutrophils # (Auto) 9.4 TH/MM3 (1.8-7.7) Lymphocytes # (Auto) 1.8 TH/MM3 (1.0-4.8) Monocytes # (Auto) 0.8 TH/MM3 (0-0.9) Eosinophils # (Auto) 0.2 TH/MM3 (0-0.4) Basophils # (Auto) 0.0 TH/MM3 (0-0.2) CBC Comment AUTO DIFF Differential Comment AUTO DIFF CONFIRMED Blood Urea Nitrogen 28 MG/DL (7-18) Creatinine 1.04 MG/DL (0.50-1.00) Random Glucose 90 MG/DL (74-106) Total Protein 5.2 GM/DL (6.4-8.2) Albumin 1.8 GM/DL (3.4-5.0) Calcium Level 7.7 MG/DL (8.5-10.1) Alkaline Phosphatase 81 U/L (45-117) Aspartate Amino Transf (AST/SGOT) 23 U/L (15-37) Alanine Aminotransferase (ALT/SGPT) 9 U/L (10-53) Total Bilirubin 0.5 MG/DL (0.2-1.0) Sodium Level 143 MEQ/L (136-145) Potassium Level 2.9 MEQ/L (3.5-5.1) Chloride Level 106 MEQ/L (98-107) Carbon Dioxide Level 30.5 MEQ/L (21.0-32.0) Anion Gap 7 MEQ/L (5-15) Estimat Glomerular Filtration Rate 50 ML/MIN (>89) Magnesium Level 1.6 MG/DL (1.5-2.5) Result Diagram: 05/16/17 0445 05/16/17 0445 Imaging Last Impressions Chest X-Ray 05/13/17 1700 Signed Impressions: Service Date/Time: Saturday, May 13, 2017 16:39 - CONCLUSION: No pneumothorax. Mild consolidation and small pleural effusion at the right base. Jef Mesa MD Upper Extremity Ultrasound 05/09/17 0000 Signed Impressions: Service Date/Time: Tuesday, May 09, 2017 15:11 - CONCLUSION: 1. No sonographic evidence for upper extremity DVT. Franko Benson MD Last Impressions Chest X-Ray 05/13/17 1700 Signed Impressions: Service Date/Time: Saturday, May 13, 2017 16:39 - CONCLUSION: No pneumothorax. Mild consolidation and small pleural effusion at the right base. Jef Mesa MD Upper Extremity Ultrasound 05/09/17 0000 Signed Impressions: Service Date/Time: Tuesday, May 09, 2017 15:11 - CONCLUSION: 1. No sonographic evidence for upper extremity DVT. Franko Benson MD Procedures 04/30/2017-intubated 04/30/2017-central line placement 04/30/2017-right femoral arterial line [id number] 05/06/2017-right 8 Macedonian pigtail chest tube placement 05/09/2017-medically extubated 05/14/2017-chest tube removed . Patient/Family Conference Family Conference Location: Bedside Issues Discussed: * Palliative care role, purpose, approach * Additional medical, psychosocial, and spiritual history * Patients general health, functional status, and cognitive changes in the months leading up to the current hospitalization * Patient/family understanding of the current medical problems * Patient/family understanding of prognosis * Patients goals of care as best understood from advance directives and/or conversations and/or values * Current medical treatment options and benefits/burdens of those options * Likely scenarios comparing ongoing aggressive care with a transition to comfort measures only * Questions answered to the best of my ability * Palliative care contact information provided Assessment and Plan Disease Oriented Problem List: (1) Pneumonia (2) Sepsis (3) Hypokalemia (4) GI bleed (5) Chronic anticoagulation (6) Atrial fibrillation Symptom Scale: (1) Decreased oral intake 0-10 Scale: Unable to quantify (2) Debility 0-10 Scale: Unable to quantify Pertinent Non-Medical Issues Psychosocial:Patient is originally from [place]. She moved to [place] 6 years ago after he got sick and she wanted to be closer to her children. Patient's 3 years ago and her daughter and grandson moved in to live with her. Patient had 3 adult children, 2 sons and 1 daughter recently . . Unfortunately patient's daughter was also admitted during this hospitalization and she . 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 Spiritual: No buddhism affiliation Legal: Patient states that she has a living will and DURABLE POWER OF PERINATAL NURSE- son he has copies Ethical issues impacting care: None identified at this time . Important Contacts Son Jeremy [phone] . Prognosis Mrs. Le is a 86-year-old with a past medical history of coronary artery disease, PCI stents 5, hypertension, CHF chronic atrial fibrillation, and pacemaker placement. Patient presented to the ER on 04/29/2017 with complaints of cough, chest pain and dyspnea over the past week. At time of admission patient's daughter was also hospitalized in the ICU with staph aureus pneumonia , influenza and septic shock and unfortunately patient's daughter during this hospitalization. Clinical course complicated with acute respiratory failure requiring intubation, MSSA bacteremia, pneumonia, influenza , low hemoglobin, decreased oral intake and grief associated with loss of her daughter. Given ongoing comorbidities patient remains at risk for further complications, deterioration and decline. . Code Status: Full Code Plan PLAN: Legal decision maker: Patient is able to participate in medical decision making. In the event that she is incapacitated patient states that she has her son Jeremy Le as her durable power of estate planning attorney. Goals: Aggressive CODE STATUS: Full Code Patient appears to have insight regarding her medical condition. Patient briefly discussed the loss of her daughter and appears to be grieving appropriately. She still wants to know exactly what happened. Patient states that she has a living will and she has a durable power of estate planning attorney. Her son Jeremy Le is her DPOA. Patient will inform him to bring in copies of living will and DPOA. Addressed code status, discussed CPR limitations and benefits, patient elected to be resuscitated. Patient is also familiar with intubation, and she mentioned that in any event that she is in respiratory distress and requires intubation she would like to be intubated and placed on mechanical ventilation. Patient states that she has discussed her wishes with her son and he will be able to make medical decisions for her. He knows that if there is no chance of her improving after she has been intubated, "he will pull the plug". Asked why patient refused blood transfusion yesterday and she replied , "I`m tired of it all and i know i`ll be all right". Patient able to smile and was appreciative of visit. SYMPTOMS: * Decreased oral intake: Patient endorsing poor appetite. Currently on a mechanical soft heart healthy diet, with nectar thick fluids. Patient has Ensure TID and was started on Megace 400mg daily, multivitamin daily. Patient has been consuming 10-100% for breakfast, 0 -100% lunch and 0-50% dinner. May benefit from dietitian consult. continue to monitor intake. * Debility: Progressive. Most likely from prolonged hospitalization. PT recommended physical therapy at rehab. No recommendations at this time Palliative care will continue to follow the patient during hospital course as condition evolves, to assist patient/decision-maker with understanding of their medical conditions, weighing benefits/burdens of treatment options, for clarification of goals of treatment. Additionally will assist with any symptoms of palliative concern Thank you for the opportunity to participate in the care of Ms. Le. Attestation To help prompt me to consider important information that might be impacting today's encounter and assessment, information from prior notes written by myself or my colleagues may have been "brought forward" into today's note. My signature on this note, however, is an attestation that I personally performed the exam, history, and/or decision-making noted today, and, unless otherwise indicated, the interactions with patient, family, and staff as well as the review of records all occurred today. I also attest that the listed assessment and stated plan reflect my best clinical judgment today based on the combination of historical information, prior notes, and today's exam/ interactions. When time spent is documented, it refers only to time spent today by the signer, or if indicated, combined time spent today by collaborating physician/nurse practitioner. Arjun Rowland May 17, 2017 16:57
[2017-05-18] VITALS (7 sets, daily range): BP systolic 116–161; BP diastolic 61–74; PULSE 69–112; RESP 15–18; TEMP 97.2–98.4; O2SAT 98–99
[2017-05-18] MEDS: AMOXICILLIN/CLAVULANATE K 500 MG TAB PO SCH ×2 (06:38→14:00)
[2017-05-18] MEDS: CHLORHEXIDINE 0.12% (ORAL KIT) 15 ML CUP MT SCH (07:21)
[2017-05-18 08:22] LABS: AUTOMATED NEUTROPHIL # 13.5 TH/MM3 (1.8-7.7); BASOPHIL # 0.1 TH/MM3 (0-0.2); BASOPHIL % 0.8 % (0.0-2.0); EOSINOPHIL # 0.3 TH/MM3 (0-0.4); EOSINOPHIL % 1.9 % (0.0-4.0); HEMOGLOBIN 9.1 GM/DL (11.6-15.3); LYMPH % 12.6 % (9.0-44.0); LYMPHOCYTE # 2.2 TH/MM3 (1.0-4.8); MEAN CELL VOLUME 99.5 FL (80.0-100.0); MEAN CORPUSCULAR HEMOGLOBIN 34.8 PG (27.0-34.0); MEAN PLATELET VOLUME 10.3 FL (7.0-11.0); MONO % 6.4 % (0.0-8.0); MONOCYTE # 1.1 TH/MM3 (0-0.9); NEUT % 78.3 % (16.0-70.0); PLATELET COUNT 220 TH/MM3 (150-450); RED BLOOD COUNT 2.62 MIL/MM3 (4.00-5.30); RED CELL DISTRIBUTION WIDTH 12.9 % (11.6-17.2); WHITE BLOOD COUNT 17.3 TH/MM3 (4.0-11.0)
[2017-05-18 08:27] LABS: INTERNATIONAL NORMALIZED RATIO 1.2 RATIO
[2017-05-18 08:36] LABS: ALBUMIN 1.9 GM/DL (3.4-5.0); AST (GOT) 24 U/L (15-37); BLOOD UREA NITROGEN 18 MG/DL (7-18); CALCIUM 8.5 MG/DL (8.5-10.1); CHLORIDE 105 MEQ/L (98-107); CREATININE 1.05 MG/DL (0.50-1.00); GLOMERULAR FILTRATION RATE 50 ML/MIN (>89); GLUCOSE,RANDOM 85 MG/DL (74-106); MAGNESIUM 1.5 MG/DL (1.5-2.5); SODIUM (NA) 143 MEQ/L (136-145)
[2017-05-18 08:37] LABS: ALT (GPT) 10 U/L (10-53)
[2017-05-18 08:58] LABS: TOXIC VACUOLATION PRESENT (NONE SEEN)
[2017-05-18] MEDS ORDERED: MULTIVITAMIN TAB PO SCH (09:00)
[2017-05-18] MEDS ORDERED: MEGESTROL ACETATE SUSP 400 MG/10 ML CUP PO SCH (09:00)
[2017-05-18] MEDS ORDERED: MAGNESIUM OXIDE 400 MG TAB PO SCH (09:00)
[2017-05-18 09:02] LABS: ALKALINE PHOSPHATASE 88 U/L (45-117); FERRITIN 473 NG/ML (8-252); IRON (FE) 30 MCG/DL (50-170); TOTAL BILIRUBIN ADULT 0.6 MG/DL (0.2-1.0); TOTAL IRON BINDING CAPACITY 214 MCG/DL (250-450); TOTAL PROTEIN 6.2 GM/DL (6.4-8.2)
[2017-05-18 09:09] LABS: FOLATE GREATER THAN 20.0 NG/ML (3.1-17.5)
[2017-05-18] MEDS: DILTIAZEM-CD 120 MG CAP ER PO SCH (09:53)
[2017-05-18] MEDS: FLUCONAZOLE 100 MG TAB PO SCH (09:53)
[2017-05-18] MEDS: POTASSIUM CHLORIDE 20 MEQ CONTROLLED RELEASE TAB PO SCH (09:53)
[2017-05-18] MEDS: LACTOBACILLUS ACIDOPHILUS TAB PO SCH ×2 (09:54→13:00)
[2017-05-18] MEDS: SODIUM CHLORIDE 0.9% FLUSH 10 ML FLUSH IV FLUSH SCH (09:54)
[2017-05-18] MEDS: SOTALOL HCL 80 MG TAB PO SCH (09:54)
--- NOTE | 2017-05-18 10:27 | HHI.PR ---
Subjective Remarks Feels better today. More awake and alert, appetite is better and was able to eat breakfast. No cp, sob, n.v.d.c, Objective Vitals Vital Signs Date Time Temp Pulse Resp B/P (MAP) Pulse Ox O2 Delivery O2 Flow Rate FiO2 05/18/17 08:00 Nasal Cannula 2.00 05/18/17 08:00 97.7 112 15 160/67 (98) 98 05/18/17 04:30 97.4 86 18 161/74 (103) 99 05/18/17 04:00 75 05/18/17 00:00 98.4 90 17 116/63 (80) 99 05/18/17 00:00 81 05/17/17 21:52 Nasal Cannula 2.00 05/17/17 20:00 80 05/17/17 20:00 98.2 85 17 157/71 (99) 99 05/17/17 20:00 Nasal Cannula 2.00 05/17/17 16:04 97.3 78 20 126/53 (77) 98 05/17/17 16:00 Nasal Cannula 2.00 05/17/17 16:00 70 05/17/17 12:00 Nasal Cannula 2.00 05/17/17 12:00 71 05/17/17 11:30 97.4 63 18 112/58 (76) 99 I/O 05/17/17 05/17/17 05/17/17 05/18/17 05/18/17 05/18/17 06:59 14:59 22:59 06:59 14:59 22:59 Intake Total 0 ml 240 ml 120 ml Balance 0 ml 240 ml 120 ml Intake Oral 0 ml 240 ml 120 ml # Voids 4 4 2 # Bowel Movements 0 2 2 Result Diagram: 05/18/1761705/18/17617 Objective Remarks GENERAL: NAD, A&Ox3 CARDIOVASCULAR: Irregularly irregular without murmurs, gallops, or rubs. RESPIRATORY: Breath sounds equal bilaterally. No accessory muscle use. Chest tube present. GASTROINTESTINAL: Abdomen soft, non-tender, nondistended. MUSCULOSKELETAL: No cyanosis, or edema. SKIN: Warm and dry. NEURO: No focal neurological deficitis. A/P Problem List: (1) Chronic anticoagulation ICD Code: Z79.01 - Chronic anticoagulation Status: Acute (2) GI bleed ICD Code: K92.2 - GI bleed Status: Acute (3) Atrial fibrillation with RVR ICD Code: I48.91 - Unspecified atrial fibrillation Status: Acute (4) Pneumonia ICD Code: J18.9 - Pneumonia, unspecified organism Status: Acute (5) Sepsis ICD Code: A41.9 - Sepsis, unspecified organism Status: Acute (6) Atrial fibrillation ICD Code: I48.91 - Atrial fibrillation Status: Acute (7) Hypokalemia ICD Code: E87.6 - Hypokalemia Status: Acute Assessment and Plan 86-year-old female admitted secondary to pneumonia with pneumothorax and respiratory failure in the presence of influenza. Severe sepsis with renal failure present at time of admit. 05/18/17 Feels better. H/H is stable. Eating better , Lytes [place] . Improved. Cleared for DC to follow up as OP with PCP and consultants. 1 unit of packed red blood cells ordered to be transfused 05/16/17. Potassium supplementation, scheduled.. Occult blood testing of stool pending. HGB is low. Order iron panel, ferritin , B12 and folate Patient refused blood transfusion. Patient refused potassium supplement. Add megace, add MVT and ensure to diet. Consult speedboat driver as patient is not eating. Also consult palliative care for goals of care. A. fib RVR Continue Coumadin Continue by mouth diltiazem RVR resolved for now Follow on telemetry Acute hypoxemic hypercarbic respiratory failure Right tension pneumothorax Severe bronchospasm Septic shock Influenza, MSSA pneumonia Staph aureus bacteremia Lactic acidosis (resolved) pneumothorax now resolved status post extubation 05/09/17 Continue prednisone PRN Nebs Oxygen as needed Ancef Diflucan Follow cultures Hypocalcemia Hypokalemia Hypomagnesemia Monitor and replace as needed Coronary artery disease No chest pain Follow clinically History of hypertension Lisinopril on hold Follow blood pressure Decreased appetite and low p.o. intake. Protein calorie malnutrition, will order prealbumin. Add multivitamins, add Ensure to diet. Add Megace. Consult dietitian for recommendations. DVT prophylaxis Coumadin SCDs Discussed with the patient, nurse Discharge plan pending improvement patient with anemia, hypokalemia, refusing medications transfusion, workup in progress. Consult palliative care for goals of care. Sahra Lopez MD May 18, 2017 10:27
[2017-05-18] MEDS ORDERED: FURO20TA PO (11:23)
[2017-05-18] MEDS ORDERED: DILT120C50 PO (11:23)
[2017-05-18] MEDS ORDERED: THERTAB15 PO (11:23)
[2017-05-18] MEDS ORDERED: Megestrol Liq PO (11:23)
--- NOTE | 2017-05-18 11:23 | HHI.DS ---
Discharge Summary Admission Date Apr 29, 2017 at 10:56 Discharge Date: May 18, 2017 Admitting Diagnosis Pneumonia, Afib RVR, Sepsis. (1) Chronic anticoagulation ICD Code: Z79.01 - Chronic anticoagulation Status: Acute (2) GI bleed ICD Code: K92.2 - GI bleed Status: Acute (3) Atrial fibrillation with RVR ICD Code: I48.91 - Unspecified atrial fibrillation Status: Acute (4) Pneumonia ICD Code: J18.9 - Pneumonia, unspecified organism Status: Acute (5) Sepsis ICD Code: A41.9 - Sepsis, unspecified organism Status: Acute (6) Atrial fibrillation ICD Code: I48.91 - Atrial fibrillation Status: Acute (7) Hypokalemia ICD Code: E87.6 - Hypokalemia Status: Acute Procedures none Brief History - From Admission Mrs. Le is an 86 year old female. She comes into the emergency department in respiratory distress. She has had an upper respiratory tract infection for approximately one week which has been graduating in severity. Her daughter has been hospitalized for similar condition. Imaging shows she has a pneumonia and telemetry shows she is in A. fib RVR. A. fib RVR is likely triggered from pneumonia. She has baseline atrial fibrillation. Chest pain has been present but is pleuritic in nature. Antibiotics were given in the ER. Subsequently she had an increase in respiratory distress and has been graduated from a nasal cannula to nonrebreather. She is doing well with a nonrebreather. Etiology for this exacerbation may be an inflammatory response related to the antibiotic killing bacteria. No other complaints are present at this time. She does not have a history of asthma or COPD. No history of smoking. CBC/BMP: 05/18/17 0618 05/18/17 0618 Significant Findings Laboratory Tests Test 05/16/17 04:45 05/18/17 06:18 White Blood Count 12.1 TH/MM3 (4.0-11.0) 17.3 TH/MM3 (4.0-11.0) Red Blood Count 2.27 MIL/MM3 (4.00-5.30) 2.62 MIL/MM3 (4.00-5.30) Hemoglobin 7.8 GM/DL (11.6-15.3) 9.1 GM/DL (11.6-15.3) Hematocrit 22.6 % (35.0-46.0) 26.0 % (35.0-46.0) Mean Corpuscular Hemoglobin 34.2 PG (27.0-34.0) 34.8 PG (27.0-34.0) Neutrophils (%) (Auto) 77.4 % (16.0-70.0) 78.3 % (16.0-70.0) Neutrophils # (Auto) 9.4 TH/MM3 (1.8-7.7) 13.5 TH/MM3 (1.8-7.7) Prothrombin Time 12.2 SEC (9.8-11.6) 12.0 SEC (9.8-11.6) Blood Urea Nitrogen 28 MG/DL (7-18) Creatinine 1.04 MG/DL (0.50-1.00) 1.05 MG/DL (0.50-1.00) Total Protein 5.2 GM/DL (6.4-8.2) 6.2 GM/DL (6.4-8.2) Albumin 1.8 GM/DL (3.4-5.0) 1.9 GM/DL (3.4-5.0) Calcium Level 7.7 MG/DL (8.5-10.1) Alanine Aminotransferase (ALT/SGPT) 9 U/L (10-53) Potassium Level 2.9 MEQ/L (3.5-5.1) Estimat Glomerular Filtration Rate 50 ML/MIN (>89) 50 ML/MIN (>89) Monocytes # (Auto) 1.1 TH/MM3 (0-0.9) Toxic Vacuolation PRESENT (NONE SEEN) Iron Level 30 MCG/DL (50-170) Total Iron Binding Capacity 214 MCG/DL (250-450) Percent Iron Saturation 14.0 % (20-50) Ferritin 473 NG/ML (8-252) Vitamin B12 Level 1180 PG/ML (193-986) Folate GREATER THAN 20.0 NG/ML Imaging Last Impressions Chest X-Ray 05/13/17 1700 Signed Impressions: Service Date/Time: Saturday, May 13, 2017 16:39 - CONCLUSION: No pneumothorax. Mild consolidation and small pleural effusion at the right base. Jef Mesa MD Upper Extremity Ultrasound 05/09/17 0000 Signed Impressions: Service Date/Time: Tuesday, May 09, 2017 15:11 - CONCLUSION: 1. No sonographic evidence for upper extremity DVT. Franko Benson MD PE at Discharge GENERAL: NAD, A&Ox3 CARDIOVASCULAR: Irregularly irregular without murmurs, gallops, or rubs. RESPIRATORY: Breath sounds equal bilaterally. No accessory muscle use. Chest tube present. GASTROINTESTINAL: Abdomen soft, non-tender, nondistended. MUSCULOSKELETAL: No cyanosis, or edema. SKIN: Warm and dry. NEURO: No focal neurological deficitis. Hospital Course 86-year-old female admitted secondary to pneumonia with pneumothorax and respiratory failure in the presence of influenza. Severe sepsis with renal failure present at time of admit. 05/18/17 Feels better. H/H is stable. Eating better , [place]ytes [place] . Improved. Cleared for DC to follow up as OP with PCP and consultants. 1 unit of packed red blood cells ordered to be transfused 05/16/17. Potassium supplementation, scheduled.. Occult blood testing of stool pending. HGB is low. Order iron panel, ferritin , B12 and folate Patient refused blood transfusion. Patient refused potassium supplement. Add megace, add MVT and ensure to diet. Consult cota as patient is not eating. A. fib RVR Continue Coumadin Continue by mouth diltiazem RVR resolved Follow on telemetry Acute hypoxemic hypercarbic respiratory failure Right tension pneumothorax Severe bronchospasm Septic shock Influenza, MSSA pneumonia Staph aureus bacteremia Lactic acidosis (resolved) pneumothorax now resolved status post extubation 05/09/17 PRN Nebs Oxygen as needed Ancef DCd and on Augmentin PO until 05/19/17 Diflucan PO until 05/19/17 Follow cultures Hypocalcemia Hypokalemia Hypomagnesemia Monitor and replace as needed Coronary artery disease No chest pain Follow clinically History of hypertension Lisinopril on hold Follow blood pressure Decreased appetite and low p.o. intake. Protein calorie malnutrition, will order prealbumin. Add multivitamins, add Ensure to diet. Add Megace. Consult dietitian for recommendations. DVT prophylaxis Coumadin SCDs Discussed with the patient, nurse Improved. Eating better. HGB is stable. Discharged to SNF in stable condition to follow up as OP with PCP and consultants. Pt Condition on Discharge: Stable Discharge Disposition: Discharge to SNF Discharge Time: > 30 minutes Discharge Instructions DIET: Follow Instructions for: Heart Healthy Diet Speech Therapy-Diet Recommends: Mechanical Soft, [place] Thickened Liquids Activities you can perform: Regular-No Restrictions Follow up Referrals: PCP Follow-up - 2-3 Days New Medications: Amoxicillin-Clavulanate (Augmentin) 875-125 Mg Tab 1 TAB PO BID for Infection, #3 TAB 0 Refills Furosemide (Furosemide) 20 Mg Tab 20 MG PO BID for edema, #60 TAB 0 Refills Diltiazem CD 24 HR (Diltiazem CD 24 HR) 120 Mg Caper 120 MG PO DAILY for Blood Pressure Management, #30 CAP Fluconazole (Diflucan) 100 Mg Tab 100 MG PO DAILY for infection , #3 TAB Multivitamin with Folic Acid (Thera Tablet) 400 Mcg Tablet 1 TAB PO DAILY for Nutritional Supplement, #30 TAB [Megestrol Liq] () 400 MG/10 ML SUSP 400 MG PO DAILY, #120 ML Continued Medications: Aspirin DR (Aspir-81) 81 Mg Tabdr 81 MG PO Patel, , W, Th, Sa Atorvastatin (Atorvastatin) 40 Mg Tab 40 MG PO HS for Cholesterol Management, #30 TAB 0 Refills Carvedilol ER 24 HR (Coreg Cr 24 HR) 80 Mg Cap 80 MG PO DAILY, #30 CAP 0 Refills Coenzyme Q10 (Ubidecarenone) (Coq-10) 30 Mg Cap 200 MG PO DAILY Losartan (Losartan) 25 Mg Tab 50 MG PO BID for Blood Pressure Management, #30 TAB 0 Refills Multiple Vitamins W/ Minerals (Centrum) 1 Chew 1 TAB CHEW DAILY for Nutritional Supplement, TAB 0 Refills Potassium Chloride ER (Potassium Chloride ER) 10 Meq Tab 50 MEQ PO DAILY for Electrolyte Replacement, #30 TAB 0 Refills Sotalol (Sotalol) 80 Mg Tab 120 MG PO BID for Regulate Heart Beat, #60 TAB 0 Refills Warfarin (Warfarin) 3 Mg Tab 2 MG PO MWF for Blood Clot Prevention, #30 TAB 0 Refills Warfarin (Warfarin) 1 Mg Tab 1.5 MG PO SUN,,,SAT for Blood Clot Prevention, #30 TAB 0 Refills Discontinued Medications: Hydrochlorothiazide (Hydrochlorothiazide) 12.5 Mg Cap 0.5 TAB PO DAILY, #60 CAP 0 Refills Sahra Lopez MD May 18, 2017 11:23
[2017-05-18] MEDS ORDERED: AUGM875T3 PO (11:37)
[2017-05-18] MEDS ORDERED: DIFL100T PO (11:37)
[2017-05-18] MEDS ORDERED: FERR325T18 PO (11:44)
--- NOTE | 2017-05-18 15:17 | HHI.HCPN ---
Reason for visit a. To assist with evaluation and management of symptoms including: Decreased oral intake, debility b. To assist medical decision maker(s) with: better understanding of current medical conditions; weighing benefits/burdens of medical treatment options; making medical treatment decisions. Subjective/Interval History Follow up for symptom management and further clarification of goals. Patient seen and examined in her room in the presence of her son Jeremy. Patient is ready to be discharged to [facility]. Patient is awake, in bed, alert and oriented to self, place and situation. Follows command with all 4 extremities. Speaking with a soft voice. Patient has an unproductive cough. On O2 2 L NC. Vital signs stable. Patient endorsing poor appetite, did not eat her lunch. Encouraged patient`s son to offer patient her favorite foods to help boost her appetite. Laboratory workup today revealed WBC 17.3, hemoglobin 9.1, hematocrit 26.0, platelet count 220, potassium 3.6, BUN/creatinine 18/1.05, total protein 6.2, albumin 1.9, vitamin B12 110 and folate greater than 20.0. No recent imaging. Discussed advance directives and patient`s son admitted that patient has a living will and has told him that if intubation is only for a short time she is agreeable to that but if the medical team tells him that the prognosis is poor, then it will not be done or he will compassionately withdraw patient from life support. Patient and son are hoping that she will improve with rehabilitation. Son concerned that patient may need to be followed at home. Encouraged them to talk to the case supervisor or clinical social work therapist who will be assigned to patient at [facility]. Patient and son appreciative of palliative visit. . Family/friend interactions Patient`s son (DPOA) . Advance Directives Living Will: Completed, but not made available Health Care Surrogate: Completed, but not made available Durable Power of Admissions Counselor: Completed, but not made available Advance Directive Specifics Health Care Surrogate(s): Stated by patient-durable power of instrumentation supervisor- Son Jeremy [id number]-[phone] . Objective Vital Signs Date Time Temp Pulse Resp B/P (MAP) Pulse Ox O2 Delivery O2 Flow Rate FiO2 05/18/17 12:00 Nasal Cannula 2.00 05/18/17 12:00 97.2 72 16 128/61 (83) 99 05/18/17 10:55 74 05/18/17 08:10 99 Nasal Cannula 2.00 05/18/17 08:00 Nasal Cannula 2.00 05/18/17 08:00 97.7 112 15 160/67 (98) 98 05/18/17 08:00 69 05/18/17 04:30 97.4 86 18 161/74 (103) 99 05/18/17 04:00 75 05/18/17 00:00 98.4 90 17 116/63 (80) 99 05/18/17 00:00 81 05/17/17 21:52 Nasal Cannula 2.00 05/17/17 20:00 80 05/17/17 20:00 98.2 85 17 157/71 (99) 99 05/17/17 20:00 Nasal Cannula 2.00 05/17/17 16:04 97.3 78 20 126/53 (77) 98 05/17/17 16:00 Nasal Cannula 2.00 05/17/17 16:00 70 Intake & Output 05/18/17 05/18/17 07:00 19:00 Intake Total 120 ml Balance 120 ml Intake Oral 120 ml # Voids 2 # Bowel Movements 2 Physical Exam CONSTITUTIONAL/GENERAL: This is an adequately nourished, soft-spoken patient in no apparent distress. TUBES/LINES/DRAINS: Nasal cannula, PIV SKIN: No jaundice, rashes, or lesions. Ecchymoses on upper extremities. No wounds seen anteriorly. Skin temperature appropriate. Not diaphoretic. HEAD: Atraumatic. Normocephalic. EYES: Pupils equal and round and reactive. Extraocular motions intact. No scleral icterus. No injection or drainage. Fundi not examined. ENT: Hearing grossly normal. Nose without bleeding or purulent drainage. NECK: Trachea midline. Supple, nontender. CARDIOVASCULAR: Regular rate and rhythm without murmurs, gallops, or rubs. No JVD. Peripheral pulses symmetric. RESPIRATORY/CHEST: Symmetric, unlabored respirations. Diminished in the bases. + unproductive cough. No wheezes, rales, or rhonchi. GASTROINTESTINAL: Abdomen soft, non-tender, nondistended. No guarding. Bowel sounds present. GENITOURINARY: Without palpable bladder distension. MUSCULOSKELETAL: Extremities without clubbing, cyanosis, or edema. No joint tenderness or effusion noted. No calf tenderness. No mottling or clubbing. NEUROLOGICAL: Awake and alert. Motor and sensory grossly within normal limits. Follows commands. Moves all extremities. PSYCHIATRIC: No obvious anxiety/depression. no apparent hallucinations or other psychotic thought process. Diagnostic Tests Laboratory Laboratory Tests Test 05/16/17 04:45 05/18/17 06:18 White Blood Count 12.1 TH/MM3 (4.0-11.0) 17.3 TH/MM3 (4.0-11.0) Red Blood Count 2.27 MIL/MM3 (4.00-5.30) 2.62 MIL/MM3 (4.00-5.30) Hemoglobin 7.8 GM/DL (11.6-15.3) 9.1 GM/DL (11.6-15.3) Hematocrit 22.6 % (35.0-46.0) 26.0 % (35.0-46.0) Mean Corpuscular Volume 99.3 FL (80.0-100.0) 99.5 FL (80.0-100.0) Mean Corpuscular Hemoglobin 34.2 PG (27.0-34.0) 34.8 PG (27.0-34.0) Mean Corpuscular Hemoglobin Concent 34.4 % (32.0-36.0) 35.0 % (32.0-36.0) Red Cell Distribution Width 12.6 % (11.6-17.2) 12.9 % (11.6-17.2) Platelet Count 172 TH/MM3 (150-450) 220 TH/MM3 (150-450) Mean Platelet Volume 9.1 FL (7.0-11.0) 10.3 FL (7.0-11.0) Neutrophils (%) (Auto) 77.4 % (16.0-70.0) 78.3 % (16.0-70.0) Lymphocytes (%) (Auto) 14.5 % (9.0-44.0) 12.6 % (9.0-44.0) Monocytes (%) (Auto) 6.4 % (0.0-8.0) 6.4 % (0.0-8.0) Eosinophils (%) (Auto) 1.4 % (0.0-4.0) 1.9 % (0.0-4.0) Basophils (%) (Auto) 0.3 % (0.0-2.0) 0.8 % (0.0-2.0) Neutrophils # (Auto) 9.4 TH/MM3 (1.8-7.7) 13.5 TH/MM3 (1.8-7.7) Lymphocytes # (Auto) 1.8 TH/MM3 (1.0-4.8) 2.2 TH/MM3 (1.0-4.8) Monocytes # (Auto) 0.8 TH/MM3 (0-0.9) 1.1 TH/MM3 (0-0.9) Eosinophils # (Auto) 0.2 TH/MM3 (0-0.4) 0.3 TH/MM3 (0-0.4) Basophils # (Auto) 0.0 TH/MM3 (0-0.2) 0.1 TH/MM3 (0-0.2) CBC Comment AUTO DIFF AUTO DIFF Differential Comment AUTO DIFF CONFIRMED AUTO DIFF CONFIRMED Prothrombin Time 12.2 SEC (9.8-11.6) 12.0 SEC (9.8-11.6) Prothromb Time International Ratio 1.2 RATIO 1.2 RATIO Blood Urea Nitrogen 28 MG/DL (7-18) 18 MG/DL (7-18) Creatinine 1.04 MG/DL (0.50-1.00) 1.05 MG/DL (0.50-1.00) Random Glucose 90 MG/DL (74-106) 85 MG/DL (74-106) Total Protein 5.2 GM/DL (6.4-8.2) 6.2 GM/DL (6.4-8.2) Albumin 1.8 GM/DL (3.4-5.0) 1.9 GM/DL (3.4-5.0) Calcium Level 7.7 MG/DL (8.5-10.1) 8.5 MG/DL (8.5-10.1) Alkaline Phosphatase 81 U/L (45-117) 88 U/L (45-117) Aspartate Amino Transf (AST/SGOT) 23 U/L (15-37) 24 U/L (15-37) Alanine Aminotransferase (ALT/SGPT) 9 U/L (10-53) 10 U/L (10-53) Total Bilirubin 0.5 MG/DL (0.2-1.0) 0.6 MG/DL (0.2-1.0) Sodium Level 143 MEQ/L (136-145) 143 MEQ/L (136-145) Potassium Level 2.9 MEQ/L (3.5-5.1) 3.6 MEQ/L (3.5-5.1) Chloride Level 106 MEQ/L (98-107) 105 MEQ/L (98-107) Carbon Dioxide Level 30.5 MEQ/L (21.0-32.0) 30.0 MEQ/L (21.0-32.0) Anion Gap 7 MEQ/L (5-15) 8 MEQ/L (5-15) Estimat Glomerular Filtration Rate 50 ML/MIN (>89) 50 ML/MIN (>89) Magnesium Level 1.6 MG/DL (1.5-2.5) 1.5 MG/DL (1.5-2.5) Toxic Vacuolation PRESENT (NONE SEEN) Platelet Estimate NORMAL (NORMAL) Platelet Morphology Comment NORMAL (NORMAL) Iron Level 30 MCG/DL (50-170) Total Iron Binding Capacity 214 MCG/DL (250-450) Percent Iron Saturation 14.0 % (20-50) Ferritin 473 NG/ML (8-252) Vitamin B12 Level 1180 PG/ML (193-986) Folate GREATER THAN 20.0 NG/ML Result Diagram: 05/18/1761705/18/17617 Microbiology Microbiology Date/Time Source Procedure Growth Status 05/18/17 04:10 Stool Stool Stool Occult Blood (LEA) - Final HEMOCCULT NEGATIVE Complete Procedures 04/30/2017-intubated 04/30/2017-central line placement 04/30/2017-right femoral arterial line [id number] 05/06/2017-right 8 [place] pigtail chest tube placement 05/09/2017-medically extubated 05/14/2017-chest tube removed . Assessment and Plan Disease Oriented Problem List: (1) Pneumonia (2) Sepsis (3) Hypokalemia (4) GI bleed (5) Chronic anticoagulation (6) Atrial fibrillation Symptom Scale: (1) Decreased oral intake 0-10 Scale: Unable to quantify (2) Debility 0-10 Scale: Unable to quantify Pertinent Non-Medical Issues Psychosocial:Patient is originally from [place]. She moved to [place] 6 years ago after he got sick and she wanted to be closer to her children. Patient's 3 years ago and her daughter and grandson moved in to live with her. Patient had 3 adult children, 2 sons and 1 daughter recently . . Unfortunately patient's daughter was also admitted during this hospitalization and she . 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 Spiritual: No church affiliation Legal: Patient states that she has a living will and DURABLE POWER OF DAY SPA MANAGER- son he has copies Ethical issues impacting care: None identified at this time . Important Contacts Son Jeremy [id number]-[phone] . Prognosis Mrs. Le is a 86-year-old with a past medical history of coronary artery disease, PCI stents 5, hypertension, CHF chronic atrial fibrillation, and pacemaker placement. Patient presented to the ER on 04/29/2017 with complaints of cough, chest pain and dyspnea over the past week. At time of admission patient's daughter was also hospitalized in the ICU with staph aureus pneumonia , influenza and septic shock and unfortunately patient's daughter during this hospitalization. Clinical course complicated with acute respiratory failure requiring intubation, MSSA bacteremia, pneumonia, influenza , low hemoglobin, decreased oral intake and grief associated with loss of her daughter. Given ongoing comorbidities patient remains at risk for further complications, deterioration and decline. . Code Status: Full Code Plan PLAN: Legal decision maker: Patient is able to participate in medical decision making. In the event that she is incapacitated patient states that she has her son Jeremy Le as her durable power of instrumentation supervisor. Goals: Aggressive CODE STATUS: Full Code Discussed advance directives and patient`s son admitted that patient has a living will and has told him that if intubation is only for a short time she is agreeable to that but if the medical team tells him that the prognosis is poor, then it will not be done or he will compassionately withdraw patient from life support. Patient and son are hoping that she will improve with rehabilitation. Son concerned that patient may need to be followed at home. Encouraged them to talk to the case supervisor or clinical social work therapist who will be assigned to patient at [facility]. Patient and son appreciative of palliative visit. SYMPTOMS: * Decreased oral intake: Patient endorsing poor appetite. Currently on a mechanical soft heart healthy diet, with nectar thick fluids. Patient has Ensure TID and was started on Megace 400mg daily, multivitamin daily. Patient has been consuming 10-100% for breakfast, 0 -100% lunch and 0-50% dinner. May benefit from dietitian consult. Patient reporting that she ate 50% of her breakfast but did not eat her lunch. continue to monitor intake. * Debility: Progressive. Most likely from prolonged hospitalization. PT recommended physical therapy at rehab. No recommendations at this time Palliative care will continue to follow the patient during hospital course as condition evolves, to assist patient/decision-maker with understanding of their medical conditions, weighing benefits/burdens of treatment options, for clarification of goals of treatment. Additionally will assist with any symptoms of palliative concern Attestation To help prompt me to consider important information that might be impacting today's encounter and assessment, information from prior notes written by myself or my colleagues may have been "brought forward" into today's note. My signature on this note, however, is an attestation that I personally performed the exam, history, and/or decision-making noted today, and, unless otherwise indicated, the interactions with patient, family, and staff as well as the review of records all occurred today. I also attest that the listed assessment and stated plan reflect my best clinical judgment today based on the combination of historical information, prior notes, and today's exam/ interactions. When time spent is documented, it refers only to time spent today by the signer, or if indicated, combined time spent today by collaborating physician/nurse practitioner. Arjun Rowland May 18, 2017 15:17
== END 2017-05-18 15:42 | DRG 870 ==
LOC: NEPC 08:49 → NEDA 10:56 → HIME 21:10 → N04B 05-12 19:12
PROVIDERS: ADMIT Hospitalist; ATTEND Hospitalist
PROC: 5A1955Z Respiratory Ventilation, Greater than 96 Consecutive Hours (ICD-10-PCS; principal; 2017-04-30)
PROC: 04HY32Z Insertion of Monitoring Device into Lower Artery, Percutaneous Approach (ICD-10-PCS; 2017-04-30)
PROC: 0BH17EZ Insertion of Endotracheal Airway into Trachea, Via Natural or Artificial Opening (ICD-10-PCS; 2017-04-30)
PROC: 02HV33Z Insertion of Infusion Device into Superior Vena Cava, Percutaneous Approach (ICD-10-PCS; 2017-04-30)
PROC: 0W9930Z Drainage of Right Pleural Cavity with Drainage Device, Percutaneous Approach (ICD-10-PCS; 2017-05-06)
DX: A41.01 Sepsis due to Methicillin susceptible Staphylococcus aureus (principal); R65.21 Severe sepsis with septic shock; N17.0 Acute kidney failure with tubular necrosis; J93.0 Spontaneous tension pneumothorax; J96.01 Acute respiratory failure with hypoxia; J96.02 Acute respiratory failure with hypercapnia; G93.41 Metabolic encephalopathy; J15.211 Pneumonia due to Methicillin susceptible Staphylococcus aureus; I11.0 Hypertensive heart disease with heart failure; E87.2 Acidosis; B37.41 Candidal cystitis and urethritis; J10.08 Influenza due to other identified influenza virus with other specified pneumonia; J10.01 Influenza due to other identified influenza virus with the same other identified influenza virus pneumonia; E46 Unspecified protein-calorie malnutrition; E87.0 Hyperosmolality and hypernatremia; I50.9 Heart failure, unspecified; I48.2 Chronic atrial fibrillation; M19.90 Unspecified osteoarthritis, unspecified site; E78.5 Hyperlipidemia, unspecified; I25.10 Atherosclerotic heart disease of native coronary artery without angina pectoris; Z96.653 Presence of artificial knee joint, bilateral; H91.10 Presbycusis, unspecified ear; E87.6 Hypokalemia; F43.20 Adjustment disorder, unspecified; J98.01 Acute bronchospasm; B95.61 Methicillin susceptible Staphylococcus aureus infection as the cause of diseases classified elsewhere; D64.9 Anemia, unspecified; E83.42 Hypomagnesemia; E86.0 Dehydration; R00.0 Tachycardia, unspecified; R19.7 Diarrhea, unspecified; E83.51 Hypocalcemia; Z63.4 Disappearance and death of family member; Z79.01 Long term (current) use of anticoagulants; Z95.0 Presence of cardiac pacemaker; Z95.5 Presence of coronary angioplasty implant and graft
CPT/HCPCS: 32551; 36556; 36600; 71045; 76937; 80048; 80053; 80202; 81001; 82272; 82550; 82552; 82565; 82607; 82728; 82746; 82805; 83540; 83550; 83605; 83735; 83880; 84100; 84132; 84484; 85007; 85025; 85027; 85610; 85730; 86403; 86850; 86900; 86901; 86920; 87040; 87070; 87077; 87086; 87106; 87147; 87185; 87186; 87205; 87493; 87633; 93005; 93306; 93970; 94002; 94003; 94150; 94640; 96374; J0360; J0456; J0690; J0696; J1160; J1450; J1650; J1720; J1940; J2060; J2270; J2405; J2543; J2930; J3370; J3475; J3480; J7030; J7040; J7050; J7512; J7613

== ENCOUNTER 2017-06-22 13:02 | Inpatient (IN) | payer MEDICARE ==
[~2017-06-22] VITALS: Ht 154.9 cm; Wt 95.1 kg
[2017-06-22] VITALS (28 sets, daily range): BP systolic 70–156; BP diastolic 37–74; PULSE 60–70; RESP 16–22; TEMP 95.1–98.1; O2SAT 94–100
[~2017-06-22 13:02] MED LIST changes: +ATOR40TA16 PO; +AUGM875T3 PO; +DIFL100T PO; +DILT120C50 PO; +FERR325T18 PO; +FURO20TA PO; -HYDR-3366 PO; +Megestrol Liq PO; -TAMS5CAP PO; +THERTAB15 PO
[2017-06-22] MEDS ORDERED: SODIUM CHLOR 0.9% 1000 ML INJ 1,000 ML IV SCH (13:06)
--- NOTE | 2017-06-22 13:11 | PD ---
HPI Chief Complaint: Lethargic Time Seen by Provider: 13:06 Travel History International Travel<30 days: No Contact w/Intl Traveler<30days: No Traveled to known affect area: No History of Present Illness HPI This patient is brought in from a halfway by paramedics. They were called for altered mental status. She was found to be groggy and lethargic. Also she was found very hypotensive. Blood pressure 60s over 40s. She is not able to provide any useful history or review of systems due to her mental status. She arrives critically ill with hypotension and altered mental status PFSH Past Medical History Hx Anticoagulant Therapy: Yes Arthritis: Yes Atrial Fibrillation: Yes Cancer: No Cardiac Catheterization: Yes (PACEMAKER) Cardiovascular Problems: Yes High Cholesterol: Yes Chest Pain: Yes Diminished Hearing: Yes (HEARING AIDS) Endocrine: No Genitourinary: No Hypertension: Yes Immune Disorder: No Psychiatric: No Reproductive: No Menopausal: Yes : 7 Para: 3 Past Surgical History Appendectomy: Yes Body Medical Devices: CARDIAC STENTS Cardiac Surgery: Yes (PACEMAKER PLACED) Coronary Stent: Yes (X 5) Genitourinary Surgery: Yes (BLADDER SUSPENSION) Hysterectomy: Yes Joint Replacement: Yes (BILATERAL KNEE) Pacemaker: Yes Tonsillectomy: Yes Other Surgery: Yes (BILATERAL BREAST LUMPECTOMY) Social History Alcohol Use: No Tobacco Use: No Substance Use: No Allergies-Medications (Allergen,Severity, Reaction): Coded Allergies: clopidogrel (Unverified Allergy, Mild, Hives, 04/29/17) Iodinated Contrast- Oral and IV Dye (Verified Allergy, Unknown, 04/29/17) Reported Meds & Prescriptions Reported Meds & Active Scripts Active Ferrous Sulfate 325 Mg (65 Mg Iron) Tablet 325 Mg PO DAILY Diflucan (Fluconazole) 100 Mg Tab 100 Mg PO DAILY Augmentin (Amoxicillin-Clavulanate) 875-125 Mg Tab 1 Tab PO BID Furosemide 20 Mg Tab 20 Mg PO BID Thera Tablet (Multivitamin with Folic Acid) 400 Mcg Tablet 1 Tab PO DAILY [Megestrol Liq] 400 MG/10 ML Susp 400 Mg PO DAILY Diltiazem CD 24 HR 120 Mg Caper 120 Mg PO DAILY Reported Atorvastatin (Atorvastatin Calcium) 40 Mg Tab 40 Mg PO HS Centrum (Multiple Vitamins W/ Minerals) 1 Chew 1 Tab CHEW DAILY Coq-10 (Coenzyme Q10 (Ubidecarenone)) 30 Mg Cap 200 Mg PO DAILY Coreg Cr 24 HR (Carvedilol) 80 Mg Cap 80 Mg PO DAILY Potassium Chloride ER (Potassium Chloride) 10 Meq Tab 50 Meq PO DAILY Warfarin 1 Mg Tab 1.5 Mg PO SUN,,TH,SAT Sotalol (Sotalol HCl) 80 Mg Tab 120 Mg PO BID Aspir-81 (Aspirin) 81 Mg Tabdr 81 Mg PO CORONEL, , W, TH, SA Losartan (Losartan Potassium) 25 Mg Tab 50 Mg PO BID Warfarin 3 Mg Tab 2 Mg PO MWF Review of Systems ROS Limitations: Clinical Condition, Altered Mental Status Physical Exam Narrative GENERAL: Elderly lethargic hard of hearing well-developed patient in no apparent distress. SKIN: Focused skin assessment reveals no rash and nodules. Skin is Warm and dry. HEAD: Atraumatic. Normocephalic. EYES: Pupils equal and round. No scleral icterus. No injection or drainage. ENT: No nasal bleeding or discharge. Mucous membranes pink and moist. NECK: Trachea midline. No JVD. No meningeal signs CARDIOVASCULAR: Regular rate and rhythm. No murmur appreciated. RESPIRATORY: No accessory muscle use. Clear to auscultation. Breath sounds equal bilaterally. GASTROINTESTINAL: Abdomen soft, non-tender, nondistended. Hepatic and splenic margins not palpable. MUSCULOSKELETAL: No obvious deformities. No clubbing. No cyanosis. No edema. NEUROLOGICAL: Awake but drowsy and lethargic. No obvious cranial nerve deficits. Motor grossly within normal limits. Normal speech. PSYCHIATRIC: Appropriate mood and affect; insight and judgment reduced . Data Data Last Documented VS Vital Signs Date Time Temp Pulse Resp B/P (MAP) Pulse Ox O2 Delivery O2 Flow Rate FiO2 06/22/17 14:32 97.3 61 22 105/37 98 06/22/17 13:05 Nasal Cannula 2.00 Orders Orders Electrocardiogram (06/22/17 13:06) Complete Blood Count With Diff (06/22/17 13:06) Comprehensive Metabolic Panel (06/22/17 13:06) Prothrombin Time / Inr (Pt) (06/22/17 13:06) Thyroid Stimulating Hormone (06/22/17 13:06) Urinalysis - C+S If Indicated (06/22/17 13:06) Chest, Single Ap (06/22/17 13:06) Blood Glucose (06/22/17 13:06) Ecg Monitoring (06/22/17 13:06) Iv Access Insert/Monitor (06/22/17 13:06) Oximetry (06/22/17 13:06) Sodium Chloride 0.9% Flush (Ns Flush) (06/22/17 13:15) Sodium Chlor 0.9% 1000 Ml Inj (Ns 1000 M (06/22/17 13:06) Sodium Chlor 0.9% 1000 Ml Inj (Ns 1000 M (06/22/17 13:15) Ct Brain W/O Iv Contrast(Rout) (06/22/17 ) Type And Screen (06/22/17 14:03) Ct Abd/Pel W/O Iv Contrast (06/22/17 ) Metronidazole 500 Mg Inj (Flagyl 500 Mg (06/22/17 14:45) Admit Order (Ed Use Only) (06/22/17 14:31) Labs Laboratory Tests Test 06/22/17 13:34 White Blood Count 26.0 TH/MM3 Red Blood Count 1.94 MIL/MM3 Hemoglobin 6.6 GM/DL Hematocrit 19.2 % Mean Corpuscular Volume 98.7 FL Mean Corpuscular Hemoglobin 34.1 PG Mean Corpuscular Hemoglobin Concent 34.5 % Red Cell Distribution Width 16.9 % Platelet Count 204 TH/MM3 Mean Platelet Volume 10.4 FL Neutrophils (%) (Auto) 88.9 % Lymphocytes (%) (Auto) 7.3 % Monocytes (%) (Auto) 2.0 % Eosinophils (%) (Auto) 0.1 % Basophils (%) (Auto) 1.7 % Neutrophils # (Auto) 23.2 TH/MM3 Lymphocytes # (Auto) 1.9 TH/MM3 Monocytes # (Auto) 0.5 TH/MM3 Eosinophils # (Auto) 0.0 TH/MM3 Basophils # (Auto) 0.4 TH/MM3 CBC Comment AUTO DIFF Differential Total Cells Counted 100 Neutrophils % (Manual) 85 % Band Neutrophils % 3 % Lymphocytes % 7 % Monocytes % 3 % Neutrophils # (Manual) 23.4 TH/MM3 Metamyelocytes 2 % Nucleated Red Blood Cells 1 /100 WBC Differential Comment FINAL DIFF MANUAL Platelet Estimate NORMAL Platelet Morphology Comment NORMAL Blood Urea Nitrogen 87 MG/DL Creatinine 2.00 MG/DL Random Glucose 129 MG/DL Total Protein 4.7 GM/DL Albumin 1.7 GM/DL Calcium Level 7.6 MG/DL Alkaline Phosphatase 47 U/L Aspartate Amino Transf (AST/SGOT) 404 U/L Alanine Aminotransferase (ALT/SGPT) 293 U/L Total Bilirubin 0.5 MG/DL Sodium Level 139 MEQ/L Potassium Level 4.5 MEQ/L Chloride Level 108 MEQ/L Carbon Dioxide Level 15.9 MEQ/L Anion Gap 15 MEQ/L Estimat Glomerular Filtration Rate 24 ML/MIN Thyroid Stimulating Hormone 3rd Gen 3.950 uIU/ML MDM Medical Decision Making Medical Screen Exam Complete: Yes Emergency Medical Condition: Yes Medical Record Reviewed: Yes Differential Diagnosis Intracranial hemorrhage, medication side effect, UTI, pneumonia Narrative Course I have reviewed the patient's electronic medical record. I reviewed her halfway paperwork including medication lists and problem lists. I reviewed her physicians last evaluation which was 2 weeks ago She is full code 2 IVs placed and 2 L IV normal saline bolus given Extensive workup ordered Blood pressure remains tenuous in the 70s systolic Rectal exam reveals black tarry Hemoccult positive stool Patient has GI bleed CBC is come back with hemoglobin of 6.6 suggesting hemorrhagic shock INR still pending CENTRAL VENOUS LINE: The site was prepped with Betadine and sterilely draped. It was infiltrated with 1% lidocaine plain. The deep vein was cannulated using normal Seldinger technique. A triple lumen central line was placed in the right internal jugular vein site and secured with central line dressing. The site was sterilely dressed. The patient tolerated the procedure well. I have ordered a postprocedure chest x-ray I reviewed her initial chest x-ray which was negative but this was before the central line Metabolic studies are reviewed. BUN is quite high consistent with GI bleed and she is dehydrated as well Patient critically ill. Multiple rechecks needed. I reviewed with public health representative Dr. Chavez who is now evaluated the patient and admitting to intensive care at the [facility] He has ordered [facility] Narrative Aggregate critical care time was 80 minutes. Time to perform other separately billable procedures was not included in the critical care time. My time did not include minutes spent treating any other patients simultaneously or on activities that did not directly contribute to the patient's treatment. The services I provided to this patient were to treat and/or prevent clinically significant deterioration that could result in: Hypovolemic shock,intracranial hemorrhage, permanent neurologic deficit I provided critical care services requiring my management, as noted below: Chart data review, documentation time, medication orders and management, vital sign assessments/reviewing monitor data, ordering and reviewing lab tests, ordering and interpreting/reviewing x-rays and diagnostic studies, care of the patient and discussion of the patient with the admitting physicians. Diagnosis Primary Impression: Hemorrhagic shock Additional Impressions: GI bleed Qualified Codes: K92.2 - Gastrointestinal hemorrhage, unspecified Chronic anticoagulation Dehydration, severe Admitting Information Admitting Physician Requests: Admit Ja Biggs MD June 22, 2017 13:11
[2017-06-22] MEDS ORDERED: SODIUM CHLOR 0.9% 1000 ML INJ 1,000 ML IV ONE (13:15)
--- NOTE | 2017-06-22 13:32 | RADRPT ---
EXAM DATE/TIME: 06/22/2017 13:09 [facility] COMPARISON: CHEST SINGLE AP, May 13, 2017, 16:39. INDICATIONS : Syncope and short of breath MEDICAL HISTORY : Hypercholesterolemia. Arthritis. Chest pain. Afib. HTN. Dyspnea SURGICAL HISTORY : Tonsillectomy.Pacemaker. Coronary artery stent.Cardiac cath. ENCOUNTER: Initial ACUITY: 1 day PAIN SCORE: Non-responsive. LOCATION: Bilateral chest FINDINGS: No new focal pleural or parenchymal opacities. Resolution of mild pleural-parenchymal opacities in th e right lung base. Cardiomediastinal contours are stable. There is a stable dual lead pacemaker in pl hugo. Bony thorax is intact. CONCLUSION: 1. No acute cardiopulmonary disease. Franko Benson MD on June 22, 2017 at 13:29 Board Certified Radiologist. This report was verified electronically.
[2017-06-22 13:52] LABS: AUTOMATED NEUTROPHIL # 23.2 TH/MM3 (1.8-7.7); BASOPHIL # 0.4 TH/MM3 (0-0.2); BASOPHIL % 1.7 % (0.0-2.0); EOSINOPHIL % 0.1 % (0.0-4.0); LYMPH % 7.3 % (9.0-44.0); LYMPHOCYTE # 1.9 TH/MM3 (1.0-4.8); MEAN CELL VOLUME 98.7 FL (80.0-100.0); MEAN CORPUSCULAR HEMOGLOBIN 34.1 PG (27.0-34.0); MEAN CORPUSCULAR HGB CONC 34.5 % (32.0-36.0); MEAN PLATELET VOLUME 10.4 FL (7.0-11.0); MONOCYTE # 0.5 TH/MM3 (0-0.9); NEUT % 88.9 % (16.0-70.0); PLATELET COUNT 204 TH/MM3 (150-450); RED BLOOD COUNT 1.94 MIL/MM3 (4.00-5.30); RED CELL DISTRIBUTION WIDTH 16.9 % (11.6-17.2)
[2017-06-22 13:56] LABS: HEMATOCRIT 19.2 % (35.0-46.0); HEMOGLOBIN 6.6 GM/DL (11.6-15.3)
[2017-06-22 14:08] LABS: CHLORIDE 108 MEQ/L (98-107); SODIUM (NA) 139 MEQ/L (136-145)
[2017-06-22 14:11] LABS: CALCIUM 7.6 MG/DL (8.5-10.1)
[2017-06-22 14:12] LABS: ALBUMIN 1.7 GM/DL (3.4-5.0); BICARBONATE 15.9 MEQ/L (21.0-32.0); BLOOD UREA NITROGEN 87 MG/DL (7-18); GLUCOSE,RANDOM 129 MG/DL (74-106)
[2017-06-22 14:15] LABS: ALT (GPT) 293 U/L (10-53); AST (GOT) 404 U/L (15-37); GLOMERULAR FILTRATION RATE 24 ML/MIN (>89)
[2017-06-22 14:16] LABS: TOTAL BILIRUBIN ADULT 0.5 MG/DL (0.2-1.0); TOTAL PROTEIN 4.7 GM/DL (6.4-8.2)
[2017-06-22 14:18] LABS: ALKALINE PHOSPHATASE 47 U/L (45-117)
[2017-06-22] MEDS ORDERED: CHLORHEXIDINE GLUCONATE 2 % 1 PACK (2 CLOTHS) TOP PRN (14:45)
[2017-06-22] MEDS ORDERED: metroNIDAZOLE 500 MG INJ 100 ML IV ONE (14:45)
[2017-06-22] MEDS ORDERED: NURSING INFORMATION XX SCH (14:45)
[2017-06-22] MEDS ORDERED: RESP: ALBUTEROL 2.5 MG/IPRATROPIUM 0.5 MG NEB (PRN) INH (14:45)
[2017-06-22 14:51] LABS: BANDS 3 % (0-6); CORRECTED NUCLEATED RBC 1 /100 WBC (0-0); LYMPHOCYTES 7 % (9-44); METAMYELOCYTES 2 % (0-1); MONOCYTES 3 % (0-8); NEUTROPHIL # MANUAL DIFF 23.4 TH/MM3 (1.8-7.7); NUCLEATED RED BLOOD CELL 1 (0-0); POLYS (SEG NEUTROPHILS) 85 % (16-70)
--- NOTE | 2017-06-22 14:57 | HHI.HP ---
HPI Service Critical Care Medicine Primary Care Physician No Primary Care Physician Admission Diagnosis hemorrhagic shock, gi bleed, anemia, anticoagulated Diagnosis: Chief Complaint: fatigue Travel History International Travel<30 Days: No Contact w/Intl Traveler <30 Da: No Traveled to Known Affected Are: No History of Present Illness This is a 87yF from [facility] who has history of afib on coumadin and presents with fatigue, found to have active GI bleeding with hypotension (sbp 60s). hgb 6.6, altered mental status. denies chest pain, sob, abdominal pain. patient is altered and full history unavailable. ROS otherwise negative. given 2L crystalloid and 2 units emergency release blood. bp improved slightly. recent history of c. diff, wbc elevated, hypothermic. Review of Systems ROS Limitations: Clinical Condition, Altered Mental Status Respiratory: DENIES: Shortness of breath Cardiovascular: DENIES: Chest pain Gastrointestinal: COMPLAINS OF: Black stools, Diarrhea, DENIES: Abdominal pain , Nausea, Vomiting Past Family Social History Allergies: Coded Allergies: clopidogrel (Unverified Allergy, Mild, Hives, 04/29/17) Iodinated Contrast- Oral and IV Dye (Verified Allergy, Unknown, 04/29/17) Past Medical History Atrial fibrillation on Coumadin therapy Hyperlipidemia Hearing aids with diminished hearing Hypertension Past Surgical History Cardiac stents Appendectomy Pacemaker Bladder suspension Hysterectomy Bilateral total knee arthroplasty Tonsillectomy Bilateral breast lumpectomy Reported Medications Ferrous Sulfate 325 Mg (65 Mg Iron) Tablet 325 Mg PO DAILY Diflucan (Fluconazole) 100 Mg Tab 100 Mg PO DAILY Augmentin (Amoxicillin-Clavulanate) 875-125 Mg Tab 1 Tab PO BID Furosemide 20 Mg Tab 20 Mg PO BID Thera Tablet (Multivitamin with Folic Acid) 400 Mcg Tablet 1 Tab PO DAILY [Megestrol Liq] 400 MG/10 ML Susp 400 Mg PO DAILY Diltiazem CD 24 HR 120 Mg Caper 120 Mg PO DAILY Atorvastatin (Atorvastatin Calcium) 40 Mg Tab 40 Mg PO HS Centrum (Multiple Vitamins W/ Minerals) 1 Chew 1 Tab CHEW DAILY Coq-10 (Coenzyme Q10 (Ubidecarenone)) 30 Mg Cap 200 Mg PO DAILY Coreg Cr 24 HR (Carvedilol) 80 Mg Cap 80 Mg PO DAILY Potassium Chloride ER (Potassium Chloride) 10 Meq Tab 50 Meq PO DAILY Warfarin 1 Mg Tab 1.5 Mg PO SUN,TUES,TH,SAT Sotalol (Sotalol HCl) 80 Mg Tab 120 Mg PO BID Aspir-81 (Aspirin) 81 Mg Tabdr 81 Mg PO CORONEL, , W, , SA Losartan (Losartan Potassium) 25 Mg Tab 50 Mg PO BID Warfarin 3 Mg Tab 2 Mg PO MWF Active Ordered Medications See MAR Family History Reviewed and found to be noncontributory to her acute illness Social History Resides in a fci. Denies EtOH, tobacco, drugs of abuse. Physical Exam Vital Signs Vital Signs Date Time Temp Pulse Resp B/P (MAP) Pulse Ox O2 Delivery O2 Flow Rate FiO2 06/22/17 14:42 97.3 60 20 97/43 98 06/22/17 14:32 97.3 61 22 105/37 98 06/22/17 14:18 97.1 60 22 71/40 97 06/22/17 13:05 97.1 65 16 101/48 (65) 100 06/22/17 13:05 18 100 Nasal Cannula 2.00 Physical Exam GENERAL: Frail elderly female, lying in bed, in distress. Significant pallor. HEENT: Normocephalic. Atraumatic. Pupils equal, round, reactive, conjugate. Mucous membranes are moist. Conjunctive are pale NECK: Trachea is midline. There is no JVD. Right IJ triple lumen catheter site is clean dry and intact CHEST: Equal chest rise. Nasal cannula oxygen. CARDIOVASCULAR: Normal rate in 60s, irregularly irregular rhythm. Appears A. fib by telemetry. Hypotensive with systolic in the 80s on my evaluation. ABDOMEN: Soft, nontender, nondistended. No guarding. MUSCULOSKELETAL: Pulses 2+. No peripheral edema. Poor capillary refill. Cool and poorly perfused NEUROLOGICAL: RASS -1. Arouses and follows commands. No focal deficits. Laboratory Laboratory Tests Test 06/22/17 13:34 White Blood Count 26.0 Red Blood Count 1.94 Hemoglobin 6.6 Hematocrit 19.2 Mean Corpuscular Volume 98.7 Mean Corpuscular Hemoglobin 34.1 Mean Corpuscular Hemoglobin Concent 34.5 Red Cell Distribution Width 16.9 Platelet Count 204 Mean Platelet Volume 10.4 Neutrophils (%) (Auto) 88.9 Lymphocytes (%) (Auto) 7.3 Monocytes (%) (Auto) 2.0 Eosinophils (%) (Auto) 0.1 Basophils (%) (Auto) 1.7 Neutrophils # (Auto) 23.2 Lymphocytes # (Auto) 1.9 Monocytes # (Auto) 0.5 Eosinophils # (Auto) 0.0 Basophils # (Auto) 0.4 CBC Comment AUTO DIFF Blood Urea Nitrogen 87 Creatinine 2.00 Random Glucose 129 Total Protein 4.7 Albumin 1.7 Calcium Level 7.6 Alkaline Phosphatase 47 Aspartate Amino Transf (AST/SGOT) 404 Alanine Aminotransferase (ALT/SGPT) 293 Total Bilirubin 0.5 Sodium Level 139 Potassium Level 4.5 Chloride Level 108 Carbon Dioxide Level 15.9 Anion Gap 15 Estimat Glomerular Filtration Rate 24 Thyroid Stimulating Hormone 3rd Gen 3.950 Result Diagram: 06/22/17 1334 06/22/17 1334 Imaging Last Impressions Chest X-Ray 06/22/17 1306 Signed Impressions: Service Date/Time: Thursday, June 22, 2017 13:09 - CONCLUSION: 1. No acute cardiopulmonary disease. Franko Benson MD Head CT 06/22/17 0000 Signed Impressions: Service Date/Time: Thursday, June 22, 2017 16:07 - CONCLUSION: Left mastoid fluid. Joao Fontaine MD Abdomen/Pelvis CT 06/22/17 0000 Signed Impressions: Service Date/Time: Thursday, June 22, 2017 16:10 - CONCLUSION: Bilateral nonobstructing renal calculi. Moderate right hydronephrosis and hydroureter identified without obvious ureteral stone. There is no perirectal edema and a moderate amount of stool in the rectosigmoid and mild bowel wall thickening involving the anorectal region suggesting proctitis. Joao Fontaine MD Septic Shock Reassessment Septic shock perfusion: reassessment completed Caprini VTE Risk Assessment Caprini VTE Risk Assessment: Mod/High Risk (score >= 2) VTE Pharm Contraindication: Hemorrhage Caprini Risk Assessment Model Point Value = 1 Point Value = 2 Point Value = 3 Point Value = 5 Age 41-60 Minor surgery BMI > 25 kg/m2 Swollen legs Varicose veins or History of unexplained or recurrent spontaneous Oral contraceptives or hormone replacement Sepsis (< 1 month) Serious lung disease, including pneumonia (< 1 month) Abnormal pulmonary function Acute myocardial infarction Congestive heart failure (< 1 month) History of inflammatory bowel disease Medical patient at bed rest Age 61-74 Arthroscopic surgery Major open surgery (> 45 min) Laparoscopic surgery (> 45 min) Malignancy Confined to bed (> 72 hours) Immobilizing plaster cast Central venous access Age >= 75 History of VTE Family history of VTE Factor V Leiden Prothrombin [id number] Lupus anticoagulant Anticardiolipin antibodies Elevated serum homocysteine Heparin-induced thrombocytopenia Other congenital or acquired thrombophilia Stroke (< 1 month) Elective arthroplasty Hip, pelvis, or leg fracture Acute spinal cord injury (< 1 month) Prophylaxis Regimen Total Risk Factor Score Risk Level Prophylaxis Regimen 0-1 Low Early ambulation 2 Moderate Order ONE of the following: *Sequential Compression Device (SCD) *Heparin 5000 units SQ BID 3-4 Higher Order ONE of the following medications: *Heparin 5000 units SQ TID *Enoxaparin/Lovenox 40 mg SQ daily (WT < 150 kg, CrCl > 30 mL/min) *Enoxaparin/Lovenox 30 mg SQ daily (WT < 150 kg, CrCl > 10-29 mL/min) *Enoxaparin/Lovenox 30 mg SQ BID (WT < 150 kg, CrCl > 30 mL/min) AND/OR *Sequential Compression Device (SCD) 5 or more Highest Order ONE of the following medications: *Heparin 5000 units SQ TID (Preferred with Epidurals) *Enoxaparin/Lovenox 40 mg SQ daily (WT < 150 kg, CrCl > 30 mL/min) *Enoxaparin/Lovenox 30 mg SQ daily (WT < 150 kg, CrCl > 10-29 mL/min) *Enoxaparin/Lovenox 30 mg SQ BID (WT < 150 kg, CrCl > 30 mL/min) AND *Sequential Compression Device (SCD) Assessment and Plan Assessment and Plan Assessment: 87-year-old female with recent course suggesting C. difficile colitis who presents with significant Coumadin coagulopathy and an INR greater than 11 as well as active GI bleeding and associated secondary multisystem organ failure including acute kidney injury, shock liver, and hemorrhagic shock. Will resuscitate with balance blood product administration. Ordered IV prothrombin complex concentrates. Will additionally give FFP for volume resuscitation. Very critically ill and all organ systems are injured. ER physician had long discussion with patient's son and medical decision maker and per documentation as well as his verbal agreement, the patient is DNR. Will provide supportive care, but she may not survive this illness given her multiple acute on chronic medical problems. Plan by systems: Neurologic: Acute metabolic encephalopathy Uremic encephalopathy Frequent neurochecks Avoid long-acting sedation Respiratory: Wean oxygen by nasal cannula for goal SPO2 greater than 90% Aggressive pulmonary toilet Cardiovascular: Hemorrhagic shock Atrial fibrillation Balanced blood product resuscitation Hold and a coagulation given active bleeding Renal: Acute kidney injury Right-sided hydronephrosis Obstructive uropathy Place Dangelo catheter Have discussed the case with interventional radiology and they recommend reversing anticoagulation, placing Dangelo, correcting shock, and repeating renal ultrasound in the morning. Patient has many more life-threatening acute medical problems at this point than her right hydronephrosis Acute kidney injury is likely multifactorial including hemorrhagic shock, obstructive hydronephrosis, anemia -- Strict I/Os FEN/GI: Severe acute protein calorie malnutrition Recent history of C. difficile colitis GI bleed Lactic acidosis Shock liver IV twice daily PPI N.p.o. GI consult IV empiric antibiotics as below Resend C. difficile sample trend lactates Heme/ID: Anemia secondary to acute blood loss Severe coagulopathy secondary to Coumadin toxicity Recent C. difficile colitis IV Flagyl 4 units PRBC stat 4 units FFP stat K [facility] Trend H&H Trend INR resend stool C. difficile Endocrine: Hyperglycemia of critical illness -- SSI, medium scale, every 6 Prophylaxis: GI Prophylaxis IV twice daily PPI DVT Prophylaxis -- SCDs Holding pharmacologic DVT prophylaxis given acute bleeding Lines: 06/22 right IJ triple-lumen catheter We will Place Dangelo catheter Dispo: Admit ICU. Very critically ill. Agree with making the patient DNR. This patient remains critically ill with one or more organ systems which are or may become a threat to life. I have spent in excess of 77 minutes discontinuously in the care and management of this patient. This time is exclusive of procedures, and includes, but is not limited to, evaluation of the patient, review of the medical record, discussions with family, consultants, nursing staff, or respiratory therapy, and documentation in the medical record. Felipe Calabrese MD June 22, 2017 14:57
[2017-06-22 15:08] LABS: PROTHROMBIN TIME - PATIENT 111.1 SEC (9.8-11.6)
[2017-06-22 15:17] LABS: INTERNATIONAL NORMALIZED RATIO 11.2 RATIO
[2017-06-22] MEDS ORDERED: CALCIUM CHLORIDE 10% SOLN 1 GRAM/10 ML SYR IV PUSH ONE (15:30)
[2017-06-22] MEDS ORDERED: [UNRECOGNIZED DRUG - OTHER] IV ONE (15:30)
[2017-06-22] MEDS ORDERED: SODIUM CHLOR 0.9% 250 ML INJ 250 ML IV ONE ×2 (15:30→16:15)
--- NOTE | 2017-06-22 15:36 | RADRPT ---
EXAM DATE/TIME: 06/22/2017 15:22 [facility] COMPARISON: CHEST SINGLE AP, June 22, 2017, 13:09. INDICATIONS : Post central line placement. MEDICAL HISTORY : Hypercholesterolemia. Arthritis. Chest pain. Afib. HTN. Dyspnea SURGICAL HISTORY : Tonsillectomy.Pacemaker. Coronary artery stent.Cardiac cath. ENCOUNTER: Subsequent ACUITY: 1 day PAIN SCORE: 0/10 LOCATION: Bilateral chest FINDINGS: Interval placement of right IJ central line with tip near the cavoatrial junction. No new focal pleur al or parenchymal opacities. No significant pneumothorax. Cardiomediastinal contours are stable. Mary Grace julián of exam is unchanged. CONCLUSION: 1. Right IJ central line in good position without pneumothorax. Franko Benson MD on June 22, 2017 at 15:33 Board Certified Radiologist. This report was verified electronically.
--- NOTE | 2017-06-22 16:39 | RADRPT ---
EXAM DATE/TIME: 06/22/2017 16:10 [facility] COMPARISON: CT ABDOMEN & PELVIS W/O CONTRAST, December 31, 2016, 13:07. INDICATIONS : Abdominal pain. Lethargic. Hypotensive. WBC = 26.0 ORAL CONTRAST: No oral contrast ingested. RADIATION DOSE: 23.35 CTDIvol (mGy) MEDICAL HISTORY : Cardiovascular disease. Hypertension. SURGICAL HISTORY : Pacemaker. Hysterectomy.Coronary artery stent. ENCOUNTER: Initial ACUITY: 1 day PAIN SCALE: 4/10 LOCATION: Abdomen TECHNIQUE: Volumetric scanning of the abdomen and pelvis was performed. Using automated exposure control and ad justment of the mA and/or kV according to patient size, radiation dose was kept as low as reasonably achievable to obtain optimal diagnostic quality images. DICOM format image data is available electro nically for review and comparison. FINDINGS: Extensive atherosclerotic calcifications of the aorta and branches identified. There is focal ectasia of the infrarenal abdominal aorta measuring 2.2 x 1.9 cm in transverse and AP dimension on axial nora ge 40. Gallbladder, spleen, pancreas, adrenals are unchanged. Nonobstructing 2 mm upper pole left von al calculus. Urinary bladder is moderately distended. There are 2 nonobstructing lower pole right von al calculi measuring approximately 2 mm, and a punctate middle pole calculus. There is moderate hydro nephrosis and hydroureter on the right. There are no obvious ureteral calculi. New from the previous study is perirectal edema and a moderate amount of stool within the rectosigmoid colon. The left ovar y is prominent in size measuring 4.4 x 2.7 cm in AP and transverse dimension. This is not significant ly changed. CONCLUSION: Bilateral nonobstructing renal calculi. Moderate right hydronephrosis and hydroureter identified with out obvious ureteral stone. There is no perirectal edema and a moderate amount of stool in the rectos igmoid and mild bowel wall thickening involving the anorectal region suggesting proctitis. Joao Fontaine MD on June 22, 2017 at 16:33 Board Certified Radiologist. This report was verified electronically.
--- NOTE | 2017-06-22 16:41 | RADRPT ---
EXAM DATE/TIME: 06/22/2017 16:07 [facility] COMPARISON: No previous studies available for comparison. INDICATIONS : Altered mental status. Lethargic. RADIATION DOSE: 50.03 CTDIvol (mGy) MEDICAL HISTORY : Hypertension. Cardiovascular disease SURGICAL HISTORY : Pacemaker. Hysterectomy.Coronary artery stent. ENCOUNTER: Initial ACUITY: 1 day PAIN SCALE: 0/10 LOCATION: cranial TECHNIQUE: Multiple contiguous axial images were obtained of the head. Using automated exposure control and adj ustment of the mA and/or kV according to patient size, radiation dose was kept as low as reasonably a chievable to obtain optimal diagnostic quality images. DICOM format image data is available electro nically for review and comparison. FINDINGS: No hemorrhage, infarct, or mass. There is partial opacification of left mastoid air cells. No fractur es are seen. CONCLUSION: Left mastoid fluid. Joao Fontaine MD on June 22, 2017 at 16:38 Board Certified Radiologist. This report was verified electronically.
[2017-06-22] MEDS: PANTOPRAZOLE SODIUM 40 MG VIAL IV PUSH SCH (17:04)
[2017-06-22 17:12] LABS: HEMATOCRIT 38.5 % (35.0-46.0)
[2017-06-22 17:22] LABS: HEMOGLOBIN 13.1 GM/DL (11.6-15.3)
[2017-06-22 17:35] LABS: INTERNATIONAL NORMALIZED RATIO 1.3 RATIO; PROTHROMBIN TIME - PATIENT 13.5 SEC (9.8-11.6)
[2017-06-22] MEDS ORDERED: COUM1TAB PO (17:38)
[2017-06-22] MEDS ORDERED: LOSA50TA PO (17:38)
[2017-06-22] MEDS ORDERED: GUAI600T34 PO (17:38)
[2017-06-22] MEDS ORDERED: CARV25TA PO (17:38)
[2017-06-22] MEDS ORDERED: ALPR.25 PO (17:38)
[2017-06-22] MEDS ORDERED: FOLI400T PO (17:38)
[2017-06-22] MEDS ORDERED: PRED10 PO (17:38)
[2017-06-22] MEDS ORDERED: ACET500T13 PO (17:38)
[2017-06-22] MEDS ORDERED: IPRA0.02 NEB (17:38)
[2017-06-22] MEDS ORDERED: GUAI237L PO (17:38)
[2017-06-22] MEDS ORDERED: CO Q50CA PO (17:38)
[2017-06-22] MEDS ORDERED: DIAZ2 PO (17:38)
[2017-06-22] MEDS: SODIUM CHLOR 0.9% 1000 ML INJ 1,000 ML IV SCH ×2 (18:11→19:11)
[2017-06-22 18:34] LABS: HEMATOCRIT 38.9 % (35.0-46.0); HEMOGLOBIN 13.2 GM/DL (11.6-15.3)
[2017-06-22 18:43] LABS: INTERNATIONAL NORMALIZED RATIO 1.4 RATIO; PROTHROMBIN TIME - PATIENT 14.3 SEC (9.8-11.6)
[2017-06-22 19:39] LABS: BACTERIA, URINE MANY /hpf; BILIRUBIN, URINE NEG (NEG); BLOOD, URINE LARGE (NEG); GLUCOSE,URINE NEG (NEG); HYALINE CAST, URINE 6 /lpf (RARE); KETONE, URINE NEG (NEG); NITRITE,URINE NEG (NEG); PH, URINE 5.5 (5.0-8.5); SQUAMOUS EPITHELIAL CELL URINE 51 /hpf (0-5); URINE COLOR YELLOW (YELLW/STRAW); URINE LEUKOCYTE ESTERASE LARGE (NEG); WHITE BLOOD CELL CLUMPS FEW
[2017-06-22] MEDS: metroNIDAZOLE 500 MG INJ 100 ML IV SCH (20:46)
[2017-06-23] VITALS (8 sets, daily range): BP systolic 128–152; BP diastolic 67–76; PULSE 70–112; RESP 18–21; TEMP 98.1–100; O2SAT 93–95
[2017-06-23 00:09] LABS: HEMOGLOBIN 12.5 GM/DL (11.6-15.3)
[2017-06-23] MEDS: PANTOPRAZOLE SODIUM 40 MG VIAL IV PUSH SCH (03:10)
[2017-06-23] MEDS: metroNIDAZOLE 500 MG INJ 100 ML IV SCH ×4 (03:11→21:12)
[2017-06-23] MEDS: CHLORHEXIDINE GLUCONATE 2 % 1 PACK (2 CLOTHS) TOP SCH (03:11)
[2017-06-23 05:18] LABS: HEMATOCRIT 36.8 % (35.0-46.0); HEMOGLOBIN 12.8 GM/DL (11.6-15.3); MEAN CELL VOLUME 86.4 FL (80.0-100.0); MEAN CORPUSCULAR HEMOGLOBIN 30.1 PG (27.0-34.0); MEAN CORPUSCULAR HGB CONC 34.8 % (32.0-36.0); PLATELET COUNT 118 TH/MM3 (150-450); RED BLOOD COUNT 4.26 MIL/MM3 (4.00-5.30); RED CELL DISTRIBUTION WIDTH 17.1 % (11.6-17.2); WHITE BLOOD COUNT 26.6 TH/MM3 (4.0-11.0)
[2017-06-23 05:25] LABS: ALT (GPT) 638 U/L (10-53); AST (GOT) 931 U/L (15-37); BICARBONATE 19.7 MEQ/L (21.0-32.0); BLOOD UREA NITROGEN 74 MG/DL (7-18); CALCIUM 7.5 MG/DL (8.5-10.1); CHLORIDE 114 MEQ/L (98-107); CREATININE 1.39 MG/DL (0.50-1.00); GLOMERULAR FILTRATION RATE 36 ML/MIN (>89); GLUCOSE,RANDOM 101 MG/DL (74-106); INTERNATIONAL NORMALIZED RATIO 1.9 RATIO; PROTHROMBIN TIME - PATIENT 19.4 SEC (9.8-11.6); SODIUM (NA) 147 MEQ/L (136-145)
[2017-06-23 05:27] LABS: ALKALINE PHOSPHATASE 63 U/L (45-117); TOTAL BILIRUBIN ADULT 0.9 MG/DL (0.2-1.0)
[2017-06-23] MEDS: SODIUM CHLOR 0.9% 1000 ML INJ 1,000 ML IV SCH (07:45)
--- NOTE | 2017-06-23 09:08 | RADRPT ---
EXAM DATE/TIME: 06/23/2017 08:07 [facility] COMPARISON: No previous studies available for comparison. INDICATIONS : Obstruction. MEDICAL HISTORY : Cardiovascular disease. Hypertension. Hypercholesterolemia. Atrial Fibrillation. Arthritis. SURGICAL HISTORY : Hysterectomy. Tonsillectomy. Pacemaker. Bladder suspension. Bilateral knee replacement. Appendectom y. Cardiac Catheterization. Coronary Artery Stent x 5. ENCOUNTER: Initial ACUITY: 1 day PAIN SCORE: 0/10 LOCATION: Bilateral flank MEASUREMENTS: RIGHT KIDNEY: 8.8 x 4.3 x 4.5 cm LEFT KIDNEY: 9.9 x 4.7 x 4.8 cm FINDINGS: RIGHT KIDNEY: Renal cortex is normal in thickness and echotexture. No hydronephrosis, stone, or mass. LEFT KIDNEY: Renal cortex is normal in thickness and echotexture. No hydronephrosis, stone, or mass. BLADDER: Dangelo catheter in a nondistended bladder. CONCLUSION: No evidence of hydronephrosis. Rey Randall MD on June 23, 2017 at 9:05 Board Certified Radiologist. This report was verified electronically.
[2017-06-23] MEDS ORDERED: CARVEDILOL 6.25 MG TAB PO ONE (09:45)
[2017-06-23] MEDS ORDERED: SOTALOL HCL 80 MG TAB PO ONE (09:45)
[2017-06-23] MEDS ORDERED: RESP: IPRATROPIUM 0.5 MG/2.5 ML NEB NEB SCH (10:00)
--- NOTE | 2017-06-23 10:00 | HHI.CCPN ---
Subjective Remarks/Hospital Course This is a 87yF from SNF who has history of afib on coumadin and presents with fatigue, found to have active GI bleeding with hypotension (sbp 60s). hgb 6.6, altered mental status. denies chest pain, sob, abdominal pain. patient is altered and full history unavailable. ROS otherwise negative. given 2L crystalloid and 2 units emergency release blood. bp improved slightly. recent history of c. diff, wbc elevated, hypothermic. Subjective 06/23: Currently resting in bed in no acute distress. Transfuse 4 PRBCs and 2 FFP overnight. Remains in normal sinus rhythm. GI consult pending. Objective Vital Signs Date Time Temp Pulse Resp B/P (MAP) Pulse Ox O2 Delivery O2 Flow Rate FiO2 06/23/17 08:09 94 21 06/23/17 04:00 99.5 74 20 140/71 (94) 06/22/17 21:13 Nasal Cannula 1.50 Intake and Output 06/23/17 06/23/17 06/23/17 07:59 15:59 23:59 Output Total 750 ml Balance -750 ml Result Diagram: 06/23/17 0435 06/23/17 0435 Other Results Microbiology Date/Time Source Procedure Growth Status 06/22/17 18:42 Urine Catheterized Urine Urine Culture Pending Received Imaging Last Impressions Renal Ultrasound 06/23/17 0900 Signed Impressions: Service Date/Time: Friday, June 23, 2017 08:07 - CONCLUSION: No evidence of hydronephrosis. Rey Randall MD Chest X-Ray 06/22/17 1306 Signed Impressions: Service Date/Time: Thursday, June 22, 2017 13:09 - CONCLUSION: 1. No acute cardiopulmonary disease. Franko Benson MD Head CT 06/22/17 0000 Signed Impressions: Service Date/Time: Thursday, June 22, 2017 16:07 - CONCLUSION: Left mastoid fluid. Joao Fontaine MD Abdomen/Pelvis CT 06/22/17 0000 Signed Impressions: Service Date/Time: Thursday, June 22, 2017 16:10 - CONCLUSION: Bilateral nonobstructing renal calculi. Moderate right hydronephrosis and hydroureter identified without obvious ureteral stone. There is no perirectal edema and a moderate amount of stool in the rectosigmoid and mild bowel wall thickening involving the anorectal region suggesting proctitis. Joao Fontaine MD Objective Remarks GENERAL: 87-year-old female SKIN: Warm and dry. No rash HEAD: Atraumatic. Normocephalic. EYES: Pupils equal and round. No scleral icterus. No injection or drainage. ENT: No nasal bleeding or discharge. Mucous membranes pink and moist. NECK: Trachea midline. No JVD. Right IJ is clean dry and intact CARDIOVASCULAR: IRR. S1, S2 no S4. Without murmur RESPIRATORY: No accessory muscle use. Clear to auscultation. Breath sounds equal bilaterally. GASTROINTESTINAL: Abdomen soft, non-tender, nondistended. Hypoactive bowel sounds appreciated MUSCULOSKELETAL: Extremities with trace to 1+ bilateral lower external edema. No obvious deformities. NEUROLOGICAL: Awake and alert. No obvious cranial nerve deficits. Motor grossly within normal limits. Five out of 5 muscle strength in the arms and legs. Normal speech. Hard of hearing Urinary Catheter: Yes Assessment to: Continue Dangelo insert reason: Prolonged Immobilization Vascular Central Line Catheter: Yes Assessment to: Continue Date of Insertion: June 22, 2017 Line: Central Venous Catheter Side: Right Location: Internal, Jugular A/P Assessment and Plan Neuro/Psych Acute metabolic encephalopathy -resolving Uremic encephalopathy -resolved Presbycusis Chronic benzodiazepine use CT brain on admission revealed left fluid involving mastoid inflammation. Otherwise negative for acute hemorrhage or CVA Morphine sulfate 1-2 mg every 4 hours as needed pain Frequent neurochecks Avoid long-acting sedation At home on alprazolam 0.5 mg p.o. twice daily Holding acetaminophen due to elevated transaminases Respiratory: History of severe bronchospasm Ipratropium aerosols every 6 hours/home medication will be continued Wean oxygen by nasal cannula for goal SPO2 greater than 90% Status post evaluate Aggressive pulmonary toilet Follow-up chest x-ray in a.m. 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 Previously on 120 mg p.o. twice daily Start carvedilol at 6.25 mg p.o. twice daily. On 25 mg twice daily at home Hold losartan 50 mg daily in light of acute kidney injury Holding diltiazem 120 mg p.o. daily in light of hypertension. Resume clinically indicated Holding atorvastatin 40 mg at night in light of elevated transaminases Echocardiogram 2018 revealed EF 65-70%. No regional motion [place]. Renal: Acute kidney injury Right-sided hydronephrosis Obstructive uropathy Place Dangelo catheter CT abdomen/pelvis 06/22 revealed bilateral hydronephrosis/hydroureter right greater than left. Bilateral nonobstructing stones. Have discussed the case with interventional radiology and they recommend reversing anticoagulation, placing Dangelo, correcting shock, and repeating renal ultrasound in the morning. Patient has many more life-threatening acute medical problems at this point than her right hydronephrosis Repeat ultrasound 06/22 revealed no hydronephrosis Creatinine 2 on admission currently 1.34. -- Strict I/Os Avoid nephrotoxic drugs FEN/GI: Severe acute protein calorie malnutrition Hypoalbuminemia GI bleed Lactic acidosis Shock liver Hypernatremia Hypopotassemia IV pantoprazole 40 mg twice daily N.p.o. GI consult IV empiric antibiotics as below Resend C. difficile sample trend lactates Heme/ID: Anemia secondary to acute blood loss Severe coagulopathy secondary to Coumadin toxicity. Currently 1.9 Recent positive C. difficile colitis History of chronic warfarin use 1 mg p.o. daily Leukocytosis Thrombocytopenia IV vmetronidazole and p.o. vancomycin 4 units PRBC given 06/22. Hemoglobin currently. Than 12 4 units FFP stat. INR 1.9 PCC unavailable Trend H&H Trend INR Warfarin held in light of above Endocrine: Hyperglycemia of critical illness Chronic prednisone use -- SSI, medium scale, every 6 TSH 3.95 Prophylaxis: GI Prophylaxis IV twice daily pantoprazole DVT Prophylaxis -- SCDs Holding pharmacologic DVT prophylaxis given acute bleeding Lines: 06/22 right IJ triple-lumen catheter We will Place Dangelo catheter Level 2 follow-up Lyndon Bailey MD June 23, 2017 10:00
[2017-06-23] MEDS ORDERED: POTASSIUM CHLOR 40 MEQ PREMIX 100 ML IV ONE (10:15)
[2017-06-23] MEDS ORDERED: PILL SPLITTER OTHER PRN (10:15)
[2017-06-23] MEDS ORDERED: FUROSEMIDE 20 MG/2 ML VIAL IV PUSH ONE (10:15)
[2017-06-23] MEDS: RESP: IPRATROPIUM 0.5 MG/2.5 ML NEB NEB SCH ×3 (10:15→21:43)
--- NOTE | 2017-06-23 12:38 | MB ---
cc: Clayton De Leon MD DATE: 06/23/2017 HISTORY OF PRESENT ILLNESS: This is an 89-year-old white female from the SNF who was admitted with hemorrhagic shock, GI bleed, anemia, on anticoagulation. She has a history of atrial fibrillation, on baby aspirin and Coumadin and no acid suppressants. Her blood pressure was found to be in the 60s with hemoglobin of 6.6 on admission with altered mental status. She denied chest pain, shortness of breath, abdominal pain. At this point, she is feeling better after receiving 4 units of packed red blood cells. She tells me she has been experiencing abdominal cramping and diarrhea up to 10 times per day for the past several months, but has not reported this to our office. Here in the hospital, she had melenotic stools and still now passes very small volumes of melena. Stool is firming up according to the nurse. PAST MEDICAL HISTORY: Atrial fibrillation, hyperlipidemia, and hypertension. PAST SURGICAL HISTORY: Coronary artery stents, appendectomy, pacemaker, bladder suspension, hysterectomy, bilateral total knee arthroplasty, tonsillectomy, and bilateral breast lumpectomy. ALLERGIES: CLOPIDOGREL AND IODINATED CONTRAST. MEDICATIONS ON ADMISSION: 1. Ferrous sulfate. 2. Diflucan. 3. Augmentin. 4. Furosemide. 5. Megace. 6. Diltiazem. 7. Atorvastatin. 8. Centrum. 9. CoQ10. 10. Coreg. 11. Potassium chloride. 12. Warfarin. 13. Sotalol. 14. Baby aspirin. 15. Losartan. ____ SOCIAL HISTORY: She resides in a [facility]. She uses no tobacco or alcohol. FAMILY HISTORY: Unremarkable for any processes that contribute to this current gastrointestinal bleed. PHYSICAL EXAMINATION: VITAL SIGNS: Her weight is 82.9, temperature 99.5, blood pressure 140/71, pulse 73, saturation 94% on room air. GENERAL: She is alert. She is fatigued. She is quite hard of hearing. HEENT: She is anicteric. Extraocular motions are intact. LYMPHATICS: I appreciate no submandibular, cervical, supraclavicular, axillary or epitrochlear adenopathy. LUNGS: Somewhat coarse bilaterally. HEART: Regular rate and rhythm with no gross murmur or gallop. ABDOMEN: Good bowel sounds with no appreciable bruit. The abdomen is soft and there is no focal tenderness. No masses or hepatosplenomegaly are noted. EXTREMITIES: There is bilateral pedal edema. No appreciable Dupuytren contractures or palmar erythema. LABORATORY STUDIES: On admission yesterday afternoon, white count 26, hemoglobin 6.6, platelets 204. She received 4 units of packed red blood cells and by yesterday afternoon, hemoglobin was 13.1; last evening, it was 12.5 and this morning it is 12.8. Platelets are down to 118. INR was reported at 11.2 initially with a followup measuring 1.3. Today's INR is 1.9. Sodium today is 147, potassium 3.0, BUN 74, creatinine 1.39, calcium 7.5, AST 931, ALT 638, alkaline phosphatase is 63, total protein 5.0. Albumin 2.0 yesterday. AST was 404 with an ALT of 293. TSH high at 3.95 yesterday. Urinalysis: Large amount of occult blood, many bacteria. Culture pending. Clostridium difficile positive on yesterday's stool specimen collection. IMPRESSION AND RECOMMENDATIONS: 1. Acute gastrointestinal bleed with melena and a marked drop in hemoglobin, though we do not know what her baseline is. Her hemoglobin came up quite significantly after 4 units of packed red blood cells. At this point, the bleeding seems to have stopped and she is only passing very small squirts of dark stool, I suspect this is all leftover from the original bleed. I suspect the baby aspirin has caused an ulcer and the Coumadin had made this bleed more significantly. The aspirin should be stopped. Protonix can be decreased to once per day as studies have shown that once a day dosing is just as good as twice a day dosing. We will treat the Clostridium difficile with oral liquid vancomycin. It is possible that this chronic diarrhea she is experiencing has been related to Clostridium difficile as well. We will start a clear liquid diet. There is no urgent need for any endoscopy at this time as the bleeding seems to have stopped, especially given the stabilized hemoglobin. I will follow along closely. MD GAURI Jimenes/RENEE , 11:47 AM , 12:37 PM [facility]
--- NOTE | 2017-06-23 14:00 | EKG ---
Date Performed: 06/22/2017 Time Performed: 13:13:46 PTAGE: 87 years EKG: Sinus rhythm NONSPECIFIC ST & T-WAVE ABNORMALITY BORDERLINE ECG PREVIOUS TRACING : 05/11/2017 09.46 Compared to previous tracing, AFIB NO LONGER PRESENT DOCTOR: David Narayanan Interpretating Date/Time 06/23/2017 13:57:04
[2017-06-23] MEDS: VANCOMYCIN 500 MG VIAL (FOR ORAL USE ONLY) PO SCH ×3 (14:06→21:11)
[2017-06-23 16:55] LABS: HEMATOCRIT 37.9 % (35.0-46.0)
[2017-06-23] MEDS: SODIUM CHLOR 0.45% 1000 ML INJ 1,000 ML IV SCH (18:25)
[2017-06-23] MEDS: SODIUM CHLORIDE 0.9% FLUSH 10 ML FLUSH IV FLUSH PRN (21:11)
[2017-06-23] MEDS: CARVEDILOL 6.25 MG TAB PO SCH (21:12)
[2017-06-24] VITALS (8 sets, daily range): BP systolic 105–131; BP diastolic 58–76; PULSE 84–114; RESP 14–25; TEMP 99.3–99.9; O2SAT 93–96
[2017-06-24 00:22] LABS: HEMATOCRIT 36.9 % (35.0-46.0); HEMOGLOBIN 12.6 GM/DL (11.6-15.3)
[2017-06-24] MEDS: metroNIDAZOLE 500 MG INJ 100 ML IV SCH ×4 (03:18→21:07)
[2017-06-24] MEDS: CHLORHEXIDINE GLUCONATE 2 % 1 PACK (2 CLOTHS) TOP SCH (03:18)
[2017-06-24] MEDS: SODIUM CHLOR 0.45% 1000 ML INJ 1,000 ML IV SCH (03:19)
[2017-06-24] MEDS: RESP: IPRATROPIUM 0.5 MG/2.5 ML NEB NEB SCH ×4 (03:37→21:41)
[2017-06-24 05:52] LABS: ALBUMIN 1.8 GM/DL (3.4-5.0); BICARBONATE 20.4 MEQ/L (21.0-32.0); CALCIUM 7.4 MG/DL (8.5-10.1); CALCIUM-PROTEIN CORRECTED 8.6 MG/DL (8.5-10.1); CREATININE 0.93 MG/DL (0.50-1.00); MAGNESIUM 1.4 MG/DL (1.5-2.5); PHOSPHORUS 1.9 MG/DL (2.5-4.9); TOTAL BILIRUBIN ADULT 0.7 MG/DL (0.2-1.0); TOTAL PROTEIN 4.9 GM/DL (6.4-8.2)
[2017-06-24 06:38] LABS: HEMATOCRIT 37.3 % (35.0-46.0); HEMOGLOBIN 12.7 GM/DL (11.6-15.3); MEAN CORPUSCULAR HEMOGLOBIN 30.4 PG (27.0-34.0); MEAN CORPUSCULAR HGB CONC 34.1 % (32.0-36.0); MEAN PLATELET VOLUME 9.7 FL (7.0-11.0); PLATELET COUNT 104 TH/MM3 (150-450); RED BLOOD COUNT 4.19 MIL/MM3 (4.00-5.30); RED CELL DISTRIBUTION WIDTH 18.1 % (11.6-17.2); WHITE BLOOD COUNT 25.5 TH/MM3 (4.0-11.0)
[2017-06-24] MEDS ORDERED: ICU - MAGNESIUM SULFATE 4 GM/NS 100 ML IV PRN ×2 (07:15)
[2017-06-24] MEDS ORDERED: ICU - D/C ICU ELECTROLYTE ORDERS PRN (07:15)
[2017-06-24] MEDS ORDERED: ICU - MAGNESIUM SULFATE 2 GM/NS 100 ML IV PRN ×2 (07:15)
[2017-06-24] MEDS ORDERED: ICU - MAGNESIUM OXIDE 400 MG TAB PO PRN (07:15)
[2017-06-24] MEDS ORDERED: ICU - CALL ORDERING PHYSICIAN PRN (07:15)
[2017-06-24] MEDS ORDERED: ICU - POTASSIUM CHLORIDE/AQUEOUS SOLN 40 MEQ/100 ML IVPB IV PRN (07:15)
[2017-06-24] MEDS ORDERED: ICU - POTASSIUM PHOSPHATE MONOBASIC 500 MG TAB PO PRN (07:15)
[2017-06-24] MEDS ORDERED: ICU - POTASSIUM PHOSPHATE 30 MMOL/NS 250 ML IV PRN ×2 (07:15)
[2017-06-24 07:30] LABS: PROTHROMBIN TIME - PATIENT 30.5 SEC (9.8-11.6)
[2017-06-24] MEDS: VANCOMYCIN 500 MG VIAL (FOR ORAL USE ONLY) PO SCH ×4 (08:00→21:07)
[2017-06-24] MEDS: FERROUS SULFATE 325 MG (65 MG ELEMENTAL IRON) TAB PO SCH (08:01)
[2017-06-24] MEDS: FOLIC ACID 1 MG TAB PO SCH (08:01)
[2017-06-24] MEDS: CARVEDILOL 6.25 MG TAB PO SCH ×2 (08:01→21:07)
[2017-06-24] MEDS: MULTIVITAMINS/MINERALS THERAPEUTIC TAB PO SCH (08:01)
[2017-06-24] MEDS: PANTOPRAZOLE SODIUM 40 MG VIAL IV PUSH SCH (08:01)
[2017-06-24] MEDS: SOTALOL HCL 80 MG TAB PO SCH (08:02)
[2017-06-24] MEDS ORDERED: POTASSIUM CHLOR 40 MEQ PREMIX 100 ML IV SCH (08:30)
[2017-06-24] MEDS ORDERED: MAGNESIUM SULFATE 1 GM PREMIX 100 ML IV SCH (08:30)
[2017-06-24] MEDS ORDERED: MAGNESIUM SULFATE 1 GM PREMIX 100 ML IV ONE (08:30)
[2017-06-24] MEDS ORDERED: PHYTONADIONE 5 MG/SWFI 5 ML ORAL SYR PO ONE (09:00)
--- NOTE | 2017-06-24 09:15 | HHI.GIFU ---
GI Follow-up Note Consult Follow-up Subjective: Patient laying in bed comfortably, no new complaints. She says she 's had no diarrhea. She feels stronger. Objective: PHYSICAL EXAMINATION: Vitals signs stable No fever HEENT: EOMI ABDOMEN: Soft, nondistended, nontender; normal bowel sounds. 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 ASSESSMENT/PLAN:GI bleed with anemia, requiring 4 units PRBCs. No further bleeding. I suggest avoiding aspirin. C. difficile associated diarrhea; this has improved significantly since starting the oral vancomycin. She's to finish a full course. I'll sign off. It was a pleasure seeing Tamiko Le. Entered by: Clayton Rizzo MD June 24, 2017 09:15
[2017-06-24] MEDS ORDERED: POTASSIUM PHOSPHATE INJ 30 MMOL in SODIUM CHLOR 0.9% 250 ML INJ 250 ML IV ONE (10:00)
[2017-06-24] MEDS ORDERED: POTASSIUM CHLORIDE INJ 20 MEQ, SODIUM CHLORIDE 23.4% INJ 38.5 MEQ in WATER STERILE FOR ... IV SCH (14:00)
[2017-06-24] MEDS ORDERED: POTASSIUM CHLOR 20 MEQ PREMIX 100 ML IV ONE (14:00)
--- NOTE | 2017-06-24 14:01 | HHI.CCPN ---
Subjective Remarks/Hospital Course This is a 87yF from SNF who has history of afib on coumadin and presents with fatigue, found to have active GI bleeding with hypotension (sbp 60s). hgb 6.6, altered mental status. denies chest pain, sob, abdominal pain. patient is altered and full history unavailable. ROS otherwise negative. given 2L crystalloid and 2 units emergency release blood. bp improved slightly. recent history of c. diff, wbc elevated, hypothermic. 06/23: Currently resting in bed in no acute distress. Transfuse 4 PRBCs and 2 FFP overnight. Remains in normal sinus rhythm. GI consult pending. Subjective 06/24: No further bleeding status post reversal of anticoagulation/warfarin. Hemoglobin around 13. INR currently around 3 so we will give vitamin K/FFP 1 now. Patient is very hard of hearing. Advance diet to full liquid. Positive BM/C. difficile positive Objective Vital Signs Date Time Temp Pulse Resp B/P (MAP) Pulse Ox O2 Delivery O2 Flow Rate FiO2 06/24/17 12:00 94 06/24/17 12:00 99.7 22 105/72 (83) 95 06/24/17 08:18 21 06/24/17 07:00 Room Air 06/22/17 21:13 1.50 Intake and Output 06/24/17 06/24/17 06/25/17 08:00 16:00 00:00 Intake Total 893 ml Output Total 2000 ml Balance -1107 ml Result Diagram: 06/24/17 0450 06/24/17 0450 Other Results Microbiology Date/Time Source Procedure Growth Status 06/22/17 18:42 Urine Catheterized Urine Urine Culture - Preliminary IMMATURE GROWTH - REINCUBATE Resulted Imaging Last Impressions Renal Ultrasound 06/23/17 0900 Signed Impressions: Service Date/Time: Friday, June 23, 2017 08:07 - CONCLUSION: No evidence of hydronephrosis. Rey Randall MD Chest X-Ray 06/22/17 1306 Signed Impressions: Service Date/Time: Thursday, June 22, 2017 13:09 - CONCLUSION: 1. No acute cardiopulmonary disease. Franko Benson MD Head CT 06/22/17 0000 Signed Impressions: Service Date/Time: Thursday, June 22, 2017 16:07 - CONCLUSION: Left mastoid fluid. Joao Fontaine MD Abdomen/Pelvis CT 06/22/17 0000 Signed Impressions: Service Date/Time: Thursday, June 22, 2017 16:10 - CONCLUSION: Bilateral nonobstructing renal calculi. Moderate right hydronephrosis and hydroureter identified without obvious ureteral stone. There is no perirectal edema and a moderate amount of stool in the rectosigmoid and mild bowel wall thickening involving the anorectal region suggesting proctitis. Joao Fontaine MD Objective Remarks GENERAL: 87-year-old female currently resting in bed in no acute distress on room air SKIN: Warm and dry. No rash HEAD: Atraumatic. Normocephalic. EYES: Pupils equal and round. No scleral icterus. No injection or drainage. ENT: No nasal bleeding or discharge. Mucous membranes pink and moist. NECK: Trachea midline. No JVD. Right IJ is clean dry and intact CARDIOVASCULAR: IRR. S1, S2 no S4. Without murmur RESPIRATORY: No accessory muscle use. Clear to auscultation. Breath sounds equal bilaterally. GASTROINTESTINAL: Abdomen soft, non-tender, nondistended. Hypoactive bowel sounds appreciated MUSCULOSKELETAL: Extremities with trace to 1+ bilateral lower external edema. No obvious deformities. NEUROLOGICAL: Awake and alert. No obvious cranial nerve deficits. Motor grossly within normal limits. Five out of 5 muscle strength in the arms and legs. Normal speech. Hard of hearing Urinary Catheter: Yes Assessment to: Continue Dangelo insert reason: Prolonged Immobilization Vascular Central Line Catheter: Yes Assessment to: Continue Date of Insertion: June 22, 2017 Line: Central Venous Catheter Side: Right Location: Internal, Jugular A/P Assessment and Plan Neuro/Psych Acute metabolic encephalopathy -resolving Uremic encephalopathy -resolved Presbycusis Chronic benzodiazepine use CT brain on admission revealed left fluid involving mastoid inflammation. Otherwise negative for acute hemorrhage or CVA Morphine sulfate 1-2 mg every 4 hours as needed pain Frequent neurochecks Avoid long-acting sedation At home on alprazolam 0.5 mg p.o. twice daily Holding acetaminophen due to elevated transaminases Respiratory: History of severe bronchospasm Ipratropium aerosols every 6 hours/home medication will be continued Wean oxygen by nasal cannula for goal SPO2 greater than 90% Status post evaluate Aggressive pulmonary toilet Follow-up chest x-ray in a.m. 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 Previously on 120 mg p.o. twice daily Start carvedilol at 6.25 mg p.o. twice daily. On 25 mg twice daily at home Hold losartan 50 mg daily in light of acute kidney injury Holding diltiazem 120 mg p.o. daily in light of hypertension. Resume clinically indicated Holding atorvastatin 40 mg at night in light of elevated transaminases Echocardiogram 2017 revealed EF 65-70%. No regional motion abnormality Renal: Acute kidney injury Right-sided hydronephrosis Obstructive uropathy Place Dangelo catheter CT abdomen/pelvis 06/22 revealed bilateral hydronephrosis/hydroureter right greater than left. Bilateral nonobstructing stones. Have discussed the case with interventional radiology and they recommend reversing anticoagulation, placing Dangelo, correcting shock, and repeating renal ultrasound in the morning. Patient has many more life-threatening acute medical problems at this point than her right hydronephrosis Repeat ultrasound 06/22 revealed no hydronephrosis Creatinine 2 on admission currently 1.34. -- Strict I/Os Avoid nephrotoxic drugs FEN/GI: Severe acute protein calorie malnutrition Hypoalbuminemia GI bleed Lactic acidosis Shock liver Hypernatremia Hypopotassemia IV pantoprazole 40 mg twice daily Full liquid GI consult with Dr. Garcia appreciated. No plans for endoscopy at this point IV n.p.o. empiric antibiotics as below Positive C. difficile sample trend lactates until cleared Heme/ID: Anemia secondary to acute blood loss Severe coagulopathy secondary to Coumadin toxicity. Currently 1.9 Recent positive C. difficile colitis History of chronic warfarin use 1 mg p.o. daily Leukocytosis Thrombocytopenia IV metronidazole and p.o. vancomycin 4 units PRBC given 06/22. Hemoglobin currently around 12 4 units FFP stat. INR 3.0 vitamin K, FFP 1 now PCC unavailable Trend H&H Trend INR Warfarin held in light of above Endocrine: Hyperglycemia of critical illness Chronic prednisone use -- SSI, medium scale, every 6 TSH 3.95 Prophylaxis: GI Prophylaxis IV pantoprazole twice daily DVT Prophylaxis -- SCDs Holding pharmacologic DVT prophylaxis given acute bleeding Lines: 06/22 right IJ triple-lumen catheter Continue Dangelo catheter Level 2 follow-up Lyndon Bailey MD June 24, 2017 14:01
[2017-06-24 20:06] LABS: MAGNESIUM 1.8 MG/DL (1.5-2.5); PHOSPHORUS 2.6 MG/DL (2.5-4.9)
[2017-06-25] VITALS (10 sets, daily range): BP systolic 99–136; BP diastolic 54–74; PULSE 107–131; RESP 15–35; TEMP 97.5–99.7; O2SAT 94–100
[2017-06-25] MEDS: metroNIDAZOLE 500 MG INJ 100 ML IV SCH ×4 (02:43→21:08)
[2017-06-25] MEDS: CHLORHEXIDINE GLUCONATE 2 % 1 PACK (2 CLOTHS) TOP SCH (04:21)
[2017-06-25] MEDS: RESP: IPRATROPIUM 0.5 MG/2.5 ML NEB NEB SCH ×4 (05:01→20:29)
[2017-06-25 05:37] LABS: INTERNATIONAL NORMALIZED RATIO 1.7 RATIO; PROTHROMBIN TIME - PATIENT 17.3 SEC (9.8-11.6)
[2017-06-25 05:46] LABS: AUTOMATED NEUTROPHIL # 19.5 TH/MM3 (1.8-7.7); BASOPHIL % 0.1 % (0.0-2.0); EOSINOPHIL # 0.1 TH/MM3 (0-0.4); EOSINOPHIL % 0.3 % (0.0-4.0); HEMATOCRIT 37.3 % (35.0-46.0); HEMOGLOBIN 12.5 GM/DL (11.6-15.3); LYMPH % 7.1 % (9.0-44.0); LYMPHOCYTE # 1.6 TH/MM3 (1.0-4.8); MEAN CELL VOLUME 90.4 FL (80.0-100.0); MEAN CORPUSCULAR HEMOGLOBIN 30.3 PG (27.0-34.0); MEAN CORPUSCULAR HGB CONC 33.5 % (32.0-36.0); MEAN PLATELET VOLUME 9.8 FL (7.0-11.0); MONO % 3.6 % (0.0-8.0); MONOCYTE # 0.8 TH/MM3 (0-0.9); NEUT % 88.9 % (16.0-70.0); PLATELET COUNT 111 TH/MM3 (150-450); RED BLOOD COUNT 4.13 MIL/MM3 (4.00-5.30); RED CELL DISTRIBUTION WIDTH 18.4 % (11.6-17.2)
[2017-06-25 06:02] LABS: ALBUMIN 1.7 GM/DL (3.4-5.0); BICARBONATE 19.5 MEQ/L (21.0-32.0); CALCIUM 7.4 MG/DL (8.5-10.1); CALCIUM-PROTEIN CORRECTED 8.7 MG/DL (8.5-10.1); CREATININE 0.75 MG/DL (0.50-1.00); MAGNESIUM 1.8 MG/DL (1.5-2.5); PHOSPHORUS 1.8 MG/DL (2.5-4.9); TOTAL PROTEIN 4.8 GM/DL (6.4-8.2)
--- NOTE | 2017-06-25 08:23 | HHI.CCPN ---
Subjective Remarks/Hospital Course This is a 87yF from [facility] who has history of afib on coumadin and presents with fatigue, found to have active GI bleeding with hypotension (sbp 60s). hgb 6.6, altered mental status. denies chest pain, sob, abdominal pain. patient is altered and full history unavailable. ROS otherwise negative. given 2L crystalloid and 2 units emergency release blood. bp improved slightly. recent history of c. diff, wbc elevated, hypothermic. 06/23: Currently resting in bed in no acute distress. Transfuse 4 PRBCs and 2 FFP overnight. Remains in normal sinus rhythm. GI consult pending. Subjective 06/24: No further bleeding status post reversal of anticoagulation/warfarin. Hemoglobin around 13. INR currently around 3 so we will give vitamin K/FFP 1 now. Patient is very hard of hearing. Advance diet to full liquid. Positive BM/C. difficile positive. 06/25: State of hydration improved as reflected in resolution of the prerenal azotemia. Tolerating full liquid diet. INR acceptable today. Continue to hold anticoagulation. She has minimal abdominal pain and feels better this morning. She is frustrated by the longevity of this illness. Her persistent cough is worrisome but chest x-ray is benign. Objective Vital Signs Date Time Temp Pulse Resp B/P (MAP) Pulse Ox O2 Delivery O2 Flow Rate FiO2 06/25/17 04:00 99.7 118 19 110/58 (75) 94 06/24/17 19:00 Room Air 06/24/17 08:18 21 06/22/17 21:13 1.50 Intake and Output 06/25/17 06/25/17 06/26/17 08:00 16:00 00:00 Intake Total 418.3 ml Output Total 575 ml Balance -156.7 ml Result Diagram: 06/25/17 0515 06/25/17 0515 Imaging Last Impressions Renal Ultrasound 06/23/17 0900 Signed Impressions: Service Date/Time: Friday, June 23, 2017 08:07 - CONCLUSION: No evidence of hydronephrosis. Rey Randall MD Chest X-Ray 06/22/17 1306 Signed Impressions: Service Date/Time: Thursday, June 22, 2017 13:09 - CONCLUSION: 1. No acute cardiopulmonary disease. Franko Benson MD Head CT 06/22/17 0000 Signed Impressions: Service Date/Time: Thursday, June 22, 2017 16:07 - CONCLUSION: Left mastoid fluid. Joao Fontaine MD Abdomen/Pelvis CT 06/22/17 0000 Signed Impressions: Service Date/Time: Thursday, June 22, 2017 16:10 - CONCLUSION: Bilateral nonobstructing renal calculi. Moderate right hydronephrosis and hydroureter identified without obvious ureteral stone. There is no perirectal edema and a moderate amount of stool in the rectosigmoid and mild bowel wall thickening involving the anorectal region suggesting proctitis. Joao Fontaine MD Objective Remarks GENERAL: 87-year-old female currently resting in bed in no acute distress on 2 L oxygen. SKIN: Warm and dry. No rash HEAD: Atraumatic. Normocephalic. EYES: Pupils equal and round. No conjunctival icterus. No injection or drainage. ENT: No nasal bleeding or discharge. Plentiful saliva. NECK: Trachea midline. No JVD. Right IJ remains clean dry and intact CARDIOVASCULAR: Irregular irregular. S1, S2 no S4. Without murmur, rub. No JVD. RESPIRATORY: No accessory muscle use. Clear to auscultation. Breath sounds equal bilaterally. No adventitious sounds. GASTROINTESTINAL: Abdomen soft, non-tender, nondistended. Active bowel sounds appreciated MUSCULOSKELETAL: Extremities with trace to 1+ bilateral lower external edema. No obvious deformities. NEUROLOGICAL: Awake and alert. No obvious cranial nerve deficits. Motor grossly within normal limits. Five out of 5 muscle strength in the arms and legs. Normal speech. Hard of hearing, conversant. Date of Insertion: June 22, 2017 Line: Central Venous Catheter Side: Right Location: Internal, Jugular A/P Assessment and Plan Neuro/Psych Acute metabolic encephalopathy -resolving Uremic encephalopathy -resolved Presbycusis Chronic benzodiazepine use CT brain on admission revealed left fluid involving mastoid inflammation. Otherwise negative for acute hemorrhage or CVA Morphine sulfate 1-2 mg every 4 hours as needed pain Frequent neurochecks Avoid long-acting sedation At home on alprazolam 0.5 mg p.o. twice daily Holding acetaminophen due to elevated transaminases Mentation much improved. Respiratory: History of severe bronchospasm Ipratropium aerosols every 6 hours/home medication will be continued Wean oxygen by nasal cannula for goal SPO2 greater than 90% Status post evaluate Aggressive pulmonary toilet Follow-up chest x-ray in a.m. 06/25 Cardiovascular: Hemorrhagic shock Paroxysmal atrial fibrillation History of sick sinus syndrome Essential hypertension Hyperlipidemia Coronary artery disease with history of 5 stents Balanced blood product resuscitation completed Hold warfarin/chronic coagulation given active bleeding Scotty is her production corrugator if needed Resume sotalol at 80 mg daily/renally dose. Previously on 120 mg p.o. twice daily Start carvedilol at 6.25 mg p.o. twice daily. Increase to 25 mg twice daily. Hold losartan 50 mg daily in light of acute kidney injury Holding diltiazem 120 mg p.o. daily in light of hypertension. Resume clinically indicated Holding atorvastatin 40 mg at night in light of elevated transaminases, now resolving. Echocardiogram 2017 revealed EF 65-70%. No regional motion abnormality Renal: Acute kidney injury Right-sided hydronephrosis Obstructive uropathy Place Dangelo catheter CT abdomen/pelvis 06/22 revealed bilateral hydronephrosis/hydroureter right greater than left. Bilateral nonobstructing stones. Have discussed the case with interventional radiology and they recommend reversing anticoagulation, placing Dangelo, correcting shock, and repeating renal ultrasound in the morning. Patient has many more life-threatening acute medical problems at this point than her right hydronephrosis Repeat ultrasound 06/22 revealed no hydronephrosis Creatinine 2 on admission currently 1.34. -- Strict I/Os Avoid nephrotoxic drugs Continue gentle hydration. FEN/GI: Severe acute protein calorie malnutrition Hypoalbuminemia GI bleed Lactic acidosis Shock liver Hypernatremia Hypopotassemia IV pantoprazole 40 mg twice daily Full liquid GI consult with Dr. Garcia appreciated. No plans for endoscopy at this point IV n.p.o. empiric antibiotics as below Positive C. difficile sample trend lactates until cleared Convert to iso tonic fluid. Heme/ID: Anemia secondary to acute blood loss Severe coagulopathy secondary to Coumadin toxicity. Currently 1.9 Recent positive C. difficile colitis History of chronic warfarin use 1 mg p.o. daily Leukocytosis Thrombocytopenia IV metronidazole and p.o. vancomycin 4 units PRBC given 06/22. Hemoglobin currently around 12 4 units FFP stat. INR 3.0 vitamin K, FFP 1 now PCC unavailable Trend H&H Trend INR Warfarin held in light of above Endocrine: Hyperglycemia of critical illness Chronic prednisone use -- SSI, medium scale, every 6 TSH 3.95 Prophylaxis: GI Prophylaxis IV pantoprazole twice daily DVT Prophylaxis -- SCDs Holding pharmacologic DVT prophylaxis given acute bleeding Lines: 06/22 right IJ triple-lumen catheter Continue Dangelo catheter Overall impression: Much improved state of hydration with resolving shock liver and acute kidney injury. Continue oral treatment for C. difficile colitis. No signs of further bleeding. Severe coagulopathy on admission has resolved. Blake Bender MD June 25, 2017 08:23
[2017-06-25] MEDS: CARVEDILOL 12.5 MG TAB PO SCH ×2 (08:46→21:09)
[2017-06-25] MEDS: MULTIVITAMINS/MINERALS THERAPEUTIC TAB PO SCH (08:47)
[2017-06-25] MEDS: FERROUS SULFATE 325 MG (65 MG ELEMENTAL IRON) TAB PO SCH (08:47)
[2017-06-25] MEDS: FOLIC ACID 1 MG TAB PO SCH (08:47)
[2017-06-25] MEDS: SOTALOL HCL 80 MG TAB PO SCH (08:47)
[2017-06-25] MEDS: PANTOPRAZOLE SODIUM 40 MG VIAL IV PUSH SCH (08:48)
[2017-06-25] MEDS: VANCOMYCIN 500 MG VIAL (FOR ORAL USE ONLY) PO SCH ×4 (08:48→21:09)
[2017-06-25] MEDS: POTASSIUM CHLORIDE INJ 10 MEQ in SODIUM CHLOR 0.45% 1000 ML INJ 1,000 ML IV SCH (08:55)
[2017-06-26] VITALS (9 sets, daily range): BP systolic 91–147; BP diastolic 56–82; PULSE 86–134; RESP 12–31; TEMP 97.5–100; O2SAT 92–99
[2017-06-26] MEDS: POTASSIUM CHLORIDE INJ 10 MEQ in SODIUM CHLOR 0.45% 1000 ML INJ 1,000 ML IV SCH ×2 (02:45→19:01)
[2017-06-26] MEDS: metroNIDAZOLE 500 MG INJ 100 ML IV SCH ×4 (02:48→20:28)
[2017-06-26] MEDS: CHLORHEXIDINE GLUCONATE 2 % 1 PACK (2 CLOTHS) TOP SCH (03:09)
[2017-06-26] MEDS: RESP: IPRATROPIUM 0.5 MG/2.5 ML NEB NEB SCH ×4 (04:00→20:34)
[2017-06-26 05:23] LABS: AUTOMATED NEUTROPHIL # 11.2 TH/MM3 (1.8-7.7); BASOPHIL % 0.1 % (0.0-2.0); EOSINOPHIL # 0.3 TH/MM3 (0-0.4); EOSINOPHIL % 1.9 % (0.0-4.0); HEMATOCRIT 36.4 % (35.0-46.0); HEMOGLOBIN 12.2 GM/DL (11.6-15.3); LYMPHOCYTE # 1.8 TH/MM3 (1.0-4.8); MEAN CELL VOLUME 89.9 FL (80.0-100.0); MEAN CORPUSCULAR HEMOGLOBIN 30.1 PG (27.0-34.0); MEAN CORPUSCULAR HGB CONC 33.5 % (32.0-36.0); MEAN PLATELET VOLUME 9.3 FL (7.0-11.0); MONO % 4.5 % (0.0-8.0); MONOCYTE # 0.6 TH/MM3 (0-0.9); NEUT % 80.5 % (16.0-70.0); PLATELET COUNT 96 TH/MM3 (150-450); RED BLOOD COUNT 4.05 MIL/MM3 (4.00-5.30)
[2017-06-26 05:29] LABS: INTERNATIONAL NORMALIZED RATIO 1.9 RATIO; PROTHROMBIN TIME - PATIENT 19.1 SEC (9.8-11.6)
[2017-06-26 05:46] LABS: ALBUMIN 1.8 GM/DL (3.4-5.0); ALT (GPT) 256 U/L (10-53); AST (GOT) 66 U/L (15-37); BICARBONATE 18.6 MEQ/L (21.0-32.0); BLOOD UREA NITROGEN 28 MG/DL (7-18); CALCIUM 7.5 MG/DL (8.5-10.1); CHLORIDE 111 MEQ/L (98-107); CREATININE 0.93 MG/DL (0.50-1.00); GLOMERULAR FILTRATION RATE 57 ML/MIN (>89); GLUCOSE,RANDOM 139 MG/DL (74-106); SODIUM (NA) 142 MEQ/L (136-145)
[2017-06-26 05:49] LABS: ALKALINE PHOSPHATASE 143 U/L (45-117); TOTAL BILIRUBIN ADULT 0.7 MG/DL (0.2-1.0); TOTAL PROTEIN 4.7 GM/DL (6.4-8.2)
[2017-06-26] MEDS: SOTALOL HCL 80 MG TAB PO SCH (09:16)
[2017-06-26] MEDS: VANCOMYCIN 500 MG VIAL (FOR ORAL USE ONLY) PO SCH ×4 (09:16→20:28)
[2017-06-26] MEDS: MULTIVITAMINS/MINERALS THERAPEUTIC TAB PO SCH (09:16)
[2017-06-26] MEDS: FERROUS SULFATE 325 MG (65 MG ELEMENTAL IRON) TAB PO SCH (09:16)
[2017-06-26] MEDS: FOLIC ACID 1 MG TAB PO SCH (09:16)
[2017-06-26] MEDS: PANTOPRAZOLE SODIUM 40 MG VIAL IV PUSH SCH (09:17)
[2017-06-26] MEDS: CARVEDILOL 12.5 MG TAB PO SCH ×2 (09:19→20:28)
--- NOTE | 2017-06-26 16:02 | HHI.PR ---
Subjective Remarks The patient was sitting in a chair. She denied diarrhea. She said she was hard of hearing. She denies any facial pain. Discussed with nursing. Objective Vitals Vital Signs Date Time Temp Pulse Resp B/P (MAP) Pulse Ox O2 Delivery O2 Flow Rate FiO2 06/26/17 12:00 99.5 117 20 91/61 (71) 99 06/26/17 12:00 117 06/26/17 10:00 128 06/26/17 08:28 98 21 06/26/17 08:00 112 06/26/17 08:00 98.3 112 31 147/82 (103) 96 06/26/17 07:00 93 Room Air 06/26/17 04:00 97.5 102 12 127/58 (81) 96 06/26/17 04:00 102 06/26/17 00:00 115 06/26/17 00:00 97.9 115 21 105/56 (72) 96 06/25/17 20:29 99 21 06/25/17 20:00 131 06/25/17 20:00 97.8 131 23 136/58 (84) 99 06/25/17 19:00 100 Room Air 06/25/17 16:00 97.5 115 35 106/74 (85) 98 06/25/17 16:00 115 I/O 06/25/17 06/25/17 06/25/17 06/26/17 06/26/17 06/26/17 07:00 15:00 23:00 07:00 15:00 23:00 Intake Total 418.3 ml 675 ml 1605 ml 997 ml Output Total 575 ml 250 ml 300 ml Balance -156.7 ml 675 ml 1355 ml 697 ml Intake Oral 240 ml 400 ml Oral Supplement 500 ml IV Total 178.3 ml 675 ml 1105 ml 597 ml Output Urine Total 575 ml 250 ml 300 ml # Bowel Movements 0 0 Result Diagram: 06/26/17 0500 06/26/17 0500 Imaging Last Impressions Renal Ultrasound 06/23/17 0900 Signed Impressions: Service Date/Time: Friday, June 23, 2017 08:07 - CONCLUSION: No evidence of hydronephrosis. Rey Randall MD Chest X-Ray 06/22/17 1306 Signed Impressions: Service Date/Time: Thursday, June 22, 2017 13:09 - CONCLUSION: 1. No acute cardiopulmonary disease. Franko Benson MD Head CT 06/22/17 0000 Signed Impressions: Service Date/Time: Thursday, June 22, 2017 16:07 - CONCLUSION: Left mastoid fluid. Joao Fontaine MD Abdomen/Pelvis CT 06/22/17 0000 Signed Impressions: Service Date/Time: Thursday, June 22, 2017 16:10 - CONCLUSION: Bilateral nonobstructing renal calculi. Moderate right hydronephrosis and hydroureter identified without obvious ureteral stone. There is no perirectal edema and a moderate amount of stool in the rectosigmoid and mild bowel wall thickening involving the anorectal region suggesting proctitis. Joao Fontaine MD Objective Remarks GENERAL: No distress. SKIN: Warm and dry. No rash HEAD: Atraumatic. Normocephalic. EYES: Pupils equal and round. No conjunctival icterus. No injection or drainage. ENT: No nasal bleeding or discharge. Swelling and firmness around right parotid gland. NECK: Trachea midline. No JVD. Right IJ remains clean dry and intact CARDIOVASCULAR: Irregular irregular. Tachycardic. RESPIRATORY: No accessory muscle use. Clear to auscultation. Breath sounds equal bilaterally. No adventitious sounds. GASTROINTESTINAL: Abdomen soft, non-tender, nondistended. Active bowel sounds appreciated MUSCULOSKELETAL: Extremities with trace to 1+ bilateral lower external edema. No obvious deformities. NEUROLOGICAL: Awake and alert. No obvious cranial nerve deficits. Motor grossly within normal limits. Five out of 5 muscle strength in the arms and legs. Normal speech. Hard of hearing, conversant. Date of Insertion: June 22, 2017 Line: Central Venous Catheter Side: Right Location: Internal, Jugular A/P Assessment and Plan Acute metabolic encephalopathy/ Uremic encephalopathy CT brain on admission revealed left fluid involving mastoid inflammation. Otherwise negative for acute hemorrhage or CVA - Morphine sulfate 1-2 mg every 4 hours as needed pain. - Frequent neurochecks - Avoid long-acting sedation - At home on alprazolam 0.5 mg p.o. twice daily - Holding acetaminophen due to elevated transaminases History of severe bronchospasm - Ipratropium aerosols every 6 hours/home medication will be continued - Wean oxygen by nasal cannula for goal SPO2 greater than 90% - Aggressive pulmonary toilet Hemorrhagic shock/ Paroxysmal atrial fibrillation/ History of sick sinus syndrome/ Coronary artery disease with history of 5 stents Balanced blood product resuscitation completed. Echocardiogram 2018 revealed EF 65-70%. No regional motion abnormality. - Hold warfarin/chronic coagulation given active bleeding - Scotty is her molten iron pourer, will consult. - Resumed sotalol at 80 mg daily/renally dosed. Previously on 120 mg p.o. twice daily - Start carvedilol 25 mg twice daily. - Hold losartan 50 mg daily in light of acute kidney injury - Holding diltiazem 120 mg p.o. daily in light of hypotension. Resume when clinically indicated - Holding atorvastatin 40 mg at night in light of elevated transaminases, now resolving. Acute kidney injury/ Right-sided hydronephrosis CT abdomen/pelvis 06/22 revealed bilateral hydronephrosis/hydroureter right greater than left. Bilateral nonobstructing stones. Have discussed the case with interventional radiology and they recommend reversing anticoagulation, placing Dangelo, correcting shock, and repeating renal ultrasound in the morning. Repeat ultrasound 06/22 revealed no hydronephrosis. Creatinine 2 on admission - Strict I/Os - Avoid nephrotoxic drugs - Continue gentle hydration. - Dangelo GI bleed/ Shock liver - IV pantoprazole 40 mg twice daily - Full liquid - GI consult appreciated. No plans for endoscopy at this point. D/c ASA. Resume Coumadin if stable. - IV n.p.o. empiric antibiotics as below - Positive C. difficile sample. Continue antibiotics. Parotitis Right parotid gland appears inflamed. - US pending. DVT Prophylaxis -- SCDs Holding pharmacologic DVT prophylaxis given acute bleeding Maciel Hernandez DO June 26, 2017 16:02
--- NOTE | 2017-06-26 19:19 | RADRPT ---
EXAM DATE: 06/26/2017 6:56 PM EDT AGE/SEX: 87 years / Female INDICATIONS: Left arm swelling. CLINICAL DATA: This is the patient's initial encounter. Patient reports that signs and symptoms have been present for 2 days and indicates a pain score of 2/10. MEDICAL/SURGICAL HISTORY: Hypercholesterolemia. Hypertension. Hearing aids. Chest pain. Arthri tis. C-diff. Tonsillectomy. Pacemaker. Appendectomy. Coronary artery stent. Hysterectomy. Bilate ral knee replacement. Bladder suspension. COMPARISON: [facility], CHEST SINGLE AP, 06/22/2017. . FINDINGS: Examination demonstrates echogenic thrombus within the cephalic vein and absent flow. No ec hogenic thrombus seen within the deep venous system (subclavian, axillary, brachial, basilic). There is compressibility of the axillary brachial and basilic vein. Echogenic structure within the left sub clavian vein is characteristic of pacer lead. CONCLUSION: 1. No evidence of deep venous thrombosis left upper extremity. 2. Superficial thrombosis in the cephalic vein. Electronically signed by: Rey Randall MD 06/26/2017 7:18 PM EDT
[2017-06-27] VITALS (7 sets, daily range): BP systolic 103–125; BP diastolic 53–72; PULSE 118–138; RESP 17–19; TEMP 98.6–100.4; O2SAT 97–99
[2017-06-27] MEDS: POTASSIUM CHLORIDE INJ 10 MEQ in SODIUM CHLOR 0.45% 1000 ML INJ 1,000 ML IV SCH (02:12)
[2017-06-27] MEDS: CHLORHEXIDINE GLUCONATE 2 % 1 PACK (2 CLOTHS) TOP SCH (03:04)
[2017-06-27] MEDS: RESP: IPRATROPIUM 0.5 MG/2.5 ML NEB NEB SCH ×4 (03:18→20:50)
[2017-06-27] MEDS: metroNIDAZOLE 500 MG INJ 100 ML IV SCH ×4 (03:31→21:35)
[2017-06-27 04:56] LABS: MEAN CELL VOLUME 90.9 FL (80.0-100.0); MEAN CORPUSCULAR HEMOGLOBIN 30.3 PG (27.0-34.0); MEAN CORPUSCULAR HGB CONC 33.3 % (32.0-36.0); MEAN PLATELET VOLUME 9.4 FL (7.0-11.0); PLATELET COUNT 96 TH/MM3 (150-450); RED BLOOD COUNT 3.96 MIL/MM3 (4.00-5.30); RED CELL DISTRIBUTION WIDTH 19.5 % (11.6-17.2); WHITE BLOOD COUNT 13.6 TH/MM3 (4.0-11.0)
[2017-06-27 05:05] LABS: PROTHROMBIN TIME - PATIENT 20.2 SEC (9.8-11.6)
--- NOTE | 2017-06-27 05:33 | RADRPT ---
EXAM DATE: 06/27/2017 5:30 AM EDT AGE/SEX: 87 years / Female INDICATIONS: Swelling to both sides of face. CLINICAL DATA: This is the patient's initial encounter. Patient reports that signs and symptoms have been present for 3 days and indicates a pain score of 10/10. MEDICAL/SURGICAL HISTORY: Cardiovascular disease. Hypertension. Pacemaker. RADIATION DOSE: 29.28 CTDI (mGy) COMPARISON: No prior [facility] exams available for comparison. TECHNIQUE: Contiguous images in the axial and coronal planes were obtained using helical multirow de tector technique. Using automated exposure control and adjustment of the mA and/or kV according to p atient size, radiation dose was kept as low as reasonably achievable to obtain optimal diagnostic lenny lity images. FINDINGS: Orbits: The orbital and infraorbital osseous structures are intact. The retroconal structures have a normal configuration. No radiopaque foreign bodies are seen. Nasal Bone: The nasal bone and maxillary spine are intact. Zygomatic Arches: Symmetric without evidence of fracture. Sinuses: The maxillary, ethmoid, and frontal sinuses are intact. No air-fluid levels seen. Mucosal thickening is noted in the right maxillary sinus. Nasal Cavity: The nasal septum is intact and midline. The lacrimal ducts are intact. Soft Tissues: No radiopaque foreign bodies seen. No soft-tissue swelling is seen. Intracranial: No intracranial air seen. Cribriform Plate: Grossly intact. CONCLUSION: 1. Mucosal thickening in the right maxillary sinus. 2. No evidence of fracture or underlying bony abnormality. 3. No evidence of abscess. Electronically signed by: Maciel Davenport MD 06/27/2017 5:31 AM EDT
[2017-06-27 05:37] LABS: ALBUMIN 1.7 GM/DL (3.4-5.0); BICARBONATE 20.8 MEQ/L (21.0-32.0); CALCIUM 7.4 MG/DL (8.5-10.1); CREATININE 0.78 MG/DL (0.50-1.00); DIRECT BILIRUBIN ADULT 0.2 MG/DL (0.0-0.2); INDIRECT BILIRUBIN 0.4 MG/DL (0.0-0.8); MAGNESIUM 1.5 MG/DL (1.5-2.5); TOTAL BILIRUBIN ADULT 0.6 MG/DL (0.2-1.0); TOTAL PROTEIN 4.6 GM/DL (6.4-8.2)
[2017-06-27 06:02] LABS: CALCIUM-PROTEIN CORRECTED 8.8 MG/DL (8.5-10.1)
[2017-06-27] MEDS ORDERED: METOPROLOL TARTRATE 5 MG/5 ML VIAL IV PUSH ONE (08:45)
[2017-06-27] MEDS: SOTALOL HCL 80 MG TAB PO SCH ×2 (08:51→21:35)
[2017-06-27] MEDS: VANCOMYCIN 500 MG VIAL (FOR ORAL USE ONLY) PO SCH ×4 (08:51→21:35)
[2017-06-27] MEDS: FOLIC ACID 1 MG TAB PO SCH (08:51)
[2017-06-27] MEDS: FERROUS SULFATE 325 MG (65 MG ELEMENTAL IRON) TAB PO SCH (08:51)
[2017-06-27] MEDS: PANTOPRAZOLE SODIUM 40 MG VIAL IV PUSH SCH (08:51)
[2017-06-27] MEDS: MULTIVITAMINS/MINERALS THERAPEUTIC TAB PO SCH (08:52)
[2017-06-27] MEDS ORDERED: METOPROLOL TARTRATE 25 MG TAB PO ONE (09:00)
[2017-06-27] MEDS ORDERED: POTASSIUM CHLORIDE 20 MEQ CONTROLLED RELEASE TAB PO ONE (09:00)
[2017-06-27] MEDS: MORPHINE SULFATE 4 MG/ML INJ IV PUSH PRN ×2 (09:20→17:46)
[2017-06-27] MEDS: METOPROLOL TARTRATE 5 MG/5 ML VIAL IV PUSH PRN ×2 (10:42→14:19)
--- NOTE | 2017-06-27 10:43 | MB ---
cc: Devyn Fajardo MD, Ashraf S MD DATE: 06/27/2017 HISTORY OF PRESENT ILLNESS: Ms. Tamiko Le is known to me. She is an 87-year-old lady with a history of sick sinus syndrome, paroxysmal atrial fibrillation, coronary artery disease, hypertension, hyperlipidemia. Apparently she was admitted in April with the "the flu" and then had a pneumonia, GI bleed and then had a CVA. She was in and out of the hospital for a long time and I was not involved in her care. She was recently back admitted on the with hemorrhagic shock, GI bleed and anemia. Apparently she was on warfarin with a high INR during her previous admission. She came in at this time with a hemoglobin of 6.6. She also carries a diagnosis of Clostridium difficile colitis. GI is on the case. I was called because of her atrial fibrillation and rapid ventricular response. She currently denies any chest pain. She is alert and oriented x 3. Denies shortness of breath or palpitations, dizziness or syncope. Denies orthopnea or PND or leg swellings. ALLERGIES: PERCOCET, PERCODAN AND "PLAVIX". SOCIAL HISTORY: Never a smoker. Denies ETOH abuse or recreational drug abuse. PAST MEDICAL AND SURGICAL HISTORY: 1. Includes as mentioned above, history of mitral regurgitation, status post electrical cardioversion for atrial fibrillation in 01/2016. She was in sinus rhythm on her last office visit 04/12/2017 this year 2. She is status post permanent pacemaker placement and then generator change in 2017. Initial placement was in 2006. 3. Bilateral knee replacement in 2008 and 2010. 4. Bladder suspension surgery in 1995. 5. Complete hysterectomy in 1962. 6. Lumpectomy and bilateral breast lumpectomies that were benign in 1988. 7. Appendectomy in 1951. 8. Tonsillectomy in 1949. 9. Spinal stenosis back surgery 2004. 10. PCI of LAD with drug-eluting stent in 2011. FAMILY HISTORY: Positive for cancer, coronary artery disease and hypertension. No family history of CVA or diabetes. REVIEW OF SYSTEMS: A 12-point system review was unremarkable, except for what is mentioned in the history of present illness. Recurrent diarrhea, as well as, black stools. She is getting iron supplements. MEDICATIONS: Upon admission, according to the notes includes: 1. Ferrous sulfate. 2. Diflucan/Augmentin. 3. Furosemide, not sure about the doses. 4. Megace. 5. Diltiazem. 6. Atorvastatin. 7. Coreg. 8. Warfarin. 9. Sotalol. 10. Losartan. 11. Baby aspirin as well. Prior to all this, she was on the same: 1. Carvedilol was 12.5 mg p.o. b.i.d. 2. Atorvastatin was 40 mg p.o. at bedtime. 3. Losartan was 50 mg p.o. b.i.d. 4. Sotalol was 20 mg p.o. b.i.d. PHYSICAL EXAMINATION: GENERAL: An 87-year-old lady lying in bed in no apparent distress, alert, oriented x 3 answering questions appropriately. VITAL SIGNS: Blood pressure 136/80 mmHg, pulse of 122 beats per minute irregularly irregular, respiration 14 per minute, afebrile. HEENT: Shows head is normocephalic. Pupils equal and reactive. Throat is within normal limits. NECK: Supple. No carotid bruit. No thyromegaly. No jugular venous distention noted. LUNGS: Bilateral rhonchi noted, especially at the right base. No wheezing. ABDOMEN: Lax, nontender. Normoactive bowel sounds. No organomegaly or masses felt. EXTREMITIES: No clubbing or cyanosis. There is trace ankle edema bilaterally. She has left hemiparesis, more of the left lower extremity. Pulses 2+ bilaterally. No bruit noted. NEUROLOGIC: As mentioned before. SKIN: Intact. LABORATORY DATA: Shows her white count upon admission was 26.0. Apparently, she was on prednisone also, I am not sure why. Hemoglobin 6.6 with a platelet count of 204 and she had an INR of 3.0 and today is 2.0. Chemistry came with a potassium of 4.5 and this came down to 3.0 and then 2.4 and today is 3.6. BUN of 24, creatinine 0.78. She had elevated LFTs and transaminases, but they are coming down. Her TSH upon admission was 3.95 and the upper limit is 3.74. She had a head CT that showed left mastoid fluid. Chest x-ray on the showed no acute process. Renal ultrasound showed no evidence of hydronephrosis. Abdominopelvic CT showed renal calculi, nonobstructive moderate right hydronephrosis and hydroureter identified without stones. Mild bowel wall thickening involving the anterior rectal region suggestive of proctitis. Maxillofacial CT was reported as mucosal thickening on the right maxillary sinus, no evidence of fracture or underlying bony abnormality. No mass. No evidence of abscess. This was a CT facial bone without IV contrast. On physical exam, she has bilateral parotid areas swollen and tender. IMPRESSION AND RECOMMENDATIONS: 1. Atrial fibrillation/sick sinus syndrome, status post permanent pacemaker placement. Her rate is reacting to holding her beta blockers, as well as, cutting down the sotalol dose which will be continued for now. We need to probably switch her warfarin to Eliquis for possibly less major bleed complications and we will clear that with GI. In the meantime, we will continue on metoprolol for now. Continue on sotalol and increased back the dose that she was on. We need to watch her electrolytes daily and supplement as needed. It is worth noting that she had a stress test 11/2016 with normal LV function and no ischemia. She had an echocardiogram in 11/2016 in the office that showed a restrictive pattern of the LV, normal LV systolic function with mild PIN and AI with sudden mitral valve prolapse and moderate MR, moderate TR with a PA systolic pressure of 50 mmHg. 2. Hyperlipidemia. Continue on her atorvastatin. This can be followed as an outpatient. 3. Hypertension. At the present time, we will use metoprolol and sotalol basically for rate control. Resume back Losartan if her blood pressure allows. 4. Coronary artery disease status post PCI. Denies any angina. Her EKG upon admission shows sinus rhythm with ST-T wave changes, however without any significant cardiac marker leak and she has no angina and will continue on the beta blockers. Further recommendations will follow. I thank you for the consultation. MD ANTELMO Woodall/DL , 09:57 AM , 10:42 AM
[2017-06-27] MEDS ORDERED: SOTALOL HCL 80 MG TAB PO ONE (11:00)
[2017-06-27] MEDS ORDERED: MAGNESIUM SULFATE INJ 2 GM in SODIUM CHLORIDE 0.9% INJ 50 ML IV ONE (11:15)
[2017-06-27] MEDS: ICU - SODIUM PHOSPHATE 30 MMOL/NS 250 ML IV PRN ×2 (12:53)
--- NOTE | 2017-06-27 13:50 | EKG ---
Date Performed: 06/27/2017 Time Performed: 10:48:52 PTAGE: 87 years EKG: Possible atrial flutter with rapid ventricular response. Nonspecific ST and T wave abnormal ities Abnormal ECG Compared to prior electrocardiogram, atrial flutter is now present . PREVIOUS TRACING : 06/22/2017 13.13 DOCTOR: Alfie Biswas Interpretating Date/Time 06/27/2017 13:50:08
--- NOTE | 2017-06-27 14:06 | HHI.PR ---
Subjective Remarks The patient was complaining of pain around her left cheek. She also had pain around her neck. 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 She says she has not had much of an appetite. Discussed with nursing at the bedside. Objective Vitals Vital Signs Date Time Temp Pulse Resp B/P (MAP) Pulse Ox O2 Delivery O2 Flow Rate FiO2 06/27/17 08:00 138 06/27/17 08:00 99.0 138 17 119/68 (85) 99 06/27/17 07:00 100 Room Air 06/27/17 04:00 128 06/27/17 04:00 99.0 128 19 112/53 (72) 99 06/27/17 00:00 98.6 122 19 103/59 (74) 98 06/27/17 00:00 122 06/26/17 20:34 97 21 06/26/17 20:00 100.0 134 20 126/59 (81) 99 06/26/17 20:00 134 06/26/17 19:00 98 Room Air 06/26/17 16:00 98.6 86 16 145/64 (91) 92 06/26/17 16:00 122 I/O 06/26/17 06/26/17 06/26/17 06/27/17 06/27/17 06/27/17 07:00 15:00 23:00 07:00 15:00 23:00 Intake Total 997 ml 100 ml 1555 ml 340 ml Output Total 300 ml 250 ml 475 ml Balance 697 ml 100 ml 1305 ml -135 ml Intake Oral 400 ml 350 ml 240 ml IV Total 597 ml 100 ml 1205 ml 100 ml Output Urine Total 300 ml 250 ml 475 ml # Bowel Movements 0 2 Result Diagram: 06/27/17 0430 06/27/17 0430 Imaging Last Impressions Maxillofacial CT 06/27/17 0000 Signed Impressions: CONCLUSION: Upper Extremity Ultrasound 06/26/17 0000 Signed Impressions: CONCLUSION: Renal Ultrasound 06/23/17 0900 Signed Impressions: Service Date/Time: Friday, June 23, 2017 08:07 - CONCLUSION: No evidence of hydronephrosis. Rey Randall MD Chest X-Ray 06/22/17 1306 Signed Impressions: Service Date/Time: Thursday, June 22, 2017 13:09 - CONCLUSION: 1. No acute cardiopulmonary disease. Franko Benson MD Head CT 06/22/17 0000 Signed Impressions: Service Date/Time: Thursday, June 22, 2017 16:07 - CONCLUSION: Left mastoid fluid. Joao Fontaine MD Abdomen/Pelvis CT 06/22/17 0000 Signed Impressions: Service Date/Time: Thursday, June 22, 2017 16:10 - CONCLUSION: Bilateral nonobstructing renal calculi. Moderate right hydronephrosis and hydroureter identified without obvious ureteral stone. There is no perirectal edema and a moderate amount of stool in the rectosigmoid and mild bowel wall thickening involving the anorectal region suggesting proctitis. Joao Fontaine MD Objective Remarks GENERAL: No distress. SKIN: Warm and dry. No rash HEAD: Atraumatic. Normocephalic. EYES: Pupils equal and round. No conjunctival icterus. No injection or drainage. ENT: No nasal bleeding or discharge. Swelling and firmness around right and left parotid gland. Tender to palpation. NECK: Trachea midline. No JVD. Right IJ in place. Tenderness around left side of neck. CARDIOVASCULAR: Irregular irregular. Tachycardic. RESPIRATORY: No accessory muscle use. Clear to auscultation. Breath sounds equal bilaterally. No adventitious sounds. GASTROINTESTINAL: Abdomen soft, non-tender, nondistended. Active bowel sounds appreciated MUSCULOSKELETAL: Extremities with trace to 1+ bilateral lower external edema. No obvious deformities. NEUROLOGICAL: Awake and alert. No obvious cranial nerve deficits. Motor grossly within normal limits. Five out of 5 muscle strength in the arms and legs. Normal speech. Hard of hearing, conversant. Date of Insertion: June 22, 2017 Line: Central Venous Catheter Side: Right Location: Internal, Jugular A/P Assessment and Plan Hemorrhagic shock/ Paroxysmal atrial fibrillation/ History of sick sinus syndrome/ Coronary artery disease with history of 5 stents Balanced blood product resuscitation completed. Echocardiogram 2018 revealed EF 65-70%. No regional motion abnormality. Cardiology consult appreciated. - Hold warfarin/chronic coagulation given active bleeding. May transition to Eliquis soon. - continue Lopressor and Sotalol. - Hold losartan 50 mg daily in light of acute kidney injury - Holding atorvastatin 40 mg at night in light of elevated transaminases, now resolving. - follow up with cardiology. Parotitis Right parotid gland appears inflamed. Now left as well. CT scan unremarkable. - check CT of the neck. - ENT consult requested. - will treat for parotitis in the meantime with IV nafcillin and Flagyl. Acute metabolic encephalopathy/ Uremic encephalopathy CT brain on admission revealed left fluid involving mastoid inflammation. Otherwise negative for acute hemorrhage or CVA - Morphine sulfate 1-2 mg every 4 hours as needed pain. - Frequent neurochecks. - Avoid long-acting sedation. - At home on alprazolam 0.5 mg p.o. twice daily. - Holding acetaminophen due to elevated transaminases. History of severe bronchospasm Breathing is stable at this time. - Ipratropium aerosols every 6 hours/home medication will be continued - Wean oxygen by nasal cannula for goal SPO2 greater than 90% - Aggressive pulmonary toilet Acute kidney injury/ Right-sided hydronephrosis CT abdomen/pelvis 06/22 revealed bilateral hydronephrosis/hydroureter right greater than left. Bilateral nonobstructing stones. Have discussed the case with interventional radiology and they recommend reversing anticoagulation, placing Dangelo, correcting shock, and repeating renal ultrasound in the morning. Repeat ultrasound 06/22 revealed no hydronephrosis. Creatinine 2 on admission. Improved. - Strict I/Os. - Avoid nephrotoxic drugs. - Continue gentle hydration. - Dangelo. GI bleed/ Shock liver GI consult appreciated. - pantoprazole daily. - ADAT. - No plans for endoscopy at this point. D/c ASA. Resume anticoagulation if stable. C diff PCR was positive. - continue IV Flagyl and PO Vanco. DVT Prophylaxis -- SCDs Holding pharmacologic DVT prophylaxis given acute bleeding Maciel Hernandez DO June 27, 2017 14:06
[2017-06-27] MEDS: D5-1/2 NS + KCL 20 MEQ INJ 1,000 ML IV SCH (14:10)
--- NOTE | 2017-06-27 15:58 | RADRPT ---
EXAM DATE: 06/27/2017 3:44 PM EDT AGE/SEX: 87 years / Female INDICATIONS: Neck pain and swelling CLINICAL DATA: This is the patient's initial encounter. Patient reports that signs and symptoms have been present for 1 day and indicates a pain score of 5/10. MEDICAL/SURGICAL HISTORY: Cardiovascular disease. Hypertension. Pacemaker. RADIATION DOSE: 14.84 CTDI (mGy) COMPARISON: No prior [facility] exams available for comparison. TECHNIQUE: Helical acquisition was performed using a multirow detector CT scanner without contrast. Using automated exposure control and adjustment of the mA and/or kV according to patient size, radiat ion dose was kept as low as reasonably achievable to obtain optimal diagnostic quality images. FINDINGS: Nasopharynx: The nasopharyngeal airway has a normal configuration. No mucosal thickening or mass is seen. Oropharynx: There is soft tissue density seen at the left tonsillar fossa measuring approximately 2. 0 x 1.0 cm. This extends into the left vallecula. Soft tissue density appears to extend into the para pharyngeal space. Larynx: The supraglottic, glottic, and infraglottic structures are intact. Parapharyngeal: The parapharyngeal space is intact. Salivary Glands: The parotid and submandibular glands are intact. There is a 3 mm calcification anvya cent to the superior medial anterior margin of the right submandibular gland which may be a stone wit hin Robbie's duct. Significant asymmetry of the submandibular gland is not seen. Lymph Nodes: There is soft tissue density in the left parapharyngeal space measuring up to 1.8 cm. I ts difficult to determine if this represents some confluence with the left oropharyngeal mass versus adenopathy in this region. Normal-sized lymph nodes are seen throughout the rest of the neck. Thyroid: Grossly intact. Bones: There is degenerative change in the cervical spine. Other: There is mucosal disease at the right maxillary sinus. Dental hardware is seen at the anterio r mandible. There is a right internal jugular central line in place. CONCLUSION: 1. Soft tissue mass in the left tonsillar fossa region with extension towards the left parapharyngea l space concerning for a neoplasm. This area should be directly inspected. The soft tissue density wi thin the parapharyngeal space could be related to extension of the mass versus adjacent adenopathy. 2. 3 mm calcification likely related to a stone in the right submandibular duct without asymmetry of the submandibular glands. Electronically signed by: Jef Lindsey MD 06/27/2017 3:57 PM EDT
[2017-06-27] MEDS: NAFCILLIN IV SCH ×2 (16:15→20:28)
[2017-06-27] MEDS: SODIUM CHLORIDE 0.9% IV SCH ×2 (16:15→20:28)
[2017-06-27] MEDS: METOPROLOL TARTRATE 25 MG TAB PO SCH (16:15)
--- NOTE | 2017-06-27 18:27 | HHI.GIFU ---
GI Follow-up Note Consult Follow-up Subjective: Patient laying in bed comfortably. Patient hard of hearing. No gross bleeding noted. Discussed with cardiology they request an upper endoscopy to find a source of bleeding before patient gets put back on anticoagulation. Shortness of breath improved. No chest pain Objective: PHYSICAL EXAMINATION: Vitals signs stable No fever HEENT: Throat is clear. NECK: Neck is supple, no JVD, no lymphadenopathy. CHEST: Some rhonchi which cleared with coughing CARDIAC: Regular rate and rhythm with no murmur gallop or rubs. ABDOMEN: Soft, nondistended, nontender; no hepatosplenomegaly; bowel sounds are present in all four quadrants. EXTREMITIES: No clubbing, cyanosis, or edema. SKIN: no jaundice. 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 Available Data (labs, X- Rays, Procedues) : Hemoglobin stable. ASSESSMENT/PLAN: 1. Melena and anemia-no further bleeding noted 2. C. difficile-Patient reports no diarrhea today PLAN: 1. We will plan an upper endoscopy tomorrow to find the source of the melena. I discussed the indications, risks, benefits, complications ,alternatives, limitations including risks of bleeding, perforation, infection, arrhythmias and the small possibility of . She agrees. It was a pleasure seeing Tamiko Le. Thank you for this consult. Entered by: Dong Camp MD June 27, 2017 18:27
[2017-06-27] MEDS ORDERED: APIXABAN 5 MG TABLET PO SCH (21:00)
[2017-06-28] VITALS (10 sets, daily range): BP systolic 72–114; BP diastolic 37–66; PULSE 81–158; RESP 17–27; TEMP 97.8–100.4; O2SAT 92–98
[2017-06-28] MEDS: NAFCILLIN IV SCH ×6 (00:30→19:24)
[2017-06-28] MEDS: SODIUM CHLORIDE 0.9% IV SCH ×6 (00:30→19:24)
[2017-06-28] MEDS: METOPROLOL TARTRATE 25 MG TAB PO SCH ×3 (01:00→16:59)
[2017-06-28 02:20] LABS: MAGNESIUM 1.8 MG/DL (1.5-2.5); PHOSPHORUS 2.4 MG/DL (2.5-4.9)
[2017-06-28] MEDS: D5-1/2 NS + KCL 20 MEQ INJ 1,000 ML IV SCH ×2 (03:05→16:17)
[2017-06-28] MEDS: CHLORHEXIDINE GLUCONATE 2 % 1 PACK (2 CLOTHS) TOP SCH (03:08)
[2017-06-28] MEDS: metroNIDAZOLE 500 MG INJ 100 ML IV SCH ×4 (03:23→21:15)
[2017-06-28] MEDS: RESP: IPRATROPIUM 0.5 MG/2.5 ML NEB NEB SCH ×4 (04:07→22:13)
[2017-06-28 06:29] LABS: INTERNATIONAL NORMALIZED RATIO 3.4 RATIO; PROTHROMBIN TIME - PATIENT 34.4 SEC (9.8-11.6)
[2017-06-28 06:55] LABS: BICARBONATE 18.1 MEQ/L (21.0-32.0); CALCIUM 7.3 MG/DL (8.5-10.1); CREATININE 0.88 MG/DL (0.50-1.00); MAGNESIUM 1.9 MG/DL (1.5-2.5); PHOSPHORUS 2.2 MG/DL (2.5-4.9)
[2017-06-28 07:18] LABS: CALCIUM-PROTEIN CORRECTED 8.6 MG/DL (8.5-10.1); TOTAL PROTEIN 4.8 GM/DL (6.4-8.2)
[2017-06-28] MEDS: VANCOMYCIN 500 MG VIAL (FOR ORAL USE ONLY) PO SCH ×4 (08:24→21:15)
[2017-06-28] MEDS: MULTIVITAMINS/MINERALS THERAPEUTIC TAB PO SCH ×2 (08:53→10:42)
[2017-06-28] MEDS: PANTOPRAZOLE SOD 40 MG DELAYED RELEASE TAB PO SCH ×2 (08:53→10:41)
[2017-06-28] MEDS: FERROUS SULFATE 325 MG (65 MG ELEMENTAL IRON) TAB PO SCH ×2 (08:53→10:42)
[2017-06-28] MEDS: FOLIC ACID 1 MG TAB PO SCH ×2 (08:53→10:41)
[2017-06-28] MEDS: SOTALOL HCL 80 MG TAB PO SCH ×3 (08:53→21:15)
--- NOTE | 2017-06-28 10:20 | GIPROC ---
[facility] [address] [facility]. [facility], [address] EGD PROCEDURE REPORT EXAM DATE: 06/28/2017 PATIENT NAME: Tamiko Le MR #: [id number] BIRTHDATE: 1930 ATTENDING: Dong Viera MD ORDER #: [id number] TOPPIECE CUTTER: Sushila Woods Dan STATUS: inpatient INDICATIONS: The patient is a 87 yr old female here for an EGD due to melena,anemia PROCEDURE PERFORMED: EGD, diagnostic MEDICATIONS: None and Per Anesthesia. TOPICAL ANESTHETIC: none CONSENT: The patient understands the risks and benefits of the procedure and understands that these risks include, but are not limited to: sedation, allergic reaction, infection, perforation and/or bleeding. Alternative means of evaluation and treatment include, among others: physical exam, x-rays, and/or surgical intervention. The patient elects to proceed with this endoscopic procedure. medical equipment was checked for proper function. Hand hygiene and appropriate measures for infection prevention was taken. After the risks, benefits and alternatives of the procedure were thoroughly explained, Informed consent was verified, confirmed and timeout was successfully executed by the treatment team. The patient was anesthetized with topical anesthesia and the Pentax EG-[id number] endoscope was introduced through the mouth and advanced to the second portion of the duodenum. Retroflexion was performed and was normal The gastroscope was then slowly withdrawn and removed. ESOPHAGUS: The z-line was located 38cm from the incisors. The z-line appeared normal. STOMACH: Three punctate erosions were found in the gastric antrum. DUODENUM: The duodenal mucosa appeared normal. ADVERSE EVENTS: There were no complications. IMPRESSIONS: 1. The z-line was located 38cm from the incisors 2. Three erosions were found in the gastric antrum 3. Normal duodenal mucosa 4. Retroflexion was performed and was normal RECOMMENDATIONS: 1. Continue PPI 2. Continue PPI PATIENT CONDITION: stable DISPOSITION: Inpatient REPEAT EXAM: NONE Dong Viera MD eSigned: Dong Viera MD 06/28/2017 10:19 AM cc: PATIENT NAME: Tamiko Le MR#: [id number]
[2017-06-28] MEDS ORDERED: FLUMAZENIL 0.5 MG/5 ML VIAL IV PUSH PRN ×2 (10:45)
[2017-06-28] MEDS ORDERED: NALOXONE HCL 0.4 MG/ML AMP IV PUSH PRN (10:45)
[2017-06-28] MEDS: ICU - SODIUM PHOSPHATE 30 MMOL/NS 250 ML IV PRN ×2 (11:53)
[2017-06-28] MEDS ORDERED: PROPOFOL 200 MG/20 ML AMP IV ONE (12:00)
[2017-06-28] MEDS ORDERED: PHENYLEPH/NS 1000 MCG/10 ML SYR IV ONE (12:00)
[2017-06-28] MEDS ORDERED: SODIUM CHLORID 0.9% 500 ML INJ 500 ML IV ONE ×3 (13:00→20:45)
[2017-06-28] MEDS: METOPROLOL TARTRATE 5 MG/5 ML VIAL IV PUSH PRN (14:40)
--- NOTE | 2017-06-28 14:58 | HHI.PR ---
Subjective Remarks The patient was upset that she had so many medical ailments at the current time. She said that she did not think that she would leave the hospital. She has not been experiencing any palpitations. Discussed with nursing at the bedside. Objective Vitals Vital Signs Date Time Temp Pulse Resp B/P (MAP) Pulse Ox O2 Delivery O2 Flow Rate FiO2 06/28/17 13:30 81 06/28/17 12:00 99.3 122 18 84/51 (62) 95 06/28/17 12:00 122 06/28/17 08:18 97 06/28/17 08:00 114 06/28/17 08:00 97.8 124 19 105/66 (79) 98 06/28/17 07:00 97 Room Air 06/28/17 04:08 98 21 06/28/17 04:00 100.0 122 18 110/56 (74) 98 06/28/17 04:00 122 06/28/17 00:00 100.4 120 17 101/56 (71) 98 06/28/17 00:00 120 06/27/17 20:53 97 21 06/27/17 20:00 100.4 118 18 125/67 (86) 98 06/27/17 20:00 118 06/27/17 19:00 98 Room Air 06/27/17 16:00 100.2 118 17 117/72 (87) 98 06/27/17 16:00 118 I/O 06/27/17 06/27/17 06/27/17 06/28/17 06/28/17 06/28/17 07:00 15:00 23:00 07:00 15:00 23:00 Intake Total 340 ml 1104 ml 1240 ml 540 ml 350 ml Output Total 475 ml 550 ml 350 ml Balance -135 ml 1104 ml 690 ml 190 ml 350 ml Intake Oral 240 ml 840 ml 240 ml IV Total 100 ml 1104 ml 400 ml 300 ml 300 ml Other 50 ml Output Urine Total 475 ml 550 ml 350 ml # Bowel Movements 2 1 1 Result Diagram: 06/27/17 0430 06/28/17 0437 Imaging Last Impressions Neck CT 06/27/17 0000 Signed Impressions: CONCLUSION: 1. Soft tissue mass in the left tonsillar fossa region with extension towards the left parapharyngeal space concerning for a neoplasm. This area should be di rectly inspected. The soft tissue density within the parapharyngeal space could be related to extension of the mass versus adjacent adenopathy. 2. 3 mm calcification likely related to a stone in the right submandibular duct without asymmetry of the submandibular glands. Maxillofacial CT 06/27/17 0000 Signed Impressions: CONCLUSION: 1. Mucosal thickening in the right maxillary sinus. 2. No evidence of fracture or underlying bony abnormality. 3. No evidence of abscess. Upper Extremity Ultrasound 06/26/17 0000 Signed Impressions: CONCLUSION: 1. No evidence of deep venous thrombosis left upper extremity. 2. Superficial thrombosis in the cephalic vein. Renal Ultrasound 06/23/17 0900 Signed Impressions: Service Date/Time: Friday, June 23, 2017 08:07 - CONCLUSION: No evidence of hydronephrosis. Rey Randall MD Chest X-Ray 06/22/17 1306 Signed Impressions: Service Date/Time: Thursday, June 22, 2017 13:09 - CONCLUSION: 1. No acute cardiopulmonary disease. Franko Benson MD Head CT 06/22/17 0000 Signed Impressions: Service Date/Time: Thursday, June 22, 2017 16:07 - CONCLUSION: Left mastoid fluid. Joao Fontaine MD Abdomen/Pelvis CT 06/22/17 0000 Signed Impressions: Service Date/Time: Thursday, June 22, 2017 16:10 - CONCLUSION: Bilateral nonobstructing renal calculi. Moderate right hydronephrosis and hydroureter identified without obvious ureteral stone. There is no perirectal edema and a moderate amount of stool in the rectosigmoid and mild bowel wall thickening involving the anorectal region suggesting proctitis. Joao Fontaine MD Objective Remarks GENERAL: No distress. SKIN: Warm and dry. No rash HEAD: Atraumatic. Normocephalic. EYES: Pupils equal and round. No conjunctival icterus. No injection or drainage. ENT: No nasal bleeding or discharge. Swelling and firmness around right and left parotid gland. Tender to palpation. NECK: Trachea midline. No JVD. Right IJ in place. Tenderness around left side of neck. CARDIOVASCULAR: Irregular irregular. Tachycardic. RESPIRATORY: No accessory muscle use. Clear to auscultation. Breath sounds equal bilaterally. No adventitious sounds. GASTROINTESTINAL: Abdomen soft, non-tender, nondistended. Active bowel sounds appreciated MUSCULOSKELETAL: Extremities with trace to 1+ bilateral lower external edema. No obvious deformities. NEUROLOGICAL: Awake and alert. No obvious cranial nerve deficits. Motor grossly within normal limits. Five out of 5 muscle strength in the arms and legs. Normal speech. Hard of hearing, conversant. Date of Insertion: June 22, 2017 Line: Central Venous Catheter Side: Right Location: Internal, Jugular A/P Assessment and Plan Hemorrhagic shock/ Paroxysmal atrial fibrillation/ History of sick sinus syndrome/ Coronary artery disease with history of 5 stents Balanced blood product resuscitation completed. Echocardiogram 2017 revealed EF 65-70%. No regional motion abnormality. Cardiology consult appreciated. - Hold warfarin/chronic coagulation given active bleeding. May transition to Eliquis soon. - continue Lopressor and Sotalol. IV Lopressor as needed. - Hold losartan 50 mg daily in light of acute kidney injury - Holding atorvastatin 40 mg at night in light of elevated transaminases, now resolving. - follow up with cardiology. - palliative care consult requested as pt seems interested in hospice care. Parotitis/ tonsillar mass Right parotid gland appears inflamed. Now left as well. CT scan: Soft tissue mass in the left tonsillar fossa region with extension towards the left parapharyngeal space concerning for a neoplasm; 3 mm calcification likely related to a stone in the right submandibular duct without asymmetry of the submandibular glands. - ENT consult requested. - will treat for parotitis in the meantime with IV nafcillin and Flagyl. Acute metabolic encephalopathy/ Uremic encephalopathy CT brain on admission revealed left fluid involving mastoid inflammation. Otherwise negative for acute hemorrhage or CVA. Resolved. - Morphine sulfate 1-2 mg every 4 hours as needed pain. - Frequent neurochecks. - Avoid long-acting sedation. At home on alprazolam 0.5 mg p.o. twice daily. - Holding acetaminophen due to elevated transaminases. History of severe bronchospasm Breathing is stable at this time. - Ipratropium aerosols every 6 hours/home medication will be continued - Wean oxygen by nasal cannula for goal SPO2 greater than 90% - Aggressive pulmonary toilet Acute kidney injury/ Right-sided hydronephrosis CT abdomen/pelvis 06/22 revealed bilateral hydronephrosis/hydroureter right greater than left. Bilateral nonobstructing stones. Have discussed the case with interventional radiology and they recommend reversing anticoagulation, placing Dangelo, correcting shock, and repeating renal ultrasound in the morning. Repeat ultrasound 06/22 revealed no hydronephrosis. Creatinine 2 on admission. Improved. - Strict I/Os. - Avoid nephrotoxic drugs. - Continue gentle hydration. - Dangelo. GI bleed/ Shock liver GI consult appreciated. EGD 06/28 with three gastric erosions. - pantoprazole daily. - ADAT. - D/c ASA. Resume anticoagulation if stable. C diff PCR was positive. - continue IV Flagyl and PO Vanco. DVT Prophylaxis -- SCDs Holding pharmacologic DVT prophylaxis given acute bleeding Maciel Hernandez DO June 28, 2017 14:58
[2017-06-28] MEDS ORDERED: METOPROLOL TARTRATE 5 MG/5 ML VIAL IV PUSH ONE (15:15)
[2017-06-28] MEDS ORDERED: PHYTONADIONE 5 MG TAB PO ONE (16:15)
[2017-06-28] MEDS ORDERED: DIGOXIN 0.5 MG/2 ML VIAL IV PUSH ONE ×2 (16:15→16:45)
[2017-06-28 17:05] LABS: BASOPHIL % 0.1 % (0.0-2.0); EOSINOPHIL # 0.1 TH/MM3 (0-0.4); EOSINOPHIL % 0.3 % (0.0-4.0); HEMATOCRIT 38.2 % (35.0-46.0); HEMOGLOBIN 12.3 GM/DL (11.6-15.3); LYMPH % 7.7 % (9.0-44.0); LYMPHOCYTE # 1.8 TH/MM3 (1.0-4.8); MEAN CELL VOLUME 94.3 FL (80.0-100.0); MEAN CORPUSCULAR HEMOGLOBIN 30.4 PG (27.0-34.0); MEAN CORPUSCULAR HGB CONC 32.2 % (32.0-36.0); MEAN PLATELET VOLUME 9.2 FL (7.0-11.0); MONO % 3.6 % (0.0-8.0); MONOCYTE # 0.8 TH/MM3 (0-0.9); NEUT % 88.3 % (16.0-70.0); PLATELET COUNT 112 TH/MM3 (150-450); RED BLOOD COUNT 4.05 MIL/MM3 (4.00-5.30); RED CELL DISTRIBUTION WIDTH 20.9 % (11.6-17.2); WHITE BLOOD COUNT 22.7 TH/MM3 (4.0-11.0)
[2017-06-28 17:26] LABS: D-DIMER 1.49 MG/L FEU (0.00-0.50)
[2017-06-28] MEDS ORDERED: PHYTONADIONE 5 MG/SWFI 5 ML ORAL SYR PO ONE (18:30)
[2017-06-29] VITALS (7 sets, daily range): BP systolic 90–164; BP diastolic 42–113; PULSE 82–118; RESP 16–32; TEMP 98.9–99.3; O2SAT 95–97
[2017-06-29] MEDS: NAFCILLIN IV SCH ×6 (00:45→20:22)
[2017-06-29] MEDS: SODIUM CHLORIDE 0.9% IV SCH ×6 (00:45→20:22)
[2017-06-29] MEDS: METOPROLOL TARTRATE 25 MG TAB PO SCH ×3 (01:00→17:00)
[2017-06-29] MEDS: metroNIDAZOLE 500 MG INJ 100 ML IV SCH ×4 (02:36→20:23)
[2017-06-29] MEDS: CHLORHEXIDINE GLUCONATE 2 % 1 PACK (2 CLOTHS) TOP SCH (04:00)
[2017-06-29] MEDS: RESP: IPRATROPIUM 0.5 MG/2.5 ML NEB NEB SCH ×4 (04:31→20:43)
[2017-06-29 05:13] LABS: INTERNATIONAL NORMALIZED RATIO 5.6 RATIO
[2017-06-29 05:18] LABS: HEMATOCRIT 36.4 % (35.0-46.0); MEAN CELL VOLUME 92.1 FL (80.0-100.0); MEAN CORPUSCULAR HEMOGLOBIN 30.3 PG (27.0-34.0); MEAN CORPUSCULAR HGB CONC 32.9 % (32.0-36.0); MEAN PLATELET VOLUME 9.5 FL (7.0-11.0); PLATELET COUNT 127 TH/MM3 (150-450); RED BLOOD COUNT 3.95 MIL/MM3 (4.00-5.30); RED CELL DISTRIBUTION WIDTH 20.7 % (11.6-17.2); WHITE BLOOD COUNT 19.3 TH/MM3 (4.0-11.0)
[2017-06-29 05:41] LABS: CREATININE 0.94 MG/DL (0.50-1.00); MAGNESIUM 1.7 MG/DL (1.5-2.5); PHOSPHORUS 3.1 MG/DL (2.5-4.9)
[2017-06-29] MEDS: D5-1/2 NS + KCL 20 MEQ INJ 1,000 ML IV SCH ×2 (05:45→13:06)
[2017-06-29 06:03] LABS: CALCIUM-PROTEIN CORRECTED 8.6 MG/DL (8.5-10.1); TOTAL PROTEIN 4.2 GM/DL (6.4-8.2)
[2017-06-29] MEDS: ICU - POTASSIUM CHLORIDE/AQUEOUS SOLN 20 MEQ/100 ML IVPB IV PRN ×2 (06:27→08:59)
[2017-06-29] MEDS ORDERED: DIGOXIN 0.5 MG/2 ML VIAL IV PUSH ONE (08:00)
--- NOTE | 2017-06-29 08:10 | PD.CARD.PN ---
Subjective Subjective Remarks Very depressed. Refusing any more "procedures". Denies CP or SOB. BP running low, improved after IVF NS bolus last night. Metoprolol held. Remains in Afib with RVR at times. Objective Medications Current Medications Medications (Trade) Dose Ordered Sig/Francisco Route Start Time Stop Time Status Last Admin (NS Flush) 2 ml UNSCH PRN IV FLUSH 06/22/17 13:15 06/23/17 21:11 ([facility] Nursing Information) 1 Q361D XX 06/22/17 14:45 06/22/17 18:12 (Chlorhexidine 2% Cloth) Taper DAILY@04 TOP 06/23/17 04:00 06/19/18 03:59 06/26/17 03:09 (Chlorhexidine 2% Cloth) 3 pack UNSCH PRN TOP 06/22/17 14:45 Metronidazole 100 ml @ 100 mls/hr Q6H IV 06/22/17 21:00 06/29/17 02:36 (Atrovent Neb) 0.5 mg Q6HR NEB NEB 06/23/17 10:00 06/29/17 04:31 (VANCOMYCIN for oral use only) 500 mg QID PO 06/23/17 13:00 06/28/17 21:15 (Ferrous Sulfate) 325 mg DAILY PO 06/24/17 09:00 06/28/17 10:42 (Folate) 0.5 mg DAILY PO 06/24/17 09:00 06/28/17 10:41 (Theragran M Tab) 1 tab DAILY PO 06/24/17 09:00 06/28/17 10:42 (Pill Splitter) 1 ea UNSCH PRN OTHER 06/23/17 10:15 06/26/17 09:15 (Morphine Inj) 2 mg Q4H PRN IV PUSH 06/23/17 10:15 06/27/17 17:46 (Morphine Inj) 1 mg Q4H PRN IV PUSH 06/23/17 10:15 ([facility] [place] Nursing Information) D/C ICU ELECTROLYTE ORDERS... UNSCH PRN .XX 06/24/17 07:15 ([facility] [place] Nursing Information) ICU - CALL ORDERING PHYSIC... UNSCH PRN .XX 06/24/17 07:15 Potassium Chloride 100 ml @ 25 mls/hr UNSCH PRN IV 06/24/17 07:15 06/25/17 02:44 (K-Lyte Cl Eff) 50 meq UNSCH PRN PO 06/24/17 07:15 Potassium Chloride 100 ml @ 50 mls/hr UNSCH PRN IV 06/24/17 07:15 06/29/17 06:27 Magnesium Sulfate 4 gm/Sodium Chloride 108 ml @ 54 mls/hr UNSCH PRN IV 06/24/17 07:15 Magnesium Sulfate 2 gm/Sodium Chloride 104 ml @ 52 mls/hr UNSCH PRN IV 06/24/17 07:15 06/24/17 08:00 (Mag-Ox) 800 mg UNSCH PRN PO 06/24/17 07:15 Sodium Phosphate 30 mmol/Sodium Chloride 260 ml @ 43.333 mls/ hr UNSCH PRN IV 06/24/17 07:15 06/28/17 11:53 (K-Phos) 2,000 mg UNSCH PRN PO 06/24/17 07:15 Potassium Phosphate 30 mmol/ Sodium Chloride 260 ml @ 43.333 mls/ hr UNSCH PRN IV 06/24/17 07:15 06/24/17 07:59 (Lopressor Inj) 5 mg Q1H PRN IV PUSH 06/27/17 08:45 06/28/17 14:40 (Lopressor) 25 mg Q8H PO 06/27/17 17:00 06/28/17 16:59 (Betapace) 120 mg BID PO 06/27/17 21:00 06/28/17 21:15 (Eliquis) 5 mg BID PO 06/27/17 21:00 Future Hold Potassium Chloride/Dextrose/ Sod Cl 1,000 ml @ 75 mls/hr [id number] IV 06/27/17 13:45 06/28/17 16:17 Nafcillin Sodium 1500 mg/Sodium Chloride 100 ml @ 100 mls/hr Q4HR IV 06/27/17 16:00 06/29/17 04:00 (Protonix) 40 mg DAILY PO 06/28/17 09:00 06/28/17 10:41 (Romazicon Inj) 0.2 mg UNSCH X1 PRN IV PUSH 06/28/17 10:45 06/29/17 10:44 (Romazicon Inj) 0.2 mg Q1M PRN IV PUSH 06/28/17 10:45 06/29/17 10:44 (Narcan Inj) 0.1 mg Q2M PRN IV PUSH 06/28/17 10:45 06/29/17 10:44 Vital Signs / I&O Vital Signs Date Time Temp Pulse Resp B/P (MAP) Pulse Ox O2 Delivery O2 Flow Rate FiO2 06/29/17 04:00 99.3 99 16 92/42 (59) 95 06/29/17 04:00 99 06/29/17 00:00 99.3 107 32 112/55 (74) 96 06/29/17 00:00 107 06/28/17 22:15 95 21 06/28/17 20:00 99.4 109 23 72/37 (49) 92 06/28/17 20:00 109 06/28/17 19:00 94 Room Air 06/28/17 16:00 155 06/28/17 16:00 99.0 158 27 114/54 (74) 93 06/28/17 13:30 81 06/28/17 12:00 99.3 122 18 84/51 (62) 95 06/28/17 12:00 122 06/28/17 08:18 97 06/28/17 08:00 114 06/28/17 08:00 97.8 124 19 105/66 (79) 98 I/O 06/28/17 06/28/17 06/28/17 06/29/17 06/29/17 06/29/17 07:00 15:00 23:00 07:00 15:00 23:00 Intake Total 540 ml 850 ml 1810 ml 600 ml Output Total 350 ml 675 ml 750 ml Balance 190 ml 850 ml 1135 ml -150 ml Intake Oral 240 ml 250 ml 300 ml IV Total 300 ml 800 ml 1560 ml 300 ml Other 50 ml Output Urine Total 350 ml 675 ml 750 ml # Bowel Movements 1 0 1 Physical Exam BP 100/60 A line. HR 100 irreg. Low grade fever. No JVD Lungs: scattered rhonhi. No rales. Heart: Irreg, s1, s2, no murmur. Ext: LUE + 3 pitting edema. LE trave edema. Warm wnd well perfused. Neuro: Non-focal. Laboratory Laboratory Tests Test 06/28/17 16:51 06/29/17 04:12 White Blood Count 22.7 TH/MM3 19.3 TH/MM3 Red Blood Count 4.05 MIL/MM3 3.95 MIL/MM3 Hemoglobin 12.3 GM/DL 12.0 GM/DL Hematocrit 38.2 % 36.4 % Mean Corpuscular Volume 94.3 FL 92.1 FL Mean Corpuscular Hemoglobin 30.4 PG 30.3 PG Mean Corpuscular Hemoglobin Concent 32.2 % 32.9 % Red Cell Distribution Width 20.9 % 20.7 % Platelet Count 112 TH/MM3 127 TH/MM3 Mean Platelet Volume 9.2 FL 9.5 FL Neutrophils (%) (Auto) 88.3 % Lymphocytes (%) (Auto) 7.7 % Monocytes (%) (Auto) 3.6 % Eosinophils (%) (Auto) 0.3 % Basophils (%) (Auto) 0.1 % Neutrophils # (Auto) 20.0 TH/MM3 Lymphocytes # (Auto) 1.8 TH/MM3 Monocytes # (Auto) 0.8 TH/MM3 Eosinophils # (Auto) 0.1 TH/MM3 Basophils # (Auto) 0.0 TH/MM3 CBC Comment DIFF FINAL Differential Comment Blood Smear Pathologist Review Haptoglobin 305 MG/DL Fibrinogen 478 mg/dL D-Dimer Quantitative (PE/DVT) 1.49 MG/L FEU Prothrombin Time 56.0 SEC Prothromb Time International Ratio 5.6 RATIO Blood Urea Nitrogen 20 MG/DL Creatinine 0.94 MG/DL Random Glucose 112 MG/DL Total Protein 4.2 GM/DL Calcium Level 7.0 MG/DL Phosphorus Level 3.1 MG/DL Magnesium Level 1.7 MG/DL Sodium Level 144 MEQ/L Potassium Level 3.3 MEQ/L Chloride Level 117 MEQ/L Carbon Dioxide Level 16.0 MEQ/L Anion Gap 11 MEQ/L Estimat Glomerular Filtration Rate 57 ML/MIN Protein Corrected Calcium 8.6 MG/DL Assessment and Plan Problem List: (1) Atrial fibrillation ICD Codes: I48.91 - Atrial fibrillation Status: Acute (2) Hypotension ICD Codes: I95.9 - Hypotension, unspecified (3) Coagulopathy ICD Codes: D68.9 - Coagulation defect, unspecified (4) Hypophosphatemia ICD Codes: E83.39 - Other disorders of phosphorus metabolism (5) Depressed ICD Codes: F32.9 - Major depressive disorder, single episode, unspecified (6) Hemorrhagic shock ICD Codes: R57.8 - Other shock Status: Resolved (7) GI bleed ICD Codes: K92.2 - GI bleed Status: Resolved (8) Hypokalemia ICD Codes: E87.6 - Hypokalemia Status: Acute (9) Sick sinus syndrome ICD Codes: I49.5 - Sick sinus syndrome (10) Presence of permanent cardiac pacemaker ICD Codes: Z95.0 - Presence of cardiac pacemaker Assessment and Plan WBC count up today likely sepsis. Workup and Rx per hospitalist/Iintensivist. Arterial line placed to better manage her hypotension. Metoprolol on hold for hypotension. Continue IVF. Will add digoxin for help with afib rate control. Need to correct potassium and phosporus levels. Do not hold sotolol. Prognosis guarded. Discussed with patient and staff mechanical engineer. Following. Dr. St will see over the weekend. Dr. Fajardo back on Sunday.. Problem Qualifiers (1) Atrial fibrillation: Qualified Codes: I48.0 - Paroxysmal atrial fibrillation (2) GI bleed: Qualified Codes: K92.2 - Gastrointestinal hemorrhage, unspecified Estiven Calero MD June 29, 2017 08:10
[2017-06-29] MEDS ORDERED: POTASSIUM PHOSPHATE MONOBASIC 500 MG TAB PO ONE (08:15)
[2017-06-29] MEDS ORDERED: PHYTONADIONE 5 MG/SWFI 5 ML ORAL SYR PO ONE (08:45)
[2017-06-29] MEDS: VANCOMYCIN 500 MG VIAL (FOR ORAL USE ONLY) PO SCH ×4 (08:59→20:22)
[2017-06-29] MEDS: MULTIVITAMINS/MINERALS THERAPEUTIC TAB PO SCH (08:59)
[2017-06-29] MEDS: PANTOPRAZOLE SOD 40 MG DELAYED RELEASE TAB PO SCH (09:00)
[2017-06-29] MEDS: FOLIC ACID 1 MG TAB PO SCH (09:00)
[2017-06-29] MEDS: FERROUS SULFATE 325 MG (65 MG ELEMENTAL IRON) TAB PO SCH (09:00)
[2017-06-29] MEDS: SOTALOL HCL 80 MG TAB PO SCH ×2 (09:00→20:22)
--- NOTE | 2017-06-29 09:34 | MB ---
cc: Eligio Buck MD DATE: 06/28/2017 CHIEF COMPLAINT: Facial swelling. HISTORY OF PRESENT ILLNESS: This is an 87-year-old female who lives in a [place] [facility] facility, who has a significant fibrillation for which she took Coumadin. She was brought into the hospital for a GI bleed with a hemoglobin of 6.6. She has remained in the hospital overnight for workup of her GI bleed. She did notice that she had facial swelling yesterday. She was started on antibiotics and a consult was placed from ENT. PAST MEDICAL HISTORY: Significant for atrial fibrillation, hyperlipidemia, hypertension and sensorineural hearing loss. PAST SURGICAL HISTORY: Significant for cardiac stents, appendectomy, pacemaker, hysterectomy, total knee arthroplasty, tonsillectomy and bilateral breast lumpectomy. MEDICATIONS: Please see the MAR. FAMILY HISTORY: Noncontributory. SOCIAL HISTORY: Resides in a care home. No alcohol, tobacco, or drugs of abuse. PHYSICAL EXAMINATION: GENERAL: Today the patient is resting comfortably in bed. She is hard of hearing, but is able to respond appropriately. HEENT: She has a left-sided facial parotid swelling and tenderness. The parotid swelling has a little erythema and is very tender to the touch. There is no purulence noted coming out of the parotid duct intraorally. The right parotid gland is beginning to be a little edematous as well. No erythema,yet of the right parotid gland. Flexible laryngoscopy at bedside, does show very dry intraoral mucosa, dry pharynx. She does seem to have asymmetry to her left lateral pharynx and left lateral tongue base with some firmness to this area; however, I am unable to see and identify a definitive mass. There is certainly no bleeding from the area. Her airway is widely patent, again with very dry mucosa. NECK: Reveals some edema on the left side, contiguous with the left parotid swelling. There is no lymphadenopathy noted. ASSESSMENT AND PLAN: The patient with acute parotitis. Recommend IV antibiotics as well as significant IV hydration. May consider changing IV antibiotics to clindamycin to cover the parotid glands a little better, as well as some warm compresses and sialagogues, but most importantly in a debilitated, elderly patient, hydration is very emery at clearing the parotitis. Recommend increased hydration for the patient. Again, I spoke with the patient about drinking more water; however, she does not seem to be very compliant with this. Thank you for this consultation. Eligio Buck MD ATT/SB , 09:02 AM , 09:32 AM
--- NOTE | 2017-06-29 09:35 | RADRPT ---
EXAM DATE: 06/29/2017 9:31 AM EDT AGE/SEX: 87 years / Female INDICATIONS: Short of breath, evaluate pneumonia CLINICAL DATA: This is the patient's subsequent encounter. Patient reports that signs and symptoms h ave been present for 2 days and indicates a pain score of Nonresponsive. MEDICAL/SURGICAL HISTORY: Cardiovascular disease. Hypertension. hemorrhagic shock, GI bleed P acemaker. COMPARISON: [facility], CHEST SINGLE AP, 06/22/2017. . FINDINGS: A pacing implement is present with control pack over left upper chest. There is consolidation in the left base obscuring the left diaphragm. Mild parenchymal opacity in the right base is grossly stable. Cardiac contours are unchanged. CONCLUSION: Slight interval worsening in aeration Electronically signed by: Jef Snow MD 06/29/2017 9:34 AM EDT
--- NOTE | 2017-06-29 10:57 | PD.CONS ---
Consult Service Palliative Care Consult Requested By Dr. Hernandez Primary Care Physician Dr. Dominga Bird . Reason for Consultation a. To assist with evaluation and management of symptoms including: Pain, Generalized weakness, Debility b. To assist medical decision maker(s) with: better understanding of current medical conditions; weighing benefits/burdens of medical treatment options; making medical treatment decisions. HPI History of Present Illness Mrs. Le is a 86-year-old with a past medical history of paroxysmal atrial fibrillation on chronic coagulation, C. difficile colitis, coronary artery disease, PCI stents, hypertension, hyperlipidemia, and pacemaker placement. Patient was brought to the ER by EMS on 06/22/17 from a half-way after she was noted to lethargic, with altered mental status and hypotensive with BP in the 60s over 40s. Patient was recently hospitalized from April 29 to May 18, 2017 and was treated for sepsis and influenza. Patient is known to palliative care from her last hospitalization. ER course: * Vital signs: Temperature 97.3, pulse 61, respirations 22, BP 105/37, O2 saturation 98% on 2 L * Laboratory workup revealed WBC 26.0, hemoglobin 6.6, hematocrit 19.2, platelet count 204, sodium 139, potassium 4.5, BUN/creatinine 87/2.00, GFR 24, calcium 7.6, AST 4 0, ALT 293, total protein 4.7, albumin 1.7, TSH 3.950, PT 111.1, INR 11.2 * Head CT revealed left mastoid fluid * Chest x-ray revealed no acute cardiopulmonary disease * EKG revealed sinus rhythm-nonspecific ST and T-wave abnormality * Urinalysis showed large leukocyte esterase-culture positive for Juhi tropicalis * 2 L crystalloid administered and 2 units PRBC transfused with slight improvement of blood pressure * Stool positive for C. difficile * Rectal exam revealed black tarry Hemoccult positive stool * Patient admitted for further evaluation Critical care Dr. Calabrese consulted on 06/22/17. K Sentra administered, 2 units PRBC, 4 units FFP transfused. GI Dr. De Leon consulted on 06/23/17 for evaluation and management of patient with GI bleed. 06/27/17 patient did an EKG which showed possible atrial flutter with rapid ventricular response. Cardiology Dr. Fajardo consulted on 06/27/17 for evaluation and management of atrial fibrillation with rapid ventricular response, recommended switching warfarin to Eliquis, resume losartan when BP stable and monitor electrolytes. Patient has a persistent cough and has left-sided parotid swelling. Neck CT on 06/27/17 revealed soft tissue mass in the left tonsillar fossa region with extension towards the left parapharyngeal space concerning for a neoplasm; 3 mm calcification likely related to a stone in the right submandibular duct without asymmetry of the submandibular glands. Maxillofacial CT on 06/27/17 patient underwent revealed mucosal thickening in right maxillary sinus with no evidence of fracture or underlying bony abnormality and no evidence of abscess. EGD on to attempt to find source of bleed prior to restarting patient on anticoagulation. ENT consult consulted on 06/29/17 for evaluation of patient with facial swelling soft tissue mass on neck CT. Flexible laryngoscope at bedside did not show any definitive mass. ENT recommended antibiotic therapy and hydration. Palliative care consulted to assist with symptom management and establishing goals of care. Laboratory workup today revealing WBC 19.3, hemoglobin 12.0, hematocrit 36.4, platelet count 127, sodium 144, potassium 3.3, BUN/creatinine 20/0.94, total protein 4.2. Chest x-ray today revealing slight interval worsening in aeration. Low-grade temp 99.3F. Blood pressure in the 90s over 40s. Patient seen and examined in the room. Patient denies pain. She explains that today he has been her best day and she feels much better than she is ever done in many days. Patient endorsing generalized weakness, decreased appetite. Bedside RN confirmed that patient had one liquid dark stool today. Patient is alert, oriented to self, place and situation. She is of hard of hearing. Obtained psychosocial, past medical history and events leading to this hospitalization. Discussed trajectory of decline since last hospitalization. Discussed treatment that has been rendered and complications she has faced during this hospitalization. She expresses that she does not want to undergo any more invasive procedures. Patient expresses a frustration of not being able to go home since April 25, 2017 when she was last hospitalization. Patient expresses that she is now tired of being sick and would like to go home. Patient is aware of his physical deconditioning, and debility. Patient mentions that she has not ambulated since she left the hospital in May. Patient states that she is not sure if she will be able to ever walk again. Expresses frustration by saying that she does not care whether she will ever walk again. She understands that she will need [id number] care if she goes home. Explored possible options for patient. Patient is willing to go to a long-term facility only if temporarily and definitely does not want to leave in a half-way. Introduced hospice philosophy and benefits. Patient mentions that at this time she is not ready for hospice, she would like to continue with treatments that can help her except invasive procedures. Patient mentioned that she has designated her son Christiana Le as her durable power of claims attorney and would like him involved in helping her make medical decisions. Patient confirms that she is a DNR. Telephone conversation with patient`s son Christiana who confirms that he is the DPOA and will bring in copies. Updated him on patient`s medical status. Informed patient`s son of discussion with patient. Patient`s son is looking for a SNF for rehabilitation for his mother and would appreciate more information regarding available options. Patient`s son has found a SNF? [facility] but patient has to be able to ambulate. Discussed complications that patient is faced with, including physical deconditioning before she is is ambulatory. Patient`s son verbalized understanding that it will be a challenge. At this time both son and patient would want to pursue aggressive treatment short of no code. Case discussed with bedside RN and correctional counselor/case manager Yasmany. . Function/Cognitive Trajectory Patient was recently admitted in the hospital from April 29 - May 08, 2017. She was discharged to [facility] rehab on May 18. Patient stated that she has never ambulated since then. She has has persistent diarrhea, decreased appetite. Patient is able to verbalize and needs. Patient is lost weight-unable to quantify. . Review of Systems Constitutional: COMPLAINS OF: Weight loss, Change in appetite, Pain, Generalized weakness Eyes: DENIES: Eye inflammation, Eye pain Ears, nose, mouth, throat: COMPLAINS OF: Hearing loss Respiratory: COMPLAINS OF: Cough Cardiovascular: COMPLAINS OF: Lower Extremity Edema, DENIES: Chest pain, Palpitations Gastrointestinal: COMPLAINS OF: Black stools, Diarrhea, DENIES: Nausea, Vomiting, Difficulty Swallowing, Vomiting blood Genitourinary: COMPLAINS OF: Urinary incontinence Hematologic/Lymphatics: COMPLAINS OF: Bruising Neurologic: COMPLAINS OF: Localized weakness (LLE) Psychiatric: DENIES: Hallucinations Past Family Social History Coded Allergies: clopidogrel (Unverified Allergy, Mild, Hives, 04/29/17) Iodinated Contrast- Oral and IV Dye (Verified Allergy, Unknown, 04/29/17) Past Medical History Paroxysmal atrial fibrillation on Coumadin therapy Sick sinus syndrome Osteoarthritis Hyperlipidemia Coronary artery disease History of angina Presbycusis Hypertension Clostridium difficile colitis . Past Surgical History PCI of LAD with drug-eluting stent in 2012 Pacemaker placement in 2007 and then generator change in 2017 Spinal stenosis back surgery 2005 Bladder suspension in 1995 Bilateral knee replacement surgeries Tonsillectomy in 1949 Appendectomy in 2 Complete hysterectomy in 1962 Bilateral breast lumpectomy that was benign in 1988 . Reported Medications Ferrous Sulfate 325 Mg (65 Mg Iron) Tablet 325 Mg PO DAILY Diltiazem CD 24 HR 120 Mg Caper 120 Mg PO DAILY Ipratropium Neb (Ipratropium Hannibal) 0.5 Mg/2.5 Ml Amp 0.5 Mg NEB Q6HR NEB Folic Acid 0.4 Mg Tab 400 Mcg PO DAILY Co Q-10 (Coenzyme Q10 (Ubidecarenone)) 50 Mg-5 Unit Cap 200 Mg PO DAILY Robitussin Cough-Chest Dm Liq (Guaifenesin/Dextromethorphan) 100 Mg-5 Mg/5 Ml Liquid 10 Ml PO Q6HR PRN APAP Extra Strength (Acetaminophen) 500 Mg Tab 500 Mg PO Q6HR PRN Guaifenesin ER (Guaifenesin) 600 Mg Tab.er.12h 600 Mg PO BID PRN Xanax (Alprazolam) 0.25 Mg Tab 0.25 Mg PO BID PRN Prednisone 10 Mg Tab 10 Mg PO DAILY Valium (Diazepam) 2 Mg Tab 2 Mg PO DAILY PRN Carvedilol 25 Mg Tab 25 Mg PO BID Coumadin (Warfarin) 1 Mg Tab 0.5 Mg PO DAILY Losartan (Losartan Potassium) 50 Mg Tab 50 Mg PO DAILY Atorvastatin (Atorvastatin Calcium) 40 Mg Tab 40 Mg PO HS Centrum (Multiple Vitamins W/ Minerals) 1 Chew 1 Tab CHEW DAILY Sotalol (Sotalol HCl) 80 Mg Tab 120 Mg PO BID Aspir-81 (Aspirin) 81 Mg Tabdr 81 Mg PO CORONEL, , W, , SA . Current Medications Medications (Trade) Dose Ordered Sig/Francisco Route Start Time Stop Time Status Last Admin (NS Flush) 2 ml UNSCH PRN IV FLUSH 06/22/17 13:15 06/23/17 21:11 [place] 1 Q361D XX 06/22/17 14:45 06/22/17 18:12 (Chlorhexidine 2% Cloth) Taper DAILY@04 TOP 06/23/17 04:00 06/19/18 03:59 06/26/17 03:09 (Chlorhexidine 2% Cloth) 3 pack UNSCH PRN TOP 06/22/17 14:45 Metronidazole 100 ml @ 100 mls/hr Q6H IV 06/22/17 21:00 06/29/17 09:01 (Atrovent Neb) 0.5 mg Q6HR NEB NEB 06/23/17 10:00 06/29/17 04:31 (VANCOMYCIN for oral use only) 500 mg QID PO 06/23/17 13:00 06/29/17 08:59 (Ferrous Sulfate) 325 mg DAILY PO 06/24/17 09:00 06/29/17 09:00 (Folate) 0.5 mg DAILY PO 06/24/17 09:00 06/29/17 09:00 (Theragran M Tab) 1 tab DAILY PO 06/24/17 09:00 06/29/17 08:59 (Pill Splitter) 1 ea UNSCH PRN OTHER 06/23/17 10:15 06/26/17 09:15 (Morphine Inj) 2 mg Q4H PRN IV PUSH 06/23/17 10:15 06/27/17 17:46 (Morphine Inj) 1 mg Q4H PRN IV PUSH 06/23/17 10:15 [place] D/C ICU ELECTROLYTE ORDERS... UNSCH PRN .XX 06/24/17 07:15 [place] ICU - CALL ORDERING PHYSIC... UNSCH PRN .XX 06/24/17 07:15 Potassium Chloride 100 ml @ 25 mls/hr UNSCH PRN IV 06/24/17 07:15 06/25/17 02:44 (K-Lyte Cl Eff) 50 meq UNSCH PRN PO 06/24/17 07:15 Potassium Chloride 100 ml @ 50 mls/hr UNSCH PRN IV 06/24/17 07:15 06/29/17 08:59 Magnesium Sulfate 4 gm/Sodium Chloride 108 ml @ 54 mls/hr UNSCH PRN IV 06/24/17 07:15 Magnesium Sulfate 2 gm/Sodium Chloride 104 ml @ 52 mls/hr UNSCH PRN IV 06/24/17 07:15 06/24/17 08:00 (Mag-Ox) 800 mg UNSCH PRN PO 06/24/17 07:15 Sodium Phosphate 30 mmol/Sodium Chloride 260 ml @ 43.333 mls/ hr UNSCH PRN IV 06/24/17 07:15 06/28/17 11:53 (K-Phos) 2,000 mg UNSCH PRN PO 06/24/17 07:15 Potassium Phosphate 30 mmol/ Sodium Chloride 260 ml @ 43.333 mls/ hr UNSCH PRN IV 06/24/17 07:15 06/24/17 07:59 (Lopressor Inj) 5 mg Q1H PRN IV PUSH 06/27/17 08:45 06/28/17 14:40 (Lopressor) 25 mg Q8H PO 06/27/17 17:00 06/28/17 16:59 (Betapace) 120 mg BID PO 06/27/17 21:00 06/29/17 09:00 (Eliquis) 5 mg BID PO 06/27/17 21:00 Future Hold Potassium Chloride/Dextrose/ Sod Cl 1,000 ml @ 75 mls/hr [id number] IV 06/27/17 13:45 06/28/17 16:17 Nafcillin Sodium 1500 mg/Sodium Chloride 100 ml @ 100 mls/hr Q4HR IV 06/27/17 16:00 06/29/17 09:01 (Protonix) 40 mg DAILY PO 06/28/17 09:00 06/29/17 09:00 (Romazicon Inj) 0.2 mg UNSCH X1 PRN IV PUSH 06/28/17 10:45 06/29/17 10:44 (Romazicon Inj) 0.2 mg Q1M PRN IV PUSH 06/28/17 10:45 06/29/17 10:44 (Narcan Inj) 0.1 mg Q2M PRN IV PUSH 06/28/17 10:45 06/29/17 10:44 Family History Positive for cancer, coronary artery disease and hypertension Daughter-recently from complications of pneumonia/influenza . Substance Use Tobacco: No history of tobacco use Alcohol: Denies Prescription med abuse: Denies Illicits: Denies . Psychosocial History Patient is originally from [place]. She moved to [place] 6 years ago after he got sick and she wanted to be closer to her children. Patient' s 3 years ago and her daughter and grandson moved in to live with her. Patient had 3 adult children, 2 sons and 1 daughter who recently this year. 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 . Spiritual/Cultural Factors No orthodox affiliation . Living Will: Completed, but not made available Durable Power of Paper Box Maker: Completed, but not made available Health Care Surrogate(s): Son-Jeremy Zimmerman-[phone] (Will bring in copies) . Documented care wishes: None identified at this time . Family/friends goals: Patient son is hoping that patient is discharged to a long-term facility for rehabilitation . Ethical and Legal Issues None identified at this time . Physical Exam Vital Signs Date Time Temp Pulse Resp B/P (MAP) Pulse Ox O2 Delivery O2 Flow Rate FiO2 06/29/17 08:10 97 06/29/17 04:00 99.3 99 16 92/42 (59) 95 06/29/17 04:00 99 06/29/17 00:00 99.3 107 32 112/55 (74) 96 06/29/17 00:00 107 06/28/17 22:15 95 21 06/28/17 20:00 99.4 109 23 72/37 (49) 92 06/28/17 20:00 109 06/28/17 19:00 94 Room Air 06/28/17 16:00 155 06/28/17 16:00 99.0 158 27 114/54 (74) 93 06/28/17 13:30 81 06/28/17 12:00 99.3 122 18 84/51 (62) 95 06/28/17 12:00 122 Exam CONSTITUTIONAL/GENERAL: This is a frail elderly patient, in no apparent distress. TUBES/LINES/DRAINS: R radial Marjorie, PIV, FC, SCDs SKIN: No jaundice, rashes, or lesions. No wounds seen anteriorly. Skin temperature appropriate. Not diaphoretic. HEAD: Atraumatic. Normocephalic. EYES: Pupils equal and round and reactive. Extraocular motions intact. No scleral icterus. No injection or drainage. Fundi not examined. ENT: Hard of hearing. No bleeding to the nose. Left-sided facial parotid swelling with tenderness. Dry oral mucosa NECK: Trachea midline. Supple, nontender. CARDIOVASCULAR: Regular rate and rhythm without murmurs, gallops, or rubs. No JVD. Edema to bilateral lower extremities and upper extremities RESPIRATORY/CHEST: Symmetric, unlabored respirations. Breath sounds equal bilaterally. Scattered rhonchi. No wheezes, rales GASTROINTESTINAL: Abdomen soft, non-tender, nondistended. Bowel sounds present. GENITOURINARY: Without palpable bladder distension. Dangelo catheter in place. MUSCULOSKELETAL: Extremities without clubbing, cyanosis, or edema. No joint tenderness or effusion noted. No calf tenderness. No mottling or clubbing. NEUROLOGICAL: Awake and alert. Motor and sensory grossly within normal limits. Follows commands. Cognitively sharp. Moves all extremities. PSYCHIATRIC: No obvious anxiety/depression. no apparent hallucinations or other psychotic thought process. Diagnostic Tests Laboratory Laboratory Tests Test 06/27/17 04:30 06/28/17 01:31 06/28/17 04:37 06/28/17 16:51 White Blood Count 13.6 TH/MM3 (4.0-11.0) 22.7 TH/MM3 (4.0-11.0) Red Blood Count 3.96 MIL/MM3 (4.00-5.30) 4.05 MIL/MM3 (4.00-5.30) Hemoglobin 12.0 GM/DL (11.6-15.3) 12.3 GM/DL (11.6-15.3) Hematocrit 36.0 % (35.0-46.0) 38.2 % (35.0-46.0) Mean Corpuscular Volume 90.9 FL (80.0-100.0) 94.3 FL (80.0-100.0) Mean Corpuscular Hemoglobin 30.3 PG (27.0-34.0) 30.4 PG (27.0-34.0) Mean Corpuscular Hemoglobin Concent 33.3 % (32.0-36.0) 32.2 % (32.0-36.0) Red Cell Distribution Width 19.5 % (11.6-17.2) 20.9 % (11.6-17.2) Platelet Count 96 TH/MM3 (150-450) 112 TH/MM3 (150-450) Mean Platelet Volume 9.4 FL (7.0-11.0) 9.2 FL (7.0-11.0) Prothrombin Time 20.2 SEC (9.8-11.6) 34.4 SEC (9.8-11.6) Prothromb Time International Ratio 2.0 RATIO 3.4 RATIO Activated Partial Thromboplast Time 32.4 SEC (24.3-30.1) Blood Urea Nitrogen 24 MG/DL (7-18) 21 MG/DL (7-18) Creatinine 0.78 MG/DL (0.50-1.00) 0.88 MG/DL (0.50-1.00) Random Glucose 88 MG/DL (74-106) 118 MG/DL (74-106) Total Protein 4.6 GM/DL (6.4-8.2) 4.8 GM/DL (6.4-8.2) Albumin 1.7 GM/DL (3.4-5.0) Calcium Level 7.4 MG/DL (8.5-10.1) 7.3 MG/DL (8.5-10.1) Magnesium Level 1.5 MG/DL (1.5-2.5) 1.8 MG/DL (1.5-2.5) 1.9 MG/DL (1.5-2.5) Alkaline Phosphatase 61 U/L (45-117) Aspartate Amino Transf (AST/SGOT) 37 U/L (15-37) Alanine Aminotransferase (ALT/SGPT) 178 U/L (10-53) Total Bilirubin 0.6 MG/DL (0.2-1.0) Direct Bilirubin 0.2 MG/DL (0.0-0.2) Sodium Level 142 MEQ/L (136-145) 143 MEQ/L (136-145) Potassium Level 3.6 MEQ/L (3.5-5.1) 3.8 MEQ/L (3.5-5.1) Chloride Level 112 MEQ/L (98-107) 112 MEQ/L (98-107) Carbon Dioxide Level 20.8 MEQ/L (21.0-32.0) 18.1 MEQ/L (21.0-32.0) Anion Gap 9 MEQ/L (5-15) 13 MEQ/L (5-15) Estimat Glomerular Filtration Rate 70 ML/MIN (>89) 61 ML/MIN (>89) Protein Corrected Calcium 8.8 MG/DL (8.5-10.1) 8.6 MG/DL (8.5-10.1) Phosphorus Level 1.0 MG/DL (2.5-4.9) 2.4 MG/DL (2.5-4.9) 2.2 MG/DL (2.5-4.9) Indirect Bilirubin 0.4 MG/DL (0.0-0.8) Neutrophils (%) (Auto) 88.3 % (16.0-70.0) Lymphocytes (%) (Auto) 7.7 % (9.0-44.0) Monocytes (%) (Auto) 3.6 % (0.0-8.0) Eosinophils (%) (Auto) 0.3 % (0.0-4.0) Basophils (%) (Auto) 0.1 % (0.0-2.0) Neutrophils # (Auto) 20.0 TH/MM3 (1.8-7.7) Lymphocytes # (Auto) 1.8 TH/MM3 (1.0-4.8) Monocytes # (Auto) 0.8 TH/MM3 (0-0.9) Eosinophils # (Auto) 0.1 TH/MM3 (0-0.4) Basophils # (Auto) 0.0 TH/MM3 (0-0.2) CBC Comment DIFF FINAL Differential Comment Blood Smear Pathologist Review Haptoglobin 305 MG/DL (30-200) Fibrinogen 478 mg/dL (227-377) D-Dimer Quantitative (PE/DVT) 1.49 MG/L FEU (0.00-0.50) Test 06/29/17 04:12 White Blood Count 19.3 TH/MM3 (4.0-11.0) Red Blood Count 3.95 MIL/MM3 (4.00-5.30) Hemoglobin 12.0 GM/DL (11.6-15.3) Hematocrit 36.4 % (35.0-46.0) Mean Corpuscular Volume 92.1 FL (80.0-100.0) Mean Corpuscular Hemoglobin 30.3 PG (27.0-34.0) Mean Corpuscular Hemoglobin Concent 32.9 % (32.0-36.0) Red Cell Distribution Width 20.7 % (11.6-17.2) Platelet Count 127 TH/MM3 (150-450) Mean Platelet Volume 9.5 FL (7.0-11.0) Prothrombin Time 56.0 SEC (9.8-11.6) Prothromb Time International Ratio 5.6 RATIO Blood Urea Nitrogen 20 MG/DL (7-18) Creatinine 0.94 MG/DL (0.50-1.00) Random Glucose 112 MG/DL (74-106) Total Protein 4.2 GM/DL (6.4-8.2) Calcium Level 7.0 MG/DL (8.5-10.1) Phosphorus Level 3.1 MG/DL (2.5-4.9) Magnesium Level 1.7 MG/DL (1.5-2.5) Sodium Level 144 MEQ/L (136-145) Potassium Level 3.3 MEQ/L (3.5-5.1) Chloride Level 117 MEQ/L (98-107) Carbon Dioxide Level 16.0 MEQ/L (21.0-32.0) Anion Gap 11 MEQ/L (5-15) Estimat Glomerular Filtration Rate 57 ML/MIN (>89) Protein Corrected Calcium 8.6 MG/DL (8.5-10.1) Result Diagram: 06/29/17 0412 06/29/172 Imaging Last Impressions Chest X-Ray 06/29/17 Signed Impressions: CONCLUSION: Slight interval worsening in aeration Neck CT 06/27/17 Signed Impressions: CONCLUSION: 1. Soft tissue mass in the left tonsillar fossa region with extension towards the left parapharyngeal space concerning for a neoplasm. This area should be di rectly inspected. The soft tissue density within the parapharyngeal space could be related to extension of the mass versus adjacent adenopathy. 2. 3 mm calcification likely related to a stone in the right submandibular duct without asymmetry of the submandibular glands. Maxillofacial CT 06/27/17 Signed Impressions: CONCLUSION: 1. Mucosal thickening in the right maxillary sinus. 2. No evidence of fracture or underlying bony abnormality. 3. No evidence of abscess. Upper Extremity Ultrasound 06/26/17 Signed Impressions: CONCLUSION: 1. No evidence of deep venous thrombosis left upper extremity. 2. Superficial thrombosis in the cephalic vein. Renal Ultrasound 06/23/17 0900 Signed Impressions: Service Date/Time: Friday, June 23, 2017 08:07 - CONCLUSION: No evidence of hydronephrosis. Rey Randall MD Head CT 06/22/17 0000 Signed Impressions: Service Date/Time: Thursday, June 22, 2017 16:07 - CONCLUSION: Left mastoid fluid. Joao Fontaine MD Abdomen/Pelvis CT 06/22/17 0000 Signed Impressions: Service Date/Time: Thursday, June 22, 2017 16:10 - CONCLUSION: Bilateral nonobstructing renal calculi. Moderate right hydronephrosis and hydroureter identified without obvious ureteral stone. There is no perirectal edema and a moderate amount of stool in the rectosigmoid and mild bowel wall thickening involving the anorectal region suggesting proctitis. Joao Fontaine MD Procedures 06/22/17-right IJ central line placement 06/29/17-flexible laryngoscopy . Patient/Family Conference Family Conference Location: Bedside, Telephone Issues Discussed: * Palliative care role, purpose, approach * Additional medical, psychosocial, and spiritual history * Patients general health, functional status, and cognitive changes in the months leading up to the current hospitalization * Patient/family understanding of the current medical problems * Patient/family understanding of prognosis * Patients goals of care as best understood from advance directives and/or conversations and/or values * Current medical treatment options and benefits/burdens of those options * Likely scenarios comparing ongoing aggressive care with a transition to comfort measures only * Questions answered to the best of my ability * Introduced hospice philosophy and benefits * Palliative care contact information provided Assessment and Plan Disease Oriented Problem List: (1) Chronic anticoagulation (2) Acute kidney injury (3) Hemorrhagic shock (4) Uremic encephalopathy (5) Atrial fibrillation (6) Parotitis (7) History of Clostridium difficile colitis Symptom Scale: (1) Pain 0-10 Scale: Unable to quantify (Tender to left facial side) (2) Generalized weakness (3) Debility 0-10 Scale: Unable to quantify Comment: Progressive. . Pertinent Non-Medical Issues Psychosocial:Patient is originally from [place]. She moved to [place] 6 years ago after he got sick and she wanted to be closer to her children. Patient's 3 years ago and her daughter and grandson moved in to live with her. Patient had 3 adult children, 2 sons and 1 daughter who recently this year. 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 Spiritual:No orthodox affiliation Legal: Ethical issues impacting care:None identified at this time . Important Contacts Stated Durable power of claims attorney- Son Jeremy LeUvityquo-[phone] . Prognosis Mrs. Le is a 86-year-old with a past medical history of paroxysmal atrial fibrillation on chronic coagulation, C. difficile colitis, coronary artery disease, PCI stents, hypertension, hyperlipidemia, and pacemaker placement. Patient was brought to the ER by EMS on 06/22/17 from a half-way after she was noted to lethargic, with altered mental status and hypotensive with BP in the 60s over 40s. Patient was recently hospitalized from April 29 to May 18, 2017 and was treated for sepsis and influenza. Clinical course complicated with acute kidney injury, gastrointestinal bleed, C. difficile and parotitis. Given ongoing comorbidities, patient remains at high risk for further complications, deterioration and decline. . Code Status: No Code Plan PLAN: Legal decision maker: Patient is able to participate in decision-making but would like her son Christiana eL whom she says is her durable power of claims attorney be involved in making medical decisions with her. Goals: Aggressive short of no code and invasive procedures. CODE STATUS: No Code DNR/DNI Discussed trajectory of decline since last hospitalization. Discussed treatment that has been rendered and complications she has faced during this hospitalization. She expresses that she does not want to undergo any more invasive procedures. Patient expresses a frustration of not being able to go home since April 25, 2017 when she was last hospitalization. Patient expresses that she is now tired of being sick and would like to go home. Patient is aware of his physical deconditioning, and debility. Patient mentions that she has not ambulated since she left the hospital in May. Patient states that she is not sure if she will be able to ever walk again. Expresses frustration by saying that she does not care whether she will ever walk again. She understands that she will need [id number] care if she goes home. Explored possible options for patient. Patient is willing to go to a long-term facility only if temporarily and definitely does not want to leave in a half-way. Introduced hospice philosophy and benefits. Patient mentions that at this time she is not ready for hospice, she would like to continue with treatments that can help her except invasive procedures. Patient mentioned that she has designated her son Christiana Le as her durable power of claims attorney and would like him involved in helping her make medical decisions. Patient confirms that she is a DNR. SYMPTOMS: * Pain: Patient has left-sided facial parotid swelling and tenderness and has been bed bound for a long time. Patient is on antibiotics. Currently denies pain at this time. Morphine sulfate 1-2 mg available prn. Patient sparingly using pain medication. Last dose given 06/2317. No recommendation * Generalized weakness: Patient reporting having diarrhea for the past 2-3 weeks and he had decreased appetite. Physical therapy and Occupational Therapy consulted,recommending a rehabilitation. * Debility: Prolonged hospitalization. Patient was hospitalized from April 29 to May 18, 2017 and was discharged to a SNF and is now back into the hospital. Patient mentions that she is not ambulated ever since she has been at the long-term facility. PT and OT consulted. Palliative care will continue to follow the patient during hospital course as condition evolves, to assist patient/decision-maker with understanding of their medical conditions, weighing benefits/burdens of treatment options, for clarification of goals of treatment. Additionally will assist with any symptoms of palliative concern Thank you for the opportunity to participate in the care of Ms. Le. Attestation To help prompt me to consider important information that might be impacting today's encounter and assessment, information from prior notes written by myself or my colleagues may have been "brought forward" into today's note. My signature on this note, however, is an attestation that I personally performed the exam, history, and/or decision-making noted today, and, unless otherwise indicated, the interactions with patient, family, and staff as well as the review of records all occurred today. I also attest that the listed assessment and stated plan reflect my best clinical judgment today based on the combination of historical information, prior notes, and today's exam/ interactions. When time spent is documented, it refers only to time spent today by the signer, or if indicated, combined time spent today by collaborating physician/nurse practitioner. Arjun Rowland June 29, 2017 10:50
[2017-06-29 13:00] LABS: BACTERIA, URINE MANY /hpf; BILIRUBIN, URINE NEG (NEG); BLOOD, URINE TRACE (NEG); GLUCOSE,URINE NEG (NEG); KETONE, URINE NEG (NEG); NITRITE,URINE NEG (NEG); PH, URINE 5.5 (5.0-8.5); RENAL EPITHELIAL CELLS <1 /hpf; SQUAMOUS EPITHELIAL CELL URINE 1 /hpf (0-5); TRANSITIONAL EPI CELLS, URINE 1 /hpf; URINE COLOR YELLOW (YELLW/STRAW); URINE LEUKOCYTE ESTERASE LARGE (NEG)
[2017-06-29] MEDS ORDERED: ALBUMIN 25% INJ 100 ML IV ONE (14:00)
--- NOTE | 2017-06-29 14:18 | HHI.PR ---
Subjective Remarks The patient was resting in bed. She was adamant that she did not want any further procedures done. She did seem interested in the possibility of hospice. She said she has been very weak since April and does not think she will get any better. She is refusing any further procedures. Discussed with her son over the phone. Discussed with nursing. Objective Vitals Vital Signs Date Time Temp Pulse Resp B/P (MAP) Pulse Ox O2 Delivery O2 Flow Rate FiO2 06/29/17 12:00 87 06/29/17 12:00 99.1 87 17 90/42 (58) 96 06/29/17 08:10 97 06/29/17 08:00 99.3 102 22 92/48 (63) 96 06/29/17 08:00 118 06/29/17 08:00 96 Room Air 06/29/17 04:00 99.3 99 16 92/42 (59) 95 06/29/17 04:00 99 06/29/17 00:00 99.3 107 32 112/55 (74) 96 06/29/17 00:00 107 06/28/17 22:15 95 21 06/28/17 20:00 99.4 109 23 72/37 (49) 92 06/28/17 20:00 109 06/28/17 19:00 94 Room Air 06/28/17 16:00 155 06/28/17 16:00 99.0 158 27 114/54 (74) 93 I/O 06/28/17 06/28/17 06/28/17 06/29/17 06/29/17 06/29/17 07:00 15:00 23:00 07:00 15:00 23:00 Intake Total 540 ml 850 ml 1810 ml 600 ml Output Total 350 ml 675 ml 750 ml Balance 190 ml 850 ml 1135 ml -150 ml Intake Oral 240 ml 250 ml 300 ml IV Total 300 ml 800 ml 1560 ml 300 ml Other 50 ml Output Urine Total 350 ml 675 ml 750 ml # Bowel Movements 1 0 1 Result Diagram: 06/29/1741106/29/17411 Imaging Last Impressions Chest X-Ray 06/29/17 0000 Signed Impressions: CONCLUSION: Slight interval worsening in aeration Neck CT 06/27/17 0000 Signed Impressions: CONCLUSION: 1. Soft tissue mass in the left tonsillar fossa region with extension towards the left parapharyngeal space concerning for a neoplasm. This area should be di rectly inspected. The soft tissue density within the parapharyngeal space could be related to extension of the mass versus adjacent adenopathy. 2. 3 mm calcification likely related to a stone in the right submandibular duct without asymmetry of the submandibular glands. Maxillofacial CT 06/27/17 0000 Signed Impressions: CONCLUSION: 1. Mucosal thickening in the right maxillary sinus. 2. No evidence of fracture or underlying bony abnormality. 3. No evidence of abscess. Upper Extremity Ultrasound 06/26/17 0000 Signed Impressions: CONCLUSION: 1. No evidence of deep venous thrombosis left upper extremity. 2. Superficial thrombosis in the cephalic vein. Renal Ultrasound 06/23/17 0900 Signed Impressions: Service Date/Time: Friday, June 23, 2017 08:07 - CONCLUSION: No evidence of hydronephrosis. Rey Randall MD Head CT 06/22/17 0000 Signed Impressions: Service Date/Time: Thursday, June 22, 2017 16:07 - CONCLUSION: Left mastoid fluid. Joao Fontaine MD Abdomen/Pelvis CT 06/22/17 0000 Signed Impressions: Service Date/Time: Thursday, June 22, 2017 16:10 - CONCLUSION: Bilateral nonobstructing renal calculi. Moderate right hydronephrosis and hydroureter identified without obvious ureteral stone. There is no perirectal edema and a moderate amount of stool in the rectosigmoid and mild bowel wall thickening involving the anorectal region suggesting proctitis. Joao Fontaine MD Objective Remarks GENERAL: No distress. SKIN: Warm and dry. No rash HEAD: Atraumatic. Normocephalic. EYES: Pupils equal and round. No conjunctival icterus. No injection or drainage. ENT: No nasal bleeding or discharge. Swelling and firmness around right and left parotid gland. Tender to palpation. NECK: Trachea midline. No JVD. Right IJ in place. Tenderness around left side of neck. CARDIOVASCULAR: Irregular irregular. Tachycardic. RESPIRATORY: No accessory muscle use. Clear to auscultation. Breath sounds equal bilaterally. No adventitious sounds. GASTROINTESTINAL: Abdomen soft, non-tender, nondistended. Active bowel sounds appreciated MUSCULOSKELETAL: Extremities with trace to 1+ bilateral lower external edema. No obvious deformities. NEUROLOGICAL: Awake and alert. No obvious cranial nerve deficits. Motor grossly within normal limits. Five out of 5 muscle strength in the arms and legs. Normal speech. Hard of hearing, conversant. Date of Insertion: June 22, 2017 Line: Central Venous Catheter Side: Right Location: Internal, Jugular A/P Assessment and Plan Hemorrhagic shock/ Paroxysmal atrial fibrillation/ History of sick sinus syndrome/ Coronary artery disease with history of 5 stents Balanced blood product resuscitation completed. Echocardiogram 2017 revealed EF 65-70%. No regional motion abnormality. Cardiology consult appreciated. - Hold warfarin/chronic coagulation given active bleeding. May transition to Eliquis soon. - continue Sotalol. IV Lopressor as needed. - Hold losartan 50 mg daily in light of acute kidney injury - Holding atorvastatin 40 mg at night in light of elevated transaminases, now resolving. - follow up with cardiology. - palliative care consult appreciated. Discussed with son 06/29. Will [address] a hospice consult as pt and son are open to the possibility of hospice care. Parotitis/ tonsillar mass Right parotid gland appears inflamed. Now left as well. CT scan: Soft tissue mass in the left tonsillar fossa region with extension towards the left parapharyngeal space concerning for a neoplasm; 3 mm calcification likely related to a stone in the right submandibular duct without asymmetry of the submandibular glands. ENT consult appreciated. - will treat for parotitis in the meantime with IV nafcillin and Flagyl. - IVFs. Elevated INR S/p Vit K. Off of anticoagulation. Fibrinogen level elevated, not consistent with DIC. - repeat vit K 5 mg PO x 1. - follow INR. - peripheral smear pending. Acute metabolic encephalopathy/ Uremic encephalopathy CT brain on admission revealed left fluid involving mastoid inflammation. Otherwise negative for acute hemorrhage or CVA. Resolved. - Morphine sulfate 1-2 mg every 4 hours as needed pain. - Frequent neurochecks. - Avoid long-acting sedation. At home on alprazolam 0.5 mg p.o. twice daily. - Holding acetaminophen due to elevated transaminases. History of severe bronchospasm Breathing is stable at this time. - Ipratropium aerosols every 6 hours/home medication will be continued - Wean oxygen by nasal cannula for goal SPO2 greater than 90% - Aggressive pulmonary toilet Acute kidney injury/ Right-sided hydronephrosis CT abdomen/pelvis 06/22 revealed bilateral hydronephrosis/hydroureter right greater than left. Bilateral nonobstructing stones. Have discussed the case with interventional radiology and they recommend reversing anticoagulation, placing Dangelo, correcting shock, and repeating renal ultrasound in the morning. Repeat ultrasound 06/22 revealed no hydronephrosis. Creatinine 2 on admission. Improved. - Strict I/Os. - Avoid nephrotoxic drugs. - Continue gentle hydration. - Dangelo. GI bleed/ Shock liver GI consult appreciated. EGD 06/28 with three gastric erosions. - pantoprazole daily. - ADAT. - D/c ASA. Resume anticoagulation if stable. C diff PCR was positive. - continue IV Flagyl and PO Vanco. DVT Prophylaxis -- SCDs Holding pharmacologic DVT prophylaxis given acute bleeding Discharge Planning Await hospice consult. Maciel Hernandez DO June 29, 2017 14:18
--- NOTE | 2017-06-29 14:53 | HHI.GIFU ---
GI Follow-up Note Consult Follow-up Subjective: Patient laying in bed--feeling tired. No diarrhea or overt GI bleeding Objective: PHYSICAL EXAMINATION: 90/42-84-16 No fever HEENT no jaundice. Throat is clear. NECK: Neck is supple, no JVD, no lymphadenopathy. CHEST: Chest is clear to auscultation and percussion. CARDIAC: irregular rate and rhythm with no murmur gallop or rubs. ABDOMEN: Soft, nondistended, nontender; no hepatosplenomegaly; bowel sounds are present in all four quadrants. SKIN: Normal; no rash; no jaundice. VISION REHABILITATION THERAPIST: alert and oriented times three. Available Data (labs, X- Rays, Procedues) : ASSESSMENT/PLAN: 1. Melena and anemia-clinically stable 2. C. difficile-stable 3. Gastric erosions-this may have been the source of bleeding. However she may also have AVMs of the small bowel PLAN: Observation from the GI standpoint Continue pantoprazole Patient currently has an elevated prothrombin time and INR and has had no further bleeding. She understands she may rebleed in the future It was a pleasure seeing Tamiko Le. Thank you for this consult. Entered by: Dong Camp MD June 29, 2017 14:53
[2017-06-30] VITALS (11 sets, daily range): BP systolic 94–152; BP diastolic 44–68; PULSE 65–116; RESP 15–22; TEMP 97.4–99.9; O2SAT 96–98
[2017-06-30] MEDS: NAFCILLIN IV SCH ×6 (00:21→20:47)
[2017-06-30] MEDS: SODIUM CHLORIDE 0.9% IV SCH ×6 (00:21→20:47)
[2017-06-30] MEDS: METOPROLOL TARTRATE 25 MG TAB PO SCH ×3 (00:21→17:00)
[2017-06-30] MEDS: D5-1/2 NS + KCL 20 MEQ INJ 1,000 ML IV SCH ×3 (00:22→16:34)
[2017-06-30] MEDS: RESP: IPRATROPIUM 0.5 MG/2.5 ML NEB NEB SCH ×4 (03:35→20:18)
[2017-06-30] MEDS: CHLORHEXIDINE GLUCONATE 2 % 1 PACK (2 CLOTHS) TOP SCH (04:00)
[2017-06-30] MEDS: metroNIDAZOLE 500 MG INJ 100 ML IV SCH ×4 (04:04→20:48)
[2017-06-30 06:41] LABS: INTERNATIONAL NORMALIZED RATIO 2.9 RATIO; PROTHROMBIN TIME - PATIENT 29.3 SEC (9.8-11.6)
[2017-06-30 06:46] LABS: HEMATOCRIT 35.8 % (35.0-46.0); MEAN CELL VOLUME 92.2 FL (80.0-100.0); MEAN CORPUSCULAR HEMOGLOBIN 30.9 PG (27.0-34.0); MEAN CORPUSCULAR HGB CONC 33.5 % (32.0-36.0); MEAN PLATELET VOLUME 9.1 FL (7.0-11.0); PLATELET COUNT 167 TH/MM3 (150-450); RED BLOOD COUNT 3.88 MIL/MM3 (4.00-5.30); RED CELL DISTRIBUTION WIDTH 20.7 % (11.6-17.2); WHITE BLOOD COUNT 13.6 TH/MM3 (4.0-11.0)
[2017-06-30 06:53] LABS: ALBUMIN 1.8 GM/DL (3.4-5.0); BICARBONATE 16.8 MEQ/L (21.0-32.0); CALCIUM 7.2 MG/DL (8.5-10.1); CREATININE 0.9 MG/DL (0.50-1.00); DIRECT BILIRUBIN ADULT 0.3 MG/DL (0.0-0.2); INDIRECT BILIRUBIN 0.5 MG/DL (0.0-0.8); MAGNESIUM 1.6 MG/DL (1.5-2.5); PHOSPHORUS 1.9 MG/DL (2.5-4.9); TOTAL BILIRUBIN ADULT 0.8 MG/DL (0.2-1.0); TOTAL PROTEIN 4.5 GM/DL (6.4-8.2)
[2017-06-30 08:59] LABS: CALCIUM-PROTEIN CORRECTED 8.7 MG/DL (8.5-10.1)
--- NOTE | 2017-06-30 09:33 | PD.CARD.PN ---
Subjective Subjective Remarks APPEARS COMFORTABLE, SOMNOLENT. NO COMPLAINTS OF CHEST PAIN OR SOB HEMODYNAMICALLY STABLE Objective Medications Current Medications Medications (Trade) Dose Ordered Sig/Francisco Route Start Time Stop Time Status Last Admin (NS Flush) 2 ml UNSCH PRN IV FLUSH 06/22/17 13:15 06/23/17 21:11 ([facility] Nursing Information) 1 Q361D XX 06/22/17 14:45 06/22/17 18:12 (Chlorhexidine 2% Cloth) Taper DAILY@04 TOP 06/23/17 04:00 06/19/18 03:59 06/26/17 03:09 (Chlorhexidine 2% Cloth) 3 pack UNSCH PRN TOP 06/22/17 14:45 Metronidazole 100 ml @ 100 mls/hr Q6H IV 06/22/17 21:00 06/30/17 04:04 (Atrovent Neb) 0.5 mg Q6HR NEB NEB 06/23/17 10:00 06/29/17 04:31 (VANCOMYCIN for oral use only) 500 mg QID PO 06/23/17 13:00 06/29/17 20:22 (Ferrous Sulfate) 325 mg DAILY PO 06/24/17 09:00 06/29/17 09:00 (Folate) 0.5 mg DAILY PO 06/24/17 09:00 06/29/17 09:00 (Theragran M Tab) 1 tab DAILY PO 06/24/17 09:00 06/29/17 08:59 (Pill Splitter) 1 ea UNSCH PRN OTHER 06/23/17 10:15 06/26/17 09:15 (Morphine Inj) 2 mg Q4H PRN IV PUSH 06/23/17 10:15 06/27/17 17:46 (Morphine Inj) 1 mg Q4H PRN IV PUSH 06/23/17 10:15 ([facility] Nursing Information) D/C ICU ELECTROLYTE ORDERS... UNSCH PRN .XX 06/24/17 07:15 ([facility] Nursing Information) ICU - CALL ORDERING PHYSIC... UNSCH PRN .XX 06/24/17 07:15 Potassium Chloride 100 ml @ 25 mls/hr UNSCH PRN IV 06/24/17 07:15 06/25/17 02:44 (K-Lyte Cl Eff) 50 meq UNSCH PRN PO 06/24/17 07:15 Potassium Chloride 100 ml @ 50 mls/hr UNSCH PRN IV 06/24/17 07:15 06/29/17 08:59 Magnesium Sulfate 4 gm/Sodium Chloride 108 ml @ 54 mls/hr UNSCH PRN IV 06/24/17 07:15 Magnesium Sulfate 2 gm/Sodium Chloride 104 ml @ 52 mls/hr UNSCH PRN IV 06/24/17 07:15 06/24/17 08:00 (Mag-Ox) 800 mg UNSCH PRN PO 06/24/17 07:15 Sodium Phosphate 30 mmol/Sodium Chloride 260 ml @ 43.333 mls/ hr UNSCH PRN IV 06/24/17 07:15 06/28/17 11:53 (K-Phos) 2,000 mg UNSCH PRN PO 06/24/17 07:15 Potassium Phosphate 30 mmol/ Sodium Chloride 260 ml @ 43.333 mls/ hr UNSCH PRN IV 06/24/17 07:15 06/24/17 07:59 (Lopressor Inj) 5 mg Q1H PRN IV PUSH 06/27/17 08:45 06/28/17 14:40 (Lopressor) 25 mg Q8H PO 06/27/17 17:00 06/30/17 00:21 (Betapace) 120 mg BID PO 06/27/17 21:00 06/29/17 20:22 (Eliquis) 5 mg BID PO 06/27/17 21:00 Future Hold Potassium Chloride/Dextrose/ Sod Cl 1,000 ml @ 125 mls/hr Q8H IV 06/27/17 13:45 06/30/17 00:22 Nafcillin Sodium 1500 mg/Sodium Chloride 100 ml @ 100 mls/hr Q4HR IV 06/27/17 16:00 06/30/17 07:49 (Protonix) 40 mg DAILY PO 06/28/17 09:00 06/29/17 09:00 Vital Signs / I&O Vital Signs Date Time Temp Pulse Resp B/P (MAP) Pulse Ox O2 Delivery O2 Flow Rate FiO2 06/30/17 04:00 99.5 65 17 140/63 (88) 97 06/30/17 04:00 65 06/30/17 03:36 97 06/30/17 00:00 99.5 72 20 152/68 (96) 97 06/30/17 00:00 72 06/29/17 20:00 82 06/29/17 20:00 98.9 82 23 164/113 (130) 96 06/29/17 19:00 96 Room Air 06/29/17 16:00 96 06/29/17 16:00 99.1 96 18 120/56 (77) 97 06/29/17 12:00 87 06/29/17 12:00 99.1 87 17 90/42 (58) 96 I/O 06/29/17 06/29/17 06/29/17 06/30/17 06/30/17 06/30/17 07:00 15:00 23:00 07:00 15:00 23:00 Intake Total 600 ml 250 ml 580 ml Output Total 750 ml 1000 ml 500 ml Balance -150 ml -750 ml 80 ml Intake Oral 300 ml 250 ml 480 ml IV Total 300 ml 100 ml Output Urine Total 750 ml 1000 ml 500 ml # Bowel Movements 1 1 2 Laboratory Laboratory Tests Test 06/29/17 12:00 06/30/17 05:30 Urine Color YELLOW Urine Turbidity HAZY Urine pH 5.5 Urine Specific [place] 1.009 Urine Protein TRACE mg/dL Urine Glucose (UA) NEG mg/dL Urine Ketones NEG mg/dL Urine Occult Blood TRACE Urine Nitrite NEG Urine Bilirubin NEG Urine Urobilinogen LESS THAN 2.0 MG/DL Urine Leukocyte Esterase LARGE Urine RBC 10 /hpf Urine WBC /hpf Urine Squamous Epithelial Cells 1 /hpf Urine Transitional Epithelial Cells 1 /hpf Urine Renal Epithelial Cells <1 /hpf Urine Bacteria MANY /hpf Urine Yeast with Hyphae OCC Urine Yeast (Budding) OCC Microscopic Urinalysis Comment CULTURE INDICATED White Blood Count 13.6 TH/MM3 Red Blood Count 3.88 MIL/MM3 Hemoglobin 12.0 GM/DL Hematocrit 35.8 % Mean Corpuscular Volume 92.2 FL Mean Corpuscular Hemoglobin 30.9 PG Mean Corpuscular Hemoglobin Concent 33.5 % Red Cell Distribution Width 20.7 % Platelet Count 167 TH/MM3 Mean Platelet Volume 9.1 FL Prothrombin Time 29.3 SEC Prothromb Time International Ratio 2.9 RATIO Blood Urea Nitrogen 18 MG/DL Creatinine 0.90 MG/DL Random Glucose 99 MG/DL Total Protein 4.5 GM/DL Albumin 1.8 GM/DL Calcium Level 7.2 MG/DL Phosphorus Level 1.9 MG/DL Magnesium Level 1.6 MG/DL Alkaline Phosphatase 62 U/L Aspartate Amino Transf (AST/SGOT) 16 U/L Alanine Aminotransferase (ALT/SGPT) 55 U/L Total Bilirubin 0.8 MG/DL Direct Bilirubin 0.3 MG/DL Sodium Level 146 MEQ/L Potassium Level 3.3 MEQ/L Chloride Level 118 MEQ/L Carbon Dioxide Level 16.8 MEQ/L Anion Gap 11 MEQ/L Estimat Glomerular Filtration Rate 60 ML/MIN Protein Corrected Calcium 8.7 MG/DL Indirect Bilirubin 0.5 MG/DL Assessment and Plan Problem List: (1) Atrial fibrillation ICD Codes: I48.91 - Atrial fibrillation Status: Acute (2) Hypotension ICD Codes: I95.9 - Hypotension, unspecified (3) Coagulopathy ICD Codes: D68.9 - Coagulation defect, unspecified (4) Hypophosphatemia ICD Codes: E83.39 - Other disorders of phosphorus metabolism (5) Depressed ICD Codes: F32.9 - Major depressive disorder, single episode, unspecified (6) Hemorrhagic shock ICD Codes: R57.8 - Other shock Status: Resolved (7) GI bleed ICD Codes: K92.2 - GI bleed Status: Resolved (8) Hypokalemia ICD Codes: E87.6 - Hypokalemia Status: Acute (9) Sick sinus syndrome ICD Codes: I49.5 - Sick sinus syndrome (10) Presence of permanent cardiac pacemaker ICD Codes: Z95.0 - Presence of cardiac pacemaker Assessment and Plan STABLE MEDICATIONS REVIEWED Problem Qualifiers (1) Atrial fibrillation: Qualified Codes: I48.0 - Paroxysmal atrial fibrillation (2) GI bleed: Qualified Codes: K92.2 - Gastrointestinal hemorrhage, unspecified Tien St MD June 30, 2017 09:33
[2017-06-30] MEDS: SOTALOL HCL 80 MG TAB PO SCH ×2 (09:45→20:47)
[2017-06-30] MEDS: MULTIVITAMINS/MINERALS THERAPEUTIC TAB PO SCH (09:46)
[2017-06-30] MEDS: FOLIC ACID 1 MG TAB PO SCH (09:48)
[2017-06-30] MEDS: VANCOMYCIN 500 MG VIAL (FOR ORAL USE ONLY) PO SCH ×4 (09:49→20:47)
[2017-06-30] MEDS: PANTOPRAZOLE SOD 40 MG DELAYED RELEASE TAB PO SCH (09:49)
[2017-06-30] MEDS: FERROUS SULFATE 325 MG (65 MG ELEMENTAL IRON) TAB PO SCH (09:57)
[2017-06-30] MEDS ORDERED: POTASSIUM CHLORIDE 25 MEQ EFFERVESCENT TAB PO ONE (10:30)
--- NOTE | 2017-06-30 10:38 | HHI.PR ---
Subjective Remarks The patient denied any pain. She said she was breathing comfortably. She said she continued to have diarrhea. She said she was interested in going to a SNF upon discharge. Discussed with nursing. Objective Vitals Vital Signs Date Time Temp Pulse Resp B/P (MAP) Pulse Ox O2 Delivery O2 Flow Rate FiO2 06/30/17 09:36 98 21 06/30/17 08:00 97.4 80 15 102/44 (63) 96 06/30/17 04:00 99.5 65 17 140/63 (88) 97 06/30/17 04:00 65 06/30/17 03:36 97 06/30/17 00:00 99.5 72 20 152/68 (96) 97 06/30/17 00:00 72 06/29/17 20:00 82 06/29/17 20:00 98.9 82 23 164/113 (130) 96 06/29/17 19:00 96 Room Air 06/29/17 16:00 96 06/29/17 16:00 99.1 96 18 120/56 (77) 97 06/29/17 12:00 87 06/29/17 12:00 99.1 87 17 90/42 (58) 96 I/O 06/29/17 06/29/17 06/29/17 06/30/17 06/30/17 06/30/17 06:59 14:59 22:59 06:59 14:59 22:59 Intake Total 600 ml 250 ml 580 ml 1200 ml Output Total 750 ml 1000 ml 500 ml Balance -150 ml -750 ml 80 ml 1200 ml Intake Oral 300 ml 250 ml 480 ml 200 ml IV Total 300 ml 100 ml 1000 ml Output Urine Total 750 ml 1000 ml 500 ml # Bowel Movements 1 1 2 1 Result Diagram: 06/30/17 0530 06/30/17 0530 Imaging Last Impressions Chest X-Ray 06/29/17 0000 Signed Impressions: CONCLUSION: Slight interval worsening in aeration Neck CT 06/27/17 0000 Signed Impressions: CONCLUSION: 1. Soft tissue mass in the left tonsillar fossa region with extension towards the left parapharyngeal space concerning for a neoplasm. This area should be di rectly inspected. The soft tissue density within the parapharyngeal space could be related to extension of the mass versus adjacent adenopathy. 2. 3 mm calcification likely related to a stone in the right submandibular duct without asymmetry of the submandibular glands. Maxillofacial CT 06/27/17 0000 Signed Impressions: CONCLUSION: 1. Mucosal thickening in the right maxillary sinus. 2. No evidence of fracture or underlying bony abnormality. 3. No evidence of abscess. Upper Extremity Ultrasound 06/26/17 0000 Signed Impressions: CONCLUSION: 1. No evidence of deep venous thrombosis left upper extremity. 2. Superficial thrombosis in the cephalic vein. Renal Ultrasound 06/23/17 0900 Signed Impressions: Service Date/Time: Friday, June 23, 2017 08:07 - CONCLUSION: No evidence of hydronephrosis. Rey Randall MD Head CT 06/22/17 0000 Signed Impressions: Service Date/Time: Thursday, June 22, 2017 16:07 - CONCLUSION: Left mastoid fluid. Joao Fontaine MD Abdomen/Pelvis CT 06/22/17 0000 Signed Impressions: Service Date/Time: Thursday, June 22, 2017 16:10 - CONCLUSION: Bilateral nonobstructing renal calculi. Moderate right hydronephrosis and hydroureter identified without obvious ureteral stone. There is no perirectal edema and a moderate amount of stool in the rectosigmoid and mild bowel wall thickening involving the anorectal region suggesting proctitis. Joao Fontaine MD Objective Remarks GENERAL: No distress. SKIN: Warm and dry. No rash HEAD: Atraumatic. Normocephalic. EYES: Pupils equal and round. No conjunctival icterus. No injection or drainage. ENT: No nasal bleeding or discharge. Swelling and firmness around right and left parotid gland. Tender to palpation on the left. NECK: Trachea midline. No JVD. Right IJ in place. Tenderness around left side of neck. CARDIOVASCULAR: Irregular irregular. RESPIRATORY: No accessory muscle use. Clear to auscultation. Breath sounds equal bilaterally. No adventitious sounds. GASTROINTESTINAL: Abdomen soft, non-tender, nondistended. Active bowel sounds appreciated MUSCULOSKELETAL: Extremities with trace to 1+ bilateral lower external edema. No obvious deformities. NEUROLOGICAL: Awake and alert. No obvious cranial nerve deficits. Motor grossly within normal limits. Five out of 5 muscle strength in the arms and legs. Normal speech. Hard of hearing, conversant. Date of Insertion: June 22, 2017 Line: Central Venous Catheter Side: Right Location: Internal, Jugular A/P Assessment and Plan Hemorrhagic shock/ Paroxysmal atrial fibrillation/ History of sick sinus syndrome/ Coronary artery disease with history of 5 stents Balanced blood product resuscitation completed. Echocardiogram 2017 revealed EF 65-70%. No regional motion abnormality. Cardiology consult appreciated. - Hold warfarin/chronic coagulation given active bleeding. - continue Sotalol. IV Lopressor as needed. - Hold losartan 50 mg daily in light of acute kidney injury - Holding atorvastatin 40 mg at night in light of elevated transaminases, now resolving. - follow up with cardiology. - palliative care consult appreciated. Discussed with son 06/29. Hospice consult appreciated. Pt now agreeable to going to SNF. Will consult case management for placement. Parotitis/ tonsillar mass Right parotid gland appears inflamed. Now left as well. CT scan: Soft tissue mass in the left tonsillar fossa region with extension towards the left parapharyngeal space concerning for a neoplasm; 3 mm calcification likely related to a stone in the right submandibular duct without asymmetry of the submandibular glands. ENT consult appreciated. - will treat for parotitis in the meantime with IV nafcillin and Flagyl. - IVFs. - outpt follow-up with ENT. Elevated INR S/p Vit K x 2. Off of anticoagulation. Fibrinogen level elevated and no fragmented red cells on peripheral smear, not consistent with DIC. INR improved. - follow INR. Acute metabolic encephalopathy/ Uremic encephalopathy CT brain on admission revealed left fluid involving mastoid inflammation. Otherwise negative for acute hemorrhage or CVA. Resolved. - Morphine sulfate 1-2 mg every 4 hours as needed pain. - Frequent neurochecks. - Avoid long-acting sedation. At home on alprazolam 0.5 mg p.o. twice daily. - Holding acetaminophen due to elevated transaminases. History of severe bronchospasm Breathing is stable at this time. - Ipratropium aerosols every 6 hours/home medication will be continued - Wean oxygen by nasal cannula for goal SPO2 greater than 90% - Aggressive pulmonary toilet Acute kidney injury/ Right-sided hydronephrosis/ Hypokalemia CT abdomen/pelvis 06/22 revealed bilateral hydronephrosis/hydroureter right greater than left. Bilateral nonobstructing stones. Have discussed the case with interventional radiology and they recommend reversing anticoagulation, placing Dangelo, correcting shock, and repeating renal ultrasound in the morning. Repeat ultrasound 06/22 revealed no hydronephrosis. Creatinine 2 on admission. Improved. - Strict I/Os. - Avoid nephrotoxic drugs. - Continue IV hydration with KCl. - Dangelo. - follow BMP and replete lytes as needed. GI bleed/ Shock liver GI consult appreciated. EGD 06/28 with three gastric erosions. - pantoprazole daily. - ADAT. - D/c ASA. C diff PCR was positive. - continue IV Flagyl and PO Vanco. DVT Prophylaxis -- SCDs Holding pharmacologic DVT prophylaxis given acute bleeding Discharge Planning Hopefully d/c to SNF with or without hospice in 1-2 days Maciel Hernandez DO June 30, 2017 10:38
[2017-06-30] MEDS: POTASSIUM CHLORIDE 25 MEQ EFFERVESCENT TAB PO PRN (11:45)
--- NOTE | 2017-06-30 12:56 | HHI.GIFU ---
GI Follow-up Note Consult Follow-up Subjective: Patient laying in bed--no overt GI bleeding noted has some loose stools-better than before. No abdominal pain or nausea and vomiting Objective: PHYSICAL EXAMINATION: Vitals signs stable No fever HEENT: no jaundice. CHEST: Chest is clear to auscultation and percussion. CARDIAC: Regular rate and rhythm with no murmur gallop or rubs. ABDOMEN: Soft, nondistended, nontender; no hepatosplenomegaly; bowel sounds are present in all four quadrants. EXTREMITIES: Upper extremity edema noted SKIN: Normal; no rash; no jaundice. 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 Available Data (labs, X- Rays, Procedures) : ASSESSMENT/PLAN: 1. Melena and anemia-clinically stable 2. C. difficile-still with some loose stools. Consider adding Questran 3. Gastric erosions-this may have been the source of bleeding. However she may also have AVMs of the small bowel PLAN: Observation from the GI standpoint Continue pantoprazole Patient currently has an elevated prothrombin time and INR and has had no further bleeding. She understands she may rebleed in the future Start Questran 4 g twice daily It was a pleasure seeing Tamiko Le. Thank you for this consult. Entered by: Dong Camp MD June 30, 2017 12:56
[2017-06-30] MEDS: MORPHINE SULFATE 4 MG/ML INJ IV PUSH PRN (15:15)
[2017-06-30] MEDS: CHOLESTYRAMINE 4 GM PACKET PO SCH (20:47)
[2017-07-01] VITALS (7 sets, daily range): BP systolic 110–169; BP diastolic 50–89; PULSE 62–92; RESP 14–24; TEMP 98.6–100; O2SAT 97–99
[2017-07-01] MEDS: D5-1/2 NS + KCL 20 MEQ INJ 1,000 ML IV SCH ×2 (00:54→13:13)
[2017-07-01] MEDS: SODIUM CHLORIDE 0.9% IV SCH ×6 (00:54→20:00)
[2017-07-01] MEDS: NAFCILLIN IV SCH ×6 (00:54→20:00)
[2017-07-01] MEDS: METOPROLOL TARTRATE 25 MG TAB PO SCH ×4 (00:54→17:01)
[2017-07-01] MEDS: CHLORHEXIDINE GLUCONATE 2 % 1 PACK (2 CLOTHS) TOP SCH (03:26)
[2017-07-01] MEDS: metroNIDAZOLE 500 MG INJ 100 ML IV SCH ×4 (03:26→20:21)
[2017-07-01] MEDS: RESP: IPRATROPIUM 0.5 MG/2.5 ML NEB NEB SCH ×4 (03:53→20:56)
[2017-07-01 05:54] LABS: HEMATOCRIT 34.6 % (35.0-46.0); HEMOGLOBIN 11.7 GM/DL (11.6-15.3); MEAN CELL VOLUME 91.5 FL (80.0-100.0); MEAN CORPUSCULAR HEMOGLOBIN 30.9 PG (27.0-34.0); MEAN CORPUSCULAR HGB CONC 33.7 % (32.0-36.0); MEAN PLATELET VOLUME 8.6 FL (7.0-11.0); PLATELET COUNT 201 TH/MM3 (150-450); RED BLOOD COUNT 3.78 MIL/MM3 (4.00-5.30); RED CELL DISTRIBUTION WIDTH 21.2 % (11.6-17.2); WHITE BLOOD COUNT 11.2 TH/MM3 (4.0-11.0)
[2017-07-01 06:28] LABS: BICARBONATE 16.3 MEQ/L (21.0-32.0); CALCIUM 7.1 MG/DL (8.5-10.1); CREATININE 0.98 MG/DL (0.50-1.00); MAGNESIUM 1.4 MG/DL (1.5-2.5)
[2017-07-01 06:46] LABS: CALCIUM-PROTEIN CORRECTED 8.5 MG/DL (8.5-10.1); TOTAL PROTEIN 4.5 GM/DL (6.4-8.2)
[2017-07-01] MEDS: SOTALOL HCL 80 MG TAB PO SCH ×3 (09:00→20:18)
[2017-07-01] MEDS ORDERED: PHYTONADIONE 5 MG/SWFI 5 ML ORAL SYR PO ONE (10:00)
--- NOTE | 2017-07-01 10:38 | PD.CARD.PN ---
Subjective Subjective Remarks REMAINS CLINICALLY STABLE STATES TO BE COMFORTABLE DENIES CHEST PAIN, SOB AND GENERALIZED PAIN [facility] Objective Medications Current Medications Medications (Trade) Dose Ordered Sig/Francisco Route Start Time Stop Time Status Last Admin (NS Flush) 2 ml UNSCH PRN IV FLUSH 06/22/17 13:15 06/23/17 21:11 ([facility]) 1 Q361D XX 06/22/17 14:45 06/22/17 18:12 (Chlorhexidine 2% Cloth) Taper DAILY@04 TOP 06/23/17 04:00 06/19/18 03:59 06/26/17 03:09 (Chlorhexidine 2% Cloth) 3 pack UNSCH PRN TOP 06/22/17 14:45 Metronidazole 100 ml @ 100 mls/hr Q6H IV 06/22/17 21:00 07/01/17 03:26 (Atrovent Neb) 0.5 mg Q6HR NEB NEB 06/23/17 10:00 06/30/17 17:30 (VANCOMYCIN for oral use only) 500 mg QID PO 06/23/17 13:00 06/30/17 20:47 (Ferrous Sulfate) 325 mg DAILY PO 06/24/17 09:00 06/30/17 09:57 (Folate) 0.5 mg DAILY PO 06/24/17 09:00 06/30/17 09:48 (Theragran M Tab) 1 tab DAILY PO 06/24/17 09:00 06/30/17 09:46 (Pill Splitter) 1 ea UNSCH PRN OTHER 06/23/17 10:15 06/26/17 09:15 (Morphine Inj) 2 mg Q4H PRN IV PUSH 06/23/17 10:15 06/30/17 15:15 (Morphine Inj) 1 mg Q4H PRN IV PUSH 06/23/17 10:15 ([facility] Nursing Information) D/C ICU ELECTROLYTE ORDERS... UNSCH PRN .XX 06/24/17 07:15 ([facility] Nursing Information) ICU - CALL ORDERING PHYSIC... UNSCH PRN .XX 06/24/17 07:15 Potassium Chloride 100 ml @ 25 mls/hr UNSCH PRN IV 06/24/17 07:15 06/25/17 02:44 (K-Lyte Cl Eff) 50 meq UNSCH PRN PO 06/24/17 07:15 06/30/17 11:45 Potassium Chloride 100 ml @ 50 mls/hr UNSCH PRN IV 06/24/17 07:15 06/29/17 08:59 Magnesium Sulfate 4 gm/Sodium Chloride 108 ml @ 54 mls/hr UNSCH PRN IV 06/24/17 07:15 Magnesium Sulfate 2 gm/Sodium Chloride 104 ml @ 52 mls/hr UNSCH PRN IV 06/24/17 07:15 06/24/17 08:00 (Mag-Ox) 800 mg UNSCH PRN PO 06/24/17 07:15 Sodium Phosphate 30 mmol/Sodium Chloride 260 ml @ 43.333 mls/ hr UNSCH PRN IV 06/24/17 07:15 06/28/17 11:53 (K-Phos) 2,000 mg UNSCH PRN PO 06/24/17 07:15 Potassium Phosphate 30 mmol/ Sodium Chloride 260 ml @ 43.333 mls/ hr UNSCH PRN IV 06/24/17 07:15 06/24/17 07:59 (Lopressor Inj) 5 mg Q1H PRN IV PUSH 06/27/17 08:45 06/28/17 14:40 (Lopressor) 25 mg Q8H PO 06/27/17 17:00 07/01/17 00:54 (Betapace) 120 mg BID PO 06/27/17 21:00 06/30/17 20:47 (Eliquis) 5 mg BID PO 06/27/17 21:00 Future Hold Potassium Chloride/Dextrose/ Sod Cl 1,000 ml @ 125 mls/hr Q8H IV 06/27/17 13:45 07/01/17 00:54 Nafcillin Sodium 1500 mg/Sodium Chloride 100 ml @ 100 mls/hr Q4HR IV 06/27/17 16:00 07/01/17 03:26 (Protonix) 40 mg DAILY PO 06/28/17 09:00 06/30/17 09:49 (Questran 4 Gm Pkt) 4 gm Q12HR PO 06/30/17 21:00 06/30/17 20:47 Vital Signs / I&O Vital Signs Date Time Temp Pulse Resp B/P (MAP) Pulse Ox O2 Delivery O2 Flow Rate FiO2 07/01/17 04:00 68 07/01/17 04:00 99.0 68 15 129/82 (98) 98 07/01/17 00:00 92 07/01/17 00:00 99.5 91 20 97 110/89 (96) 06/30/17 20:16 97 06/30/17 20:00 92 06/30/17 20:00 99.9 92 19 97 110/60 (77) 06/30/17 19:00 97 Room Air 06/30/17 16:00 97.4 116 22 98 94/44 (61) 06/30/17 16:00 116 06/30/17 14:00 115 06/30/17 12:00 97.7 80 17 96 122/56 (78) 06/30/17 12:00 80 I/O 06/30/17 06/30/17 06/30/17 07/01/17 07/01/17 07/01/17 07:00 15:00 23:00 07:00 15:00 23:00 Intake Total 580 ml 1480 ml 150 ml 480 ml Output Total 500 ml 1000 ml 900 ml Balance 80 ml 1480 ml -850 ml -420 ml Intake Oral 480 ml 480 ml 150 ml 480 ml IV Total 100 ml 1000 ml Output Urine Total 500 ml 1000 ml 900 ml # Bowel Movements 2 3 0 Physical Exam NAD, COMFORTABLE RESPIRATIONS ON ROOM AIR PALE, ANICTERIC LUNGS WITH BIBASILAR CRACKLES RRR, 2/6 LLSB MURMUR GENERALIZED EDEMA Laboratory Laboratory Tests Test 07/01/17 05:45 White Blood Count 11.2 TH/MM3 Red Blood Count 3.78 MIL/MM3 Hemoglobin 11.7 GM/DL Hematocrit 34.6 % Mean Corpuscular Volume 91.5 FL Mean Corpuscular Hemoglobin 30.9 PG Mean Corpuscular Hemoglobin Concent 33.7 % Red Cell Distribution Width 21.2 % Platelet Count 201 TH/MM3 Mean Platelet Volume 8.6 FL Prothrombin Time 40.0 SEC Prothromb Time International Ratio 4.0 RATIO Blood Urea Nitrogen 17 MG/DL Creatinine 0.98 MG/DL Random Glucose 117 MG/DL Total Protein 4.5 GM/DL Calcium Level 7.1 MG/DL Magnesium Level 1.4 MG/DL Sodium Level 145 MEQ/L Potassium Level 3.9 MEQ/L Chloride Level 120 MEQ/L Carbon Dioxide Level 16.3 MEQ/L Anion Gap 9 MEQ/L Estimat Glomerular Filtration Rate 54 ML/MIN Protein Corrected Calcium 8.5 MG/DL Assessment and Plan Problem List: (1) Atrial fibrillation ICD Codes: I48.91 - Atrial fibrillation Status: Acute (2) Hypotension ICD Codes: I95.9 - Hypotension, unspecified (3) Coagulopathy ICD Codes: D68.9 - Coagulation defect, unspecified (4) Hypophosphatemia ICD Codes: E83.39 - Other disorders of phosphorus metabolism (5) Depressed ICD Codes: F32.9 - Major depressive disorder, single episode, unspecified (6) Hemorrhagic shock ICD Codes: R57.8 - Other shock Status: Resolved (7) GI bleed ICD Codes: K92.2 - GI bleed Status: Resolved (8) Hypokalemia ICD Codes: E87.6 - Hypokalemia Status: Acute (9) Sick sinus syndrome ICD Codes: I49.5 - Sick sinus syndrome (10) Presence of permanent cardiac pacemaker ICD Codes: Z95.0 - Presence of cardiac pacemaker Assessment and Plan STABLE. [facility] MEDICATIONS REVIEWED WILL SIGN OFF. PLEASE CALL WITH ANY QUESTIONS Problem Qualifiers (1) Atrial fibrillation: Qualified Codes: I48.0 - Paroxysmal atrial fibrillation (2) GI bleed: Qualified Codes: K92.2 - Gastrointestinal hemorrhage, unspecified Tien St MD July 01, 2017 10:38
[2017-07-01] MEDS: PANTOPRAZOLE SOD 40 MG DELAYED RELEASE TAB PO SCH (11:00)
[2017-07-01] MEDS: FOLIC ACID 1 MG TAB PO SCH (11:01)
[2017-07-01] MEDS: VANCOMYCIN 500 MG VIAL (FOR ORAL USE ONLY) PO SCH ×4 (11:01→20:18)
[2017-07-01] MEDS: FERROUS SULFATE 325 MG (65 MG ELEMENTAL IRON) TAB PO SCH (11:01)
[2017-07-01] MEDS: MULTIVITAMINS/MINERALS THERAPEUTIC TAB PO SCH (11:01)
[2017-07-01] MEDS: SODIUM CHLORIDE 0.9% FLUSH 10 ML FLUSH IV FLUSH PRN (11:02)
[2017-07-01] MEDS: CHOLESTYRAMINE 4 GM PACKET PO SCH ×2 (11:02→20:18)
--- NOTE | 2017-07-01 14:53 | HHI.PR ---
Subjective Remarks The pt wants to get out of the hospital. She denies any palpitations or pain. She would like to go to a SNF with hospice. Discussed with nursing. Objective Vitals Vital Signs Date Time Temp Pulse Resp B/P (MAP) Pulse Ox O2 Delivery O2 Flow Rate FiO2 07/01/17 04:00 68 07/01/17 04:00 99.0 68 15 129/82 (98) 98 07/01/17 00:00 92 07/01/17 00:00 99.5 91 20 97 110/89 (96) 06/30/17 20:16 97 06/30/17 20:00 92 06/30/17 20:00 99.9 92 19 97 110/60 (77) 06/30/17 19:00 97 Room Air 06/30/17 16:00 97.4 116 22 98 94/44 (61) 06/30/17 16:00 116 I/O 06/30/17 06/30/17 06/30/17 07/01/17 07/01/17 07/01/17 06:59 14:59 22:59 06:59 14:59 22:59 Intake Total 580 ml 1480 ml 150 ml 480 ml Output Total 500 ml 1000 ml 900 ml Balance 80 ml 1480 ml -850 ml -420 ml Intake Oral 480 ml 480 ml 150 ml 480 ml IV Total 100 ml 1000 ml Output Urine Total 500 ml 1000 ml 900 ml # Bowel Movements 2 3 0 Result Diagram: 07/01/17 0545 07/01/17 0545 Imaging Last Impressions Chest X-Ray 06/29/17 0000 Signed Impressions: CONCLUSION: Slight interval worsening in aeration Neck CT 06/27/17 0000 Signed Impressions: CONCLUSION: 1. Soft tissue mass in the left tonsillar fossa region with extension towards the left parapharyngeal space concerning for a neoplasm. This area should be di rectly inspected. The soft tissue density within the parapharyngeal space could be related to extension of the mass versus adjacent adenopathy. 2. 3 mm calcification likely related to a stone in the right submandibular duct without asymmetry of the submandibular glands. Maxillofacial CT 06/27/17 0000 Signed Impressions: CONCLUSION: 1. Mucosal thickening in the right maxillary sinus. 2. No evidence of fracture or underlying bony abnormality. 3. No evidence of abscess. Upper Extremity Ultrasound 06/26/17 0000 Signed Impressions: CONCLUSION: 1. No evidence of deep venous thrombosis left upper extremity. 2. Superficial thrombosis in the cephalic vein. Renal Ultrasound 06/23/17 0900 Signed Impressions: Service Date/Time: Friday, June 23, 2017 08:07 - CONCLUSION: No evidence of hydronephrosis. Rey Randall MD Head CT 06/22/17 0000 Signed Impressions: Service Date/Time: Thursday, June 22, 2017 16:07 - CONCLUSION: Left mastoid fluid. Joao Fontaine MD Abdomen/Pelvis CT 06/22/17 0000 Signed Impressions: Service Date/Time: Thursday, June 22, 2017 16:10 - CONCLUSION: Bilateral nonobstructing renal calculi. Moderate right hydronephrosis and hydroureter identified without obvious ureteral stone. There is no perirectal edema and a moderate amount of stool in the rectosigmoid and mild bowel wall thickening involving the anorectal region suggesting proctitis. Joao Fontaine MD Objective Remarks GENERAL: No distress. SKIN: Warm and dry. No rash HEAD: Atraumatic. Normocephalic. EYES: Pupils equal and round. No conjunctival icterus. No injection or drainage. ENT: No nasal bleeding or discharge. Swelling and firmness around right and left parotid gland. Tender to palpation on the left. NECK: Trachea midline. No JVD. Right IJ in place. Tenderness around left side of neck. CARDIOVASCULAR: Irregular irregular, tachycardic. RESPIRATORY: No accessory muscle use. Clear to auscultation. Breath sounds equal bilaterally. No adventitious sounds. GASTROINTESTINAL: Abdomen soft, non-tender, nondistended. Active bowel sounds appreciated. MUSCULOSKELETAL: Extremities with trace to 1+ bilateral lower external edema. No obvious deformities. NEUROLOGICAL: Awake and alert. No obvious cranial nerve deficits. Motor grossly within normal limits. Five out of 5 muscle strength in the arms and legs. Normal speech. Hard of hearing, conversant. Date of Insertion: June 22, 2017 Line: Central Venous Catheter Side: Right Location: Internal, Jugular A/P Assessment and Plan Hemorrhagic shock/ Paroxysmal atrial fibrillation/ History of sick sinus syndrome/ Coronary artery disease with history of 5 stents Balanced blood product resuscitation completed. Echocardiogram 2018 revealed EF 65-70%. No regional motion abnormality. Cardiology consult appreciated. - Hold warfarin/chronic coagulation given active bleeding. - continue Sotalol. IV Lopressor as needed. - Hold losartan 50 mg daily in light of acute kidney injury - Holding atorvastatin 40 mg at night in light of elevated transaminases, now resolving. - follow up with cardiology. - palliative care consult appreciated. Discussed with son 06/29. Hospice consult appreciated. Pt now agreeable to going to SNF with hospice. Case management consulted for placement. Parotitis/ tonsillar mass Right parotid gland appears inflamed. Now left as well. CT scan: Soft tissue mass in the left tonsillar fossa region with extension towards the left parapharyngeal space concerning for a neoplasm; 3 mm calcification likely related to a stone in the right submandibular duct without asymmetry of the submandibular glands. ENT consult appreciated. - continue IV nafcillin and Flagyl. - outpt follow-up with ENT. Elevated INR S/p Vit K x 2. Off of anticoagulation. Fibrinogen level elevated and no fragmented red cells on peripheral smear, not consistent with DIC. INR improved. - follow INR. - vit K 5 mg x 1 07/01. Acute metabolic encephalopathy/ Uremic encephalopathy CT brain on admission revealed left fluid involving mastoid inflammation. Otherwise negative for acute hemorrhage or CVA. Resolved. - Morphine sulfate 1-2 mg every 4 hours as needed pain. - Frequent neurochecks. - Avoid long-acting sedation. At home on alprazolam 0.5 mg p.o. twice daily. - Holding acetaminophen due to elevated transaminases. History of severe bronchospasm Breathing is stable at this time. - Ipratropium aerosols every 6 hours/home medication will be continued - Wean oxygen by nasal cannula for goal SPO2 greater than 90% - Aggressive pulmonary toilet Acute kidney injury/ Right-sided hydronephrosis/ Hypokalemia CT abdomen/pelvis 06/22 revealed bilateral hydronephrosis/hydroureter right greater than left. Bilateral nonobstructing stones. Have discussed the case with interventional radiology and they recommend reversing anticoagulation, placing Dangelo, correcting shock, and repeating renal ultrasound in the morning. Repeat ultrasound 06/22 revealed no hydronephrosis. Creatinine 2 on admission. Improved. - Strict I/Os. - Avoid nephrotoxic drugs. - Dangelo. - follow BMP and replete lytes as needed. GI bleed/ Shock liver GI consult appreciated. EGD 06/28 with three gastric erosions. - pantoprazole daily. - ADAT. - D/c ASA. C diff PCR was positive. - continue IV Flagyl and PO Vanco. DVT Prophylaxis -- SCDs Holding pharmacologic DVT prophylaxis given acute bleeding Discharge Planning D/c to SNF with hospice when bed available Maciel Hernandez DO July 01, 2017 14:53
[2017-07-01] MEDS: MORPHINE SULFATE 4 MG/ML INJ IV PUSH PRN (18:02)
[2017-07-02] VITALS: BP 128/71; PULSE 65; RESP 19; TEMP 99.1; O2SAT 98
[2017-07-02] MEDS: METOPROLOL TARTRATE 25 MG TAB PO SCH ×4 (00:48→18:08)
[2017-07-02] MEDS: SODIUM CHLORIDE 0.9% IV SCH ×5 (00:48→16:00)
[2017-07-02] MEDS: NAFCILLIN IV SCH ×5 (00:48→16:00)
[2017-07-02] MEDS: CHLORHEXIDINE GLUCONATE 2 % 1 PACK (2 CLOTHS) TOP SCH (03:40)
[2017-07-02] MEDS: metroNIDAZOLE 500 MG INJ 100 ML IV SCH ×3 (03:40→15:00)
[2017-07-02 04:00] VITALS: BP 128/93; PULSE 68; RESP 17; TEMP 99.1; O2SAT 99
[2017-07-02] MEDS: RESP: IPRATROPIUM 0.5 MG/2.5 ML NEB NEB SCH ×3 (04:00→16:15)
[2017-07-02 04:49] LABS: INTERNATIONAL NORMALIZED RATIO 2.1 RATIO; PROTHROMBIN TIME - PATIENT 21.7 SEC (9.8-11.6)
[2017-07-02 04:50] LABS: HEMATOCRIT 35.7 % (35.0-46.0); HEMOGLOBIN 11.9 GM/DL (11.6-15.3); MEAN CELL VOLUME 92.8 FL (80.0-100.0); MEAN CORPUSCULAR HEMOGLOBIN 30.8 PG (27.0-34.0); MEAN CORPUSCULAR HGB CONC 33.2 % (32.0-36.0); MEAN PLATELET VOLUME 8.5 FL (7.0-11.0); PLATELET COUNT 213 TH/MM3 (150-450); RED BLOOD COUNT 3.85 MIL/MM3 (4.00-5.30); RED CELL DISTRIBUTION WIDTH 21.8 % (11.6-17.2); WHITE BLOOD COUNT 11.2 TH/MM3 (4.0-11.0)
[2017-07-02] MEDS: MORPHINE SULFATE 4 MG/ML INJ IV PUSH PRN ×3 (04:58→15:45)
[2017-07-02 05:51] LABS: BICARBONATE 15.7 MEQ/L (21.0-32.0); CALCIUM 7.3 MG/DL (8.5-10.1); CREATININE 0.88 MG/DL (0.50-1.00); MAGNESIUM 1.4 MG/DL (1.5-2.5)
[2017-07-02 06:09] LABS: CALCIUM-PROTEIN CORRECTED 8.8 MG/DL (8.5-10.1); TOTAL PROTEIN 4.5 GM/DL (6.4-8.2)
[2017-07-02] MEDS: CHOLESTYRAMINE 4 GM PACKET PO SCH (07:41)
[2017-07-02] MEDS: VANCOMYCIN 500 MG VIAL (FOR ORAL USE ONLY) PO SCH ×3 (07:41→18:07)
[2017-07-02] MEDS: POTASSIUM CHLORIDE 25 MEQ EFFERVESCENT TAB PO PRN (07:42)
[2017-07-02] MEDS: FERROUS SULFATE 325 MG (65 MG ELEMENTAL IRON) TAB PO SCH (07:42)
[2017-07-02] MEDS: FOLIC ACID 1 MG TAB PO SCH (07:42)
[2017-07-02] MEDS: PANTOPRAZOLE SOD 40 MG DELAYED RELEASE TAB PO SCH (07:42)
[2017-07-02] MEDS: SOTALOL HCL 80 MG TAB PO SCH (07:42)
[2017-07-02] MEDS: MULTIVITAMINS/MINERALS THERAPEUTIC TAB PO SCH (07:43)
[2017-07-02 08:00] VITALS: BP 93/51; PULSE 101; RESP 20; TEMP 99.1; O2SAT 100
[2017-07-02 08:10] VITALS: O2SAT 98
[2017-07-02] MEDS ORDERED: METO25TA3 PO (10:32)
[2017-07-02] MEDS ORDERED: AUGM875T3 PO (10:32)
[2017-07-02] MEDS ORDERED: OXYC1CAP PO (10:32)
[2017-07-02] MEDS ORDERED: PANT40TA3 PO (10:32)
[2017-07-02] MEDS ORDERED: ALPR.25 PO (10:32)
[2017-07-02] MEDS ORDERED: CHOL4POW4 PO (10:32)
--- NOTE | 2017-07-02 10:34 | HHI.DCPOC ---
Discharge Care Plan Diagnosis: (1) GI bleed (2) Chronic anticoagulation (3) Generalized weakness (4) History of Clostridium difficile colitis (5) Parotitis (6) Atrial fibrillation (7) Tonsillar mass (8) Debility (9) Depressed Goals to Promote Your Health * To prevent worsening of your condition and complications * To maintain your health at the optimal level Directions to Meet Your Goals Take your medications as prescribed Follow your dietary instruction Follow activity as directed Keep your appointments as scheduled Take your immunizations and boosters as scheduled If your symptoms worsen call your PCP, if no PCP go to Urgent Care Center or Emergency Room Smoking is Dangerous to Your Health. Avoid second hand smoke Call the 24-hour hour crisis hotline for domestic abuse at Maciel Hernandez DO July 02, 2017 10:34
--- NOTE | 2017-07-02 10:44 | HHI.DS ---
Discharge Summary Admission Date June 22, 2017 at 14:34 Discharge Date: July 02, 2017 Admitting Diagnosis hemorrhagic shock, gi bleed, anemia, anticoagulated (1) Chronic anticoagulation ICD Code: Z79.01 - Chronic anticoagulation Status: Acute (2) GI bleed ICD Code: K92.2 - GI bleed Diagnosis: Principal Status: Resolved (3) Tonsillar mass ICD Code: R22.0 - Localized swelling, mass and lump, head Diagnosis: Principal (4) Generalized weakness ICD Code: R53.1 - Weakness Diagnosis: Principal (5) History of Clostridium difficile colitis ICD Code: Z86.19 - Personal history of other infectious and parasitic diseases Diagnosis: Principal (6) Parotitis ICD Code: K11.20 - Sialoadenitis, unspecified Diagnosis: Principal (7) Hemorrhagic shock ICD Code: R57.8 - Other shock Diagnosis: Principal (8) Atrial fibrillation ICD Code: I48.91 - Unspecified atrial fibrillation Diagnosis: Principal (9) Debility ICD Code: R53.81 - Other malaise (10) Depressed ICD Code: F32.9 - Major depressive disorder, single episode, unspecified Diagnosis: Principal Procedures EGD Brief History - From Admission This is a 87yF from SNF who has history of afib on coumadin and presents with fatigue, found to have active GI bleeding with hypotension (sbp 60s). hgb 6.6, altered mental status. denies chest pain, sob, abdominal pain. patient is altered and full history unavailable. ROS otherwise negative. given 2L crystalloid and 2 units emergency release blood. bp improved slightly. recent history of c. diff, wbc elevated, hypothermic. CBC/BMP: 07/02/17 0421 07/02/17 0421 Significant Findings Laboratory Tests Test 06/29/17 12:00 06/30/17 05:30 07/01/17 05:45 07/02/17 04:21 Urine Turbidity HAZY (CLEAR) Urine Occult Blood TRACE (NEG) Urine Leukocyte Esterase LARGE (NEG) Urine RBC 10 /hpf (0-3) Urine Bacteria MANY /hpf (NONE) Urine Yeast with Hyphae OCC (NONE) Urine Yeast (Budding) OCC (NONE) White Blood Count 13.6 TH/MM3 (4.0-11.0) 11.2 TH/MM3 (4.0-11.0) 11.2 TH/MM3 (4.0-11.0) Red Blood Count 3.88 MIL/MM3 (4.00-5.30) 3.78 MIL/MM3 (4.00-5.30) 3.85 MIL/MM3 (4.00-5.30) Red Cell Distribution Width 20.7 % (11.6-17.2) 21.2 % (11.6-17.2) 21.8 % (11.6-17.2) Prothrombin Time 29.3 SEC (9.8-11.6) 40.0 SEC (9.8-11.6) 21.7 SEC (9.8-11.6) Total Protein 4.5 GM/DL (6.4-8.2) 4.5 GM/DL (6.4-8.2) 4.5 GM/DL (6.4-8.2) Albumin 1.8 GM/DL (3.4-5.0) Calcium Level 7.2 MG/DL (8.5-10.1) 7.1 MG/DL (8.5-10.1) 7.3 MG/DL (8.5-10.1) Phosphorus Level 1.9 MG/DL (2.5-4.9) Alanine Aminotransferase (ALT/SGPT) 55 U/L (10-53) Direct Bilirubin 0.3 MG/DL (0.0-0.2) Sodium Level 146 MEQ/L (136-145) Potassium Level 3.3 MEQ/L (3.5-5.1) Chloride Level 118 MEQ/L (98-107) 120 MEQ/L (98-107) 119 MEQ/L (98-107) Carbon Dioxide Level 16.8 MEQ/L (21.0-32.0) 16.3 MEQ/L (21.0-32.0) 15.7 MEQ/L (21.0-32.0) Estimat Glomerular Filtration Rate 60 ML/MIN (>89) 54 ML/MIN (>89) 61 ML/MIN (>89) Hematocrit 34.6 % (35.0-46.0) Random Glucose 117 MG/DL (74-106) Magnesium Level 1.4 MG/DL (1.5-2.5) 1.4 MG/DL (1.5-2.5) Imaging Last Impressions Chest X-Ray 06/29/17 0000 Signed Impressions: CONCLUSION: Slight interval worsening in aeration Neck CT 06/27/17 0000 Signed Impressions: CONCLUSION: 1. Soft tissue mass in the left tonsillar fossa region with extension towards the left parapharyngeal space concerning for a neoplasm. This area should be di rectly inspected. The soft tissue density within the parapharyngeal space could be related to extension of the mass versus adjacent adenopathy. 2. 3 mm calcification likely related to a stone in the right submandibular duct without asymmetry of the submandibular glands. Maxillofacial CT 06/27/17 0000 Signed Impressions: CONCLUSION: 1. Mucosal thickening in the right maxillary sinus. 2. No evidence of fracture or underlying bony abnormality. 3. No evidence of abscess. Upper Extremity Ultrasound 06/26/17 0000 Signed Impressions: CONCLUSION: 1. No evidence of deep venous thrombosis left upper extremity. 2. Superficial thrombosis in the cephalic vein. Renal Ultrasound 06/23/17 0900 Signed Impressions: Service Date/Time: Friday, June 23, 2017 08:07 - CONCLUSION: No evidence of hydronephrosis. Rey Randall MD Head CT 06/22/17 0000 Signed Impressions: Service Date/Time: Thursday, June 22, 2017 16:07 - CONCLUSION: Left mastoid fluid. Joao Fontaine MD Abdomen/Pelvis CT 06/22/17 0000 Signed Impressions: Service Date/Time: Thursday, June 22, 2017 16:10 - CONCLUSION: Bilateral nonobstructing renal calculi. Moderate right hydronephrosis and hydroureter identified without obvious ureteral stone. There is no perirectal edema and a moderate amount of stool in the rectosigmoid and mild bowel wall thickening involving the anorectal region suggesting proctitis. Joao Fontaine MD PE at Discharge GENERAL: No distress. SKIN: Warm and dry. No rash HEAD: Atraumatic. Normocephalic. EYES: Pupils equal and round. No conjunctival icterus. No injection or drainage. ENT: No nasal bleeding or discharge. Swelling and firmness around right and left parotid gland. Tender to palpation on the left. NECK: Trachea midline. No JVD. Right IJ in place. Tenderness around left side of neck. CARDIOVASCULAR: Irregular irregular, tachycardic. RESPIRATORY: No accessory muscle use. Clear to auscultation. Breath sounds equal bilaterally. No adventitious sounds. GASTROINTESTINAL: Abdomen soft, non-tender, nondistended. Active bowel sounds appreciated. MUSCULOSKELETAL: Extremities with trace to 1+ bilateral lower external edema. No obvious deformities. NEUROLOGICAL: Awake and alert. No obvious cranial nerve deficits. Motor grossly within normal limits. Five out of 5 muscle strength in the arms and legs. Normal speech. Hard of hearing, conversant. Pt update on day of discharge The pt stated that she did not want more needle-sticks. She wanted to leave the hospital. Her goal is to pass away and to join her . Discussed with nursing at the bedside. Hospital Course Hemorrhagic shock/ Paroxysmal atrial fibrillation/ History of sick sinus syndrome/ Coronary artery disease with history of 5 stents The pt received blood product resuscitation. Echocardiogram 2017 revealed EF 65- 70%. No regional motion abnormality. Cardiology was consulted. We held anticoagulation given active bleeding. She received vitamin K. We continued Sotalol and used IV Lopressor as needed. We held losartan 50 mg daily in light of acute kidney injury. We also held atorvastatin in light of elevated transaminases. Palliative care was consulted. After further discussion with her son hospice was then consulted. Pt was agreeable to going to SNF with hospice care following. Case management was consulted for assistance with placement. Discussed with hospice again on 07/02, and the pt is now accepted at the hospice care center. The pt will now be discharged to the hospice care center. Parotitis/ tonsillar mass Right parotid gland became inflamed at first, and then the left parotid gland also became involved. CT scan: Soft tissue mass in the left tonsillar fossa region with extension towards the left parapharyngeal space concerning for a neoplasm; 3 mm calcification likely related to a stone in the right submandibular duct without asymmetry of the submandibular glands. ENT was consulted. We started IV nafcillin and Flagyl. Her parotitis improved. She will follow up with ENT as an outpt. Acute metabolic encephalopathy/ Uremic encephalopathy CT brain on admission negative for acute hemorrhage or CVA. Her symptoms resolved. Acute kidney injury/ Right-sided hydronephrosis/ Hypokalemia CT abdomen/pelvis 06/22 revealed bilateral hydronephrosis/hydroureter right greater than left. Bilateral nonobstructing stones. Repeat ultrasound 06/22 revealed no hydronephrosis. Creatinine 2 on admission. Improved with fluids. GI bleed/ Shock liver GI was consulted. EGD 06/28 with three gastric erosions. She will continue pantoprazole daily. We discontinued ASA and anticoagulation. C diff PCR was positive. The pt completed a course of IV Flagyl and PO Vanco. Pt Condition on Discharge: Stable Discharge Disposition: Hospice/Med Facility Discharge Time: > 30 minutes Discharge Instructions DIET: Follow Instructions for: As Tolerated, No Restrictions Activities you can perform: Regular-No Restrictions Follow up Referrals: Cardiology - 1 Week with Devyn Fajardo MD Ear Nose Throat - [address] Buck Gastroenterology - 2 Weeks with Clayton De Leon MD PCP Follow-up - 1 Week New Medications: Amoxicillin-Clavulanate (Augmentin) 875-125 Mg Tab 1 TAB PO BID for Infection, #14 TAB 0 Refills Furosemide (Lasix) 20 Mg Tab 20 MG PO DAILY for Swelling, #30 TAB 0 Refills Oxycodone (Oxycodone) 5 Mg Cap 5 MG PO Q4H PRN for PAIN, #10 CAP 0 Refills Potassium Chloride ER (Potassium Chloride ER) 20 Meq Tab 20 MEQ PO DAILY for Electrolyte Replacement, #30 TAB 0 Refills Cholestyramine (Cholestyramine) 4 Gm/Pkt Powd 4 GM PO Q12HR for Diarrhea, #30 PACKET 1 packet contains 4 grams of cholestyramine. Metoprolol Tartrate (Metoprolol Tartrate) 25 Mg Tab 25 MG PO Q8H for Heart rate, #90 TAB Pantoprazole (Pantoprazole) 40 Mg Tab 40 MG PO DAILY for stomach, #30 TAB Continued Medications: Acetaminophen (APAP Extra Strength) 500 Mg Tab 500 MG PO Q6HR PRN for PAIN SCALE 1 TO 10, TAB Alprazolam (Xanax) 0.25 Mg Tab 0.25 MG PO BID PRN for ANXIETY, #10 TAB 0 Refills (This prescription has been renewed) Ferrous Sulfate (Ferrous Sulfate) 325 Mg (65 Mg Iron) Tablet 325 MG PO DAILY for Nutritional Supplement, #30 TAB 0 Refills Guaifenesin (Guaifenesin ER) 600 Mg Tab.er.12h 600 MG PO BID PRN for NASAL CONGESTION AND/OR COUGH Ipratropium Neb (Ipratropium Neb) 0.5 Mg/2.5 Ml Amp 0.5 MG NEB Q6HR NEB for Breathing Treatment, NEBULE 0 Refills Sotalol (Sotalol) 80 Mg Tab 120 MG PO BID for Regulate Heart Beat, #60 TAB 0 Refills Discontinued Medications: Aspirin DR (Aspir-81) 81 Mg Tabdr 81 MG PO Patel, , W, Th, Sa Atorvastatin (Atorvastatin) 40 Mg Tab 40 MG PO HS for Cholesterol Management, #30 TAB 0 Refills Carvedilol (Carvedilol) 25 Mg Tab 25 MG PO BID, #60 TAB 0 Refills Coenzyme Q10 (Ubidecarenone) (Co Q-10) 50 Mg-5 Unit Cap 200 MG PO DAILY Diazepam (Valium) 2 Mg Tab 2 MG PO DAILY PRN for RECTAL SPASMS, TAB 0 Refills Diltiazem CD 24 HR (Diltiazem CD 24 HR) 120 Mg Caper 120 MG PO DAILY for Blood Pressure Management, #30 CAP Folic Acid (Folic Acid) 0.4 Mg Tab 400 MCG PO DAILY for Nutritional Supplement, TAB 0 Refills Guaifenesin/Dextromethorphan (Robitussin Cough-Chest Dm Liq) 100 Mg-5 Mg/5 Ml Liquid 10 ML PO Q6HR PRN for COUGH Losartan (Losartan) 50 Mg Tab 50 MG PO DAILY for Blood Pressure Management, #30 TAB 0 Refills Multiple Vitamins W/ Minerals (Centrum) 1 Chew 1 TAB CHEW DAILY for Nutritional Supplement, TAB 0 Refills Prednisone (Prednisone) 10 Mg Tab 10 MG PO DAILY, TAB 0 Refills Warfarin (Coumadin) 1 Mg Tab 0.5 MG PO DAILY for Prevent Blood Clot, #30 TAB 0 Refills Maciel Hernandez DO July 02, 2017 10:44
[2017-07-02] MEDS ORDERED: POTA-163 PO (10:46)
[2017-07-02] MEDS ORDERED: FURO1TAB62 PO (10:46)
--- NOTE | 2017-07-02 10:50 | HHI.PR ---
Subjective Remarks The pt stated that she did not want more needle-sticks. She wanted to leave the hospital. Her goal is to pass away and to join her . Discussed with nursing at the bedside. Objective Vitals Vital Signs Date Time Temp Pulse Resp B/P (MAP) Pulse Ox O2 Delivery O2 Flow Rate FiO2 07/02/17 08:10 98 21 07/02/17 08:00 99.1 101 20 100 93/51 (65) 07/02/17 08:00 101 07/02/17 08:00 100 Room Air 07/02/17 04:00 68 07/02/17 04:00 99.1 68 17 128/93 (105) 99 07/02/17 00:00 65 07/02/17 00:00 99.1 65 19 128/71 (90) 98 07/01/17 20:57 99 07/01/17 20:00 68 07/01/17 20:00 99.3 68 16 123/60 (81) 97 07/01/17 19:00 97 Room Air 07/01/17 16:00 100.0 86 24 120/59 (79) 97 113/50 (71) 07/01/17 16:00 86 07/01/17 12:00 68 07/01/17 12:00 98.6 68 20 98 I/O 07/01/17 07/01/17 07/01/17 07/02/17 07/02/17 07/02/17 07:00 15:00 23:00 07:00 15:00 23:00 Intake Total 480 ml 2080 ml 240 ml Output Total 900 ml 800 ml 950 ml Balance -420 ml 1280 ml -710 ml Intake Oral 480 ml 480 ml 240 ml IV Total 1600 ml Output Urine Total 900 ml 800 ml 950 ml # Bowel Movements 0 1 1 Result Diagram: 07/02/17 0421 07/02/17 0421 Imaging Last Impressions Chest X-Ray 06/29/17 0000 Signed Impressions: CONCLUSION: Slight interval worsening in aeration Neck CT 06/27/17 0000 Signed Impressions: CONCLUSION: 1. Soft tissue mass in the left tonsillar fossa region with extension towards the left parapharyngeal space concerning for a neoplasm. This area should be di rectly inspected. The soft tissue density within the parapharyngeal space could be related to extension of the mass versus adjacent adenopathy. 2. 3 mm calcification likely related to a stone in the right submandibular duct without asymmetry of the submandibular glands. Maxillofacial CT 06/27/17 0000 Signed Impressions: CONCLUSION: 1. Mucosal thickening in the right maxillary sinus. 2. No evidence of fracture or underlying bony abnormality. 3. No evidence of abscess. Upper Extremity Ultrasound 06/26/17 0000 Signed Impressions: CONCLUSION: 1. No evidence of deep venous thrombosis left upper extremity. 2. Superficial thrombosis in the cephalic vein. Renal Ultrasound 06/23/17 0900 Signed Impressions: Service Date/Time: Friday, June 23, 2017 08:07 - CONCLUSION: No evidence of hydronephrosis. Rey Randall MD Head CT 06/22/17 0000 Signed Impressions: Service Date/Time: Thursday, June 22, 2017 16:07 - CONCLUSION: Left mastoid fluid. Joao Fontaine MD Abdomen/Pelvis CT 06/22/17 0000 Signed Impressions: Service Date/Time: Thursday, June 22, 2017 16:10 - CONCLUSION: Bilateral nonobstructing renal calculi. Moderate right hydronephrosis and hydroureter identified without obvious ureteral stone. There is no perirectal edema and a moderate amount of stool in the rectosigmoid and mild bowel wall thickening involving the anorectal region suggesting proctitis. Joao Fontaine MD Objective Remarks GENERAL: No distress. SKIN: Warm and dry. No rash HEAD: Atraumatic. Normocephalic. EYES: Pupils equal and round. No conjunctival icterus. No injection or drainage. ENT: No nasal bleeding or discharge. Swelling and firmness around right and left parotid gland. Tender to palpation on the left. NECK: Trachea midline. No JVD. Right IJ in place. Tenderness around left side of neck. CARDIOVASCULAR: Irregular irregular, tachycardic. RESPIRATORY: No accessory muscle use. Clear to auscultation. Breath sounds equal bilaterally. No adventitious sounds. GASTROINTESTINAL: Abdomen soft, non-tender, nondistended. Active bowel sounds appreciated. MUSCULOSKELETAL: Edema noted in upper and lower extremities. No obvious deformities. NEUROLOGICAL: Awake and alert. No obvious cranial nerve deficits. Motor grossly within normal limits. Five out of 5 muscle strength in the arms and legs. Normal speech. Hard of hearing, conversant. Procedures EGD Date of Insertion: June 22, 2017 Line: Central Venous Catheter Side: Right Location: Internal, Jugular A/P Problem List: (1) Chronic anticoagulation ICD Code: Z79.01 - Chronic anticoagulation Status: Acute (2) GI bleed ICD Code: K92.2 - GI bleed Status: Resolved (3) Tonsillar mass ICD Code: R22.0 - Localized swelling, mass and lump, head (4) Generalized weakness ICD Code: R53.1 - Weakness (5) History of Clostridium difficile colitis ICD Code: Z86.19 - Personal history of other infectious and parasitic diseases (6) Parotitis ICD Code: K11.20 - Sialoadenitis, unspecified (7) Hemorrhagic shock ICD Code: R57.8 - Other shock (8) Atrial fibrillation ICD Code: I48.91 - Unspecified atrial fibrillation (9) Debility ICD Code: R53.81 - Other malaise (10) Depressed ICD Code: F32.9 - Major depressive disorder, single episode, unspecified Assessment and Plan Hemorrhagic shock/ Paroxysmal atrial fibrillation/ History of sick sinus syndrome/ Coronary artery disease with history of 5 stents Balanced blood product resuscitation completed. Echocardiogram 2018 revealed EF 65-70%. No regional motion abnormality. Cardiology consult appreciated. - Hold warfarin/chronic coagulation given active bleeding. - continue Sotalol. IV Lopressor as needed. - Hold losartan 50 mg daily in light of acute kidney injury. - Holding atorvastatin 40 mg at night in light of elevated transaminases, now resolving. - follow up with cardiology. - palliative care consult appreciated. Discussed with son 06/29. Hospice consult appreciated. Pt now agreeable to going to SNF with hospice. Case management consulted for placement. Parotitis/ tonsillar mass Right parotid gland appears inflamed. Now left as well. CT scan: Soft tissue mass in the left tonsillar fossa region with extension towards the left parapharyngeal space concerning for a neoplasm; 3 mm calcification likely related to a stone in the right submandibular duct without asymmetry of the submandibular glands. ENT consult appreciated. - continue IV nafcillin and Flagyl. Complete course of Augmentin upon discharge. - outpt follow-up with ENT. Elevated INR S/p Vit K x 3. Off of anticoagulation. Fibrinogen level elevated and no fragmented red cells on peripheral smear, not consistent with DIC. INR improved. - the pt would like to avoid future lab draws so will not follow INR. Acute metabolic encephalopathy/ Uremic encephalopathy CT brain on admission revealed left fluid involving mastoid inflammation. Otherwise negative for acute hemorrhage or CVA. Resolved. - neurochecks. - Avoid long-acting sedation Xanax as needed. - Tylenol and oxycodone as needed for pain. History of severe bronchospasm Breathing is stable at this time. - Ipratropium aerosols every 6 hours/home medication will be continued - Wean oxygen by nasal cannula for goal SPO2 greater than 90% - Aggressive pulmonary toilet Acute kidney injury/ Right-sided hydronephrosis/ Hypokalemia CT abdomen/pelvis 06/22 revealed bilateral hydronephrosis/hydroureter right greater than left. Bilateral nonobstructing stones. Have discussed the case with interventional radiology and they recommend reversing anticoagulation, placing Dangelo, correcting shock, and repeating renal ultrasound in the morning. Repeat ultrasound 06/22 revealed no hydronephrosis. Creatinine 2 on admission. Improved. - Strict I/Os. - Avoid nephrotoxic drugs. - Dangelo. - will start Lasix with KCl supplementation as pt is fluid overloaded. GI bleed/ Shock liver GI consult appreciated. EGD 06/28 with three gastric erosions. - pantoprazole daily. - ADAT. - D/c ASA/ anticoagulation. - follow up with GI as an outpt. C diff PCR was positive. - continue IV Flagyl and PO Vanco. DVT Prophylaxis -- SCDs Holding pharmacologic DVT prophylaxis given acute bleeding Discharge Planning D/c to SNF with hospice when bed available. Discharge order is in. Problem Qualifiers (1) GI bleed: Qualified Codes: K92.2 - Gastrointestinal hemorrhage, unspecified Maciel Hernandez DO July 02, 2017 10:50
[2017-07-02 12:00] VITALS: BP 103/64; PULSE 132; RESP 20; TEMP 98.1; O2SAT 98
[2017-07-02 16:00] VITALS: BP 100/70; PULSE 76; RESP 15; TEMP 99.5; O2SAT 99
== END 2017-07-02 18:47 | disposition hospice, inpatient (51) | DRG 377 ==
LOC: PHED 13:02 → PHEDA 14:34 → N03A 18:20
PROVIDERS: ADMIT Hospitalist; ATTEND Hospitalist
PROC: 30233K1 Transfusion of Nonautologous Frozen Plasma into Peripheral Vein, Percutaneous Approach (ICD-10-PCS; principal; 2017-06-22)
PROC: 30233N1 Transfusion of Nonautologous Red Blood Cells into Peripheral Vein, Percutaneous Approach (ICD-10-PCS; 2017-06-22)
PROC: 30283B1 Transfusion of Nonautologous 4-Factor Prothrombin Complex Concentrate into Vein, Percutaneous Approach (ICD-10-PCS; 2017-06-22)
PROC: 02HV33Z Insertion of Infusion Device into Superior Vena Cava, Percutaneous Approach (ICD-10-PCS; 2017-06-22)
PROC: 0DJ08ZZ Inspection of Upper Intestinal Tract, Via Natural or Artificial Opening Endoscopic (ICD-10-PCS; 2017-06-28)
PROC: 0CJS8ZZ Inspection of Larynx, Via Natural or Artificial Opening Endoscopic (ICD-10-PCS; 2017-06-29)
DX: K25.4 Chronic or unspecified gastric ulcer with hemorrhage (principal); K72.00 Acute and subacute hepatic failure without coma; R57.1 Hypovolemic shock; E43 Unspecified severe protein-calorie malnutrition; N17.9 Acute kidney failure, unspecified; G93.41 Metabolic encephalopathy; A04.71 Enterocolitis due to Clostridium difficile, recurrent; E87.0 Hyperosmolality and hypernatremia; D68.32 Hemorrhagic disorder due to extrinsic circulating anticoagulants; D62 Acute posthemorrhagic anemia; N13.30 Unspecified hydronephrosis; E87.2 Acidosis; I82.612 Acute embolism and thrombosis of superficial veins of left upper extremity; T45.515A Adverse effect of anticoagulants, initial encounter; M19.90 Unspecified osteoarthritis, unspecified site; E78.5 Hyperlipidemia, unspecified; Z96.653 Presence of artificial knee joint, bilateral; I10 Essential (primary) hypertension; Z66 Do not resuscitate; R73.9 Hyperglycemia, unspecified; I48.0 Paroxysmal atrial fibrillation; I34.0 Nonrheumatic mitral (valve) insufficiency; I34.1 Nonrheumatic mitral (valve) prolapse; I25.10 Atherosclerotic heart disease of native coronary artery without angina pectoris; K11.21 Acute sialoadenitis; H90.5 Unspecified sensorineural hearing loss; I49.5 Sick sinus syndrome; F32.9 Major depressive disorder, single episode, unspecified; R74.0 Nonspecific elevation of levels of transaminase and lactic acid dehydrogenase [LDH]; K11.5 Sialolithiasis; D69.6 Thrombocytopenia, unspecified; E83.39 Other disorders of phosphorus metabolism; E87.6 Hypokalemia; E87.70 Fluid overload, unspecified; Z79.52 Long term (current) use of systemic steroids; Z95.5 Presence of coronary angioplasty implant and graft; Z95.0 Presence of cardiac pacemaker; Z79.82 Long term (current) use of aspirin; Z86.73 Personal history of transient ischemic attack (TIA), and cerebral infarction without residual deficits
CPT/HCPCS: 36430; 36556; 36620; 51702; 70450; 70486; 70490; 71045; 74176; 76775; 76937; 80048; 80053; 80076; 81001; 82140; 82947; 83010; 83605; 83615; 83735; 84100; 84132; 84155; 84443; 85007; 85014; 85018; 85025; 85027; 85379; 85384; 85610; 85730; 86850; 86900; 86901; 86920; 86927; 87040; 87077; 87086; 87106; 87186; 87493; 87641; 93005; 93971; 94150; 94640; 94664; 94667; 94668; 96360; 99292; C9113; J1160; J1940; J2270; J2370; J3475; J3480; J7030; J7040; J7050; J7644; P9016; P9017; P9047